=== PATIENT | male | born 1960 | race Caucasian/White ===

== ENCOUNTER → 2024-05-20 | Outpatient (CLI) | payer OTHER, SELFPAY ==
[2024-05-20 10:08] LABS: Absolute Lymphocyte Count 2.46 X10^3/uL (0.83-4.51); Absolute Neutrophil Count 3.4 X10^3/uL (2.0-7.7); Basophil# 0.05 X10^3/uL; Basophil% 0.7 % (0-1); Eosinophil# 0.32 X10^3/uL; Eosinophils% 4.7 % (0-5); Hemoglobin 13.8 g/dL (13.0-16.5); Lymphocyte # 2.46 X10^3/ul (0.83-4.51); Lymphocyte % 36.4 % (19-41); Mean Corp Hgb Conc 33.7 g/dL (32-36); Mean Corpuscular Hgb 29.7 pg (27.0-32.0); Mean Corpuscular Volume 88.2 fL (80-94); Mean Platelet Vol. 10.1 fl (6.2-12.0); Monocyte# 0.48 X10^3/uL; Monocyte% 7.1 % (0-10); NRBC Flagged by Analyzer 0 % (0-5); Neutrophil # 3.42 X10^3/uL (2.7-7.7); Neutrophil % 50.7 % (47-70); Platelet Count 266 K/mm3 (150-450); RBC Distribution Width CV 13.1 % (11.6-14.6); RBC Distribution Width SD 42.2 fl (35.1-43.9); Red Blood Count 4.65 M/mm3 (4.6-6.2); White Blood Count 6.8 K/mm3 (4.4-11.0)
[2024-05-20 10:42] LABS: ALB/GLOB Ratio 1.2 RATIO (0.9-2.4); AST(SGOT) 18 U/L (15-37); Alanine Aminotransfer ALT/SGPT 30 U/L (16-61); Albumin, Serum 3.8 g/dL (3.2-5.0); Alkaline Phosphatase 89 U/L (45-117); Anion Gap 5 (5-15); BUN 10 mg/dL (7-18); BUN/Creat Ratio 8.2 RATIO (10-20); Chloride 110 mmol/L (98-107); Cholesterol 187 mg/dL (200); Creatinine, Serum 1.22 mg/dL (0.70-1.30); EST Glomerular Filtration Rate 64 mL/min (>60); Est Glom Filt Rate - Afr Amer 77 mL/min (>60); Globulin 3.3 g/dL (2.2-4.2); Glucose 105 mg/dL (74-106); High Density Lipoprotein 44 mg/dL; Potassium 4.1 mmol/L (3.5-5.1); Protein, Total 7.1 g/dL (6.4-8.2); Sodium Level 141 mmol/L (136-145); Triglycerides 175 mg/dL; Very Low Density Lipoprotein 35 mg/dL (5-40)
[2024-05-20 13:12] LABS: HIV - WCH Non-Reactive (Nonreactive); Hepatitis C Antibody Non-Reactive (Nonreactive)
== END | disposition home or self-care (01) ==
PROVIDERS: PCP Family Medicine; Visit Provider Family Medicine
DX: Z00.00 Encounter for general adult medical examination without abnormal findings (principal); Z12.5 Encounter for screening for malignant neoplasm of prostate; Z13.1 Encounter for screening for diabetes mellitus; Z11.4 Encounter for screening for human immunodeficiency virus [HIV]; Z13.220 Encounter for screening for lipoid disorders; Z53.20 Procedure and treatment not carried out because of patient's decision for unspecified reasons
CPT/HCPCS: 36415; 80053; 80061; 84153; 85025; 86703; 86803; G0103

== ENCOUNTER → 2024-07-05 | Outpatient (CLI) | payer OTHER, SELFPAY ==
--- NOTE | 2024-07-05 | IMM_PTH ---
PATIENT: CELESTE PIKE LOC: [facility] U#:[id number] AGE/SX: 63/M ROOM: RE07/05/[address]: Dr. Eduardo Lynne MD : 1960 BED: DIS: 07/05/2024 SPEC #: [id number] RECD: 07/07/24 11:34 STATUS: STEPHANI REQ #: [id number] BESSY: 07/05/24 00:[address]: Eduardo Lynne DEPT: IMMUNOHISTOCHEMISTRY RECD BY: Bryan Claros ENTERED: 07/07/24 11:35 SP TYPE: IMMUNO OTHR DR: Beata Wing MD Tissues: A - PROSTATE RIGHT B - PROSTATE RIGHT C - PROSTATE RIGHT E - PROSTATE LEFT F - PROSTATE LEFT Procedures: 34BE12 (add) P40 (add) P40 (initial) PHYSICIAN & INSTITUTION [place] [id number] SPECIMEN INFORMATION: Tissue Source: A- Right apex, B- Right mid, C- Right base, E- Left mid, F- Left base Clinical Info: Elevated PSA Specimen Number: [id number] A, B, C, E ,F CPT code: 79800,99527e6 METHODOLOGY: Deparaffinized sections of prefer/formalin-fixed tissue or PAP/DQ stained slides are incubated with monoclonal/polyclonal antibodies/oligonucleotide probes. Localization is made via biotin free immunoperoxidase method. Appropriate controls are performed and reacted as expected. Results on target cell population are indicated in the following table: RESULTS: ANTIBODY / CLONE RESULT Block A P40 (BC28) negative 34BE12 (34BE12) negative Block B P40 (BC28) positive 34BE12 (34BE12) positive Block C P40 (BC28) positive 34BE12 (34BE12) positive Block E P40 (BC28) negative 34BE12 (34BE12) negative Block F P40 (BC28) negative 34BE12 (34BE12) negative These tests were developed and their performance characteristics determined by [facility]. They may not have been cleared or approved by the U.S. Food and Drug Administration. The FDA has determined that such clearance or approval is not necessary. The above immunohistochemical/dualISH markers are ordered and reviewed by the Pathologist. INTERPRETATION: A. Prostate, right apex, core biopsy: Adenocarcinoma. B. Prostate, right mid, core biopsy: Focal high-grade prostatic intraepithelial neoplasia (HGPIN). C. Prostate, right base, core biopsy: Focal high-grade prostatic intraepithelial neoplasia (HGPIN). E. Prostate, left mid, core biopsy: Adenocarcinoma. F. Prostate, left base, core biopsy: Adenocarcinoma. RADHA/mr 07/08/2024
--- NOTE | 2024-07-05 | PROSBIL_PTH ---
PATIENT: CELESTE PIKE LOC: [facility] U#:[id number] AGE/SX: 63/M ROOM: RE07/05/[address]: Dr. Eduardo Lynne MD : 1960 BED: DIS: 07/05/2024 SPEC #: [id number] RECD: 07/05/24 15:00 STATUS: STEPHANI EUSEBIO #: [id number] BESSY: 07/05/24 00:[address]: Eduardo Lynne DEPT: SURGICAL PATHOLOGY RECD BY: Alejandro Gibson ENTERED: 07/06/24 08:03 SP TYPE: PROST BX OT DR: Beata Wing MD Tissues: A - PROSTATE RIGHT B - PROSTATE RIGHT C - PROSTATE RIGHT D - PROSTATE LEFT E - PROSTATE LEFT F - PROSTATE LEFT Procedures: PROSTATE BX HEADER OPERATION: Prostate biopsy PRE-OP DIAGNOSIS: Elevated PSA TISSUE SUBMITTED: A - Right apex, B - Right mid, C - Right base, D - Left apex, E - Left mid, F - Left base MICROSCOPIC DIAGNOSIS A. Right prostate, apex, core biopsy: Prostatic adenocarcinoma. Lalo grade: 3+3=6 Number of cores involved: 1/2 Proportion of tissue involved: <5% Perineural invasion: Not identified. Greatest tumor length: <0.1cm See comment. B. Right prostate, mid, core biopsy: Focal high-grade prostatic intraepithelial neoplasia (HGPIN). See comment. C. Right prostate, base, core biopsy: Focal high-grade prostatic intraepithelial neoplasia (HGPIN). See comment. D. Left prostate, apex, core biopsy: Prostatic adenocarcinoma. Lalo grade: 3+3=6 Number of cores involved: 1/2 Proportion of tissue involved: ~15-20% Perineural invasion: Not identified. Greatest tumor length: 0.7cm E. Left prostate, mid, core biopsy: Prostatic adenocarcinoma. Lalo grade: 3+4=7 Number of cores involved: 2/2 Proportion of tissue involved: ~15% Perineural invasion: Not identified. Greatest tumor length: 0.4 cm See comment. F. Left prostate, base, core biopsy: Prostatic adenocarcinoma. Lalo grade: 3+4=7 Number of cores involved: 2/2 Proportion of tissue involved: ~30% Perineural invasion: Present, focal Greatest tumor length: 1.2cm, discontinuous. SJ 07/07/2024 COMMENT A, B, C, E & F. Immunohistochemistry ([id number]) supports the above diagnosis. Case has been reviewed in consultation with Dr. Terrazas who concurs with the above diagnosis. IDC:AM MICROSCOPIC DESCRIPTION Slides are reviewed. GROSS DESCRIPTION A - Received is one container designated prostate, right apex. The specimen consists of two elongated fragments of light lynch-white soft tissue each measuring 2.0 cm in length and 0.1 cm in diameter. The specimen is totally submitted in one cassette. B - Received is one container designated prostate, right mid. The specimen consists of two elongated fragments of light lynch-white soft tissue each measuring 1.8 cm in length and 0.1 cm in diameter. The specimen is totally submitted in one cassette. C - Received is one container designated prostate, right base. The specimen consists of two elongated fragments of light lynch-white soft tissue each measuring 1.9 cm in length and 0.1 cm in diameter. The specimen is totally submitted in one cassette. D - Received is one container designated prostate, left apex. The specimen consists of two elongated fragments of light lynch-white soft tissue measuring 1.2 and 2.4 cm in length and 0.1 cm in diameter. The specimen is totally submitted in one cassette. E - Received is one container designated prostate, left mid. The specimen consists of two elongated fragments of light lynch-white soft tissue measuring 1.2 and 1.5 cm in length and 0.1 cm in diameter. The specimen is totally submitted in one cassette. F - Received is one container designated prostate, left base. The specimen consists of two elongated fragments of light lynch-white soft tissue measuring 1.5 and 1.7 cm in length and 0.1 cm in diameter. The specimen is totally submitted in one cassette. / RADHA/ 07/06/2024 TC:0 CPT: 84174 x6
== END | disposition home or self-care (01) ==
LOC: LABSPEC 15:35
PROVIDERS: PCP Family Medicine; Referring Provider Urology; Visit Provider Urology
DX: R97.20 Elevated prostate specific antigen [PSA] (principal)
CPT/HCPCS: 88305; 88341; 88342; G0416

== ENCOUNTER → 2024-07-22 | Outpatient (CLI) | payer OTHER, SELFPAY ==
--- NOTE | 2024-07-22 07:56 | CT_ITS ---
STUDY: CT ABDOMEN AND PELVIS WITH CONTRAST REASON FOR EXAM: Male, 63 years old. PROSTATE CA RADIATION DOSAGE (If Supplied By Facility): CTDIvol = ( 14.70 ) mGy, DLP = ( 914.98 ) mGycm TECHNIQUE: Transaxial images were obtained from the dome of the diaphragm to the symphysis pubis with oral contrast. Oral and amp; IV Readi-CAT and amp; 100mL Isovue-300 was administered. Sagittal and coronal images were reconstructed. Individualized dose optimization techniques were used for this CT. COMPARISON: None. FINDINGS: The visualized lung bases are unremarkable. Coronary artery calcification. There is decreased attenuation of the liver consistent with steatosis. Normal gallbladder and extrahepatic biliary system. Normal spleen. Normal pancreas. Normal bilateral adrenal glands. Normal right kidney. Normal left kidney. There is a small hiatal hernia. Normal small intestine. Normal colon. The appendix is visualized and appears normal. There is scattered atherosclerotic calcification of the abdominal aorta, without a demonstrated aneurysm. Normal inferior vena cava. There is a small retroperitoneal lymphadenopathy with enlarged nodes no greater than 10mm in the short axis diameter. Normal urinary bladder. There is enlargement of the prostate gland. Prostate measures 4.2 cm x 4.2 cm. Calcifications are seen within it. There is indentation of the bladder base. Normal abdominal wall. There are mild degenerative changes of the visualized lumbar spine. CT/Abdomen/Pelvis WITH Contrast IMPRESSION: Mild enlargement of the prostate gland. Fatty infiltration of the liver. Electronically Signed: Melvin Upton MD at 12:27 EDT ,
[2024-07-22 08:25] LABS: CREATININE FINGERSTICK < 1.0 mg/dL (0.70-1.30); EGFR FINGERSTICK > 60.0000 mL/min (>60)
== END | disposition home or self-care (01) ==
LOC: CT 07:54
PROVIDERS: PCP Family Medicine; Referring Provider Urology; Visit Provider Urology
DX: Z01.812 Encounter for preprocedural laboratory examination (principal); C61 Malignant neoplasm of prostate
CPT/HCPCS: 74177; Q9967

== ENCOUNTER → 2024-07-28 | Outpatient (CLI) | payer OTHER, SELFPAY ==
--- NOTE | 2024-07-28 08:00 | NM_ITS ---
CLINICAL: 63-year-old male with history of prostate carcinoma. WHOLE BODY 99m Tc MDP RADIONUCLIDE BONE SCINTIGRAPHY COMPARISON: CT of the abdomen-pelvis report 07/22/2024 FINDINGS: Following the intravenous administration of 24.3 mCi of 99m Tc MDP, whole body bone images reveal: 1. Increased tracer uptake is identified in the knee articulations bilaterally, left hip, the mid cervical spine posteriorly on the left, fifth lumbar vertebra posteriorly on the right, the sternoclavicular compartment of the right shoulder, the acromioclavicular compartment of the left shoulder, the right wrist, the bilateral ankles (L > R). 2. The remaining skeletal structures are scintigraphically unremarkable with normal-appearing renal images and urinary bladder activity identified. Enhanced uptake is visualized in the bilateral proximal-distal tibial diaphyses most consistent with periostitis. NM/Bone Scan Whole Body IMPRESSION: 1. The increase in tracer defined in the knees bilaterally, the cervical and lumbar spine, left hip, the bilateral shoulders, right wrist and ankle articulations is most consistent with degenerative arthritis. 2. There is no definitive typical scintigraphic evidence of diffuse axial skeletal metastatic disease on the current examination. Electronically Signed: Kris Alexandre DO at 10:39 EDT ,
== END | disposition home or self-care (01) ==
LOC: NM 07:49
PROVIDERS: PCP Family Medicine; Referring Provider Urology; Visit Provider Urology
DX: C61 Malignant neoplasm of prostate (principal)
CPT/HCPCS: 78306; A9503

== ENCOUNTER → 2024-08-08 | Outpatient (CLI) | payer OTHER, SELFPAY | END | disposition home or self-care (01) | LOC: LAB 10:27 | PROVIDERS: PCP Family Medicine; Referring Provider Nurse Practitioner; Visit Provider Nurse Practitioner | DX: C61 Malignant neoplasm of prostate (principal) | CPT/HCPCS: 36415; 84153 ==

== ENCOUNTER 2024-09-07 07:56 | Observation (INO) | payer OTHER, SELFPAY ==
[2024-09-01 07:28] LABS: Hematocrit 42.4 % (40-54); Hemoglobin 14.3 g/dL (13.0-16.5); Mean Corp Hgb Conc 33.7 g/dL (32-36); Mean Corpuscular Hgb 29.7 pg (27.0-32.0); Mean Platelet Vol. 9.4 fl (6.2-12.0); Platelet Count 293 K/mm3 (150-450); RBC Distribution Width CV 12.7 % (11.6-14.6); RBC Distribution Width SD 41.1 fl (35.1-43.9); Red Blood Count 4.82 M/mm3 (4.6-6.2); White Blood Count 8.6 K/mm3 (4.4-11.0)
[2024-09-07] VITALS (18 sets, daily range): BP systolic 95–145; BP diastolic 66–91; PULSE 80–100; RESP 16–20; TEMP 36.2–37.8; O2SAT 93–100; BMI 26.6
[2024-09-07] MEDS: Lactated Ringers 1,000 ML 15 ML IV (06:39)
[2024-09-07] MEDS: Cefazolin 2 GM in Syringe IV (07:55)
[2024-09-07] MEDS: Bupivacaine Mpf 0.5% 30 ML VIAL (08:19)
[2024-09-07] MEDS: Ketorolac 15 MG/ML Vial IV ×2 (12:13→17:41)
[2024-09-07] MEDS: Ciprofloxacin 500 MG Tablet PO ×2 (14:04→22:26)
[2024-09-07] MEDS: 0.9% Saline Lock 10 ML Syringe IV (17:41)
[2024-09-07] MEDS: Docusate Sodium 100 MG Capsule 200 MG PO (22:26)
[2024-09-07] MEDS: DiphenhydrAMINE 25 MG Capsule PO (22:26)
[2024-09-08] MEDS: Ketorolac 15 MG/ML Vial IV ×2 (00:24→05:58)
[2024-09-08 02:30] VITALS: BP 117/66; PULSE 68; RESP 16; TEMP 36.6; O2SAT 98
[2024-09-08] MEDS: Mag Hydrox/Al Hydrox/Simeth 30 ML UDC PO (03:53)
[2024-09-08] MEDS: hydrOXYzine PAM 25 MG Capsule PO (03:55)
[2024-09-08] MEDS: 0.9% Saline Lock 10 ML Syringe IV (05:58)
[2024-09-08 06:11] VITALS: BP 131/67; PULSE 82; RESP 18; TEMP 36.6; O2SAT 92
[2024-09-08 07:57] VITALS: BP 117/70; PULSE 77; RESP 18; TEMP 36.8; O2SAT 97
[2024-09-08] MEDS: Docusate Sodium 100 MG Capsule 200 MG PO (09:15)
[2024-09-08] MEDS: Ciprofloxacin 500 MG Tablet PO (09:15)
[2024-09-08] MEDS: Acetaminophen 325 MG Tablet 650 MG PO (09:17)
== END 2024-09-08 11:21 | disposition home or self-care (01) ==
LOC: SDC 13:02 → MS3 13:02
PROVIDERS: Anesthesiology; Admitting Provider Urology; PCP Family Medicine; Referring Provider Urology; Visit Provider Urology
PROC: 0VT04ZZ Resection of Prostate, Percutaneous Endoscopic Approach (ICD-10-PCS; CPT 55866; principal; 2024-09-07 07:40)
DX: C61 Malignant neoplasm of prostate (principal); E78.00 Pure hypercholesterolemia, unspecified; Z79.899 Other long term (current) drug therapy
CPT/HCPCS: 55866; 00865; 36415; 85027; 86850; 86900; 86901; 88309; 93005; 94668; 96374; 96376; 99221; J7120; A4216; C1769; G0378; J2405

== ENCOUNTER → 2024-10-31 | Outpatient (CLI) | payer OTHER, SELFPAY ==
[2024-10-31 11:44] LABS: PSA,Total- Diagnostic 5.12 ng/mL (0.0-4.0)
== END | disposition home or self-care (01) ==
LOC: LAB 08:56
PROVIDERS: PCP Family Medicine; Referring Provider Urology; Visit Provider Urology
DX: C61 Malignant neoplasm of prostate (principal)
CPT/HCPCS: 36415; 84153

== ENCOUNTER → 2024-11-07 | Outpatient (CLI) | payer OTHER, SELFPAY ==
[2024-11-07 10:26] LABS: Hematocrit 41.4 % (40-54); Mean Corp Hgb Conc 33.8 g/dL (32-36); Mean Corpuscular Hgb 29.7 pg (27.0-32.0); Mean Corpuscular Volume 87.7 fL (80-94); Mean Platelet Vol. 9.6 fl (6.2-12.0); Platelet Count 256 K/mm3 (150-450); RBC Distribution Width SD 42.2 fl (35.1-43.9); Red Blood Count 4.72 M/mm3 (4.6-6.2); White Blood Count 7.8 K/mm3 (4.4-11.0)
[2024-11-07 11:01] LABS: ALB/GLOB Ratio 1.3 RATIO (0.9-2.4); AST(SGOT) 15 U/L (15-37); Alanine Aminotransfer ALT/SGPT 28 U/L (16-61); Albumin, Serum 3.9 g/dL (3.2-5.0); Alkaline Phosphatase 98 U/L (45-117); Anion Gap 4 (5-15); BUN 10 mg/dL (7-18); BUN/Creat Ratio 9.3 RATIO (10-20); Calcium,Total 9.1 mg/dL (8.5-10.1); Chloride 108 mmol/L (98-107); Creatinine, Serum 1.07 mg/dL (0.70-1.30); EST Glomerular Filtration Rate 74 mL/min (>60); Est Glom Filt Rate - Afr Amer 90 mL/min (>60); Globulin 3.1 g/dL (2.2-4.2); Glucose 127 mg/dL (74-106); Potassium 4.2 mmol/L (3.5-5.1); Sodium Level 139 mmol/L (136-145)
[2024-11-08 13:33] LABS: Hemoglobin A1c 5.9 % (3.8-5.6)
[2024-11-09 14:02] LABS: PSA,Total- Diagnostic 5.17 ng/mL (0.0-4.0)
== END | disposition home or self-care (01) ==
LOC: LAB 09:48
PROVIDERS: PCP Family Medicine; Referring Provider Urology; Visit Provider Urology
DX: C61 Malignant neoplasm of prostate (principal); R73.09 Other abnormal glucose; R97.20 Elevated prostate specific antigen [PSA]; R53.83 Other fatigue
CPT/HCPCS: 36415; 80053; 83036; 84153; 84443; 85027

== ENCOUNTER → 2024-11-15 | Outpatient (CLI) | payer OTHER, SELFPAY ==
--- NOTE | 2024-11-15 10:30 | PET_ITS ---
EXAMINATION: 18 F Pylarify PET-CT HISTORY: A 63-year-old male with history of primary prostate carcinoma presenting for restaging examination. COMPARISON EXAMINATION: None available INDEX LESION SIZE PROMISE SCORE SUV INTERPRETATION Lower pelvis, prostate gland 21.4-mm 2 17.36 Fulfills quantitative criteria for viable neoplasm TECHNIQUE: Following the intravenous administration of 9.0 mCi of 18 F Pylarify via the left antecubital fossa, image acquisitions of the head, neck, chest, abdomen and pelvis to the level of the mid thigh at 73 minutes post-tracer distribution reveal: The examination was interpreted using the EANM (Melody et al., Journal of Nuclear Medicine Molecular Imaging 44:1622, 2017) and PROMISE (Braulio et al., Journal of Nuclear Medicine 59:469, 2018) interpretive criteria. HEIGHT: 68 inches. WEIGHT: 175 lbs. PSMA expression score PROMISE criteria: High (3): SUV ? parotid-salivary gland, intermediate (2): SUV ? liver, low (1): > blood pool, < liver, (0): < blood pool. SUV reference values: Parotid glands 49.67. Normal liver parenchyma 9.2. Blood pool 2.8. FINDINGS: Head/Neck: There is normal physiologic distribution of the radiopharmaceutical identified in the bilateral parotid and submandibular glands. Normal uptake is identified in the nasal cavity. There is no evidence of abnormal increased radiopharmaceutical concentration on meticulous inspection of the cranial vault. CHEST: There is no evidence of abnormal increased radiotracer within the context of the bilateral hemithorax pulmonary parenchyma, mediastinal structures and right-left thoracic perihilum. Pertinent chest CT findings are as follows. Coronary arterial calcification is observed. Subcentimeter axillary soft tissue densities are ametabolic. There are no parenchymal densities-nodules defined in the right and left hemithorax with quantitatively significant increased F-18 Pylarify uptake. Abdomen/Pelvis: Facilitated uptake is noted in the lower pelvis associated with the prostate gland extending from the midline apex to the left base. The calculated maximal standard uptake value is 17.36. The PROMISE score is 2. The maximal axial diameter of the metabolic abnormality is 21.4-mm. Physiologic radiopharmaceutical concentration is otherwise noted in the hepatic and splenic parenchyma, visualized intestinal tract, right and left kidneys, urinary bladder. Review of CT of the abdomen and pelvis reveals the following. Calcified phlebolith formation is noted in the bilateral lower hemipelvis. Right and left inguinal soft tissue densities are ametabolic. There is atherosclerotic calcification defined in the abdominal aorta without evidence of dilatation-aneurysm formation. Pelvic arterial calcification is observed. SKELETAL: Degenerative changes are noted in the cervical, thoracic and lumbar spine without evidence of increased radiopharmaceutical concentration. PET/PET/CT Tumor Base -Thigh Subs IMPRESSION: 1. ABNORMAL EXAMINATION INDICATIVE OF MALIGNANT VIABLE NEOPLASM. 2. Increased tracer uptake noted in the lower pelvis associated with the prostate gland fulfills quantitative criteria for viable neoplasm. (Eiber et al., Journal of Nuclear Medicine 59:469, 2018). Electronic Signature Kris Alexandre DO Accurate Quantification of SUVs and standardized PROMISE scores for this report are calculated using the exclusive [employer], ([place].S. Patent No. [phone] [id number] [phone] [phone] [place] patent [id number] [phone] [id number] ). Standardization and correction of the FDG SUV metric exclusively available with [employer] intellectual property, allow for vendor non-specific objective quantitative sequential FDG PET-CT comparison and otherwise unobtainable optimization of the sensitivity and specificity of the examination. [email or web address] Electronically Signed: Kris Alexandre DO at 23:29 EST ,
== END | disposition home or self-care (01) ==
LOC: ONC 10:17
PROVIDERS: PCP Family Medicine; Referring Provider Urology; Visit Provider Urology
DX: C61 Malignant neoplasm of prostate (principal)
CPT/HCPCS: 78815; A9595

== ENCOUNTER 2024-12-07 06:11 | Day surgery (SDC) | payer OTHER, SELFPAY ==
[2024-12-07] VITALS (8 sets, daily range): BP systolic 86–138; BP diastolic 61–77; PULSE 60–78; RESP 12–18; TEMP 35.9–36.6; O2SAT 96–100; BMI 26.4
--- NOTE | 2024-12-07 06:48 | PRE.ANES_ITS ---
ASA Classification* ASA Classification ASA Classification: 2 Assessment & Plan Anesthesia* Anesthesia Assessment Anesthesia Assessment: Discussed sedation and/or anesthesia options, risks, benefits, and alternatives with patient/parents/legal guardian/POA. Questions invited. The patient/parents/legal guardian/POA seems to understand and agrees to proceed with anesthesia plan. Reviewed the physical assessment, medical history, allergy history and patient home medications list prior to surgery/procedure/anesthetic and documented any changes. Performed airway and anesthesia risk assessments. Anesthesia Type Anesthesia Type: MAC Anesthesia Focused Assessment* Temperature: 97.8 F Pulse Rate: 78 Blood Pressure: 138/77 Respiratory Rate: 16 Pulse Ox: 100 Airway Assessment Mouth opens: >3 cm Mallampati Score: II Focused Labs Anesthesia Preop lab: CBC WBC 7.8 K/mm3 (4.4-11.0) 11/07/24 09:55 11/07/24 RBC 4.72 M/mm3 (4.6-6.2) 11/07/24 09:55 11/07/24 Hgb 14.0 g/dL (13.0-16.5) 11/07/24 09:55 11/07/24 Hct 41.4 % (40-54) 11/07/24 09:55 11/07/24 Plt Count 256 K/mm3 (150-450) 11/07/24 09:55 11/07/24 CHEMISTRY Potassium 4.2 mmol/L (3.5-5.1) 11/07/24 09:55 11/07/24 Sodium 139 mmol/L (136-145) 11/07/24 09:55 11/07/24 BUN 10 mg/dL (7-18) 11/07/24 09:55 11/07/24 Creatinine 1.07 mg/dL (0.70-1.30) 11/07/24 09:55 11/07/24 Glucose 127 mg/dL (74-106) H 11/07/24 09:55 11/07/24 TSH 2.210 uIU/mL (0.358-3.740) 11/07/24 09:55 10/26 01/17 COAG Pre-Assessment Diagnosis/Proposed Procedure Planned Operative Procedure(s): COLONOSCOPY OA Anesthesia History Anesthesia History - electronic assembler group leader: Anesthesia History - electronic assembler group leader Hx Hospitalization No 12/05/24 14:35 Any Problems With Anesthesia No 12/05/24 14:35 Cholinesterase deficiency No 12/05/24 14:35 You/Your Family Experience No 12/05/24 14:35 fever (hyperthermia) with Relationship Recent Exposure to Contagious No 12/07/24 06:39 Disease Does patient have nerve No 12/05/24 14:35 stimulator Patient instructed to have device shut off --Does patient have Pacemaker No 12/07/24 06:39 or ICD? When Was Last Pacemaker Check QUESTION #4 FULL TEXT: You/Your Family Experience fever (hyperthermia) with Anesthesia Last Oral Intake Last Oral intake: Last Oral Intake NPO since 05:30 12/07/24 06:39 Meds taken in AM with sips of No 12/07/24 06:39 water? Meds patient instructed to take am of surgery PONV PONV - electronic assembler group leader: PONV - electronic assembler group leader Female No 12/05/24 14:35 HX of Motion Sickness Yes 12/05/24 14:35 HX of N/V After Surgery No 12/05/24 14:35 Non-Smoker Yes 12/05/24 14:35 Duration of Surgery greater No 12/05/24 14:35 than 60 minutes Number of Risk Factors 2 12/05/24 14:35 PONV Score Moderate Risk 12/05/24 14:35 Height & Weight Height & Weight: Anesthesia: Height & Weight Height 5 ft 9 in 12/07/24 06:39 Weight: 81 kg 12/07/24 06:39 Body Mass Index (BMI) 26.4 12/07/24 06:39 Respiratory Assessment Respiratory Assessment - electronic assembler group leader: Respiratory Tract Infection Hx - electronic assembler group leader Hx Respiratory Tract Infection No 12/05/24 14:35 STOP Sleep Apnea STOP Sleep Apnea - electronic assembler group leader: STOP Sleep Apnea - electronic assembler group leader Hx Hypertension No 12/05/24 14:35 Hx Sleep Apnea No 12/05/24 14:35 CPAP BIPAP Do you snore loudly (louder No 12/05/24 14:35 than talking or can be heard Do you often feel tired/ No 12/05/24 14:35 fatigued/ sleepy during daytime? Has anyone observed you stop No 12/05/24 14:35 breathing during sleep? STOP Results Negative 12/05/24 14:35 QUESTION #5 FULL TEXT : Do you snore loudly (louder than talking or can be heard through closed doors)? Tobacco Use History Tobacco Use History - electronic assembler group leader: Tobacco Use History - electronic assembler group leader Tobacco Use Smoking Status Never smoker 12/05/24 14:35 Hx Tobacco Use No 12/05/24 14:35 Years Smoking Packs Smoked per Day Smoking Cessation Date was within the last 15 years Hx Smoking Cessation Date Hx Smoking Cessation Counseling Hematologic Medial History Hematologic Hx - electronic assembler group leader: Hematologic Medical Hx - job interviewer Hx of Blood Transfusion No 12/05/24 14:35 Hx of Transfusion in last 3 No 12/05/24 14:35 Months Date of Last Transfusion (if within last 3 months) Ever experience any problems No 12/05/24 14:35 with transfusion(s)? Specify any problems Hx of Preganancy in last 3 N/A 12/05/24 14:35 Months Nurse Filling Out Transfusion DSCHRIBER 12/05/24 14:35 & Questions: Date: 12/05/24 12/05/24 14:35 Time: 14:35 12/05/24 14:35 Patient unable to answer at this time (ie. confused, unrespo /Reproduction History /Reproductive History - electronic assembler group leader: /Reproductive Hx- electronic assembler group leader Hx Now Gestational Age (in weeks): EDC: Hx Hx Para Hx Section SAB No 12/05/24 14:35 PFSH Medical History Hesitancy of micturition Elevated PSA Incontinence Family history of colon cancer in father Wears glasses Anxiety Prostate disease High cholesterol Difficulty swallowing Heartburn Non-smoker Home Medications ?Medication ?Instructions ?Recorded ?Last Taken ?Type diphenhydramine HCl 25 mg capsule 25 mg PO QHS 2 4 09/06/24 History (Benadryl) hydroxyzine HCl 25 mg tablet 25 mg PO BID PRN PRN anxi ety 08/24/24 Unknown History oxybutynin chloride 5 mg tablet 5 mg PO BID PRN bladde r spasms 10/05/24 Unknown History Allergy/AdvReac Type Severity Reaction Status Date / Time No Known Allergies Allergy Verified 12/07/24 06:38 Family History Father Colon cancer After lung cancer dx Surgical History History of prostatectomy History of prostate biopsy History of tonsillectomy Social History household members: none current occupational status: employed current occupation: [employer] Smoking Status: Never smoker alcohol intake: never substance use type: does not use Review of Systems (Anesthesia) ROS Narrative System reviewed and no additional complaints, except as documented.
--- NOTE | 2024-12-07 07:13 | H&P.OPEN ---
[facility] - General General Date of Service: 12/07/24 HPI Narrative CELESTE PIKE, is a 63 M who presents for screening colonoscopy. Patient's dad had metastatic colon cancer. Patient has never had a colonoscopy. Patient has bowel movements daily denies any blood. Patient denies any chronic abdominal pain/nausea/vomiting/reflux. Patient does have a past medical history significant for prostate cancer with a rising PSA. PFSH Medical History Hesitancy of micturition Elevated PSA Incontinence Family history of colon cancer in father Wears glasses Anxiety Prostate disease High cholesterol Difficulty swallowing Heartburn Non-smoker Home Medications ?Medication ?Instructions ?Recorded ?Last Taken ?Type diphenhydramine HCl 25 mg capsule 25 mg PO QHS 08/24/24 09/06/24 History (Benadryl) hydroxyzine HCl 25 mg tablet 25 mg PO BID PRN PRN anxiety 08/24/24 Unknown History oxybutynin chloride 5 mg tablet 5 mg PO BID PRN bladder spasms 10/05/24 Unknown History Allergy/AdvReac Type Severity Reaction Status Date / Time No Known Allergies Allergy Verified 12/07/24 06:38 Family History Father Colon cancer After lung cancer dx Surgical History History of prostatectomy History of prostate biopsy History of tonsillectomy Social History household members: none current occupational status: employed current occupation: [employer] Smoking Status: Never smoker alcohol intake: never substance use type: does not use Past Medical/Surgical History Planned Operation Planned Operative Procedure(s): COLONOSCOPY OA Previous Hospitalizations/Surgeries HX Hospitalizations: No Any Problems With Anesthesia: No You/Your Family Experience Fever (Hyperthermia) With Anes: No Cholinesterase deficiency: No Cardiovascular Hx Hypertension: No Respiratory Hx Sleep Apnea: No Hx Respiratory Tract Infection/Cold (presently): No Do You Snore Loudly (louder than talking or can be heard): No Do You Often Feel Tired/ Fatigued/ Sleepy Dring Daytime?: No Has Anyone Observed You Stop Breathing During Sleep?: No Result (for STOP score): Negative Smoking Status: Never smoker Neurological Does patient have nerve stimulator: No Miscellaneous Recent Exposure to Contagious Disease: No Allergies No Known Allergies Allergy (Verified 12/07/24 06:38) Discharge Is Pt Admitted From a Penitentiary, or a Care Home: No Who Could Help: FRIEND OR FAMILY After D/C, Where Do you Plan to Go: Return Home Vital Signs Vital Signs Vital Signs: 12/07/24 06:39 12/07/24 06:39 12/07/24 06:48 Temperature 97.8 F 97.8 F Temperature Source Temporal Pulse Rate 78 78 Respiratory Rate 16 16 Respiratory Pattern Normal Blood Pressure 138/77 H 138/77 H Blood Pressure Mean 97 Blood Pressure Source Monitor Blood Pressure Position Sitting Blood Pressure Location Right Arm Pulse Ox 100 100 Oxygen Delivery Method Room Air Weight Weight: 178 lb 9.191 oz Body Mass Index (BMI) 26.4 Physical Exam Const alert, oriented x3 and no apparent distress HEENT normocephalic and head/scalp atraumatic Resp normal respiratory effort Cardio regular rate GI soft to palpation and non-tender; Negative for non-distended Palpation: Negative for guarding Extremity no clubbing, cyanosis or edema Skin no rashes or lesions noted Neuro CN's II-XII intact bilaterally Psych mental status grossly normal Assessment & Plan Assessment/Plan (1) Encounter for screening for malignant neoplasm of colon: Surgery Risks - Colonoscopy I discussed with the patient the risks of the procedure: Yes Risks Include but are not Limited To: Risks include but are not limited to: Bleeding, perforation requiring further surgery, inability to complete colonoscopy requiring barium enema.
--- NOTE | 2024-12-07 08:22 | OP.COLON_ITS ---
Patient Name: Kris Ibrahim Procedure Date: 12/07/2024 7:52 AM Date of : 1960 Age: 63 Procedure: Colonoscopy Indications: Screening for colorectal malignant neoplasm Providers: Tracey Babin MD Referring MD: Beata Wing Md Medicines: Monitored Anesthesia Care Patient Profile: This is a 63 year old male. Last Colonoscopy: none. The patient's first colonoscopy is today. Complications: No immediate complications. Procedure: Pre-Anesthesia Assessment: - Prior to the procedure, a History and Physical was performed, and patient medications and allergies were reviewed. The patient's tolerance of previous anesthesia was also reviewed. The risks and benefits of the procedure and the sedation options and risks were discussed with the patient. All questions were answered, and informed consent was obtained. Prior Anticoagulants: The patient has taken no anticoagulant or antiplatelet agents. ASA Grade Assessment: Per anesthesia. After reviewing the risks and benefits, the patient was deemed in satisfactory condition to undergo the procedure. After I obtained informed consent, the scope was passed under direct vision. Throughout the procedure, the patient's blood pressure, pulse, and oxygen saturations were monitored continuously. The Colonoscope was introduced through the anus and advanced to the cecum, identified by the appendiceal orifice, ileocecal valve and palpation. The colonoscopy was performed without difficulty. The patient tolerated the procedure well. The quality of the bowel preparation was good. Scope In: 8:00:16 AM Scope Withdrawal Time 0 hours 11 minutes 18 seconds Scope Out: 8:17:33 AM Total Procedure Duration Time 0 hours 17 minutes 17 seconds Findings: Hemorrhoids were found on perianal exam. Non-bleeding internal hemorrhoids were found. The hemorrhoids were Grade I (internal hemorrhoids that do not prolapse). The entire examined colon appeared normal. Impression: - Hemorrhoids found on perianal exam. - Non-bleeding internal hemorrhoids. - The entire examined colon is normal. - No specimens collected. Recommendation: - Discharge patient to home. - Resume previous diet. - Continue present medications. - Repeat colonoscopy in 10 years for screening purposes. Procedure Code(s): --- Professional --- G0121, PT, Colorectal cancer screening; colonoscopy on individual not meeting criteria for high risk Diagnosis Code(s): --- Professional --- Z12.11, Encounter for screening for malignant neoplasm of colon K64.0, First degree hemorrhoids CPT copyright 2021 [employer]. All rights reserved. The codes documented in this report are preliminary and upon medical record coder review may be revised to meet current compliance requirements. MD Tracey Chavira MD 12/07/2024 8:21:39 AM This report has been signed electronically. Number of Addenda: 0 Note Initiated On: 12/07/2024 7:52 AM
--- NOTE | 2024-12-07 08:22 | OP.CCLET_ITS ---
12/07/2024 Beata Wing Md Re : Colonoscopy procedure for Kris Ibrahim [place] This procedure was performed on Saturday, December 07, 2024. My impressions and recommendations are as follows: Impressions : - Hemorrhoids found on perianal exam. - Non-bleeding internal hemorrhoids. - The entire examined colon is normal. - No specimens collected. Recommendations : - Discharge patient to home. - Resume previous diet. - Continue present medications. - Repeat colonoscopy in 10 years for screening purposes. My findings are described in the full procedure note, which is enclosed. If I can be of further assistance, please feel free to contact me at Doctor phone number(s): , Work: . Sincerely, MD Tracey Chavira MD 12/07/2024 8:21:39 AM This report has been signed electronically.
--- NOTE | 2024-12-07 08:26 | PCM.POST.ANE ---
Anesthesia: Postop Eval I Current Vital Signs Temperature: 97 F Pulse Rate: 67 Blood Pressure: 91/61 Respiratory Rate: 16 Pulse Ox: 96 Oxygen Delivery Method: Room Air Assessment Airway patent: Yes Spontaneous unlabored respirations: Yes Mental status: Asleep nausea: No Vomiting: No Anesthesia Complication: No Fluid Hydration Crystalloid volume administer (ml): 40 Total IV fluid infused: 40 Progress Note Anesthesia document: Postop Eval 1 completed: Yes
--- NOTE | 2024-12-07 09:57 | PCM.POSTANE2 ---
Anesthesia Postop Eval I Sum Postop Eval Completion status Anesthesia document: Postop Eval 1 completed: Yes Anesthesia Postop Eval I Summary Anesthesia Postop Eval I Summary: Anesthesia Postop Eval I: Assessment Summary Airway patent Yes 12/07/24 08:27 [email or web address] Spontaneous unlabored Yes 12/07/24 08:27 [email or web address] respirations Mental status Asleep 12/07/24 08:27 [email or web address] nausea No 12/07/24 08:27 [email or web address] Vomiting No 12/07/24 08:27 [email or web address] Anesthesia Postop Eval I: Fluid Summary Crystalloid volume administer 40 12/07/24 08:27 [email or web address] (ml) Colloids volume administered ( ml) Blood Product volume administered (ml) Total IV fluid infused 40 12/07/24 08:27 [email or web address] Anesthesia Postop Eval I: Summary Notes Anesthesia Complication No 12/07/24 08:27 [email or web address] Anesthesia Complication Comment: Post-operative progress note Anesthesia: Postop Eval II Evaluation Mental status: Awake Pain Level: 0 nausea: No Vomiting: No
== END 2024-12-07 09:03 | disposition home or self-care (01) ==
LOC: EN 06:12 → AC 06:14
PROVIDERS: PCP Family Medicine; Referring Provider Family Medicine; Visit Provider Surgery
PROC: 0DJD8ZZ Inspection of Lower Intestinal Tract, Via Natural or Artificial Opening Endoscopic (ICD-10-PCS; CPT 45378; principal; 2024-12-07 07:25)
DX: Z12.11 Encounter for screening for malignant neoplasm of colon (principal); K64.0 First degree hemorrhoids; E78.00 Pure hypercholesterolemia, unspecified; Z79.899 Other long term (current) drug therapy; Z80.0 Family history of malignant neoplasm of digestive organs
CPT/HCPCS: 45378; A4216; J2405

== ENCOUNTER → 2025-01-03 | Outpatient (CLI) | payer OTHER, SELFPAY ==
--- NOTE | 2025-01-03 17:02 | MRI_ITS ---
PROCEDURE: PELVIS W/WO CONTRAST (MRIPELWW), 01/03/2025 REASON FOR EXAM: EVAL FOR PELVIC RECURRENCE OF PROSTATE CANCER TECHNIQUE: Multisequence multiplanar MRI pelvis was performed with and without IV contrast. CONTRAST: 15 mL Clariscan COMPARISON: None FINDINGS: Variable overall mild motion limitation with some sequences being mild/moderately motion degraded.. Note dynamic postcontrast imaging was not performed. Radical prostatectomy with T2 dark likely scarring in the prostatectomy bed, evaluation of which is somewhat limited in the absence of dynamic postcontrast imaging. In this region closely associated with the bladder neck, there is T2 intermediate nodular soft tissue thickening measuring roughly 1.4 cm demonstrating restricted diffusion and enhancement on static postcontrast imaging (series 8 image 15). A few punctate foci of restricted diffusion along the seminal vesicle resection bed and neurovascular bundle are indeterminate but may reflect tiny nonenlarged lymph nodes, up to 4 mm (for example, series 8, image 10 and 12). Bladder: As above. Otherwise, underdistended and suboptimally evaluated. Bladder wall thickening versus underdistention as well as trabeculation, suggesting possible chronic bladder outlet obstruction. Lymph nodes: Prominent but nonenlarged right external iliac node by PI-RADS criteria, 7 mm short axis. Bones: No destructive or frankly suspicious bony lesions identified. Other: Lumbar facet arthropathy.. MRI/Pelvis W/WO Contrast IMPRESSION: 1. Prostatectomy with likely scarring in the operative bed. A 1.4 cm nodular s ignal abnormality within the resection bed along the left anterolateral bladder neck is suspicious for a possible site of local recurrence. Clinical follow-up recommended. 2. Additional punctate nodular foci along the seminal vesicle resection beds/ne urovascular bundles are indeterminate and may reflect tiny nonenlarged lymph nodes. Comparison with preoperative imaging may be helpful., otherwise recommend attention on follow-up. PSMA PET/CT could also be considered, as indicated. 3. No overt pelvic lymphadenopathy. Prominent but nonenlarged right external i liac node by PI-RADS criteria may be reactive. 4. Additional description as above. Reading Location: [id number]
== END | disposition home or self-care (01) ==
PROVIDERS: PCP Family Medicine; Referring Provider Student in an Organized Health Care Education/Training Program; Visit Provider Student in an Organized Health Care Education/Training Program
DX: R97.21 Rising PSA following treatment for malignant neoplasm of prostate (principal)
CPT/HCPCS: 72197; A9575

== ENCOUNTER 2025-02-28 03:49 | Inpatient (IN) | payer OTHER, SELFPAY ==
[2025-02-28] VITALS (34 sets, daily range): BP systolic 98–179; BP diastolic 58–110; PULSE 64–91; RESP 12–20; TEMP 36.1–36.9; O2SAT 95–100; BMI 27.1
--- NOTE | 2025-02-28 03:55 | EKG12_ITS ---
Test Reason : CP Blood Pressure : */* mmHG Vent. Rate : 82 BPM Atrial Rate : 82 BPM P-R Int : 156 ms QRS Dur : 68 ms QT Int : 374 ms P-R-T Axes : 49 39 -19 degrees QTcB Int : 436 ms Normal sinus rhythm Low voltage QRS nssttw-? inferior ischemia Confirmed by Jim Mcdonnell ([id number]), book or script editor CHITO KLEIN ([id number]) on 03/03/2025 12:00:35 PM Referred By: LIS Confirmed By: Jim Mcdonnell
--- NOTE | 2025-02-28 03:56 | ED.VIS.CHEST ---
HPI History of Present Illness Chief Complaint: Chest Pain Informant: patient Narrative Narrative: Chest pain midsternal waking him from sleep 25 minutes prior to arrival. Combination tightness and sharp pain. Feels some pain down his left arm. Nausea feel he can throw up. No cardiac history. History of hyperlipidemia. Denies tobacco no family history of MIs young age. Denies hypertension or diabetes. Diagnosed with recent prostate cancer had prostatectomy this past August finished radiation therapy this past . No history of PE or DVT. No recent cough. States he feels like I am going to pass out. He drove himself here. Reports symptoms 9 out of 10. Stress test years ago. No history of heart caths. Prior Similar Symptoms: No CVD Risk Factors: Positive for Hypercholesterolemia; Negative for Hypertension, Diabetes, Family History 1' </=55 or Smoking PE Risk Factors: Positive for Cancer; Negative for Recent Travel/Surgery, Recent Immobilization, Prior DVT or PE or OCP + Smoking + >/=35 PFSH PFSH Medical History Prostate cancer Hesitancy of micturition Elevated PSA Incontinence Family history of colon cancer in father Wears glasses Anxiety Prostate disease High cholesterol Difficulty swallowing Heartburn Non-smoker Home Medications ?Medication ?Instructions ?Recorded ?Last Taken ?Type diphenhydramine HCl 25 mg capsule 25 mg PO QHS 08/24/24 09/06/24 History (Benadryl) hydroxyzine HCl 25 mg tablet 25 mg PO BID PRN PRN anxiety 08/24/24 Unknown History oxybutynin chloride 5 mg tablet 5 mg PO BID PRN bladder spasms 10/05/24 Unknown History lorazepam 1 mg tablet 1 mg PO ONCE PRN anxiety #1 TAB 12/28/24 Unknown Rx Allergy/AdvReac Type Severity Reaction Status Date / Time No Known Allergies Allergy Verified 02/28/25 03:50 Family History Father Colon cancer After lung cancer dx Surgical History History of prostatectomy History of prostate biopsy History of tonsillectomy Social History household members: none current occupational status: employed current occupation: [employer] Smoking Status: Never smoker alcohol intake: never substance use type: does not use ROS ROS ED Constitutional Constitutional ED: Denies chills, fever(s) or sweats ENT ENT ED: Denies sore throat Cardiovascular Cardiovascular: Reports chest pain; Denies leg edema, palpitations or racing heartbeat Respiratory/Chest Respiratory/Chest: Denies cough, dyspnea or dyspnea on exertion Gastrointestinal Gastrointestinal: Reports nausea; Denies abdominal pain, diarrhea or vomiting Genitourinary Genitourinary ED: Denies dysuria, hematuria or urinary frequency Musculoskeletal Musculoskeletal: Denies back pain, extremity pain or neck pain Integumentary Denies rash or wounds Neurologic Neurologic: Denies headache(s), paresthesias or weakness EXAM Physical Exam Const Vital Signs: 02/28/25 03:50 02/28/25 03:57 02/28/25 04:17 Temperature 97 F L Temperature Source Axillary Pulse Rate 91 75 Respiratory Rate 20 H Blood Pressure 168/110 H 179/95 H Blood Pressure Mean 129 Blood Pressure Source Blood Pressure Position Blood Pressure Location Pulse Ox 100 100 Oxygen Delivery Method Room Air Room Air 02/28/25 04:22 02/28/25 04:28 02/28/25 04:46 Temperature Temperature Source Pulse Rate 70 68 65 Respiratory Rate Blood Pressure 145/93 H 130/81 H 120/76 Blood Pressure Mean 90 Blood Pressure Source Monitor Blood Pressure Position Semi-Fowlers Blood Pressure Location Right Arm Pulse Ox Oxygen Delivery Method 02/28/25 04:50 02/28/25 05:04 02/28/25 05:27 Temperature Temperature Source Pulse Rate 64 Respiratory Rate 16 Blood Pressure 120/76 135/77 H 131/85 H Blood Pressure Mean 90 96 100 Blood Pressure Source Monitor Monitor Blood Pressure Position Semi-Fowlers Semi-Fowlers Blood Pressure Location Right Arm Right Arm Pulse Ox 98 Oxygen Delivery Method Room Air 02/28/25 05:37 02/28/25 05:59 02/28/25 06:00 Temperature Temperature Source Pulse Rate 67 Respiratory Rate 18 Blood Pressure 122/80 H 128/74 H 128/74 H Blood Pressure Mean 94 92 92 Blood Pressure Source Monitor Monitor Blood Pressure Position Semi-Fowlers Semi-Fowlers Blood Pressure Location Right Arm Right Arm Pulse Ox 97 Oxygen Delivery Method Room Air 02/28/25 06:29 Temperature Temperature Source Pulse Rate Respiratory Rate Blood Pressure 122/75 H Blood Pressure Mean 90 Blood Pressure Source Monitor Blood Pressure Position Semi-Fowlers Blood Pressure Location Right Arm Pulse Ox Oxygen Delivery Method Positive well nourished and well developed Constitutional Narrative: Nontoxic, slightly anxious. General Appearance ED: well developed and NAD HEENT Reports moist mucous membranes normocephalic and atraumatic Eyes General Eye ED: Yes normal appearance of both eyes Neck full ROM Chest Wall Chest: Negative for tenderness Resp normal respiratory effort and normal air movement Resp Narrative: Symmetric breath sounds. Effort and Inspection: symmetric chest movement; Negative for respiratory distress Cardio regular rate, regular rhythm and no murmurs Peripheral Pulses: pulses 2+ throughout GI normal to inspection, nondistended, normoactive bowel sounds and non-tender Palpation: Negative for guarding or rebound tenderness present Extremity normal to inspection General Extremety ED: Negative for edema or tenderness General Extremity: Negative for edema Neuro oriented x3 and no sensory deficits noted Sensorium / Orientation: awake and alert Skin no rashes or lesions noted and no wounds Heart Score History: Moderately Suspicious ECG: Nonspecific Repolarization Age: >45 - <65 years Risk Factors: 1 or 2 Risk Factors Score: 4 MDM MDM MDM Narrative Medical decision making narrative: Interventions / MDM: Differential diagnosis: Chest pain, abnormal EKG, angina Diagnosis considered but do not suspect: Pulmonary embolism however D-dimer negative, pneumothorax however x-ray negative My EKG interpretation: Sinus rhythm 82, no ST changes. There is T wave version inferior leads 3 and aVF. This is new compared to August 2024. Repeat EKG at 0 558: Unchanged. With sinus with T wave inversions in lead III and aVF. No ST elevations. Imaging independently reviewed and interpreted by myself: 1 view chest x-ray: No acute process External documents reviewed: N/A Test considered but not ordered:N/A ED course: Patient chest pain, dean tightness with sharp pain numbness down his left arm. Cardiac workup initiated. Aspirin ordered. Zofran and morphine. D-dimer with his cancer history. EKG notes new T wave versions in inferior leads. 0435: Reported after 3 doses of nitro symptoms of feeling more improved. Patient reports 5 out of 10. Troponin results not returned her symptoms started 25 minutes prior to arrival do not suspect initial troponin to be elevated. As he still symptomatic I will start nitro drip to try to alleviate his symptoms. 0445: D-dimer negative. Initial troponin is 12. Creatinine 0.99. Hemoglobin 12.9. White count 5.7. 0535: Nitro drip at 15. Patient reports symptoms feel for pressure sensation. Nursing will increase titration. Blood pressure stable. 0600: Nitro drip just turned up to 30 mics per minute. He reports pain is a 3. EKG unchanged. Delta troponin being sent to the lab at this time. 0630: Repeat troponin positive at 43 from 12. Pain down to a 2. I spoke with data recovery planner Dr. Mcdonnell, discussed patient's history findings and workup. He would like heparin drip started. Keep him n.p.o. Will admit him to medicine he will plan a heart catheterization later today. Patient updated. Will continue to titrate his nitroglycerin. 0640: Spoke with hospitalist Dr. Alarcon for admission to ICU. 0650: I was called to the room patient became hypotensive however he was status post additional IV stick by nursing. He was sweaty. They stopped the nitro drip, fluids were given. Likely a vasovagal episode from the IV stick. Will recheck blood pressure and likely restart nitroglycerin drip. 0710: Blood pressure did improve he was started back on the nitro drip. Dr. Mcdonnell cardiology was in the department to evaluate the patient we will plan on taking patient to the [employer] from the ED. Re-evaluation: stable Disposition discussed with patient/family/significant other: Patient Case discussed with consulting clinician: N/A This note was generated with [employer] dictation software. It may contain incorrect words, spelling, and punctuation that were not noted in checking the note before signing. Lab Data Attestation: I reviewed the patient's lab results. Labs: Laboratory Results - last 24 hr 02/28/25 02/28/25 02/28/25 03:56 03:56 04:05 WBC Cancelled 5.7 Corrected WBC Cancelled RBC Cancelled 4.15 L Hgb Cancelled 12.9 L Hct Cancelled 35.8 L MCV Cancelled 86.3 MCH Cancelled 31.1 MCHC Cancelled 36.0 RDW Std Deviation Cancelled 44.4 H RDW Coeff of Nazanin Cancelled 14.1 Plt Count Cancelled 287 MPV Cancelled 9.2 Immature Gran % (Auto) Cancelled 1.000 H Neut % (Auto) Cancelled 60.4 Lymph % (Auto) Cancelled 15.9 L Nance % (Auto) Cancelled 13.6 H Eos % (Auto) Cancelled 8.6 H Baso % (Auto) Cancelled 0.5 Absolute Neuts (auto) Cancelled 3.5 Absolute Lymphs (auto) Cancelled 0.91 Total Counted Cancelled Neutrophils % (Manual) Cancelled Band Neutrophils % Cancelled Lymphocytes % (Manual) Cancelled Monocytes % (Manual) Cancelled Eosinophils % (Manual) Cancelled Basophils % (Manual) Cancelled Metamyelocytes % Cancelled Myelocytes % Cancelled Promyelocytes % Cancelled Blast Cells % Cancelled Plasma Cell % (Manual) Cancelled Other Cells % Cancelled Nucleated RBC % Cancelled 0 Nucleated RBCs/100 WBC Cancelled Differential Comment Cancelled Diff Path Review Cancelled Hypersegmented Neuts Cancelled Atypical Lymphocytes Cancelled Reactive Lymphocytes Cancelled Smudge Cells Cancelled Toxic Granulation Cancelled Toxic Vacuolation Cancelled Dohle Bodies Cancelled Efraín Rods Cancelled Platelet Estimate Cancelled Plt Morphology Comment Cancelled RBC Morphology Cancelled Cancelled Polychromasia Cancelled Hypochromasia Cancelled Basophilic Stippling Cancelled Anisocytosis Cancelled Microcytosis Cancelled Macrocytosis Cancelled Spherocytes Cancelled Sickle Cells Cancelled Target Cells Cancelled Tear Drop Cells Cancelled Ovalocytes Cancelled Stomatocytes Cancelled No-Aniwa Bodies Cancelled [place] Cells Cancelled Bite Cells Cancelled Crenated Cell Cancelled Acanthocytes (Spur) Cancelled Rouleaux Cancelled Schistocytes Cancelled PT 12.3 INR 0.9 APTT 23.7 L D-Dimer Quant (PE/DVT) 0.39 Sodium 139 Potassium 4.3 Chloride 105 Carbon Dioxide 19.6 L Anion Gap 15 BUN 13 Creatinine 0.99 Estim Creat Clear Calc 76.37 Est GFR (MDRD) Non-Af 85 BUN/Creatinine Ratio 12.8 Glucose 120 H Calcium 9.7 Troponin T High Sens 12 Troponin T Hi Sens 2 Hr 02/28/25 06:00 WBC Corrected WBC RBC Hgb Hct MCV MCH MCHC RDW Std Deviation RDW Coeff of Nazanin Plt Count MPV Immature Gran % (Auto) Neut % (Auto) Lymph % (Auto) Nance % (Auto) Eos % (Auto) Baso % (Auto) Absolute Neuts (auto) Absolute Lymphs (auto) Total Counted Neutrophils % (Manual) Band Neutrophils % Lymphocytes % (Manual) Monocytes % (Manual) Eosinophils % (Manual) Basophils % (Manual) Metamyelocytes % Myelocytes % Promyelocytes % Blast Cells % Plasma Cell % (Manual) Other Cells % Nucleated RBC % Nucleated RBCs/100 WBC Differential Comment Diff Path Review Hypersegmented Neuts Atypical Lymphocytes Reactive Lymphocytes Smudge Cells Toxic Granulation Toxic Vacuolation Dohle Bodies Efraín Rods Platelet Estimate Plt Morphology Comment RBC Morphology Polychromasia Hypochromasia Basophilic Stippling Anisocytosis Microcytosis Macrocytosis Spherocytes Sickle Cells Target Cells Tear Drop Cells Ovalocytes Stomatocytes No-Aniwa Bodies [place] Cells Bite Cells Crenated Cell Acanthocytes (Spur) Rouleaux Schistocytes PT INR APTT D-Dimer Quant (PE/DVT) Sodium Potassium Chloride Carbon Dioxide Anion Gap BUN Creatinine Estim Creat Clear Calc Est GFR (MDRD) Non-Af BUN/Creatinine Ratio Glucose Calcium Troponin T High Sens Troponin T Hi Sens 2 Hr 43 H Radiography Diagnostic Testing: Clinical Impression(s) from Imaging Studies Chest X-Ray 02/28/25 04:18 IMPRESSION: No evidence of acute disease. Reading Location: [facility] Critical Care Time Critical Care Time: Yes Critical care time (excluding procedures): 30-74 minutes, Discussing w/Patient &/or Family/Mixing Tumbler Operator, Discussing w/Consultants, Arranging Admission or Transfer, Performing Direct Patient Care at Bedside and - (40 minutes) Discharge Plan Dx/Rx/DC Orders Clinical Impression: Angina at rest, Chest pain, Elevated troponin Disposition Disposition: Acute Care [facility]
[2025-02-28] MEDS: Aspirin 81 MG TAB.CHEW 324 MG PO (04:00)
[2025-02-28] MEDS: Morphine 4 MG/ML Syringe IV (04:08)
[2025-02-28] MEDS: Ondansetron 4 MG/2 ML Vial IV (04:08)
[2025-02-28] MEDS: Nitroglycerin SL (ED/IMG/CATH) 0.4 MG TABLET SL ×3 (04:17→04:28)
--- NOTE | 2025-02-28 04:18 | RAD_ITS ---
PROCEDURE: CHEST 1 VIEW (PORTABLE) 02/28/2025 REASON FOR EXAM: CHEST PAIN TECHNIQUE: Frontal view of the chest. FINDINGS: The lungs appear clear. The cardiac and mediastinal contours appear within limits. The visualized osseous structures appear within limits. RAD/Chest 1 View (Portable) IMPRESSION: No evidence of acute disease. Reading Location: [id number]
[2025-02-28 04:26] LABS: International Normalized Ratio 0.9; Prothrombin Time (Protime)PT. 12.3 SECONDS (11.7-14.9)
[2025-02-28 04:27] LABS: Partial Thromboplast Time 23.7 Seconds (24.1-36.2)
[2025-02-28 04:32] LABS: Absolute Lymphocyte Count 0.91 X10^3/uL (0.83-4.51); Absolute Neutrophil Count 3.5 X10^3/uL (2.0-7.7); Basophil# 0.03 X10^3/uL; Basophil% 0.5 % (0-1); Eosinophil# 0.49 X10^3/uL; Eosinophils% 8.6 % (0-5); Hematocrit 35.8 % (40-54); Hemoglobin 12.9 g/dL (13.0-16.5); Lymphocyte # 0.91 X10^3/ul (0.83-4.51); Lymphocyte % 15.9 % (19-41); Mean Corpuscular Hgb 31.1 pg (27.0-32.0); Mean Corpuscular Volume 86.3 fL (80-94); Mean Platelet Vol. 9.2 fl (6.2-12.0); Monocyte# 0.78 X10^3/uL; Monocyte% 13.6 % (0-10); NRBC Flagged by Analyzer 0 % (0-5); Neutrophil # 3.46 X10^3/uL (2.7-7.7); Neutrophil % 60.4 % (47-70); Platelet Count 287 K/mm3 (150-450); RBC Distribution Width CV 14.1 % (11.6-14.6); RBC Distribution Width SD 44.4 fl (35.1-43.9); Red Blood Count 4.15 M/mm3 (4.6-6.2); White Blood Count 5.7 K/mm3 (4.4-11.0)
[2025-02-28 04:38] LABS: D-Dimer Quantitative (DVT/PE) 0.39 FEU/ug/m (0.27-0.49)
[2025-02-28 04:45] LABS: Anion Gap 15 (5-15); BUN 13 mg/dL (4-19); BUN/Creat Ratio 12.8 RATIO (10-20); Calcium,Total 9.7 mg/dL (7.6-11.0); Carbon Dioxide 19.6 mmol/L (21.0-32.0); Chloride 105 mmol/L (98-108); Creatinine, Serum 0.99 mg/dL (0.70-1.20); EST Glomerular Filtration Rate 85 (>60); Estimated Creatinine Clearance 76.37 ml/min (50-250); Glucose 120 mg/dL (70-99); Potassium 4.3 mmol/L (3.3-5.1); Sodium Level 139 mmol/L (133-145); Troponin T High Sensitivity 12 ng/L (<=22)
[2025-02-28] MEDS: Nitroglycerin Infusion 250 ML 3 MG CONT INF (04:46)
--- NOTE | 2025-02-28 05:41 | EKG12_ITS ---
Test Reason : REPEAT CP Blood Pressure : */* mmHG Vent. Rate : 69 BPM Atrial Rate : 69 BPM P-R Int : 168 ms QRS Dur : 66 ms QT Int : 400 ms P-R-T Axes : 35 20 0 degrees QTcB Int : 428 ms Normal sinus rhythm nssttw inferior abnormal Confirmed by Jim Mcdonnell ([id number]), index editor CHITO KLEIN ([id number]) on 03/03/2025 11:59:57 AM Referred By: LIS Confirmed By: Jim Mcdonnell
[2025-02-28 06:23] LABS: Troponin T High Sens 2 HR 43 ng/L (<=22)
[2025-02-28] MEDS: Heparin Injection (Vial) 5,000 UNIT/ML VIAL 4000 UNIT IV (06:47)
[2025-02-28] MEDS: HEPARIN/D5w 25,000 UNITS 25,000 UNITS/250 ML IV.SOLN. 10 UNITS CONT INF (06:49)
--- NOTE | 2025-02-28 07:17 | PCM.HP.STD ---
HPI - General General Date of Admission: 02/28/25 Date of Service: 02/28/25 Chief Complaint: Chest pain HPI Narrative CELESTE PIKE, is a 64 M with a history of recent prostate cancer status post prostatectomy and multiple rounds of radiation now finished 1 week ago who presented to [facility] ED 02/28/2025 due to chest pain that woke him up at 3:00 in the morning. On arrival temperature 97 with a pulse rate of 91, blood pressure 168/110, respiratory rate 20 with a pulse ox 100% patient was found to have new T wave inversions on EKG and a troponin that went from 12-43, nitroglycerin did decrease his pain from a 9 to a 5 so he was placed on a nitro drip, heparin drip and cardiology contacted who evaluated and plan for heart catheterization. Hospitalist contacted for admission. Patient evaluated at bedside, he does report that substernal chest pain woke him up at 3 AM and was combination of tight and sharp and radiated to the left arm and also had nausea and lightheadedness. At this time chest pain improved to around a 2 still on a nitro drip but is still present. Reports he has some diarrhea from his radiation but has no other new or acute complaints. Of note in the ED when a second IV was placed he did become sweaty and diaphoretic with transient hypotension that was thought to be vasovagal as this all improved and all seem to be independent with nitro drip. When patient was evaluated blood pressure had stabilized. [facility] Medical History (Updated 02/28/25 @ 07:[address] Jim Mcdonnell MD) Anxiety Difficulty swallowing Elevated PSA Family history of colon cancer in father Heartburn Hesitancy of micturition High cholesterol Incontinence Non-smoker Prostate cancer Prostate disease Wears glasses Home Medications ?Medication ?Instructions ?Recorded ?Last Taken ?Type diphenhydramine HCl 25 mg capsule 25 mg PO QHS 08/24/24 09/06/24 History (Benadryl) hydroxyzine HCl 25 mg tablet 25 mg PO BID PRN PRN anxiety 08/24/24 Unknown History oxybutynin chloride 5 mg tablet 5 mg PO BID PRN bladder spasms 10/05/24 Unknown History lorazepam 1 mg tablet 1 mg PO ONCE PRN anxiety #1 TAB 12/28/24 Unknown Rx Allergy/AdvReac Type Severity Reaction Status Date / Time No Known Allergies Allergy Verified 02/28/25 03:50 Family History Father Colon cancer After lung cancer dx Surgical History History of prostate biopsy History of prostatectomy History of tonsillectomy Social History household members: none current occupational status: employed current occupation: [employer] Smoking Status: Never smoker alcohol intake: never substance use type: does not use ROS ROS Narrative General: Denies fever/chills HENT: Denies headache, denies stuffy nose, denies sore throat EYES: Denies changes in vision Resp: Denies cough, denies shortness of breath Cardiac: Combination of tight/pressure/sharp chest pain radiating to left arm GI: Denies abdominal pain, has some diarrhea associated with his prostatic radiation, denies nausea/vomiting : Denies changes in urination Extremity: Denies swelling MSK: Denies weakness Neuro: Reports over the past couple of years he has had some tingling in his toes and hands Heme: Denies any bleeding or bruising Skin: Denies rashes Psychiatric: No complaints voiced Vital Signs Vital Signs Vital Signs: 02/28/25 03:50 02/28/25 03:57 02/28/25 04:17 Temperature 97 F L Temperature Source Axillary Pulse Rate 91 75 Respiratory Rate 20 H Blood Pressure 168/110 H 179/95 H Blood Pressure Mean 129 Blood Pressure Source Blood Pressure Position Blood Pressure Location Pulse Ox 100 100 Oxygen Delivery Method Room Air Room Air 02/28/25 04:22 02/28/25 04:28 02/28/25 04:46 Temperature Temperature Source Pulse Rate 70 68 65 Respiratory Rate Blood Pressure 145/93 H 130/81 H 120/76 Blood Pressure Mean 90 Blood Pressure Source Monitor Blood Pressure Position Semi-Fowlers Blood Pressure Location Right Arm Pulse Ox Oxygen Delivery Method 02/28/25 04:50 02/28/25 05:04 02/28/25 05:27 Temperature Temperature Source Pulse Rate 64 Respiratory Rate 16 Blood Pressure 120/76 135/77 H 131/85 H Blood Pressure Mean 90 96 100 Blood Pressure Source Monitor Monitor Blood Pressure Position Semi-Fowlers Semi-Fowlers Blood Pressure Location Right Arm Right Arm Pulse Ox 98 Oxygen Delivery Method Room Air 02/28/25 05:37 02/28/25 05:59 02/28/25 06:00 Temperature Temperature Source Pulse Rate 67 Respiratory Rate 18 Blood Pressure 122/80 H 128/74 H 128/74 H Blood Pressure Mean 94 92 92 Blood Pressure Source Monitor Monitor Blood Pressure Position Semi-Fowlers Semi-Fowlers Blood Pressure Location Right Arm Right Arm Pulse Ox 97 Oxygen Delivery Method Room Air 02/28/25 06:29 02/28/25 06:51 02/28/25 07:00 Temperature 98.4 F Temperature Source Pulse Rate 65 Respiratory Rate 18 18 Blood Pressure 122/75 H 98/58 L 108/73 Blood Pressure Mean 90 71 84 Blood Pressure Source Monitor Blood Pressure Position Semi-Fowlers Blood Pressure Location Right Arm Pulse Ox 99 98 Oxygen Delivery Method Room Air Weight Weight: 83.4 kg Body Mass Index (BMI) 27.1 Physical Exam Narrative General: Alert, oriented, no apparent distress HEENT: Atraumatic, normocephalic Eyes: Anicteric, normal conjunctiva, extraocular movements grossly intact Neck: Supple Respiratory: Clear to auscultation bilaterally, normal respiratory effort Cardiovascular: Regular rate and rhythm GI: Soft, nontender, nondistended Extremities: No edema Musculoskeletal: Moving all extremities Neuro: No overt focal neurological deficits Skin: No rashes appreciated Psych: Cooperative Results Lab / Micro Data 02/28/25 04:05 02/28/25 03:56 Labs: Laboratory Results - last 24 hr 02/28/25 03:56: WBC Cancelled, Corrected WBC Cancelled, RBC Cancelled, Hgb Cancelled, Hct Cancelled, MCV Cancelled, MCH Cancelled, MCHC Cancelled, RDW Std Deviation Cancelled, RDW Coeff of Nazanin Cancelled, Plt Count Cancelled, MPV Cancelled, Immature Gran % (Auto) Cancelled, Neut % (Auto) Cancelled, Lymph % (Auto) Cancelled, [place] % (Auto) Cancelled, Eos % (Auto) Cancelled, Baso % (Auto) Cancelled, Absolute Neuts (auto) Cancelled, Absolute Lymphs (auto) Cancelled, Total Counted Cancelled, Neutrophils % (Manual) Cancelled, Band Neutrophils % Cancelled, Lymphocytes % (Manual) Cancelled, Monocytes % (Manual) Cancelled, Eosinophils % (Manual) Cancelled, Basophils % (Manual) Cancelled, Metamyelocytes % Cancelled, Myelocytes % Cancelled, Promyelocytes % Cancelled, Blast Cells % Cancelled, Plasma Cell % (Manual) Cancelled, Other Cells % Cancelled, Nucleated RBC % Cancelled, Nucleated RBCs/100 WBC Cancelled, Differential Comment Cancelled, Diff Path Review Cancelled, Hypersegmented Neuts Cancelled, Atypical Lymphocytes Cancelled, Reactive Lymphocytes Cancelled, Smudge Cells Cancelled, Toxic Granulation Cancelled, Toxic Vacuolation Cancelled, Dohle Bodies Cancelled, Efraín Rods Cancelled, Platelet Estimate Cancelled, Plt Morphology Comment Cancelled, RBC Morphology Cancelled 02/28/25 03:56: RBC Morphology Cancelled, Polychromasia Cancelled, Hypochromasia Cancelled, Basophilic Stippling Cancelled, Anisocytosis Cancelled, Microcytosis Cancelled, Macrocytosis Cancelled, Spherocytes Cancelled, Sickle Cells Cancelled, Target Cells Cancelled, Tear Drop Cells Cancelled, Ovalocytes Cancelled, Stomatocytes Cancelled, No-[place] Bodies Cancelled, [place] Cells Cancelled, Bite Cells Cancelled, Crenated Cell Cancelled, Acanthocytes (Spur) Cancelled, Rouleaux Cancelled, Schistocytes Cancelled, Sodium 139, Potassium 4.3, Chloride 105, Carbon Dioxide 19.6 L, Anion Gap 15, BUN 13, Creatinine 0.99, Estim Creat Clear Calc 76.37, Est GFR (MDRD) Non-Af 85, BUN/Creatinine Ratio 12.8, Glucose 120 H, Calcium 9.7, Troponin T High Sens 12 02/28/25 04:05: WBC 5.7, RBC 4.15 L, Hgb 12.9 L, Hct 35.8 L, MCV 86.3, MCH 31.1, MCHC 36.0, RDW Std Deviation 44.4 H, RDW Coeff of Nazanin 14.1, Plt Count 287, MPV 9.2, Immature Gran % (Auto) 1.000 H, Neut % (Auto) 60.4, Lymph % (Auto) 15.9 L, Ellis % (Auto) 13.6 H, Eos % (Auto) 8.6 H, Baso % (Auto) 0.5, Absolute Neuts (auto) 3.5, Absolute Lymphs (auto) 0.91, Nucleated RBC % 0, PT 12.3, INR 0.9, APTT 23.7 L, D-Dimer Quant (PE/DVT) 0.39 02/28/25 06:00: Troponin T Hi Sens 2 Hr 43 H Imaging Radiology Impression Chest X-Ray 02/28/25 04:18 IMPRESSION: No evidence of acute disease. Reading Location: [facility] Assessment & Plan Assessment/Plan (1) Chest pain: QUALIFIERS: Chest pain type: chest pain due to myocardial ischemia Ischemic chest pain type: unstable angina pectoris Qualified Code(s): I20.0 - Unstable angina PLAN: Plan # NSTEMI, suspect type I - Patient with new T wave changes compared to a August 2024 EKG -Troponin increased from 12-43 - Patient on nitro and heparin drips -Patient loaded with aspirin - Cardiology evaluated, patient for Art Psychotherapist this a.m. - Further management pending results - Will check lipid panel and A1c # Recent prostate cancer - With prostatectomy and patient just finished radiation 1 week ago - Continue outpatient follow-up # Anxiety - Continue hydroxyzine as needed #DVT ppx: Present on heparin drip, SCDs ordered Brandi Resendiz MD Time spent in the patient's overall evaluation, decision-making process, review of diagnostic data, adjustment of management, discussion with other providers, nursing and ancillary staff involved in patient's care documentation, 57 Minutes Charges/Coding Visit Charges Inpatient E&M: 10942 Init Hosp L2
--- NOTE | 2025-02-28 07:23 | PCM.CONS.C ---
Assessment & Plan Assessment/Plan (1) Chest pain: QUALIFIERS: Chest pain type: chest pain due to myocardial ischemia Ischemic chest pain type: unstable angina pectoris Qualified Code(s): I20.0 - Unstable angina PLAN: Patient's symptoms started approximately 0300 hrs. This is new onset occurred at rest awoke him from sleep. He has new ECG changes with inferior significant ST and T wave inversions. The patient's risk factor profile includes a history of hyperlipidemia which has been controlled with diet. He does not smoke, there is no family history of first-degree relatives with coronary disease, the patient is not hypertensive. His fasting blood sugar was 200 on today's lab work. The patient's symptoms markedly improved with nitroglycerin. He has been heparinized and on IV nitroglycerin with persistent 2 out of 10 chest discomfort. Given the patient's enzymes going from 12 up to 43 and the ECG changes would recommend urgent left heart catheterization for this unstable angina. The patient has no history of iodine allergy. His renal function is normal. He has good 2+ or better pulses throughout with no femoral bruits. The catheterization procedure risk/benefit and alternatives were explained to the patient in detail and he voiced understanding and agrees to proceed. There is no family available at the bedside and his son is a student at [employer] here in [place] [facility]. The patient works at the [employer]. His home is in [place] where his is currently residing. (2) High cholesterol: PLAN: Patient carries a history of hyperlipidemia in the past. He had been transiently on statins now reports that his lipids have been controlled with diet and exercise. Repeat lipids will be evaluated along with a hemoglobin A1c and appropriate therapeutic intervention started as indicated. PLAN: Plan 1. Urgent left heart catheterization Dr. Steinberg to perform. 2. Further recommendations and long-term medical therapy will be determined once the results of the catheterization are available. HPI Consult Data Date of Consult: 02/28/25 HPI Narrative Reason for Consultation: Chest pain with ECG changes. HPI Narrative: CELESTE PIKE, is a 64 M who presents after being awoke approximately 0300 hrs. this morning with chest discomfort. He rated this 9 out of 10. He also noted some nausea and felt like he was going to vomit but did not. He came to the emergency department approximately 0330 hrs. The patient is actually traveling here from [place] for work. He does have a son who is the [employer] student. The patient was evaluated in the emergency department where an ECG showed new T wave inversions in the inferior leads and subtle less than [address] elevations in 1 and aVL. The patient received IV nitroglycerin and sublingual nitroglycerin with marked improvement in his chest symptoms down to a 2 out of 10. At this time he has persistent chest discomfort and repeat ECG shows continued T wave inversions with ST segment depressions in the inferior leads. His initial troponin was 12 subsequent 2-hour troponin was 46. The patient does not have a prior history of cardiac issues. There is no family history of coronary disease he does have a history of hyperlipidemia which was transiently treated in the past with statins but he has been off of them for several years. He denies any history of hypertension he has never smoked. The patient is not diabetic however his fasting glucose was 120 on today's exam. The patient does have a history of prostate cancer has been historically treated with radical prostatectomy and radiation therapy. He denies any history of allergies to iodine and has had several CT scans. He has no known drug allergies. Renal function is normal on today's labs. PFSH Medical History Prostate cancer Hesitancy of micturition Elevated PSA Incontinence Family history of colon cancer in father Wears glasses Anxiety Prostate disease High cholesterol Difficulty swallowing Heartburn Non-smoker Home Medications ?Medication ?Instructions ?Recorded ?Last Taken ?Type diphenhydramine HCl 25 mg capsule 25 mg PO QHS 08/24/24 09/06/24 History (Benadryl) hydroxyzine HCl 25 mg tablet 25 mg PO BID PRN PRN anxiety 08/24/24 Unknown History oxybutynin chloride 5 mg tablet 5 mg PO BID PRN bladder spasms 10/05/24 Unknown History lorazepam 1 mg tablet 1 mg PO ONCE PRN anxiety #1 TAB 12/28/24 Unknown Rx Allergy/AdvReac Type Severity Reaction Status Date / Time No Known Allergies Allergy Verified 02/28/25 03:50 Family History Father Colon cancer After lung cancer dx Surgical History History of prostatectomy History of prostate biopsy History of tonsillectomy Social History household members: none current occupational status: employed current occupation: [employer] Smoking Status: Never smoker alcohol intake: never substance use type: does not use ROS Constitutional Constitutional: Reports as per HPI Eyes Eyes: Reports systems reviewed and no addt'l complaints, except as documented ENT HEENT: Reports systems reviewed and no addt'l complaints, except as documented Cardiovascular Cardiovascular: Reports as per HPI Respiratory/Chest Respiratory/Chest: Reports as per HPI Gastrointestinal Gastrointestinal: Reports as per HPI Genitourinary Genitourinary: Reports as per HPI Musculoskeletal Musculoskeletal: Reports systems reviewed and no addt'l complaints, except as documented Integumentary Integumentary: Reports systems reviewed and no addt'l complaints, except as documented Neurologic Neurologic: Reports systems reviewed and no addt'l complaints, except as documented Psychiatric Psychiatric: Reports systems reviewed and no addt'l complaints, except as documented Endocrine Endocrinology: Reports as per HPI Hematologic/Lymphatic Hematologic/Lymphatic: Reports systems reviewed and no addt'l complaints, except as documented Allergic/Immunologic Allergic/Immunologic: Reports as per HPI Physical Exam Narrative Patient resting comfortably in recumbent position on the gurney in the emergency department. Continues to complain of 2 out of 10 left upper sternal discomfort. Const alert and oriented x3 HEENT normocephalic Eyes EOMs intact bilaterally Neck no JVD and no carotid bruits Chest inspection of chest normal Resp normal respiratory effort and clear to auscultation bilaterally Cardio Rate: regular rate Rhythm: regular rhythm Heart Sounds: S1 normal and S2 normal; Negative for click, gallop or murmur Peripheral Pulses: pulses 2+ throughout GI soft to palpation Extremity no pedal edema Neuro Neuro Narrative: Alert and oriented x 3 Psych mental status grossly normal Risk Stratification Risk Stratification Applicable: Yes Age >/= 65: No >/= 3 CAD Risk Factors (HTN, HLD, DM, family hx of CAD, or current smoker): No Aspirin Use in the Past 7 Days: No Severe Angina (>/= episodes in 24 hours): Yes EKG ST Changes >/= 0.5mm: Yes Positive Cardiac Marker: Yes BRIAN Risk Stratification Score: 3 BRIAN % Risk: 13% Risk Charges/Coding Visit Charges Inpatient E&M: 02422 Init Hosp L3 Objective Data Vital Signs: Vital Signs Temp Pulse Resp BP Pulse Ox O2 Del Method 98.4 F 65 18 108/73 98 Room Air 02/28/25 06:51 02/28/25 06:51 02/28/25 07:00 02/28/25 07:00 02/28/25 07:00 02/28/25 07:00 Oxygen Delivery Method Room Air Weight: 183 lb 13.848 oz Body Mass Index (BMI) 27.1 Intake & Output: Intake and Output for Last 24 Hours 02/26/25 02/27/25 02/28/25 23:59 23:59 23:59 Intake Total 18.1 / 18.1 Balance 18.1 / 18.1 Lab / Micro Data Attestation: I reviewed the patient's lab results. 02/28/25 04:05 02/28/25 03:56 Labs: Laboratory Results - last 24 hr 02/28/25 03:56: WBC Cancelled, Corrected WBC Cancelled, RBC Cancelled, Hgb Cancelled, Hct Cancelled, MCV Cancelled, MCH Cancelled, MCHC Cancelled, RDW Std Deviation Cancelled, RDW Coeff of Nazanin Cancelled, Plt Count Cancelled, MPV Cancelled, Immature Gran % (Auto) Cancelled, Neut % (Auto) Cancelled, Lymph % (Auto) Cancelled, [place] % (Auto) Cancelled, Eos % (Auto) Cancelled, Baso % (Auto) Cancelled, Absolute Neuts (auto) Cancelled, Absolute Lymphs (auto) Cancelled, Total Counted Cancelled, Neutrophils % (Manual) Cancelled, Band Neutrophils % Cancelled, Lymphocytes % (Manual) Cancelled, Monocytes % (Manual) Cancelled, Eosinophils % (Manual) Cancelled, Basophils % (Manual) Cancelled, Metamyelocytes % Cancelled, Myelocytes % Cancelled, Promyelocytes % Cancelled, Blast Cells % Cancelled, Plasma Cell % (Manual) Cancelled, Other Cells % Cancelled, Nucleated RBC % Cancelled, Nucleated RBCs/100 WBC Cancelled, Differential Comment Cancelled, Diff Path Review Cancelled, Hypersegmented Neuts Cancelled, Atypical Lymphocytes Cancelled, Reactive Lymphocytes Cancelled, Smudge Cells Cancelled, Toxic Granulation Cancelled, Toxic Vacuolation Cancelled, Dohle Bodies Cancelled, Efraín Rods Cancelled, Platelet Estimate Cancelled, Plt Morphology Comment Cancelled, RBC Morphology Cancelled 02/28/25 03:56: RBC Morphology Cancelled, Polychromasia Cancelled, Hypochromasia Cancelled, Basophilic Stippling Cancelled, Anisocytosis Cancelled, Microcytosis Cancelled, Macrocytosis Cancelled, Spherocytes Cancelled, Sickle Cells Cancelled, Target Cells Cancelled, Tear Drop Cells Cancelled, Ovalocytes Cancelled, Stomatocytes Cancelled, No-[place] Bodies Cancelled, [place] Cells Cancelled, Bite Cells Cancelled, Crenated Cell Cancelled, Acanthocytes (Spur) Cancelled, Rouleaux Cancelled, Schistocytes Cancelled, Sodium 139, Potassium 4.3, Chloride 105, Carbon Dioxide 19.6 L, Anion Gap 15, BUN 13, Creatinine 0.99, Estim Creat Clear Calc 76.37, Est GFR (MDRD) Non-Af 85, BUN/Creatinine Ratio 12.8, Glucose 120 H, Calcium 9.7, Troponin T High Sens 12 02/28/25 04:05: WBC 5.7, RBC 4.15 L, Hgb 12.9 L, Hct 35.8 L, MCV 86.3, MCH 31.1, MCHC 36.0, RDW Std Deviation 44.4 H, RDW Coeff of Nazanin 14.1, Plt Count 287, MPV 9.2, Immature Gran % (Auto) 1.000 H, Neut % (Auto) 60.4, Lymph % (Auto) 15.9 L, [place] % (Auto) 13.6 H, Eos % (Auto) 8.6 H, Baso % (Auto) 0.5, Absolute Neuts (auto) 3.5, Absolute Lymphs (auto) 0.91, Nucleated RBC % 0, PT 12.3, INR 0.9, APTT 23.7 L, D-Dimer Quant (PE/DVT) 0.39 02/28/25 06:00: Troponin T Hi Sens 2 Hr 43 H Cardiology Labs/Tests 02/28/25 03:56: WBC Cancelled, Corrected WBC Cancelled, RBC Cancelled, Hgb Cancelled, Hct Cancelled, MCV Cancelled, MCH Cancelled, MCHC Cancelled, Plt Count Cancelled, MPV Cancelled, Immature Gran % (Auto) Cancelled, Neut % (Auto) Cancelled, Lymph % (Auto) Cancelled, [place] % (Auto) Cancelled, Eos % (Auto) Cancelled, Baso % (Auto) Cancelled, Absolute Neuts (auto) Cancelled, Total Counted Cancelled, Neutrophils % (Manual) Cancelled, Band Neutrophils % Cancelled, Lymphocytes % (Manual) Cancelled, Monocytes % (Manual) Cancelled, Eosinophils % (Manual) Cancelled, Basophils % (Manual) Cancelled, Metamyelocytes % Cancelled, Myelocytes % Cancelled, Promyelocytes % Cancelled, Blast Cells % Cancelled, Plasma Cell % (Manual) Cancelled, Other Cells % Cancelled, Nucleated RBC % Cancelled, Sodium 139, Potassium 4.3, Chloride 105, Carbon Dioxide 19.6 L, Anion Gap 15, BUN 13, Creatinine 0.99, Est GFR (MDRD) Non-Af 85, BUN/Creatinine Ratio 12.8, Glucose 120 H, Calcium 9.7 02/28/25 04:05: WBC 5.7, RBC 4.15 L, Hgb 12.9 L, Hct 35.8 L, MCV 86.3, MCH 31.1, MCHC 36.0, Plt Count 287, MPV 9.2, Immature Gran % (Auto) 1.000 H, Neut % (Auto) 60.4, Lymph % (Auto) 15.9 L, [place] % (Auto) 13.6 H, Eos % (Auto) 8.6 H, Baso % (Auto) 0.5, Absolute Neuts (auto) 3.5, Nucleated RBC % 0, PT 12.3, INR 0.9, APTT 23.7 L, D-Dimer Quant (PE/DVT) 0.39 Rhythm: EKG: ECHO: Stress Test: Cardiac Cath: PCI: CT Surgery: Holter monitor: EPS: PPM: CXR: Chest CT Scan: Radiography Diagnostic Testing: Radiology Impression Chest X-Ray 02/28/25 04:18 IMPRESSION: No evidence of acute disease. Reading Location: [facility] EKG Initial EKG: Attestation: I personally reviewed and interpreted this EKG as follows: (Normal sinus rhythm. New ST segment depressions and T wave inversions in the inferior leads. Subtle less than [address] elevation in 1 and aVL. This is new from a previous ECG 2020.)
[2025-02-28 08:20] LABS: International Normalized Ratio 1.1; Prothrombin Time (Protime)PT. 13.9 SECONDS (11.7-14.9)
[2025-02-28 09:09] LABS: Troponin T High Sens 4 HR 96 ng/L (<=22)
[2025-02-28 09:30] LABS: Partial Thromboplast Time 102.5 Seconds (24.1-36.2)
[2025-02-28] MEDS: 0.9% Normal Saline (1000mL) 1,000 ML 100 ML IV (11:45)
--- NOTE | 2025-02-28 12:17 | CASEMGMT ---
RN MIKE Assessment Face to Face with patient for initial transition planning/care coordination assessment. RN MIKE introduced self and role at [facility], pt voices understanding. Pt is A&Ox4 and is resting comfortably in bed and is calm. Care providers, pharmacy, and demographics verified. Admitting dx: VERITO FULTON Strata: 1 PCP: Beata Wing Specialists: Jayson (Oncology), Guera (Urology). Cardiology is currently consulted Preferred Pharmacy: [facility] Insurance: [employer] Prescription Benefit: Yes LNOK: Suzy ( - Living separately in [place] at this time), Frank (Son - Also lives in [place] but attends the [employer] currently) Living Arrangements: Pt is currently living alone in a ground level apartment with a flat entrance ADLs/IADLs: Pt states that he is entirely independent Transportation: Self, Son @ the time of DC. Denies concerns DME: Denies all DME uses or needs at this time HHC/SNF: denies hx or needs Pt?s goal: Home Plan: Home, anticipate no additional needs. Follow for anticoag Rx. Pt states that he and his are figuring it out. Pt feels safe @ home alone. Pt states that he has plenty of support through his friends and son and denies any further DC needs at this time. CM to follow. Sima Torre RN, CM
[2025-02-28 13:20] LABS: ACT Activated Clotting Time 273 sec (74-137)
[2025-02-28 13:20] LABS: ACT Activated Clotting Time 233 sec (74-137)
[2025-02-28 13:20] LABS: ACT Activated Clotting Time 176 sec (74-137)
--- NOTE | 2025-02-28 14:10 | CRPHASE1_ITS ---
Patient Communication Patient Information Former Patient:: Phase I PHII Cardiac Rehab Discussed with Patient:: Yes Guide to Cardiac Rehab Given to Patient:: Yes Cardiac Rehab Facility Choice List Given to Patient:: Yes Communication to Cardiac Rehab Prepress Manager:: Marge Steinberg Sessions:: 36 sessions - 3 days/wk, 12 weeks Cardiac Rehabilitation Info Program Information Cardiac Rehabilitation Program Information: Cardiac Rehab The cardiac rehab team at [facility] consists of highly skilled exercise physiologists, nurses, respiratory therapists and physicians working together with you. Our purpose is to help you have a full recovery and achieve the goals you set for yourself. Over the years many of our patients have returned to activities they assumed they would never do again! We can help restore your confidence and motivation to make lifestyle changes that can have a significant impact on your health and quality of life! We can help answer questions and concerns you may have about exercise, lifestyle, medications, diet, stress and anxiety which are common following a hospitalization. WE monitor ECG and vital signs during exercise and discuss your progress with you and report to your physician(s). Cardiac Rehab is proven to help reduce readmissions, improve functional capacity and lower recurrence of problems with your heart. Our Cardiac Rehab program is Certified by the [place] [employer] (AACVPR) and Accredited by the [place] [employer] through our [facility]. You can contact us at . We invite you to call us with your questions or to get started in our program. If you have other questions or concerns be sure to ask your physician/provider during your follow-up visit. WE look forward to seeing you!
--- NOTE | 2025-02-28 14:11 | CRPH1.INSTRU ---
General Education Discussed with Patient CAD and cardiac anatomy and function:: Patient communicates acknowledgment Explanation of diagnoses and procedures:: Patient communicates acknowledgment Sign/Symptoms of NC:: Patient communicates acknowledgment Antiplatelet therapy: Patient communicates acknowledgment Proper use of NTG-SL: Patient communicates acknowledgment Emergency procedures and activation of EMS: Patient communicates acknowledgment Compliance of all prescribed medications: Patient communicates acknowledgment Smoking Recommendations Recommendations Include:: Previous smoker; encourage continued cessation Response Code Nicotine/Smoking Response Code:: Patient communicates acknowledgment Dyslipidemia Risk Factors Patient Dyslipidemia Risk Factors Are:: Total Cholesterol, Triglycerides, HDL and LDL Recommendations Recommendations Include:: Lipid profile not available, Reviewed NCEP/ATP guidelines and Therapeutic Lifestyle Change dietary guidelines Response Code Dyslipidemia Response Code:: Patient communicates acknowledgment Overweight/Obesity Risk Factors Patient Overweight/Obesity Risk Factors Are:: BMI Normal [18-25 & < 65 years old] and Overweight = 26-29 Recommendations Recommendations Include:: Weight loss of 5-10%, Reduced calorie diet and Exercise 5-7 times/week Response Code Overweight/Obesity:: Patient communicates acknowledgment Hypertension Recommendations Recommendations Include:: Maintain BP <130/85, DASH dietary guidelines, Decrease/maintain normal body weight and Moderation of ETOH Response Code Hypertension:: Patient communicates acknowledgment Heart Disease Risk Factors Patient Heart Disease Risk Factors Are:: Family history of heart disease < 65 years old Recommendations Recommendations Include:: Educated family members of their risk and Educated family members of importance of prevention of heart disease Response Code Heart Disease Response Code:: Patient communicates acknowledgment Diabetes Recommendations Recommendations Include:: Maintain fasting blood sugars 70-110 md/dL, Maintain HgbA1c of 6% or less, Monitor blood sugar as prescribed, Diabetic dietary guidelines and Decrease/maintain body weight Response Code Diabetes:: Patient communicates acknowledgment Metabolic Syndrome Risk Factors Patient Metabolic Syndrome Risk Factors Are [3 of 5]:: Fasting blood sugar > 100 mg/dL, High triglyceride >150, Hypertension and Low HDL <40 [male] or < 50 [female] Recommendations Recommendations Include:: Does not meet criteria Response Code Metabolic Syndrome Response Code:: Patient communicates acknowledgment, Family communicates acknowledgment, Patient returns demonstration, Family returns demonstration and Needs reinforcement Sedentary Risk Factors Patient Sedentary Risk Factors Are:: Lack of regular exercise Response Code Sedentary Response Code:: Patient communicates acknowledgment and Needs reinforcement Stress Risk Factors Patient Stress Risk Factors Are:: Patient denies stress as a risk factor Recommendations Recommendations Include:: Identification of stressors, and assessment of coping skills and Stress management techniques Response Code Stress Response Code:: Patient communicates acknowledgment and Patient returns demonstration
[2025-02-28] MEDS: Clopidogrel Bisulfate 300 MG Tablet PO (16:09)
[2025-02-28] MEDS: Acetaminophen 325 MG Tablet 650 MG PO (16:30)
--- NOTE | 2025-02-28 18:06 | CL.I_ITS ---
Patient Name: CELESTE PIKE Study Date: 02/28/2025 Performing: Marge Steinberg MD Ht: 69 inches 175.26 cm : 1960 Wt: 184.1 lbs 83.4 kg Age: 64 Gender: male BSA: 1.99 PROCEDURE(S) PERFORMED IC12-(25143/C9600)EDA W/WO PTCA, SINGLE CORONARY ARTERY DC01-([id number])LHC/COR/LV CLINICAL PROFILE AND CO-MORBIDITIES Indications: ACS <= 24 hrs Heart Failure: None Stress/Imaging Stress/Image Study Performed: No Angina Classification Anginal Classification w/in 2 Weeks: CCS IV CAD Presentations: Non-STEMI. Symptom onset Date/Time: Time Not Available CONCLUSIONS 100% Prox Lat D1, 95% Prox D1 80% Mid, 90% apical LAD 90% ostial OM1 (small 1.5 mm vessel); 80% ostial Lat OM2 50% Prox RCA; 60% Prox RPLV LVEF 55%, severe lateral hypokinesis Successful PTCA/EDA Lat D1 using [place] 2.0x18 mm; PTCA/EDA Prox D1 using [place] 2.0x8 mm RECOMMENDATIONS ASA Indefinitley P2Y12 inhibitors for atleast 6 months Staged PCI to LAD DESCRIPTION OF PROCEDURE The patient arrived to the procedure lab. The risks and benefits of the procedure as well as a full description of our services here and lack of surgical backup were fully explained to the patient and/or their significant other prior to the catheterization. The Timeout was completed, verifying the correct patient and procedure. The patient's procedural site was prepped and draped in the usual fashion. Local anesthetic was given subcutaneously to right radial region with Lidocaine 2%. Using a modified Seldinger technique, arterial access was obtained via the right radial artery, a 6Fr sheath was inserted.. Right Coronary Artery selective angiography was then performed in multiple views using a 5 Fr. 4.0 [place] catheter. Left Coronary Artery selective angiography was performed in multiple views using a 5 Fr. 4.0 [place] catheter. Left Ventriculography was performed in TEMPLETON projection using a 5 Fr. Pig[place] catheter. LV to AO pullback pressures were then recordedThe images were reviewed and options discussed. A decision was then made to proceed with an Intervention, IVUS or other adjunct procedure. XB3 Guide catheter was inserted and engaged into the LCA. Run through Guide wire was advanced to the 1st Diagonal. 2x15 [place] Balloon catheter was inserted. Balloon catheter was advanced across lesion in the first diagonal, mid. PTCA balloon inflated at 6 atms for 15 secs. Angiogram performed post balloon dilatation. 2x22 [place] Drug Eluting stent was inserted. Drug Eluting stent was advanced across the lesion in the first diagonal, mid. Angiogram performed post stent deployment. runthrough Guide wire was inserted as a [place] wire 2x12 [place] Balloon catheter was inserted. Balloon catheter was inserted post stent. PTCA balloon inflated at 8 atms for 11 secs. Angiogram performed post balloon dilatation. 2x12 [place] Drug Eluting stent was inserted. Drug Eluting stent was advanced across the lesion in the first diagonal, proximal. Angiogram performed post stent deployment. 2x12 [place] Emer[place] Balloon catheter was inserted. Balloon catheter was inserted post stent. Angiogram performed post balloon dilatation. 2x12 [place] Emerge Balloon catheter was reinserted Angiogram performed post balloon dilatation. The arterial sheath was pulled and a TR Band was applied for hemostasis. 12cc of air CORONARY ANGIOGRAPHY DOMINANCE: Right Dominant LEFT HEART ASSESSMENT Left Ventricular Ejection Fraction: by LV Gram 55 % LVEDP: 33 mmHg Lateral Hypokinesis - Severe LEFT MAIN: Angiographically normal LEFT ANTERIOR DESCENDING ARTERY: LAD: Tubular 70% Proximal lesion in LAD Tubular 80% Mid lesion in LAD Tubular 95% Distal lesion in LAD DIAGONAL 1: Tubular 95% Proximal lesion in DIAG1 OM 1: Tubular 90% Proximal lesion in MARG1 OM 2: Tubular 90% Proximal lesion in MARG1 RIGHT CORONARY ARTERY: RCA: Tubular 40% Proximal lesion in RCA RT PDA: Tubular 50% Proximal lesion in RT PDA INTERVENTION INFORMATION LESION SITE: 1st Diagonal (Mid) Lesion Complexity: High/C, chronic total occlusion: No, thrombus present: Yes, lesion length: 16 mm, culprit lesion: Yes Pre Stenosis: 100 % Pre intervention BRIAN flow: 0 PROCEDURE: Drug Eluting Stent with pre and post dilatation Post Stenosis: 0 % Post intervention BRIAN flow: 3 Lesion Devices: Terumo .014 180cm Runthrough Extra Floppy straight Cordis 6 Fr XB3.0 100cm Guide Catheter Gary Sci EMERGE MR 2.00x15 BALLOON Medtronic 2.00 x 22 CHEVY FRONTIER EDA Terumo .014 180cm Runthrough Extra Floppy straight Gary Sci EMERGE MR 2.00x12 BALLOON Medtronic 2.00 x 12 CHEVY FRONTIER EDA Gary Sci NC EMERGE MR 2.00x12 BALLOON COMPLICATIONS No Complications PROCEDURE MEDICATIONS Fentanyl 50 mcg IV Versed 1 mg IV Versed 1 mg IV Fentanyl 50 mcg IV Versed 1 mg IV Fentanyl 50 mcg IV Versed 1 mg IV Fentanyl 50 mcg IV Oxygen: 4 L/min via nasal cannula Oxygen: 2 L/min via nasal cannula Brilinta 180 mg PO @ 02/28/2025 09:30:47 Heparin given IA 02/28/2025 09:11:16 Heparin 6000 unit(s) IV 02/28/2025 09:26:23 Heparin 3000 unit(s) IV 02/28/2025 09:41:15 Heparin 2000 unit(s) IV 02/28/2025 10:09:21 Nitro glycerin 25mg / 250ml D5W @ 40 mcg/min IV started from ER 02/28/2025 08:40:15 Nitro glycerin 25mg / 250ml D5W @ 0 mcg/min discontinued 02/28/2025 09:18:08 Nitro 200 mcg IC 02/28/2025 09:48:13 Nitro 200 mcg IC 02/28/2025 10:11:07 Verapamil 2.5mg, 2000 units of Heparin given IA 02/28/2025 09:11:16 SUMMARY OF HEMODYNAMIC DATA Time AIR REST ECG 08:54:32 AO 125/66 (89) SA 09:19:35 AO 149/72 (105) 10:09:37 LV 150/16, 29 10:26:56 LV 146/22, 33 10:27:35 LVp 153/29, 39 10:28:46 AOp 153/-222 (100) 10:28:53 Signed By Marge Steinberg MD On 02/28/2025 18:05:27 Marge Steinberg MD
--- NOTE | 2025-02-28 18:06 | ECHOCS_ITS ---
Reason For Study Reason For Study: CHEST PAIN Procedure This was a 2D Doppler, Color Flow transthoracic echocardiogram. Contrast injection was performed. Exam performed portable in ICU/CCU. Left Ventricle Normal LV size. Mild concentric left ventricular hypertrophy. Mild mid to distal anterior hypokinesis. Basal lateral hypokinesis. Overall estimated LVEF 50-55%. Stage I diastolic dysfunction. Right Ventricle Normal right ventricle. Atria The left and right atria are normal. Mitral Valve Trivial mitral valve insufficiency. Tricuspid Valve Normal tricuspid valve. Aortic Valve Trisinus/trileaflet aortic valve. Mild diffuse aortic valve thickening. Pulmonic Valve The pulmonic valve is not well visualized. Great Vessels Normal sized aortic root. Pericardium/Pleural No pericardial effusion. Medication Diluted definity 2.0ml given slow IV push to enhance endocardial definition. MMode/2D Measurements & Calculations LVIDd: 3.9 cm IVSd: 1.2 cm Ao root diam: 3.1 cm LVIDs: 2.4 cm LVPWd: 1.2 cm RVDd: 2.9 cm FS: 38.3 % LAV(MOD-bp): 41.6 ml LVAd ap4: 29.2 cm2 LVAd ap2: 29.3 cm2 LAV(MOD-bp) Indexed: 20.9 ml/m2 LVLd ap4: 8.1 cm LVLd ap2: 7.9 cm LAV(MOD-sp2): 40.1 ml EDV(MOD-sp4): 87.8 ml EDV(MOD-sp2): 90.0 ml LAV(MOD-sp4): 34.7 ml EDV(sp4-el): 89.8 ml EDV(sp2-el): 92.9 ml LVAs ap4: 19.8 cm2 LVAs ap2: 18.3 cm2 LVLs ap4: 7.6 cm LVLs ap2: 6.9 cm ESV(MOD-sp4): 42.9 ml ESV(MOD-sp2): 40.6 ml ESV(sp4-el): 44.0 ml ESV(sp2-el): 41.6 ml EF(MOD-sp4): 51.2 % EF(MOD-sp2): 54.9 % EF(sp4-el): 51.0 % SV(MOD-sp4): 45.0 ml SV(MOD-sp2): 49.4 ml SV(sp4-el): 45.8 ml SI(MOD-sp4): 22.6 ml/m2 SI(MOD-sp2): 24.8 ml/m2 LA A4 area: 13.4 cm2 LA dimension(2D): 3.8 cm TAPSE: 2.2 cm Time Measurements MV dec time: 0.24 sec Doppler Measurements & Calculations MV E max javed: 59.1 cm/sec Lat Peak E' Javed: 9.6 cm/sec Med Peak E' Javed: 7.5 cm/sec MV A max javed: 65.3 cm/sec E/E' lat: 6.2 E/E' med: 7.8 MV E/A: 0.91 MV V2 max: 84.6 cm/sec MV P1/2t max javed: 69.5 cm/sec Ao V2 max: 98.0 cm/sec MV max P.9 mmHg MV P1/2t: 73.4 msec Ao max P.8 mmHg MV V2 mean: 48.0 cm/sec MV dec slope: 277.1 cm/sec2 Ao V2 mean: 72.4 cm/sec MV mean P.1 mmHg MVA(P1/2t): 3.0 cm2 Ao mean P.2 mmHg MV V2 VTI: 18.5 cm Ao V2 VTI: 21.5 cm PA V2 max: 98.8 cm/sec PA V2 mean: 72.8 cm/sec ECHO/Echo Complete W/ Contrast Interpretation Summary Mild concentric left ventricular hypertrophy. Mild mid to distal anterior hypokinesis. Basal lateral hypokinesis. Overall est imated LVEF 50-55%. Stage I diastolic dysfunction. Mild diffuse aortic valve thickening. Ordering Physician: Marge Steinberg Referring Physician: Beata Wing Performed By: Cassandra Rojas, RDCS, RVT
[2025-02-28] MEDS: hydrOXYzine PAM 25 MG Capsule PO (21:33)
[2025-02-28] MEDS: MELATONIN 3 MG TABLET PO (21:33)
[2025-02-28] MEDS: Atorvastatin Calcium 40 MG Tablet PO (21:33)
[2025-02-28] MEDS: Carvedilol 3.125 MG TABLET PO (21:33)
[2025-03-01] VITALS (12 sets, daily range): BP systolic 112–159; BP diastolic 63–89; PULSE 66–84; RESP 12–17; TEMP 36.2–36.8; O2SAT 97–100; BMI 27.2
[2025-03-01] MEDS: Acetaminophen 325 MG Tablet 650 MG PO ×2 (05:29→14:44)
[2025-03-01 05:32] LABS: Absolute Lymphocyte Count 0.57 X10^3/uL (0.83-4.51); Absolute Neutrophil Count 4.8 X10^3/uL (2.0-7.7); Basophil# 0.05 X10^3/uL; Basophil% 0.8 % (0-1); Eosinophil# 0.47 X10^3/uL; Eosinophils% 7.1 % (0-5); Hematocrit 33.2 % (40-54); Hemoglobin 11.8 g/dL (13.0-16.5); Lymphocyte # 0.57 X10^3/ul (0.83-4.51); Lymphocyte % 8.6 % (19-41); Mean Corp Hgb Conc 35.5 g/dL (32-36); Mean Corpuscular Volume 87.1 fL (80-94); Monocyte# 0.72 X10^3/uL; Monocyte% 10.8 % (0-10); NRBC Flagged by Analyzer 0 % (0-5); Neutrophil % 72.2 % (47-70); POSITIVE DIFFERENTIAL YES; Platelet Count 233 K/mm3 (150-450); RBC Distribution Width CV 14.4 % (11.6-14.6); RBC Distribution Width SD 45.5 fl (35.1-43.9); Red Blood Count 3.81 M/mm3 (4.6-6.2); White Blood Count 6.6 K/mm3 (4.4-11.0)
[2025-03-01 05:52] LABS: Hemoglobin A1c 6.2 % (<=5.6)
[2025-03-01 06:00] LABS: Cholesterol 173 mg/dL (<=200); High Density Lipoprotein 43 mg/dL; Low Density Lipoprotein Calc. 83 mg/dL; Triglycerides 240 mg/dL; Very Low Density Lipoprotein 48 mg/dL (5-40); cholesterol:hdl ratio screen 4.07
[2025-03-01 06:10] LABS: ALB/GLOB Ratio 1.6 RATIO (0.9-2.4); AST(SGOT) 90 U/L (<=37); Alanine Aminotransfer ALT/SGPT 35 U/L (<=46); Alkaline Phosphatase 93 U/L (40-129); Anion Gap 12 (5-15); BUN 8 mg/dL (4-19); BUN/Creat Ratio 9.5 RATIO (10-20); Calcium,Total 9.2 mg/dL (7.6-11.0); Carbon Dioxide 20.1 mmol/L (21.0-32.0); Chloride 107 mmol/L (98-108); Creatinine, Serum 0.88 mg/dL (0.70-1.20); EST Glomerular Filtration Rate 97 (>60); Estimated Creatinine Clearance 85.92 ml/min (50-250); Globulin 2.5 g/dL (2.2-4.2); Glucose 127 mg/dL (70-99); Potassium 4.2 mmol/L (3.3-5.1); Protein, Total 6.5 g/dL (5.9-8.4); Sodium Level 139 mmol/L (133-145); Total Bilirubin 0.65 mg/dL (0.00-1.30)
--- NOTE | 2025-03-01 07:12 | PCM.PN.HOSP ---
Reason for Visit Reason for Visit: Diagnoses Pure hypercholesterolemia, unspecified (02/28/25) Unstable angina (02/28/25) Atherosclerotic heart disease of [place] coronary artery without angina pectoris (02/28/25) Subjective Subjective Feeling well. No new events. Objective Data Objective Data Vital Signs: Vital Signs Temp Pulse Resp BP Pulse Ox O2 Del Method 36.4 C L 75 14 112/75 100 Room Air 03/01/25 04:00 03/01/25 07:00 03/01/25 07:00 03/01/25 07:00 03/01/25 07:00 03/01/25 07:00 Oxygen Delivery Method Room Air Weight: 83.4 kg Body Mass Index (BMI) 27.2 Intake & Output: Intake and Output for Last 24 Hours 02/27/25 02/28/25 03/01/25 23:59 23:59 23:59 Intake Total 1958.8 / 2078.8 120 / 120 Output Total 800 / 800 800 / 800 Balance 1158.8 / 1278.8 -680 / -680 Lab / Micro Data 03/01/25 05:25 03/01/25 05:25 Labs: Laboratory Results - last 24 hr 02/28/25 07:56: PT 13.9, INR 1.1, APTT 102.5 H*, Troponin T Hi Sens 4Hr 96 H* 02/28/25 08:22: Activated Clotting Time 176 H 02/28/25 08:38: Activated Clotting Time 233 H 02/28/25 09:33: Activated Clotting Time 273 H 03/01/25 05:25: WBC 6.6, RBC 3.81 L, Hgb 11.8 L, Hct 33.2 L, MCV 87.1, MCH 31.0, MCHC 35.5, RDW Std Deviation 45.5 H, RDW Coeff of [place] 14.4, Plt Count 233, MPV 9.0, Immature Gran % (Auto) 0.500, Neut % (Auto) 72.2 H, Lymph % (Auto) 8.6 L, [place] % (Auto) 10.8 H, Eos % (Auto) 7.1 H, Baso % (Auto) 0.8, Absolute Neuts (auto) 4.8, Absolute Lymphs (auto) 0.57 L, Nucleated RBC % 0, Sodium 139, Potassium 4.2, Chloride 107, Carbon Dioxide 20.1 L, Anion Gap 12, BUN 8, Creatinine 0.88, Estim Creat Clear Calc 85.92, Est GFR (MDRD) Non-Af 97, BUN/Creatinine Ratio 9.5 L, Glucose 127 H, Hemoglobin A1c 6.2 H, Calcium 9.2, Total Bilirubin 0.65, AST 90 H, ALT 35, Alkaline Phosphatase 93, Total Protein 6.5, Albumin 4.0, Globulin 2.5, Albumin/Globulin Ratio 1.6, Triglycerides 240 H, Cholesterol 173, LDL Cholesterol, Calc 83, VLDL Cholesterol 48 H, HDL Cholesterol 43, Cholesterol/HDL Ratio 4.07, TSH 4.610 H Physical Exam Const alert and no apparent distress HEENT head/scalp atraumatic and moist oral mucous membranes Resp normal respiratory effort, no retractions, no use of accessory muscles and clear to auscultation bilaterally Cardio regular rate, regular rhythm, S1 normal heart sound and S2 normal heart sound GI normal to inspection, nondistended, normoactive bowel sounds, soft to palpation, non-tender and non-distended Neuro Sensorium / Orientation: awake, alert, oriented to person and oriented to place Assessment & Plan Assessment/Plan (1) NSTEMI, initial episode of care: PLAN: s/p EDA to lateral D1 and Proximal D1 on 5/6 on ASA, clopidogrel, atorvastatin echo shows mild concentric LVH. Mild mid to distal anterior hypokinesis. Basal lateral hypokinesis. EF 50-55%. PLAN: Plan Chronic conditions: HTN: stable. continue amlodipine, lisinopril prostate CA: s/p prostatectomy. outpt follow up . VTE prophylaxis: SCDs Charges/Coding Visit Charges Inpatient E&M: 29795 Subs Hosp L2
--- NOTE | 2025-03-01 08:36 | PCM.PN.CARD ---
Subjective Subjective Patient reports he is doing very well he is sitting up in the chair eating breakfast. Denies any chest symptoms. Laboratory evaluations come back and his hemoglobin A1c was elevated at 6.2 troponins peaked at 96 on the 4-hour sample. Total cholesterol was 173 LDL 83 HDL 43 and triglycerides 240. TSH was also elevated at 4.61. Patient denies any lightheaded or dizziness spells. Objective Data Vital Signs: Vital Signs Temp Pulse Resp BP Pulse Ox O2 Del Method 97.6 F L 75 14 112/75 100 Room Air 03/01/25 04:00 03/01/25 07:00 03/01/25 07:00 03/01/25 07:00 03/01/25 07:00 03/01/25 07:00 Oxygen Delivery Method Room Air Weight: 183 lb 13.848 oz Body Mass Index (BMI) 27.2 Intake & Output: Intake and Output for Last 24 Hours 02/27/25 02/28/25 03/01/25 23:59 23:59 23:59 Intake Total 1958.8 / 2078.8 120 / 120 Output Total 800 / 800 800 / 800 Balance 1158.8 / 1278.8 -680 / -680 Lab / Micro Data Attestation: I reviewed the patient's lab results. 03/01/25 05:25 03/01/25 05:25 Labs: Laboratory Results - last 24 hr 02/28/25 07:56: PT 13.9, INR 1.1, APTT 102.5 H*, Troponin T Hi Sens 4Hr 96 H* 02/28/25 08:22: Activated Clotting Time 176 H 02/28/25 08:38: Activated Clotting Time 233 H 02/28/25 09:33: Activated Clotting Time 273 H 03/01/25 05:25: WBC 6.6, RBC 3.81 L, Hgb 11.8 L, Hct 33.2 L, MCV 87.1, MCH 31.0, MCHC 35.5, RDW Std Deviation 45.5 H, RDW Coeff of Nazanin 14.4, Plt Count 233, MPV 9.0, Immature Gran % (Auto) 0.500, Neut % (Auto) 72.2 H, Lymph % (Auto) 8.6 L, [place] % (Auto) 10.8 H, Eos % (Auto) 7.1 H, Baso % (Auto) 0.8, Absolute Neuts (auto) 4.8, Absolute Lymphs (auto) 0.57 L, Nucleated RBC % 0, Sodium 139, Potassium 4.2, Chloride 107, Carbon Dioxide 20.1 L, Anion Gap 12, BUN 8, Creatinine 0.88, Estim Creat Clear Calc 85.92, Est GFR (MDRD) Non-Af 97, BUN/Creatinine Ratio 9.5 L, Glucose 127 H, Hemoglobin A1c 6.2 H, Calcium 9.2, Total Bilirubin 0.65, AST 90 H, ALT 35, Alkaline Phosphatase 93, Total Protein 6.5, Albumin 4.0, Globulin 2.5, Albumin/Globulin Ratio 1.6, Triglycerides 240 H, Cholesterol 173, LDL Cholesterol, Calc 83, VLDL Cholesterol 48 H, HDL Cholesterol 43, Cholesterol/HDL Ratio 4.07, TSH 4.610 H Rhythm Strip Rhythm Strip: Sinus Rhythm Rate: 72 Cardiology Labs/Tests 02/28/25 07:56: PT 13.9, INR 1.1, APTT 102.5 H* 03/01/25 05:25: WBC 6.6, RBC 3.81 L, Hgb 11.8 L, Hct 33.2 L, MCV 87.1, MCH 31.0, MCHC 35.5, Plt Count 233, MPV 9.0, Immature Gran % (Auto) 0.500, Neut % (Auto) 72.2 H, Lymph % (Auto) 8.6 L, [place] % (Auto) 10.8 H, Eos % (Auto) 7.1 H, Baso % (Auto) 0.8, Absolute Neuts (auto) 4.8, Nucleated RBC % 0, Sodium 139, Potassium 4.2, Chloride 107, Carbon Dioxide 20.1 L, Anion Gap 12, BUN 8, Creatinine 0.88, Est GFR (MDRD) Non-Af 97, BUN/Creatinine Ratio 9.5 L, Glucose 127 H, Hemoglobin A1c 6.2 H, Calcium 9.2, Total Bilirubin 0.65, Triglycerides 240 H, Cholesterol 173, VLDL Cholesterol 48 H, HDL Cholesterol 43, Cholesterol/HDL Ratio 4.07 Rhythm: EKG: ECHO: Stress Test: Cardiac Cath: PCI: CT Surgery: Holter monitor: EPS: PPM: CXR: Chest CT Scan: Physical Exam Const alert and oriented x3 HEENT normocephalic Eyes EOMs intact bilaterally Neck no JVD Chest inspection of chest normal Resp normal respiratory effort Cardio regular rate, regular rhythm, S1 normal heart sound, S2 normal heart sound, no murmurs, no rub and no gallops Extremity no pedal edema Extremity Narrative: Right wrist intact. Neuro Neuro Narrative: Alert and oriented x 3 Psych mental status grossly normal Assessment & Plan Assessment/Plan (1) NSTEMI, initial episode of care: PLAN: Patient had the EKG changes consistent with ST segment depression and T wave inversion in the inferior leads and very subtle ST elevation in aVL. Cardiac catheterization revealed an occluded secondary branch of the first diagonal branch. There is also critical disease in the proximal first diagonal branch. The patient underwent stenting of the diagonal 1 and secondary branch of the diagonal 1. Patient's LV function was slightly impaired with a high lateral wall defect. This was on LV gram. Echocardiogram is pending at this time. 4-hour troponin was 96. The patient tolerating the Plavix and aspirin without incident. His blood pressure is adequate controlled he is started on low-dose Coreg and PAT inhibitor therapy which will be titrated to blood pressure and heart rate response. The patient does have a hemoglobin A1c that is elevated at 6.2 with a TSH of 4.61 which will be addressed prior to discharge. Given the patient's diabetes I would recommend we try to get him on an SGLT2 inhibitor. Will discontinue the amlodipine so that we can increase his PAT inhibitor therapy as this will be more renal protective in the face of his diabetes. Will make these medication changes obtain dietary consultation for his diabetes and I have encouraged him to pursue cardiac rehab for education as well. The patient does live here in the [facility] most of the time and has a primary care physician Dr. Wing. Once discharged the patient will follow-up in the [facility] office in 1 week and then at 6 weeks with me. At that point in time we will make a decision about timing of repeat catheterization and reevaluation of stenting of his LAD and diagonal. Should the patient develop recurrent chest symptoms he will be brought back to the [employer] earlier. The plan to titrate medications and discharged to home in the next 24 hours. (2) CAD (coronary artery disease): QUALIFIERS: Coronary Disease-Associated Artery/Lesion type: [place] artery [place] vs. transplanted heart: [place] heart Associated angina: without angina Qualified Code(s): I25.10 - Atherosclerotic heart disease of [place] coronary artery without angina pectoris PLAN: Patient's coronary disease appears to be stabilized after his intervention yesterday. Will continue with Plavix and aspirin uninterrupted for a year. He does have a bifurcating stenting procedure. Patient will be reevaluated in 1 week in the office and return to gainful employment after that timeframe. He will be reevaluated at 6 weeks in the office and set up for repeat catheterization and planned staged intervention of his LAD the mid and distal segments. (3) High cholesterol: PLAN: Patient's LDL is 83 he has already been started on atorvastatin 40 mg daily. Will reevaluate his fasting lipids and liver functions in 6 weeks. (4) Diabetes: QUALIFIERS: Diabetes mellitus type: type 2 Diabetes mellitus chcf insulin use: without intermodal customer service use Diabetes mellitus complication status: with circulatory complication Diabetes mellitus complication detail: with other circulatory complications Qualified Code(s): E11.59 - Type 2 diabetes mellitus with other circulatory complications PLAN: Patient is newly diagnosed fasting blood sugar yesterday was 200. Hemoglobin A1c is 6.2. Would recommend initiation of Jardiance 10 mg daily if possible. I have ordered diabetic dietary consultation and the patient will participate in cardiac rehab for further education as well. (5) Elevated TSH: PLAN: Patient's TSH is elevated at 4.61. Will defer to primary service but probably would recommend given his recent infarct that we would treat his diabetes and titrate his other secondary risk factor therapies then recheck a TSH in the ambulatory setting. I will defer this treatment option though to the primary service and the patient should follow-up with Dr. Wing his primary care physician. PLAN: Plan 1. DC amlodipine. 2. Increase lisinopril to 10 mg every morning. 3. Continue aspirin and clopidogrel uninterrupted for 1 year. 4. Continue atorvastatin 40 mg daily and reevaluate fasting lipids and liver functions in 6 weeks. 5. Continue with cardiac rehab and diabetic dietary teaching. 6. Tentatively scheduled for discharge tomorrow morning. With follow-up in the [facility] office in 1 week. Charges/Coding Visit Charges Inpatient E&M: 49474 Subs Hosp L3
[2025-03-01] MEDS: Aspirin E.C. 81 MG Tablet PO (09:35)
[2025-03-01] MEDS: Clopidogrel Bisulfate 75 MG Tablet PO (09:35)
[2025-03-01] MEDS: Carvedilol 3.125 MG TABLET PO (09:35)
[2025-03-01] MEDS: Lisinopril 10 MG Tablet PO (09:36)
--- NOTE | 2025-03-01 14:51 | DS.PCM_ITS ---
Providers Date of Admission: 02/28/25 Primary Care Physician: Beata Wing MD Consultations 02/28/25 10:44 Consult: Cardiology Routine Consulting Provider: Jim Mcdonnell Reason for Consult: Chest Pain EMERGENT Consult: No MD Notified: Yes Date Notified: 02/28/25 Time Notified: 07:27 Method of Notification: ED Physician Initiated Reason For Visit: CHEST PAIN, EKG CHANGES, HIGH NITRO GTT Diagnosis Discharge Diagnosis (1) NSTEMI, initial episode of care: Status: Acute Code(s): I21.4 - Non-ST elevation (NSTEMI) myocardial infarction Plan: s/p EDA to lateral D1 and Proximal D1 on 02/28 on ASA, clopidogrel, atorvastatin echo shows mild concentric LVH. Mild mid to distal anterior hypokinesis. Basal lateral hypokinesis. EF 50-55%. Plan Chronic conditions: * HTN: stable. continue amlodipine, lisinopril * prostate CA: s/p prostatectomy. outpt follow up . VTE prophylaxis: SCDs Medications at Discharge Home Medications diphenhydramine HCl 25 mg capsule (Benadryl) 25 mg PO QHS 08/24/24 hydroxyzine HCl 25 mg tablet 25 mg PO BID PRN PRN anxiety 08/24/24 oxybutynin chloride 5 mg tablet 5 mg PO BID PRN bladder spasms 10/05/24 lorazepam 1 mg tablet 1 mg PO ONCE PRN anxiety #1 TAB 12/28/24 aspirin 81 mg tablet,delayed release 81 mg PO DAILY@0800 #0 tabs 03/01/25 atorvastatin 40 mg tablet 40 mg PO QHS #30 tabs 03/01/25 carvedilol 3.125 mg tablet 3.125 mg PO BID #60 tabs 03/01/25 clopidogrel 75 mg tablet 75 mg PO DAILY #30 tabs 03/01/25 empagliflozin 10 mg tablet (Jardiance) 10 mg PO DAILY #30 tabs 03/01/25 lisinopril 10 mg tablet 10 mg PO DAILY #30 tabs 03/01/25 Hospital Course Operations None Procedures 2-D Echocardiogram and Cardiac catheterization Summary of Care Provided Minutes Spent on Discharge: 35 Hospital Course: Patient presents with chest pain and non-STEMI. 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 Patient felt better afterwards. Patient be on dual antiplatelet therapy as well as atorvastatin, lisinopril and carvedilol. Patient did have TSH that was elevated but his free T4 was normal. Patient did have some high blood sugars around 200 but since of us since stabilized. His A1c is 6.2. Patient will follow-up with cardiology in a week's time. Weight / BMI Weight Weight: 83.4 kg Body Mass Index (BMI) 27.2 ABG / Lab / Microbiology Data 03/01/25 05:25 03/01/25 05:25 Laboratory: Laboratory Results - last 24 hr 03/01/25 05:25: WBC 6.6, RBC 3.81 L, Hgb 11.8 L, Hct 33.2 L, MCV 87.1, MCH 31.0, MCHC 35.5, RDW Std Deviation 45.5 H, RDW Coeff of Nazanin 14.4, Plt Count 233, MPV 9.0, Immature Gran % (Auto) 0.500, Neut % (Auto) 72.2 H, Lymph % (Auto) 8.6 L, M [place] % (Auto) 10.8 H, Eos % (Auto) 7.1 H, Baso % (Auto) 0.8, Absolute Neuts (auto) 4.8, Absolute Lymphs (auto) 0.57 L, Nucleated RBC % 0, Sodium 139, Potassium 4.2, Chloride 107, Carbon Dioxide 20.1 L, Anion Gap 12, BUN 8, Creatinine 0.88, Estim Creat Clear Calc 85.92, Est GFR (MDRD) Non-Af 97, B UN/Creatinine Ratio 9.5 L, Glucose 127 H, Hemoglobin A1c 6.2 H, Calcium 9.2, Total Bilirubin 0.65, AST 90 H, ALT 35, Alkaline Phosphatase 93, Total Protein 6.5, Albumin 4.0, Globulin 2.5, Albumin/Globulin Ratio 1.6, Triglycerides 240 H, Cholesterol 173, LDL Cholesterol, Calc 83, VLDL Cholesterol 48 H, HDL Cholesterol 43, Cholesterol/HDL Ratio 4.07, TSH 4.610 H, Free T4 1.00 Radiography Diagnostic Testing: Radiology Impression Echocardiogram 02/28/25 18:06 Interpretation Summary Mild concentric left ventricular hypertrophy. Mild mid to distal anterior hypokinesis. Basal lateral hypokinesis. Overall estimated LVEF 50-55%. Stage I diastolic dysfunction. Mild diffuse aortic valve thickening. Ordering Physician: Marge Steinberg Referring Physician: Beata Wing Performed By: Cassandra Rojas, ASAD, RVT D/C Instructions Discharge Diet: Low fat / Low cholesterol DC O2, CPAP, BIPAP Needs Home O2 Discharge instructions: No Meaningful Use Info Meaningful Use Meaningful Use Diagnoses (Choose all that apply): AMI AMI/Post PCI/Angioplasty Aspirin given w/in 24hrs of arrival?: Yes ASA at discharge?: Yes Antiplatelet Therapy at Discharge:: Yes Statins at discharge?: Yes Taj/ARB at discharge?: Yes Beta [place] at discharge?: Yes Done w/ Acute OK measure.: Yes Documented LVEF (%): 50 Ischemic Stroke Statin Dosing Therapy Reference: STATIN DOSE THERAPY REFERENCE: * Patients > 75 years receive moderate or high dose statin therapy. * Patients 75 years or YOUNGER should receive HIGH intensity statin dose unless contraindicated. You will be required to document reason for non-treatment if statin daily dose does not meet guidelines. HIGH DOSE STATIN THERAPY DAILY Atorvastatin > than or = to 40 mg Rosuvastatin > than or = to 20 mg Amlodipine + Atorvastatin > than or = to 2.5/40 mg Ezetimibe + Simvastatin 10/80 mg Simvastatin 80mg Discharge Plan Admission Admit Date/Time: 02/28/25 07:17 Primary Reason for Your Visit: NSTEMI Attending Provider: Alvaro Sunshine Primary Care Provider: Beata Wing Consulting Providers: Roman Calzada; Jim Mcdonnell; Brandi Resendiz Instructions Additional Instructions / Restrictions: Follow up with cardiology in 1 week. Call for appointment. Discharge Orders/Prescriptions Prescriptions: New atorvastatin 40 mg Tablet 40 mg PO QHS Qty: 30 0RF clopidogrel 75 mg Tablet 75 mg PO DAILY Qty: 30 0RF aspirin 81 mg Tablet,Delayed Release (Dr/Ec) 81 mg PO DAILY@0800 Qty: 0 0RF carvedilol 3.125 mg Tablet 3.125 mg PO BID Qty: 60 0RF lisinopril 10 mg Tablet 10 mg PO DAILY Qty: 30 0RF Jardiance 10 mg tablet 10 mg PO DAILY Qty: 30 0RF Continued oxybutynin chloride 5 mg tablet 5 mg PO BID PRN (Reason: bladder spasms) hydroxyzine HCl 25 mg tablet 25 mg PO BID PRN PRN (Reason: anxiety) diphenhydramine HCl [Benadryl] 25 mg capsule 25 mg PO QHS lorazepam 1 mg tablet 1 mg PO ONCE PRN (Reason: anxiety) Qty: 1 0RF Rx Instructions: take 1 tab PO 30 min prior to MRI Referrals / Follow Up: [facility] [Provider Group] - Within 1 Week Beata Wing MD [Primary Care Provider] - Within 2 Weeks Disposition Disposition (needs filled in before D/C Order can be placed): Home, Self Care Charges/Coding Visit Charges Inpatient E&M: 99285 Disch Hosp >30min
--- NOTE | 2025-03-01 16:00 | CASEMGMT ---
Pt has an order for DC placed. Rx for BGM with testing supplies signed by Dr. Sunshine with instructions to check BS levels once per day. RN CM to pt room at this time and given the physical Rx. Pt was encouraged to get established with an cut off operator scorer to help manage his new Dx for DM. Pt was given resources including Dr. Christian's information. Pt also has a new Rx for Jardiance. TC to [facility] who states that the pt's new prescriptions are inexpensive e/f the Jardiance which comes to 150$ after insurance. Pt states that he cannot afford this and is requesting a new medication. This RN CM notified Dr Sunshine who states that he will not prescribe a different medication. This RN CM educated the pt that there are online savings cards that can be applied for. Pt states that he is willing to try this out. This RN CM was able to successfully apply the pt for a 10$ copay card through [employer] (with the pt's approval). TC to [facility] and given the RxBIN,GRP #, etc. [facility] states that this was successful and that the pt only owes 10$ for the Jardiance now. [facility] also states that they will be able to provide the pt with education on how to use the BGM once he picks it up. Pt updated and aware. Pt was also encouraged to f/u with his PCP after DC for f/u care and DM education and assistance. Pt states understanding, thanks this RN CM, and denies further needs. Pt states that his son will pick him up soon. Pt RN updated.
== END 2025-03-01 17:41 | disposition home or self-care (01) | DRG 322 ==
LOC: ED 06:31 → ICU 07:22
PROVIDERS: Internal Medicine; Admitting Provider Internal Medicine; Emergency Provider Emergency Medicine; PCP Family Medicine
DX: I21.4 Non-ST elevation (NSTEMI) myocardial infarction (principal); C61 Malignant neoplasm of prostate; I20.0 Unstable angina; E78.00 Pure hypercholesterolemia, unspecified; F41.9 Anxiety disorder, unspecified; I25.84 Coronary atherosclerosis due to calcified coronary lesion; R79.89 Other specified abnormal findings of blood chemistry; Z92.3 Personal history of irradiation; Z90.79 Acquired absence of other genital organ(s); Z79.899 Other long term (current) drug therapy
CPT/HCPCS: 36415; 71045; 80048; 80053; 80061; 83036; 84439; 84443; 84484; 85025; 85347; 85379; 85610; 85730; 92928; 93005; 93306; 93458; 94762; 97803; 99152; 99153; 99285; C1874; Q9957; Q9967; A4216; C1725; C1769; C1887; C1894; C8929; C9600; J1327; J2405

== ENCOUNTER 2025-04-05 09:32 | Observation (INO) | payer OTHER, SELFPAY ==
[2025-04-04 10:19] VITALS: BMI 25.7
--- OUTSIDE RECORDS SUMMARY | 2025-04-05 07:23 | XMS RPT_ITS | CCD ---
Author Organization [facility] Care Team Providers Care Horse Rider Name Role Phone Mecca ANDRADE, Beata Primary Care Provider [phone] Cat Christian Attending Provider Unavailable Guera ANDRADE, Dr. Eduardo Gutierrez Attending Provider Guera ANDRADE, Dr. Eduardo Gutierrez Referring Provider [phone] Lea Sharma LPN Attending Provider Unavailab edwardo Tyler DO, Dr. Jo Attending Provider Beata Wing MD Referring Provider [phone] Talya ANDRADE, Dr. Webb Attending Provider Dr. Tracey Babin MD Other Provider Dr. Sandro Tyler DO Referring Provider Mecca ANDRADE, Beata Primary Care Provider Guera ANDRADE, Dr. Eduardo Gutierrez Attending Provider Dr. Eduardo Lynne MD Referring Provider [phone] Dr. Sandro Tyler DO Referring Provider Dr. Peña Rivera DO Emergency Provider Calzada DO, Dr. Owens Admit Provider Unavail able Dr. Roman Calzada DO Other Provider Unavail able Dr. Jim Mcdonnell MD Other Provider [phone] Alvaro Sunshine DO Attending Provider Dr. Brandi Resendiz MD Other Provider Dr. Jim Mcdonnell MD Attending Provider Dr. Alvaro Sunshine DO Other Provider Idris ANDRADE, Dr. Bird Attending Provider Mecca ANDRADE, Chalon Primary Care Provider [phone] Guera ANDRADE, Dr. Eduardo Gutierrez Attending Provider Guera ANDRADE, Dr. Eduardo Gutierrez Referring Provider [phone] Kellie Peck Attending Provider Mecca ANDRADE, Chalon Primary Care Provider Dr. Sandro Tyler DO Attending Provider Mecca, Chalon Primary Care Unavailable Guera, Eduardo Gutierrez Attending Unavailable Guera, Eduardo Guteirrez Referring Unavailable Mecca, Chalon Primary Care Unavailable Guera, Eduardo Gutierrez Attending Unavailable Guera, Eduardo Gutierrez Referring Unavailable Mecca, Chalon Primary Care Unavailable Guera, Eduardo Gutierrez Attending Unavailable Guera, Eduardo Gutierrez Referring Unavailable Mecca, Chalon Primary Care Unavailable Cat Christian Attending Unavailable Mecca, Chalon Primary Care Unavailable Mecca, Chalon Referring Unavailable Tracey Babin Attending Unavailable Mecca, Chalon Attending Unavailable Mecca, Chalon Primary Care Unavailable Mecca, Chalon Primary Care Unavailable Jayson, Sandro Attending Unavailable Jayson, Sandro Referring Unavailable Mecca, Chalon Primary Care Unavailable Guera, Eduardo Gutierrez Attending Unavailable Guera, Eduardo Gutierrez Admitting Unavailable Guera, Eduardo Gutierrez Referring Unavailable Mecca, Chalon Primary Care Unavailable JaysonSandro isaacs Attending Unavailable Jayson, Sandro Referring Unavailable Mecca, Chalon Primary Care Unavailable Jayson, Sandro Attending Unavailable Jayson, Sandro Referring Unavailable Mecca, Chalon Primary Care Unavailable Brandi Resendiz Attending Unavailable Roman Calzada Consulting Unavailable Roman Calzada Admitting Unavailable Brandi Resendiz Consulting Unavailable Mecca, Chalon Primary Care Unavailable JaysonSandro isaacs Attending Unavailable Jayson, Sandro Referring Unavailable Mecca, Chalon Primary Care Unavailable Jayson, Sandro Attending Unavailable Jayson, Sandro Referring Unavailable Mecca, Chalon Primary Care Unavailable Jayson, Sandro Attending Unavailable Jayson, Sandro Referring Unavailable Guera, Eduardo Gutierrez Attending Unavailable Guera, Eduardo Gutierrez Referring Unavailable Mecca, Chalon Primary Care Unavailable Guera, Eduardo Gutierrez Attending Unavailable Guera, Eduardo Gutierrez Referring Unavailable Mecca, Chalon Primary Care Unavailable Guear, Oliver Attending Unavailable Guera, Oliver Referring Unavailable Mecca, Chalon Primary Care Unavailable Mecca, Chalon Primary Care Unavailable Sandro Tyler Attending Unavailable Mecca, Chalon Primary Care Unavailable Marge Steinberg Attending Unavailable Mecca, Chalon Primary Care Unavailable Jayson, Sandro Referring Unavailable JaysonSandro isaacs Attending Unavailable Mecca, Chalon Primary Care Unavailable Lea Sharma Attending Unavailable Mecca, Chalon Primary Care Unavailable Roman Calzada Admitting Unavailable Roman Calzada Consulting Unavailable Alvaro Sunshine Attending Unavailable Jim Mcdonnell Consulting Unavailable Brandi Resendiz Consulting Unavailable Mecca, Chalon Primary Care Unavailable Jayson, Sandro Attending Unavailable Jayson, Sandro Referring Unavailable Mecca, Chalon Primary Care Unavailable [place], Belem Attending Unavailable Brink[place], Belem Referring Unavailable Mecca, Chalon Primary Care Unavailable Sandro Tyler Attending Unavailable Jayson, Sandro Referring Unavailable Mecca, Chalon Primary Care Unavailable Jayson, Sandro Attending Unavailable Jayson, Sandro Referring Unavailable Mecca, Chalon Primary Care Unavailable Guera, Oliver Referring Unavailable Jayson, Sandro Attending Unavailable Mecca, Chalon Referring Unavailable Mecca, Chalon Primary Care Unavailable Jayson, Sandro Attending Unavailable Mecca, Chalon Referring Unavailable Mecca, Chalon Primary Care Unavailable Kellie Rodríguez NP Attending Unavailable Mecca, Chalon Primary Care Unavailable Jim Mcdonnell Attending Unavailable Fran Foster Referring Unavailable Mecca, Chalon Primary Care Unavailable Jayson, Sandro Referring Unavailable Sandro Tyler Attending Unavailable Mecca, Chalon Primary Care Unavailable Jayson, Sandro Attending Unavailable Jayson, Sandro Referring Unavailable Mecca, Chalon Referring Unavailable Mecca, Chalon Primary Care Unavailable Talya, Tracey Consulting Unavailable Tracey Babin Attending Unavailable Jim Mcdonnell Attending Unavailable Mecca, Chalon Primary Care Unavailable Roman Calzada Consulting Unavailable Alvaro Sunshine Attending Unavailable Roman Calzada Admitting Unavailable Jim Mcdonnell Unavailable Brandi Resendiz Consulting Unavailable Alvaro Sunshine Consulting Unavailable Jim Mcdonnell Attending Unavailable Mecca, Chalon Primary Care Unavailable Idris, Marge Attending Unavailable Medications Current Medications Medication Drug Class(es) Dates Sig (Normalized) Sig (Original) aspirin 81 mg delayed release oral tablet (3 sources) Platelet Aggregation Inhibitor, Nonsteroidal Anti-inflammatory Drug Start: 03-01-2025 take 1 tablet by mouth once daily Aspirin 81 mg Tablet,Delayed Release (Dr/Ec) Active 81 mg PO DAILY@0800 0 March 01, 2025 12:00am atorvastatin 40 mg oral tablet (5 sources) HMG-CoA Reductase Inhibitor Start: 03-01-2025 End: 03-09-2025 take 1 tablet by mouth at bedtime Atorvastatin 40 mg tablet Active 40 mg PO AT BEDTIME March 09, 2025 9:13am carvedilol 3.125 mg oral tablet (5 sources) alpha-Adrenergic Ladonna, beta-Adrenergic Ladonna Start: 03-01-2025 End: 03-09-2025 take 1 tablet by mouth twice daily Carvedilol 3.125 mg tablet Active 3.125 mg PO TWICE A DAY March 09, 2025 9:14am clopidogrel 75 mg oral tablet (5 sources) P2Y12 Platelet Inhibitor Start: 03-01-2025 End: 03-09-2025 take 1 tablet by mouth once daily Clopidogrel 75 mg tablet Active 75 mg PO DAILY March 09, 2025 9:14am diphenhydrAMINE hydrochloride 25 mg oral capsule (4 sources) Histamine-1 Receptor Antagonist Start: 08-24-2024 take 1 capsule by mouth at bedtime Diphenhydramine Hcl (Benadryl) 25 mg capsule Active 25 mg PO AT BEDTIME August 24, 2024 12:00am empagliflozin 10 mg oral tablet (5 sources) Sodium-Glucose Cotransporter 2 Inhibitor Start: 03-01-2025 End: 03-09-2025 take 1 tablet by mouth once daily Empagliflozin (Jardiance) 10 mg tablet Active 10 mg PO DAILY March 09, 2025 9:15am hydrOXYzine hydrochloride 25 mg oral tablet (4 sources) Antihistamine Start: 08-24-2024 take 1 tablet by mouth twice daily as needed for anxiety Hydroxyzine Hcl 25 mg tablet Active 25 mg PO TWICE DAILY NEEDED as needed for anxiety August 24, 2024 12:00am lisinopril 10 mg oral tablet (5 sources) Angiotensin Converting Enzyme Inhibitor Start: 03-01-2025 End: 03-09-2025 take 1 tablet by mouth once daily Lisinopril 10 mg tablet Active 10 mg PO DAILY March 09, 2025 9:14am oxybutynin chloride 5 mg oral tablet (4 sources) Cholinergic Muscarinic Antagonist Start: 10-05-2024 take 1 tablet by mouth twice daily as needed for muscle spasms Oxybutynin Chloride 5 mg tablet Active 5 mg PO TWICE A DAY as needed for bladder spasms October 05, 2024 1:00am Completed/Discontinued Medications Medication Drug Class(es) Dates Sig (Normalized) Sig (Original) calcium citrate 1500 mg / cholecalciferol 250 unt oral tablet (4 sources) Vitamin D Start: 11-21-2024 End: 12-05-2024 Calcium Citrate-Vitamin D3 (Citracal + D Maximum) 315 mg-6.25 mcg (250 unit) tablet Discontinued 1 {tbl} PO daily November 21, 2024 1:00am December 05, 2024 3:31pm ciprofloxacin 500 mg oral tablet (4 sources) Quinolone Antimicrobial Start: 09-07-2024 End: 10-17-2024 take 1 tablet by mouth twice daily Ciprofloxacin Hcl 500 mg tablet Discontinued 500 mg PO TWICE A DAY September 07, 2024 1:00am October 17, 2024 4:37pm docusate sodium 100 mg oral capsule (4 sources) Start: 09-07-2024 End: 10-17-2024 take 1 capsule by mouth twice daily Docusate Sodium (Colace) 100 mg capsule Discontinued 100 mg PO TWICE A DAY September 07, 2024 1:00am October 17, 2024 4:38pm LORazepam 1 mg oral tablet (4 sources) Benzodiazepine Start: 12-28-2024 End: 03-09-2025 Lorazepam 1 mg tablet Discontinued 1 mg PO ONCE as needed for anxiety December 28, 2024 1:00am March 09, 2025 9:06am take 1 tab PO 30 min prior to MRI oxyCODONE hydrochloride 5 mg oral tablet (4 sources) Opioid Agonist Start: 09-07-2024 End: 10-17-2024 take 1 tablet by mouth every six hours as needed for pain Oxycodone 5 mg tablet Discontinued 5 mg PO EVERY 6 HOURS as needed for pain 14 3 September 07, 2024 October 17, 2024 4:38pm Problems Problem Classification Problem Date Documented Da te Episodic/Chronic Acute myocardial infarction (7 sources) Myocardial infarction; Translations: [Non-ST elevation (NSTEMI) myocardial infarction] Onset: 03-09-2025 03-01-2025 Chronic Anxiety disorders (4 sources) Anticipatory anxiety; Translations: [Anxiety disorder, unspecified] 12-28-2024 Chronic Cancer of prostate (2 sources) Malignant neoplasm of prostate; Translations: [Malignant neoplasm of prostate] Onset: 11-28-2024 Chronic Coronary atherosclerosis and other heart disease (14 sources) Coronary arteriosclerosis; Translations: [Atherosclerotic heart disease of [place] coronary artery without angina pectoris] Onset: 03-09-2025 03-01-2025 Chronic Coronary atherosclerosis and other heart disease (5 sources) Stented coronary artery; Translations: [Presence of coronary angioplasty implant and graft] Onset: 02-28-2025 02-28-2025 Episodic Comment on above: [place] EDA 2. 0 X 22 mm in first diagonal MID and 2.0 X 12 in first diagonal PROXIMAL 02/28/25 Diabetes mellitus with complications (1 source) Type 2 diabetes mellitus with other circulatory complications; Translations: [Type 2 diabetes mellitus with other circulatory complications] Onset: 03-09-2025 Chronic Diabetes mellitus without complication (6 sources) Diabetes mellitus; Translations: [Type 2 diabetes mellitus without complications] 03-01-2025 Chronic Disorders of lipid metabolism (7 sources) Hypercholesterolemi a; Translations: [Pure hypercholesterolemi a, unspecified] Onset: 03-09-2025 02-28-2025 Chronic Comment on above: IN THE PAST, CONTROL LED WITH DIET Nonspecific chest pain (7 sources) Chest pain; Translations: [Chest pain, unspecified] Onset: 03-09-2025 02-28-2025 Episodic Other male genital disorders (4 sources) Disorder of prostate; Translations: [Disorder of prostate, unspecified] 09-07-2024 Episodic Comment on above: PROSTATE CA Other screening for suspected conditions (not mental disorders or infectious disease) (20 sources) Patient encounter status; Translations: [Encounter for screening for malignant neoplasm of colon] Onset: 07-28-2024 10-05-2024 Episodic Residual codes; unclassified (4 sources) Family history of cancer of colon; Translations: [Family history of malignant neoplasm of digestive organs] 10-05-2024 Episodic Unclassified (3 sources) Z95.5 - Presence of coronary angioplasty implant and graft,I25.10 - Atherosclerotic heart disease of [place] coronary artery without angina pectoris,R79.89 - Other specified abnormal findings of blood chemistry Results Test Name Value Interpretation Reference Range Facility Absolute lymphocyte countOrd ered By: Kellie Rodríguez on 03-27-2025 Lymphocytes Auto (Unsp spec) [#/Vol] 0.78 10*3/uL Low 0.83-4.51 [facility] Absolute neutrophil countOrd ered By: Kellie Rodríguez on 03-27-2025 Neutrophils (Bld) [#/Vol] 2.9 10*3/uL 2.0-7.7 [facility] Anion gap in Serum or Plasma Ordered By: Kellie Rodríguez on 03-27-2025 Anion gap [Moles/Vol] 11 mmol/L 5-[address] [facility] Automated lymphocyte count a s percentage of total leukocytesOrdered By: Kellie Rodríguez on 03-27-2025 Lymphocytes/100 WBC Auto (Unsp spec) 16.9 % Low 19-41 [facility] BUN/creatinine ratioOrdered By: Kellie Rodríguez on 03-27-2025 Urea nitrogen/Creatinine [Mass ratio] 10.4 mg/mg 10- [facility] Basic Metabolic Profile (BMP )on 03-27-2025 BUN/CRE 10.4 RATIO Normal - [facility] Comment on above: Performed By: #### L 501.9940 #### [facility] [address] [place], [address] Calcium [Mass/Vol] 9.6 mg/dL Normal 7.6-11.0 [facility] Comment on above: Performed By: #### L 501.9940 #### [facility] [address] [place], [address] Chloride [Moles/Vol] 106 mmol/L Normal 98-108 [facility] Comment on above: Performed By: #### L 501.9940 #### [facility] [address] [place], [address] CO2 [Moles/Vol] 23.9 mmol/L Normal 21.0-32.0 [facility] Comment on above: Performed By: #### L 501.9940 #### [facility] [address] [place], [address] Creatinine [Mass/Vol] 1.14 mg/dL Normal 0.70-1.[address] [facility] Comment on above: Performed By: #### L 501.9940 #### [facility] [address] [place], [address] ECRCL 66.32 ml/min Normal 50-250 [facility] Comment on above: Performed By: #### L 501.9940 #### [facility] [address] [place], [address] GAP 11 Normal 5-15 [facility] Comment on above: Performed By: #### L [id number] #### [facility] [address] [place], [address] GFR/1.73 sq M.predicted among non-blacks MDRD (S/P/Bld) [Vol rate/Area] 72 mL/min/{1.73_m2} Normal >60 [facility] Comment on above: Result Comment: mL/m in/1.73m2 CKD-EPI Creatinine Equation (2020) Performed By: #### L 501.9940 #### [facility] [address] [place], [address] Glucose [Mass/Vol] 93 mg/dL Normal 70-99 [facility] Comment on above: Performed By: #### L 501.9940 #### [facility] [address] [place], [address] Potassium [Moles/Vol] 4.1 mmol/L Normal 3.3-5.[address] [facility] Comment on above: Performed By: #### L 501.9940 #### [facility] [address] [place], [address] Sodium [Moles/Vol] 140 mmol/L Normal 133-145 [facility] Comment on above: Performed By: #### L 501.9940 #### [facility] [address] [place], [address] Urea nitrogen [Mass/Vol] 12 mg/dL Normal 4-19 [facility] Comment on above: Performed By: #### L 501.9940 #### [facility] [address] [place], [address] Basophil percentageOrdered B y: Kellie Rodríguez on 03-27-2025 Basophils/100 WBC (Bld) 1.1 % High 0-1 [facility] CBC W/Diff, Automatedon Absolute Lymph 0.78 X10 3/uL Low 0.83-4.51 [facility] Comment on above: Performed By: #### L 100.0100 ####[facility] [address] [place], [address] Absolute Neut 2.9 X10 3/uL Normal 2.0-7.7 [facility] Comment on above: Performed By: #### L 100.0100 ####[facility] [address] [place], [address] Basophils/100 WBC (Bld) 1.1 % High 0-1 [facility] Comment on above: Performed By: #### L 100.0100 ####[facility] [address] [place], [address] Eosinophils/100 WBC (Bld) 11.5 % High 0-5 [facility] Comment on above: Performed By: #### L 100.0100 ####[facility] [address] [place], [address] Erythrocyte distribution width (RBC) [Ratio] 13.2 % Normal 11.6-14.6 [facility] Comment on above: Performed By: #### L 100.0100 ####[facility] [address] [place], [address] Hematocrit (Bld) [Volume fraction] 35.1 % Low 40-54 [facility] Comment on above: Performed By: #### L 100.0100 ####[facility] [address] [place], [address] Hemoglobin (Bld) [Mass/Vol] 12.1 g/dL Low 13.0-16.5 [facility] Comment on above: Performed By: #### L 100.0100 ####[facility] [address] [place], [address] IG% 0.200 Normal 0.0-0.9 [facility] Comment on above: Result Comment: IG% - Immature Granulocytes (promyelocytes, myelocytes and metamyelocytes) > 1% indicates that a LEFT SHIFT is Present. Performed By: #### L 100.0100 ####[facility] [address] [place], [address] Lymphocytes/100 WBC (Bld) 16.9 % Low 19-41 [facility] Comment on above: Performed By: #### L 100.0100 ####[facility] [address] [place], [address] MCH (RBC) [Entitic mass] 31.3 pg Normal 27.0-32.0 [facility] Comment on above: Performed By: #### L 100.0100 ####[facility] [address] [place], [address] MCHC (RBC) [Mass/Vol] 34.5 g/dL Normal 32-[address] [facility] Comment on above: Performed By: #### L 100.0100 ####[facility] [address] [place], [address] MCV (RBC) [Entitic vol] 90.9 fL Normal 80-94 [facility] Comment on above: Performed By: #### L 100.0100 ####[facility] [address] [place], [address] Monocytes/100 WBC (Bld) 8.5 % Normal 0-10 [facility] Comment on above: Performed By: #### L 100.0100 ####[facility] [address] [place], [address] Neutrophils/100 WBC (Bld) 61.8 % Normal 47-70 [facility] Comment on above: Performed By: #### L 100.0100 ####[facility] [address] [place], [address] Nucleated RBC (Bld) [#/Vol] 0 10*3/uL Normal 0-5 [facility] Comment on above: Performed By: #### L 100.0100 ####[facility] [address] [place], [address] Platelet mean volume (Bld) [Entitic vol] 9.4 fL Normal 6.2-12.0 [facility] Comment on above: Performed By: #### L 100.0100 ####[facility] [address] [place], [address] Platelets (Bld) [#/Vol] 216 10*3/uL Normal 150-450 [facility] Comment on above: Performed By: #### L 100.0100 ####[facility] [address] [place], [address] RBC (Bld) [#/Vol] 3.86 10*6/uL Low 4.6-6.2 [facility] Comment on above: Performed By: #### L 100.0100 ####[facility] [address] [place], [address] RDW SD 43.8 fl Normal 35.1-43.9 [facility] Comment on above: Performed By: #### L 100.0100 ####[facility] [address] [place], [place], [address] WBC (Bld) [#/Vol] 4.6 10*3/uL Normal 4.4-11.0 [facility] Comment on above: Performed By: #### L 100.0100 ####[facility] [address] [place], [place], [address] Carbon dioxide, total [Moles /volume] in Central venous bloodOrdered By: Kellie Rodríguez on 03-27-2025 CO2 [Moles/Vol] 23.9 mmol/L 21.0-32.0 [facility] Chloride assayOrdered By: Delta Rodríguez on 03-27-2025 Chloride [Moles/Vol] 106 mmol/L 98-108 [facility] Eosinophil percentageOrdered By: Kellie Rodríguez on 03-27-2025 Eosinophils/100 WBC (Bld) 11.5 % High 0-5 [facility] Erythrocyte distribution wid th ratioOrdered By: Kellie Rodríguez on 03-27-2025 Erythrocyte distribution width (RBC) [Ratio] 13.2 % 11.6-14.6 [facility] Erythrocyte distribution wid th standard deviationOrdered By: Kellie Rodríguez on 03-27-2025 Erythrocyte distribution width (RBC) [Ratio] 43.8 fl 35.1-43.9 [facility] Glomerular filtration rate ( GFR) estimation/1.73 sq m using serum, plasma, or whole bOrdered By: Kellie Rodríguez on 03-27-2025 GFR/1.73 sq M.predicted among non-blacks MDRD (S/P/Bld) [Vol rate/Area] 72 mL/min/{1.73_m2} >60 [facility] Comment on above: mL/min/1.73m2 CKD-EP I Creatinine Equation (2020) Hematocrit Auto (Bld) [Volum e fraction]Ordered By: Kellie Rodríguez on 03-27-2025 Hematocrit (Bld) [Volume fraction] 35.1 % Low 40-54 [facility] Hemoglobin measurementOrdere d By: Kellie Rodríguez on 03-27-2025 Hemoglobin (Bld) [Mass/Vol] 12.1 g/dL Low 13.0-16.5 [facility] Immature granulocytes/100 WB C Auto (Bld)Ordered By: Kellie Rodríguez on 03-27-2025 Immature granulocytes/100 WBC (Bld) 0.200 % 0.0-0.9 [facility] Comment on above: IG% - Immature Granu locytes (promyelocytes, myelocytes and metamyelocytes) > 1% indicates that a LEFT SHIFT is Present. MCV (mean corpuscular volume ) determinationOrdered By: Kellie Rodríguez on 03-27-2025 MCV (RBC) [Entitic vol] 90.9 fL 80-94 [facility] Mean corpuscular hemoglobin (MCH) determinationOrdered By: Kellie Rodríguez on 03-27-2025 MCH (RBC) [Entitic mass] 31.3 pg 27.0-32.0 [facility] Mean corpuscular hemoglobin concentration (MCHC) determinationOrdered By: Kellie Rodríguez on 03-27-2025 MCHC (RBC) [Mass/Vol] 34.5 g/dL 32-[address] [facility] Mean platelet volume determi nationOrdered By: Kellie Rodríguez on 03-27-2025 Platelet mean volume (Bld) [Entitic vol] 9.4 fL 6.2-12.0 [facility] Monocyte percentageOrdered B y: Kellie Rodríguez on 03-27-2025 Monocytes/100 WBC (Bld) 8.5 % 0-10 [facility] Neutrophil percentageOrdered By: Kellie Rodríguez on 03-27-2025 Neutrophils/100 WBC (Bld) 61.8 % 47-70 [facility] Nucleated red blood cell per centageOrdered By: Kellie Rodríguez on 03-27-2025 Nucleated RBC/100 WBC (Bld) [Ratio] 0 % 0-5 [facility] PSA,Total- [employer] 06-0 PSA, DIAGNOSTIC < 0.02 Normal 0.00-4.00 [facility] Comment on above: Result Comment: This test was performed using the [employer] tPSA method. Measured values of a patient??sample can vary depending on the testing procedure used. PSA values determined on patient samples by different testing procedures cannot be used interchangeably. If there is a change in PSA assays while monitoring therapy, sequential testing should be performed to confirm baseline values. Performed By: #### L 501.9940 #### [facility] [address] [place], [address] Platelet countOrdered By: Delta Rodríguez on 03-27-2025 Platelets (Bld) [#/Vol] 216 10*3/uL 150-450 [facility] Potassium measurement (mass/ volume)Ordered By: Kellie Rodríguez on 03-27-2025 Potassium (Unsp spec) [Mass/Vol] 4.1 mmol/L 3.3-5.1 [facility] RBC Auto (Bld) [#/Vol]Ordere d By: Kellie Rodríguez on 03-27-2025 RBC (Bld) [#/Vol] 3.86 10*6/uL Low 4.6-6.2 [facility] Radiation Oncology Visiton 0 03-27-2025 Radiation Oncology Visit [facility] [address] [place] [address] OFFICE VISIT Date of Service: 03/27/25 0808 MR#: [id number] Acct: [id number] Name: CELESTE IBRAHIM Ines Rep #: [id number] : 1960 From: Sandro [place] DO Age/Sex: 64/M [facility] – [place] Status: Signed Intake Vital Signs 02/22/25 08:42 03/09/25 08:21 03/27/25 08:18 Height 5 ft 9 in 5 ft 9 in 5 ft 9 in Weight: 171 lb 4 oz BMI 25.2 BP 110/72 Blood Pressure Location Lt brachial Position Sitting Respiration 18 Pulse 64 Pulse Source Monitor Temp 97.6 F L Temperature Source Temporal Artery Pulse Oximetry (%) 99 Oxygen Delivery Method room air Intake Visit Reasons: 1 MONTH F/U POST RT Is patient in pain?: Yes (chest pain ) Pain scale (1-10): 1 Allergies No Known Allergies Allergy (Verified 03/27/25 08:14) Medications ???Medication ???Instructions ???Recorded ???Confirmed ???Type diphenhydramine HCl 25 mg capsule 25 mg PO QHS 08/24/24 03/27/25 Hi story (Benadryl) hydroxyzine HCl 25 mg tablet 25 mg PO BID PRN PRN anxiety 08/2403/27/25 History oxybutynin chloride 5 mg tablet 5 mg PO BID PRN bladder spasms 09/1803/27/25 History aspirin 81 mg tablet,delayed 81 mg PO DAILY@0800 #0 tabs 03/27/25 Rx release atorvastatin 40 mg tablet 40 mg PO QHS #90 tabs 03/09/2512/20 Rx carvedilol 3.125 mg tablet 3.125 mg PO BID #180 tabs 03/09/25 03/27/25 Rx clopidogrel 75 mg tablet 75 mg PO DAILY #90 tabs 03/09/25 0 03/27/25 Rx empagliflozin 10 mg tablet 10 mg PO DAILY #90 tabs 03/09/25 0 03/27/25 Rx (Jardiance) lisinopril 10 mg tablet 10 mg PO DAILY #90 tabs 03/09/25 0 03/27/25 Rx Have you fallen in the past year?: No PFSH PFSH Medical History CAD (coronary artery disease) Diabetes Prostate cancer Hesitancy of micturition Elevated PSA Incontinence Family history of colon cancer in father Wears glasses Anxiety Prostate disease High cholesterol Difficulty swallowing Heartburn Non-smoker Home Medications ???Medication ???Instructions ???Recorded ???Last Taken ???Type diphenhydramine HCl 25 mg capsule 25 mg PO QHS 08/24/24 09/06/24 Hi story (Benadryl) hydroxyzine HCl 25 mg tablet 25 mg PO BID PRN PRN anxiety 08/24 Unknown History oxybutynin chloride 5 mg tablet 5 mg PO BID PRN bladder spasms 09/18 Unknown History aspirin 81 mg tablet,delayed 81 mg PO DAILY@0800 #0 tabs Unknown Rx release atorvastatin 40 mg tablet 40 mg PO QHS #90 tabs 03/09/25 Unk nown Rx carvedilol 3.125 mg tablet 3.125 mg PO BID #180 tabs 03/09/25 Unknown Rx clopidogrel 75 mg tablet 75 mg PO DAILY #90 tabs 03/09/25 U nknown Rx empagliflozin 10 mg tablet 10 mg PO DAILY #90 tabs 03/09/25 U nknown Rx (Jardiance) lisinopril 10 mg tablet 10 mg PO DAILY #90 tabs 03/09/25 U nknown Rx Allergy/AdvReac Type Severity Reaction Status Date / Time No Known Allergies Allergy Verified 03/27/25 08:14 Family History Father Colon cancer After lung cancer dx Surgical History Stented coronary artery (02/28/25) History of prostatectomy History of prostate biopsy History of tonsillectomy Social History household members: none current occupational status: employed current occupation: [employer] [place], [employer] [employer] Smoking Status: Never smoker alcohol intake: never substance use type: does not use Diagnosis: Celeste Ibrahim is a 64 year old male diagnosed with 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 He now has evidence for persistent pelvic disease with PSA postoperatively of 5.12 and PSMA PET scan (11/15/2024) and MRI pelvis (01/03/2025). From 01/09/2025 ??? 02/23/2025 he received salvage radiation therapy with ADT. History of Present Illness: 07/05/2024: Patient completed TRUS guided prostate biopsy.??? Pathology demonstrated Howard 3+4 adenocarcinoma involving about 15% of 2/2 cores in the left prostate mid, about 30% of 2/2 cores in the left prostate base, and Howard 3+3 adenocarcinoma involving about 15 to 20% of 1/2 cores in the left prostate apex and less than 5% of 1/2 cores in the right prostate apex.??? Remaining biopsies were negative. 07/22/2024: CT abdomen/pelvis with contrast was performed.??? This demonstrated mild enlargement of the prostate and fatty infiltration of the liver.??? No other abnormalities. 07/28/2024: Bone scan was performed.??? No evidence of metastatic dis (more content not included)... Normal [facility] Serum creatinine measurement (mass/volume)Ordered By: Kellie Rodríguez on 03-27-2025 Creatinine [Mass/Vol] 1.14 mg/dL 0.70-1.[address] [facility] Serum glucose measurement (m ass/volume)Ordered By: Kellie Rodríguez on 03-27-2025 Glucose [Mass/Vol] 93 mg/dL 70-99 [facility] Serum or plasma calcium colton urement (mass/volume)Ordered By: Kellie Rodríguez on 03-27-2025 Calcium [Mass/Vol] 9.6 mg/dL 7.6-11.0 [facility] Serum or plasma urea nitroge n measurement (mass/volume)Ordered By: Kellie Rodríguez on 03-27-2025 Urea nitrogen [Mass/Vol] 12 mg/dL 4-19 [facility] Sodium levelOrdered By: Estrellita Rodríguez on 03-27-2025 Sodium [Moles/Vol] 140 mmol/L 133-145 [facility] White blood cell (WBC) count Ordered By: Kellie Rodríguez on 03-27-2025 WBC (Bld) [#/Vol] 4.6 10*3/uL 4.4-11.0 [facility] Cardiology Visit Reporton Cardiology Visit Report [facility] [address] [place] [address] OFFICE VISIT Date of Service: 03/09/25 MR#: [id number] Acct: [id number] Name: CELESTE IBRAHIM Rep #: [id number] : 1960 Provider: JULIOCESAR Batista rts Age/Sex: 64/M Location: [facility] [place] Status: Signed HPI HPI History of Present Illness Surgical H P: Yes Details: CELESTE IBRAHIM, is a 64 M who presents to the office today for cardiovascular hospital follow- up. He had presented to the emergency room on 02/28/2025 after being awoken with chest pain, and nausea. The patient was evaluated in the emergency department where an ECG showed new T wave inversions in the inferior leads and subtle less than [address] elevations in 1 and aVL. The patient received IV nitroglycerin and sublingual nitroglycerin with marked improvement in his chest symptoms down to a 2 out of 10. At this time he has persistent chest discomfort and repeat ECG shows continued T wave inversions with ST segment depressions in the inferior leads. His initial troponin was 12 subsequent 2-hour troponin was 46. He underwent a cardiac catheterization on 02/28/2025 which demonstrated 100% stenosis in his proximal lateral D1, 95% stenosis in his proximal D1, 80% stenosis in his mid LAD, 90% stenosis in his apical LAD, 90% stenosis in his ostial OM1, 80% stenosis in ostial lateral OM 2, 50% stenosis in his proximal RCA, and 60% stenosis in his proximal RP LV. He underwent successful PTCA/EDA to his lateral D1, and proximal D1. A staged PCI to his LAD was recommended. His echocardiogram at that time demonstrated an ejection fraction of 50 to 55% with mild mid to distal anterior hypokinesis, and basal lateral hypokinesis. There is no family history of coronary disease he does have a history of hyperlipidemia which was transiently treated in the past with statins but he has been off of them for several years. The patient does have a history of prostate cancer has been historically treated with radical prostatectomy and radiation therapy. From a cardiac standpoint, the patient is doing well. He does have an occasional chest tightness. He denies any palpitations, pressure or heaviness. He denies SOB, Orthopnea, and PND. He does not have bleeding issues; no blood in urine, stool, or nosebleeds. He does have a decrease in energy level. He denies myalgias, or claudication. He does not have edema, or sudden weight gain. He does have occasional lightheadedness with quick positional changes. He denies dizziness, syncopal or near syncopal episodes, and headaches. Intake Vital Signs 03/01/25 10:58 03/09/25 08:21 Height 5 ft 9 in 5 ft 9 in Weight: 174 lb BMI 25.7 BP 106/68 Blood Pressure Location Lt brachial Position Sitting Respiration 18 Pulse 67 Pulse Source Monitor Pulse Oximetry (%) 97 Intake Visit Reasons: [facility] 02/28 [place] [employer] Required: No Is patient in pain?: No Allergies No Known Allergies Allergy (Verified 03/09/25 09:06) Medications ???Medication ???Instructions ???Recorded ???Confirmed ???Type diphenhydramine HCl 25 mg capsule 25 mg PO QHS 08/24/24 03/09/25 Hi story (Benadryl) hydroxyzine HCl 25 mg tablet 25 mg PO BID PRN PRN anxiety 08/2403/09/25 History oxybutynin chloride 5 mg tablet 5 mg PO BID PRN bladder spasms 09/1803/09/25 History aspirin 81 mg tablet,delayed 81 mg PO DAILY@0800 #0 tabs 03/09/25 Rx release atorvastatin 40 mg tablet 40 mg PO QHS #90 tabs 03/09/25 Rx carvedilol 3.125 mg tablet 3.125 mg PO BID #180 tabs 03/09/25 03/09/25 Rx clopidogrel 75 mg tablet 75 mg PO DAILY #90 tabs 03/09/25 0 03/09/25 Rx empagliflozin 10 mg tablet 10 mg PO DAILY #90 tabs 03/09/25 0 03/09/25 Rx (Jardiance) lisinopril 10 mg tablet 10 mg PO DAILY #90 tabs 03/09/25 0 03/09/25 Rx Have you fallen in the past year?: No PFSH Medical History CAD (coronary artery disease) Diabetes Prostate cancer Hesitancy of micturition Elevated PSA Incontinence Family history of colon cancer in father Wears glasses Anxiety Prostate disease High cholesterol Difficulty swallowing Heartburn Non-smoker Surgical History Stented coronary artery (02/28/25) History of prostatectomy History of prostate biopsy History of tonsillectomy Family History Father Colon cancer After lung cancer dx Social History household members: none current occupational status: employed current occupation: [employer], [employer] Smoking Status: Never smoker alcohol intake: never substance use type: does not use ROS Const Const: Positive for fatigue (more content not included)... Normal [facility] Absolute lymphocyte countOrd ered By: Brandi Resendiz on 03-01-2025 Lymphocytes Auto (Unsp spec) [#/Vol] 0.57 10*3/uL Low 0.83-4.51 [facility] Absolute neutrophil countOrd ered By: Brandi Resendiz on 03-01-2025 Neutrophils (Bld) [#/Vol] 4.8 10*3/uL 2.0-7.7 [facility] Anion gap in Serum or Plasma Ordered By: Marge Steinberg on 03-01-2025 Anion gap [Moles/Vol] 12 mmol/L 5-[address] [facility] Automated lymphocyte count a s percentage of total leukocytesOrdered By: Brandi Resendiz on 03-01-2025 Lymphocytes/100 WBC Auto (Unsp spec) 8.6 % Low 19-41 [facility] BUN/creatinine ratioOrdered By: Marge Steinberg on 03-01-2025 Urea nitrogen/Creatinine [Mass ratio] 9.5 mg/mg Low 10-20 [facility] Basophil percentageOrdered B y: Brandi Resendiz on 03-01-2025 Basophils/100 WBC (Bld) 0.8 % 0-1 [facility] Bilirubin, totalOrdered By: Marge Steinberg on 03-01-2025 Bilirubin [Mass/Vol] 0.65 mg/dL 0.00-1.30 [facility] CBC W/Diff, Automatedon Absolute Lymph 0.57 X10 3/uL Low 0.83-4.51 [facility] Comment on above: Performed By: #### L 501.9520, L501.9985, L100.0100, L500.4050, L500.4100 ####[facility] [address] [place], [address] Absolute Neut 4.8 X10 3/uL Normal 2.0-7.7 [facility] Comment on above: Performed By: #### L 501.9520, L501.9985, L100.0100, L500.4050, L500.4100 ####[facility] [address] [place], [address] Basophils/100 WBC (Bld) 0.8 % Normal 0-1 [facility] Comment on above: Performed By: #### L 501.9520, L501.9985, L100.0100, L500.4050, L500.4100 ####[facility] [address] [place], [address] Eosinophils/100 WBC (Bld) 7.1 % High 0-5 [facility] Comment on above: Performed By: #### L 501.9520, L501.9985, L100.0100, L500.4050, L500.4100 ####[facility] [address] [place], [address] Erythrocyte distribution width (RBC) [Ratio] 14.4 % Normal 11.6-14.6 [facility] Comment on above: Performed By: #### L 501.9520, L501.9985, L100.0100, L500.4050, L500.4100 ####[facility] [address] [place], [address] Hematocrit (Bld) [Volume fraction] 33.2 % Low 40-54 [facility] Comment on above: Performed By: #### L 501.9520, L501.9985, L100.0100, L500.4050, L500.4100 ####[facility] [address] [place], [address] Hemoglobin (Bld) [Mass/Vol] 11.8 g/dL Low 13.0-16.5 [facility] Comment on above: Performed By: #### L 501.9520, L501.9985, L100.0100, L500.4050, L500.4100 ####[facility] [address] [place], [address] IG% 0.500 Normal 0.0-0.9 [facility] Comment on above: Result Comment: IG% - Immature Granulocytes (promyelocytes, myelocytes and metamyelocytes) > 1% indicates that a LEFT SHIFT is Present. Performed By: #### L 501.9520, L501.9985, L100.0100, L500.4050, L500.4100 ####[facility] [address] [place], [address] Lymphocytes/100 WBC (Bld) 8.6 % Low 19-41 [facility] Comment on above: Performed By: #### L 501.9520, L501.9985, L100.0100, L500.4050, L500.4100 ####[facility] [address] [place], [address] MCH (RBC) [Entitic mass] 31.0 pg Normal 27.0-32.0 [facility] Comment on above: Performed By: #### L 501.9520, L501.9985, L100.0100, L500.4050, L500.4100 ####[facility] [address] [place], [address] MCHC (RBC) [Mass/Vol] 35.5 g/dL Normal 32-[address] [facility] Comment on above: Performed By: #### L 501.9520, L501.9985, L100.0100, L500.4050, L500.4100 ####[facility] [address] [place], [address] MCV (RBC) [Entitic vol] 87.1 fL Normal 80-94 [facility] Comment on above: Performed By: #### L 501.9520, L501.9985, L100.0100, L500.4050, L500.4100 ####[facility] [address] [place], [address] Monocytes/100 WBC (Bld) 10.8 % High 0-10 [facility] Comment on above: Performed By: #### L 501.9520, L501.9985, L100.0100, L500.4050, L500.4100 ####[facility] [address] [place], [address] Neutrophils/100 WBC (Bld) 72.2 % High 47-70 [facility] Comment on above: Performed By: #### L 501.9520, L501.9985, L100.0100, L500.4050, L500.4100 ####[facility] [address] [place], [address] Nucleated RBC (Bld) [#/Vol] 0 10*3/uL Normal 0-5 [facility] Comment on above: Performed By: #### L 501.9520, L501.9985, L100.0100, L500.4050, L500.4100 ####[facility] [address] [place], [address] Platelet mean volume (Bld) [Entitic vol] 9.0 fL Normal 6.2-12.0 [facility] Comment on above: Performed By: #### L 501.9520, L501.9985, L100.0100, L500.4050, L500.4100 ####[facility] [address] [place], [address] Platelets (Bld) [#/Vol] 233 10*3/uL Normal 150-450 [facility] Comment on above: Performed By: #### L 501.9520, L501.9985, L100.0100, L500.4050, L500.4100 ####[facility] [address] [place], [address] RBC (Bld) [#/Vol] 3.81 10*6/uL Low 4.6-6.2 [facility] Comment on above: Performed By: #### L 501.9520, L501.9985, L100.0100, L500.4050, L500.4100 ####[facility] [address] [place], [address] RDW SD 45.5 fl High 35.1-43.9 [facility] Comment on above: Performed By: #### L 501.9520, L501.9985, L100.0100, L500.4050, L500.4100 ####[facility] [address] [place], [address] WBC (Bld) [#/Vol] 6.6 10*3/uL Normal 4.4-11.0 [facility] Comment on above: Performed By: #### L 501.9520, L501.9985, L100.0100, L500.4050, L500.4100 ####[facility] [address] [place], [place], [id number] Calculated very low density lipoprotein (VLDL) cholesterol measurementOrdered By: Brandi Resendiz on 03-01-2025 Calculated very low density lipoprotein (VLDL) cholesterol measurement 48 mg/dL High 5-40 [facility] Carbon dioxide, total [Moles /volume] in Central venous bloodOrdered By: Marge Steinberg on 03-01-2025 CO2 [Moles/Vol] 20.1 mmol/L Low 21.0-32.0 [facility] Chloride assayOrdered By: Phoenix Steinberg on 03-01-2025 Chloride [Moles/Vol] 107 mmol/L 98-108 [facility] Comprehensive Metabolic Prof ilon 03-01-2025 Albumin [Mass/Vol] 4.0 g/dL Normal 3.4-4.8 [facility] Comment on above: Performed By: #### L 501.9520, L501.9985, L100.0100, L500.4050, L500.4100 ####[facility] [address] [place], [address] Albumin/Globulin [Mass ratio] 1.6 {ratio} Normal 0.9-2.4 [facility] Comment on above: Performed By: #### L 501.9520, L501.9985, L100.0100, L500.4050, L500.4100 ####[facility] [address] [place], [address] ALK PHOS 93 U/L Normal 40-129 [facility] Comment on above: Performed By: #### L 501.9520, L501.9985, L100.0100, L500.4050, L500.4100 ####[facility] [address] [place], [address] ALT [Catalytic activity/Vol] 35 U/L Normal <=46 [facility] Comment on above: Performed By: #### L 501.9520, L501.9985, L100.0100, L500.4050, L500.4100 ####[facility] [address] [place], [address] AST [Catalytic activity/Vol] 90 U/L High <=37 [facility] Comment on above: Result Comment: Hemo lysis present, Results??could be affected. ?? Performed By: #### L 501.9520, L501.9985, L100.0100, L500.4050, L500.4100 ####[facility] [address] [place], [address] Bilirubin [Mass/Vol] 0.65 mg/dL Normal 0.00-1.30 [facility] Comment on above: Performed By: #### L 501.9520, L501.9985, L100.0100, L500.4050, L500.4100 ####[facility] [address] [place], [address] BUN/CRE 9.5 RATIO Low 10-20 [facility] Comment on above: Performed By: #### L 501.9520, L501.9985, L100.0100, L500.4050, L500.4100 ####[facility] [address] [place], [address] Calcium [Mass/Vol] 9.2 mg/dL Normal 7.6-11.0 [facility] Comment on above: Performed By: #### L 501.9520, L501.9985, L100.0100, L500.4050, L500.4100 ####[facility] [address] [place], [address] Chloride [Moles/Vol] 107 mmol/L Normal 98-108 [facility] Comment on above: Performed By: #### L 501.9520, L501.9985, L100.0100, L500.4050, L500.4100 ####[facility] [address] [place], [address] CO2 [Moles/Vol] 20.1 mmol/L Low 21.0-32.0 [facility] Comment on above: Performed By: #### L 501.9520, L501.9985, L100.0100, L500.4050, L500.4100 ####[facility] [address] [place], [address] Creatinine [Mass/Vol] 0.88 mg/dL Normal 0.70-1.[address] [facility] Comment on above: Performed By: #### L 501.9520, L501.9985, L100.0100, L500.4050, L500.4100 ####[facility] [address] [place], [address] ECRCL 85.92 ml/min Normal 50-250 [facility] Comment on above: Performed By: #### L 501.9520, L501.9985, L100.0100, L500.4050, L500.4100 ####[facility] [address] [place], [address] GAP 12 Normal 5-15 [facility] Comment on above: Performed By: #### L 501.9520, L501.9985, L100.0100, L500.4050, L500.4100 ####[facility] [address] [place], [address] GFR/1.73 sq M.predicted among non-blacks MDRD (S/P/Bld) [Vol rate/Area] 97 mL/min/{1.73_m2} Normal >60 [facility] Comment on above: Result Comment: mL/m in/1.73m2 CKD-EPI Creatinine Equation (2020) Performed By: #### L 501.9520, L501.9985, L100.0100, L500.4050, L500.4100 ####[facility] [address] [place], [address] Globulin (S) [Mass/Vol] 2.5 g/dL Normal 2.2-4.2 [facility] Comment on above: Performed By: #### L 501.9520, L501.9985, L100.0100, L500.4050, L500.4100 ####[facility] [address] [place], [address] Glucose [Mass/Vol] 127 mg/dL High 70-99 [facility] Comment on above: Performed By: #### L 501.9520, L501.9985, L100.0100, L500.4050, L500.4100 ####[facility] [address] [place], [address] Potassium [Moles/Vol] 4.2 mmol/L Normal 3.3-5.[address] [facility] Comment on above: Result Comment: Hemo lysis present, Results??could be affected. ?? Performed By: #### L 501.9520, L501.9985, L100.0100, L500.4050, L500.4100 ####[facility] [address] [place], [address] Sodium [Moles/Vol] 139 mmol/L Normal 133-145 [facility] Comment on above: Performed By: #### L 501.9520, L501.9985, L100.0100, L500.4050, L500.4100 ####[facility] [address] [place], [address] T PROT 6.5 g/dL Normal 5.9-8.4 [facility] Comment on above: Performed By: #### L 501.9520, L501.9985, L100.0100, L500.4050, L500.4100 ####[facility] [address] [place], [address] Urea nitrogen [Mass/Vol] 8 mg/dL Normal 4-19 [facility] Comment on above: Performed By: #### L 501.9520, L501.9985, L100.0100, L500.4050, L500.4100 ####[facility] [address] [place], [address] Echocardiogram study reportO rdered By: Marge Steinberg on 03-01-2025 Study report [facility] [address] [place] [address] Echo Complete W/ Contrast 03/01/25 0727 MR#: [id number] Acct: [id number] Name: CELESTE IBRAHIM Rep #:[id number] : 1960 64 From: Marge Steinberg MD Attending Dr: Dr. Alvaro Sunshine, DO Status: ADM IN Ordering Dr: Marge Steinberg MD Date: Location: ICU Sex: M C Admitted: 02/28/25 Reason For Study Reason For Study: CHEST PAIN Procedure This was a 2D Doppler, Color Flow transthoracic echocardiogram. Contrast injection was performed. Exam performed portable in ICU/CCU. Left Ventricle Normal LV size. Mild concentric left ventricular hypertrophy. Mild mid to distalanterior hypokinesis. Basal lateral hypokinesis. Overall estimated LVEF 50-55%. Stage I diastolic dysfunction. Right Ventricle Normal right ventricle. Atria The left and right atria are normal. Mitral Valve Trivial mitral valve insufficiency. Tricuspid Valve Normal tricuspid valve. Aortic Valve Trisinus/trileaflet aortic valve. Mild diffuse aortic valve thickening. Pulmonic Valve The pulmonic valve is not well visualized. Great Vessels Normal sized aortic root. Pericardium/Pleural No pericardial effusion. Medication Diluted definity 2.0ml given slow IV push to enhance endocardial definition. MMode/2D Measurements & Calculations LVIDd: 3.9 cm IVSd: 1.2 cm Ao root diam: 3.1 cm LVIDs: 2.4 cm LVPWd: 1.2 cm RVDd: 2.9 cm FS: 38.3 % LAV(MOD-bp): 41.6 ml LVAd ap4: 29.2 cm2 LVAd ap2: 29.3 cm2 LAV(MOD-bp) Indexed: 20.9 ml/m2 LVLd ap4: 8.1 cm LVLd ap2: 7.9 cm LAV(MOD-sp2): 40.1 ml EDV(MOD-sp4): 87.8 ml EDV(MOD-sp2): 90.0 ml LAV(MOD-sp4): 34.7 ml EDV(sp4-el): 89.8 ml EDV(sp2-el): 92.9 ml LVAs ap4: 19.8 cm2 LVAs ap2: 18.3 cm2 LVLs ap4: 7.6 cm LVLs ap2: 6.9 cm ESV(MOD-sp4): 42.9 ml ESV(MOD-sp2): 40.6 ml ESV(sp4-el): 44.0 ml ESV(sp2-el): 41.6 ml EF(MOD-sp4): 51.2 % EF(MOD-sp2): 54.9 % EF(sp4-el): 51.0 % SV(MOD-sp4): 45.0 ml SV(MOD-sp2): 49.4 ml SV(sp4-el): 45.8 ml SI(MOD-sp4): 22.6 ml/m2 SI(MOD-sp2): 24.8 ml/m2 LA A4 area: 13.4 cm2 LA dimension(2D): 3.8 cm TAPSE: 2.2 cm Time Measurements MV dec time: 0.24 sec Doppler Measurements & Calculations MV E max ashely: 59.1 cm/sec Lat Peak E' Ashely: 9.6 cm/sec Med Peak E' Ashely: 7.5 cm/sec MV A max ashely: 65.3 cm/sec E/E' lat: 6.2 E/E' med: 7.8 MV E/A: 0.91 MV V2 max: 84.6 cm/sec MV P1/2t max ashely: 69.5 cm/sec Ao V2 max: 98.0 cm/sec MV max P.9 mmHg MV P1/2t: 73.4 msec Ao max P.8 mmHg MV V2 mean: 48.0 cm/sec MV dec slope: 277.1 cm/sec2 Ao V2 mean: 72.4 cm/sec MV mean P.1 mmHg MVA(P1/2t): 3.0 cm2 Ao mean P.2 mmHg MV V2 VTI: 18.5 cm Ao V2 VTI: 21.5 cm PA V2 max: 98.8 cm/sec PA V2 mean: 72.8 cm/sec ECHO/Echo Complete W/ Contrast Interpretation Summary Mild concentric left ventricular hypertrophy. Mild mid to distal anterior hypokinesis. Basal lateral hypokinesis. Overall estimated LVEF 50-55%. Stage I diastolic dysfunction. Mild diffuse aortic valve thickening. Ordering Physician: Marge Steinberg Referring Physician: Beata Wing Performed By: Cassandra Rojas, ASAD, RVT 03/01/25 105 Date _ Marge Steinberg MD CC: Dr. Marge Steinberg MD; Dr. Beata Wing MD; Dr. Alvaro Sunshine DO ~ Date Dictated: 03/01/25726 Date Transcribed: 03/01/25 105 [employer] Inspector: Signed [facility] Work Phone: Eosinophil percentageOrdered By: Brandi Resendiz on 03-01-2025 Eosinophils/100 WBC (Bld) 7.1 % High 0-5 [facility] Erythrocyte distribution wid th ratioOrdered By: Brandi Resendiz on 03-01-2025 Erythrocyte distribution width (RBC) [Ratio] 14.4 % 11.6-14.6 [facility] Erythrocyte distribution wid th standard deviationOrdered By: Brandi Resendiz on 03-01-2025 Erythrocyte distribution width (RBC) [Ratio] 45.5 fl High 35.1-43.9 [facility] Glomerular filtration rate ( GFR) estimation/1.73 sq m using serum, plasma, or whole bOrdered By: Marge Steinberg on 03-01-2025 GFR/1.73 sq M.predicted among non-blacks MDRD (S/P/Bld) [Vol rate/Area] 97 mL/min/{1.73_m2} >60 [facility] Comment on above: mL/min/1.73m2 CKD-EP I Creatinine Equation (2020) Hematocrit Auto (Bld) [Volum e fraction]Ordered By: Brandi Resendiz on 03-01-2025 Hematocrit (Bld) [Volume fraction] 33.2 % Low 40-54 [facility] Hemoglobin A1con 03-01-2025 HbA1c (Bld) [Mass fraction] 6.2 % High <=5.6 [facility] Comment on above: Result Comment: Norm al < 5.7 % Prediabetic 5.7 - 6.4 % Diabetic >or= 6.5 % Please note range changes. Performed By: #### L 501.0687, L501.2973, L100.0100, L500.4050, L500.4100 ####[facility] [address] [place], [place], [id number] Hemoglobin A1c percentageOrd ered By: Brandi Resendiz on 03-01-2025 HbA1c (Bld) [Mass fraction] 6.2 % High <5.7 [facility] Comment on above: Normal < 5.7 % Predi abetic 5.7 - 6.4 % Diabetic >or= 6.5 % Please note range changes. Hemoglobin measurementOrdere d By: Brandi Resendiz on 03-01-2025 Hemoglobin (Bld) [Mass/Vol] 11.8 g/dL Low 13.0-16.5 [facility] Immature granulocytes/100 WB C Auto (Bld)Ordered By: Brandi Resendiz on 03-01-2025 Immature granulocytes/100 WBC (Bld) 0.500 % 0.0-0.9 [facility] Comment on above: IG% - Immature Granu locytes (promyelocytes, myelocytes and metamyelocytes) > 1% indicates that a LEFT SHIFT is Present. LDL calc ser/plasOrdered By: Brandi Resendiz on 03-01-2025 Cholesterol in LDL [Mass/Vol] 83 mg/dL Normal [facility] Comment on above: Smuvqbxsrp=085-001 m g/dL & Higher Soty=873 mg/dL or greater Result Comment: Bord uxrfgj=763-638 mg/dL Higher Ayyr=262 mg/dL or greater Performed By: #### L 501.9520, L501.9985, L100.0100, L500.4050, L500.4100 ####[facility] [address] [place], [address] Laboratory - Chemistry and C hemistry - challengeOrdered By: Marge Steinberg on 03-01-2025 AST [Catalytic activity/Vol] 90 U/L High <38 [facility] Comment on above: Hemolysis present, R esults could be affected. Lipid Profileon 03-01-2025 CHOL:HDL 4.07 Normal [facility] Comment on above: Performed By: #### L 501.9520, L501.9985, L100.0100, L500.4050, L500.4100 ####[facility] [address] [place], [address] Cholesterol in VLDL [Mass/Vol] 48 mg/dL High 5-40 [facility] Comment on above: Performed By: #### L 501.9520, L501.9985, L100.0100, L500.4050, L500.4100 ####[facility] [address] [place], [address] MCV (mean corpuscular volume ) determinationOrdered By: Brandi Resendiz on 03-01-2025 MCV (RBC) [Entitic vol] 87.1 fL 80-94 [facility] Mean corpuscular hemoglobin (MCH) determinationOrdered By: Brandi Resendiz on 03-01-2025 MCH (RBC) [Entitic mass] 31.0 pg 27.0-32.0 [facility] Mean corpuscular hemoglobin concentration (MCHC) determinationOrdered By: Brandi Resendiz on 03-01-2025 MCHC (RBC) [Mass/Vol] 35.5 g/dL 32-[address] [facility] Mean platelet volume determi nationOrdered By: Brandi Resendiz on 03-01-2025 Platelet mean volume (Bld) [Entitic vol] 9.0 fL 6.2-12.0 [facility] Monocyte percentageOrdered B y: Brandi Resendiz on 03-01-2025 Monocytes/100 WBC (Bld) 10.8 % High 0-10 [facility] Neutrophil percentageOrdered By: Brandi Resendiz on 03-01-2025 Neutrophils/100 WBC (Bld) 72.2 % High 47-70 [facility] Nucleated red blood cell per centageOrdered By: Brandi Resendiz on 03-01-2025 Nucleated RBC/100 WBC (Bld) [Ratio] 0 % 0-5 [facility] Platelet countOrdered By: Geovanni Resendiz on 03-01-2025 Platelets (Bld) [#/Vol] 233 10*3/uL 150-450 [facility] Potassium measurement (mass/ volume)Ordered By: Marge Steinberg on 03-01-2025 Potassium (Unsp spec) [Mass/Vol] 4.2 mmol/L 3.3-5.1 [facility] Comment on above: Hemolysis present, R esults could be affected. RBC Auto (Bld) [#/Vol]Ordere d By: Brandi Resendiz on 03-01-2025 RBC (Bld) [#/Vol] 3.81 10*6/uL Low 4.6-6.2 [facility] Screening total cholesterol/ high density lipoprotein (HDL) cholesterol ratioOrdered By: Brandi Resendiz on 03-01-2025 Cholesterol.total/Mary Lou sterol in HDL [Mass ratio] 4.07 {ratio} [facility] Serum creatinine measurement (mass/volume)Ordered By: Marge Steinberg on 03-01-2025 Creatinine [Mass/Vol] 0.88 mg/dL 0.70-1.[address] [facility] Serum globulin measurementOr dered By: Marge Steinberg on 03-01-2025 Globulin (S) [Mass/Vol] 2.5 g/dL 2.2-4.2 [facility] Serum glucose measurement (m ass/volume)Ordered By: Marge Steinberg on 03-01-2025 Glucose [Mass/Vol] 127 mg/dL High 70-99 [facility] Serum or plasma alanine boggs otransferase (ALT) measurementOrdered By: Marge Steinberg on 03-01-2025 ALT [Catalytic activity/Vol] 35 U/L <47 [facility] Serum or plasma albumin colton urement (mass/volume)Ordered By: Marge Steinberg on 03-01-2025 Albumin [Mass/Vol] 4.0 g/dL 3.4-4.8 [facility] Serum or plasma albumin/glob ulin mass ratioOrdered By: Marge Steinberg on 03-01-2025 Albumin/Globulin [Mass ratio] 1.6 {ratio} 0.9-2.4 [facility] Serum or plasma alkaline sima sphatase measurementOrdered By: Marge Steinberg on 03-01-2025 ALP [Catalytic activity/Vol] 93 U/L 40-129 [facility] Serum or plasma calcium colton urement (mass/volume)Ordered By: Marge Steinberg on 03-01-2025 Calcium [Mass/Vol] 9.2 mg/dL 7.6-11.0 [facility] Serum or plasma cholesterol in HDL measurement (mass/volume)Ordered By: Brandi Resendiz on 03-01-2025 Cholesterol in HDL [Mass/Vol] 43 mg/dL Normal [facility] Comment on above: National Cholesterol Education Program (NCEP) guidelines:<40 mg/dL: Low HDL-cholesterol (major risk factor for CHD)>= 60 mg/dL: High HDL-cholesterol (negative risk factor for CHD)HDL-cholesterol is affected by a number of factors, e.g. smoking, exercise, hormones, sex and age. Result Comment: Bridgett onal Cholesterol Education Program (NCEP) guidelines: <40 mg/dL: Low HDL-cholesterol (major risk factor for CHD) >= 60 mg/dL: High HDL-cholesterol (negative risk factor for CHD) HDL-cholesterol is affected by a number of factors, e.g. smoking, exercise, hormones, sex and age. Performed By: #### L 501.9520, L501.9985, L100.0100, L500.4050, L500.4100 ####[facility] [address] [place], [place], [id number] Serum or plasma cholesterol measurement (mass/volume)Ordered By: Brandi Resendiz on 03-01-2025 Cholesterol [Mass/Vol] 173 mg/dL Normal <=200 [facility] Comment on above: Cholesterol level, D esirable <200 mg/dLBorderline high cholesterol 200-239 mg/dLHigh cholesterol >=240 mg/dLRecommendations of the NCEP Adult Treatment Panel for the following risk-cutoff thresholds for the [place] population. Result Comment: Chol esterol level, Desirable <200 mg/dL Borderline high cholesterol 200-239 mg/dL High cholesterol >=240 mg/dL Recommendations of the NCEP Adult Treatment Panel for the following risk-cutoff thresholds for the [place] population. Performed By: #### L 501.9520, L501.9985, L100.0100, L500.4050, L500.4100 ####[facility] [address] [place], [place], [address] Serum or plasma urea nitroge n measurement (mass/volume)Ordered By: Marge Steinberg on 03-01-2025 Urea nitrogen [Mass/Vol] 8 mg/dL 4-19 [facility] Sodium levelOrdered By: David Steinebrg on 03-01-2025 Sodium [Moles/Vol] 139 mmol/L 133-145 [facility] T4 Free Directon 03-01-2025 T4 FREE DIRECT 1.00 ng/dL Normal 0.76-1.46 [facility] Comment on above: Performed By: #### L 506.0400 ####[facility] [address] [place], [place], [id number] T4 freeOrdered By: Alvaro finn on 03-01-2025 Free T4 [Mass/Vol] 1.00 ng/dL 0.76-1.46 [facility] TSH DL <= 0.005 mIU/L QnOrde red By: Brandi Resendiz on 03-01-2025 TSH Qn 4.610 uIU/mL High 0.300-4.200 [facility] Thyroid Stim Hormone (TSH)on 03-01-2025 TSH 4.610 uIU/mL High 0.300-4.200 [facility] Comment on above: Performed By: #### L 501.9520, L501.9985, L100.0100, L500.4050, L500.4100 ####[facility] [address] [place], [address] Total proteinOrdered By: Jose Guadalupe Steinberg on 03-01-2025 Protein [Mass/Vol] 6.5 g/dL 5.9-8.4 [facility] Triglycerides measurementOrd ered By: Brandi Resendiz on 03-01-2025 Triglyceride [Mass/Vol] 240 mg/dL High [facility] Comment on above: The drugs N-Acetylcy steine and Metamizole may falsely depress this assay. Normal range: <150 mg/dLBorderline High: 150-199 mg/dLHigh: 200-499 mg/dLVery High: >500 mg/dL Result Comment: The drugs N-Acetylcysteine and Metamizole may falsely depress this assay. Normal range: <150 mg/dL Borderline High: 150-199 mg/dL High: 200-499 mg/dL Very High: >500 mg/dL Performed By: #### L 501.9520, L501.9985, L100.0100, L500.4050, L500.4100 ####[facility] [address] [place], [place], [id number] White blood cell (WBC) count Ordered By: Brandi Resendiz on 03-01-2025 WBC (Bld) [#/Vol] 6.6 10*3/uL 4.4-11.0 [facility] 12 Lead EKGon 02-28-2025 12 Lead EKG [facility] [address] [place] [address] 12 Lead EKG 02/28/25 0558 MR#: [id number] Acct: [id number] Name: CELESTE IBRAHIM Rep #: [id number] : 1960 64 From: Jim Mcdonnell MD Attending Dr: Dr. Alvaro Sunshine DO Status: DIS IN Ordering Dr: Peña Rivera DO Date: 02/28/25 Location: ICU Sex: M C Admitted: 02/28/25 Test Reason : REPEAT CP Blood Pressure : */* mmHG Vent. Rate : 69 BPM Atrial Rate : 69 BPM P-R Int : 168 ms QRS Dur : 66 ms QT Int : 400 ms P-R-T Axes : 35 20 0 degrees QTcB Int : 428 ms Normal sinus rhythm nssttw inferior abnormal Confirmed by Jim Mcdonnell ([id number]), editorial director CHITO KLEIN ([id number]) on 03/03/2025 11:59:57 AM Referred By: EDWARDO Confirmed By: Jim Mcdonnell 03/03/25 115 Date Jim Mcdonnell MD CC: Dr. Beata Wing MD; Dr. Alvaro Sunshine DO; Dr. Peña Rivera DO Signed Normal [facility] 12 Lead EKG [facility] [address] [place] [address] 12 Lead EKG 02/28/25 0356 MR#: [id number] Acct: [id number] Name: CELESTE IBRAHIM Rep #: [id number] : 1960 64 From: Jim Mcdonnell MD Attending Dr: Dr. Alvaro Sunshine DO Status: DIS IN Ordering Dr: Peña Rivera DO Date: 02/28/25 Location: ICU Sex: M C Admitted: 02/28/25 Test Reason : CP Blood Pressure : */* mmHG Vent. Rate : 82 BPM Atrial Rate : 82 BPM P-R Int : 156 ms QRS Dur : 68 ms QT Int : 374 ms P-R-T Axes : 49 39 -19 degrees QTcB Int : 436 ms Normal sinus rhythm Low voltage QRS nssttw-? inferior ischemia Confirmed by Jim Mcdonnell ([id number]), editorial director CHITO KLEIN ([id number]) on 03/03/2025 12:00:35 PM Referred By: EDWARDO Confirmed By: Jim Mcdonnell 03/03/25 1200 Date Jim Mcdonnell MD CC: Dr. Beata Wing MD; Dr. Alvaro Sunshine DO; Dr. Peña Rivera DO Signed Normal [facility] ACT Activated Clotting Timeo n 02-28-2025 ACTk CLOT TIME 273 sec High 74-137 [facility] Comment on above: Performed By: #### L 300.4310, L300.3900 #### [facility] [address] [facility]. [place], [place], [id number] ACTk CLOT TIME 233 sec High 74-137 [facility] Comment on above: Performed By: #### L 501.9940 #### [facility] [address] [place], [address] ACTk CLOT TIME 176 sec High 74-137 [facility] Comment on above: Performed By: #### L 501.9940 #### [facility] [address] [facility] [place], [address] Activated partial thrombopla stin time (aPTT) in platelet poor plasma by coagulation aOrdered By: Peña Rivera on 02-28-2025 aPTT Coag (PPP) [Time] 102.5 s High 24.1-36.2 [facility] Comment on above: CRITICAL VALUE ALEJANDRA D TO CARLOS MANUEL JACOBS02/28/25 0929 Jeremie Mcmahon.RESULTS READ BACK BY SAME. Basic Metabolic Profile (BMP )on 02-28-2025 BUN/CRE 12.8 RATIO Normal 10-20 [facility] Comment on above: Performed By: #### L 300.4310, L300.3900 #### [facility] [address] [place], [address] Calcium [Mass/Vol] 9.7 mg/dL Normal 7.6-11.0 [facility] Comment on above: Performed By: #### L 300.4310, L300.3900 #### [facility] [address] [place], [address] Chloride [Moles/Vol] 105 mmol/L Normal 98-108 [facility] Comment on above: Performed By: #### L 300.4310, L300.3900 #### [facility] [address] [place], [address] CO2 [Moles/Vol] 19.6 mmol/L Low 21.0-32.0 [facility] Comment on above: Performed By: #### L 300.4310, L300.3900 #### [facility] [address] [place], [address] Creatinine [Mass/Vol] 0.99 mg/dL Normal 0.70-1.[address] [facility] Comment on above: Performed By: #### L 300.4310, L300.3900 #### [facility] [address] [place], [address] ECRCL 76.37 ml/min Normal 50-250 [facility] Comment on above: Performed By: #### L 300.4310, L300.3900 #### [facility] [address] [place], [address] GAP 15 Normal 5-15 [facility] Comment on above: Performed By: #### L 300.4310, L300.3900 #### [facility] [address] [place], [address] GFR/1.73 sq M.predicted among non-blacks MDRD (S/P/Bld) [Vol rate/Area] 85 mL/min/{1.73_m2} Normal >60 [facility] Comment on above: Result Comment: mL/m in/1.73m2 CKD-EPI Creatinine Equation (2020) Performed By: #### L 300.4310, L300.3900 #### [facility] [address] [place], [address] Glucose [Mass/Vol] 120 mg/dL High 70-99 [facility] Comment on above: Performed By: #### L 300.4310, L300.3900 #### [facility] [address] [place], [address] Potassium [Moles/Vol] 4.3 mmol/L Normal 3.3-5.[address] [facility] Comment on above: Result Comment: Hemo lysis present, Results??could be affected. ?? Performed By: #### L 300.4310, L300.3900 #### [facility] [address] [place], [address] Sodium [Moles/Vol] 139 mmol/L Normal 133-145 [facility] Comment on above: Performed By: #### L 300.4310, L300.3900 #### [facility] [address] [place], [address] Urea nitrogen [Mass/Vol] 13 mg/dL Normal 4-19 [facility] Comment on above: Performed By: #### L 300.4310, L300.3900 #### [facility] [address] [place], [address] CBC W/Diff, Automatedon 05-0 6-2024 Absolute Lymph 0.91 X10 3/uL Normal 0.83-4.51 [facility] Comment on above: Order Comment: REDRA W. PREVIOUS SPECIMEN REJECTED DUE TOCLOTTED. 05/06/25 0427 Anirudh R Perez. Performed By: #### L 501.9940 #### [facility] [address] [place], [address] Absolute Neut 3.5 X10 3/uL Normal 2.0-7.7 [facility] Comment on above: Order Comment: REDRA W. PREVIOUS SPECIMEN REJECTED DUE TOCLOTTED. 02/28/25426 Anirudh R Perez. Performed By: #### L 501.9940 #### [facility] [address] [place], [address] Basophils/100 WBC (Bld) 0.5 % Normal 0-1 [facility] Comment on above: Order Comment: REDRA W. PREVIOUS SPECIMEN REJECTED DUE TOCLOTTED. 02/28/25426 Anirudh R Perez. Performed By: #### L 501.9940 #### [facility] [address] [place], [address] Eosinophils/100 WBC (Bld) 8.6 % High 0-5 [facility] Comment on above: Order Comment: REDRA W. PREVIOUS SPECIMEN REJECTED DUE TOCLOTTED. 02/28/25426 Anirudh R Perez. Performed By: #### L 501.9940 #### [facility] [address] [place], [address] Erythrocyte distribution width (RBC) [Ratio] 14.1 % Normal 11.6-14.6 [facility] Comment on above: Order Comment: REDRA W. PREVIOUS SPECIMEN REJECTED DUE TOCLOTTED. 02/28/25426 Anirudh R Perez. Performed By: #### L 501.9940 #### [facility] [address] [place], [address] Hematocrit (Bld) [Volume fraction] 35.8 % Low 40-54 [facility] Comment on above: Order Comment: REDRA W. PREVIOUS SPECIMEN REJECTED DUE TOCLOTTED. 02/28/25426 Anirudh R Perez. Performed By: #### L 501.9940 #### [facility] [address] [place], [address] Hemoglobin (Bld) [Mass/Vol] 12.9 g/dL Low 13.0-16.5 [facility] Comment on above: Order Comment: REDRA W. PREVIOUS SPECIMEN REJECTED DUE TOCLOTTED. 02/28/25426 Anirudh R Perez. Performed By: #### L 501.9940 #### [facility] [address] [place], [address] IG% 1.000 High 0.0-0.9 [facility] Comment on above: Order Comment: REDRA W. PREVIOUS SPECIMEN REJECTED DUE TOCLOTTED. 02/28/25426 Anirudh R Perez. Result Comment: IG% - Immature Granulocytes (promyelocytes, myelocytes and metamyelocytes) > 1% indicates that a LEFT SHIFT is Present. Performed By: #### L 501.9940 #### [facility] [address] [place], [address] Lymphocytes/100 WBC (Bld) 15.9 % Low 19-41 [facility] Comment on above: Order Comment: REDRA W. PREVIOUS SPECIMEN REJECTED DUE TOCLOTTED. 02/28/25426 Anirudh R Perez. Performed By: #### L 501.9940 #### [facility] [address] [place], [address] MCH (RBC) [Entitic mass] 31.1 pg Normal 27.0-32.0 [facility] Comment on above: Order Comment: REDRA W. PREVIOUS SPECIMEN REJECTED DUE TOCLOTTED. 02/28/25426 Anirudh R Perez. Performed By: #### L 501.9940 #### [facility] [address] [place], [address] MCHC (RBC) [Mass/Vol] 36.0 g/dL Normal 32-[address] [facility] Comment on above: Order Comment: REDRA W. PREVIOUS SPECIMEN REJECTED DUE TOCLOTTED. 02/28/25426 Anirudh R Perez. Performed By: #### L 501.9940 #### [facility] [address] [place], [address] MCV (RBC) [Entitic vol] 86.3 fL Normal 80-94 [facility] Comment on above: Order Comment: REDRA W. PREVIOUS SPECIMEN REJECTED DUE TOCLOTTED. 02/28/25426 Anirudh R Perez. Performed By: #### L 501.9940 #### [facility] [address] [place], [address] Monocytes/100 WBC (Bld) 13.6 % High 0-10 [facility] Comment on above: Order Comment: REDRA W. PREVIOUS SPECIMEN REJECTED DUE TOCLOTTED. 02/28/25426 Anirudh R Perez. Performed By: #### L 501.9940 #### [facility] [address] [place], [address] Neutrophils/100 WBC (Bld) 60.4 % Normal 47-70 [facility] Comment on above: Order Comment: REDRA W. PREVIOUS SPECIMEN REJECTED DUE TOCLOTTED. 02/28/25426 Anirudh R Perez. Performed By: #### L 501.9940 #### [facility] [address] [place], [address] Nucleated RBC (Bld) [#/Vol] 0 10*3/uL Normal 0-5 [facility] Comment on above: Order Comment: REDRA W. PREVIOUS SPECIMEN REJECTED DUE TOCLOTTED. 02/28/25426 Anirudh R Perez. Performed By: #### L 501.9940 #### [facility] [address] [place], [address] Platelet mean volume (Bld) [Entitic vol] 9.2 fL Normal 6.2-12.0 [facility] Comment on above: Order Comment: REDRA W. PREVIOUS SPECIMEN REJECTED DUE TOCLOTTED. 02/28/25426 Anirudh R Perez. Performed By: #### L 501.9940 #### [facility] [address] [place], [address] Platelets (Bld) [#/Vol] 287 10*3/uL Normal 150-450 [facility] Comment on above: Order Comment: REDRA W. PREVIOUS SPECIMEN REJECTED DUE TOCLOTTED. 02/28/25426 Anirudh R Perez. Performed By: #### L 501.9940 #### [facility] [address] [place], [address] RBC (Bld) [#/Vol] 4.15 10*6/uL Low 4.6-6.2 [facility] Comment on above: Order Comment: REDRA W. PREVIOUS SPECIMEN REJECTED DUE TOCLOTTED. 02/28/25426 Anirudh R Perez. Performed By: #### L 501.9940 #### [facility] [address] [place], [address] RDW SD 44.4 fl High 35.1-43.9 [facility] Comment on above: Order Comment: REDRA W. PREVIOUS SPECIMEN REJECTED DUE TOCLOTTED. 02/28/25426 Anirudh R Perez. Performed By: #### L 501.9940 #### [facility] [address] [place], [address] WBC (Bld) [#/Vol] 5.7 10*3/uL Normal 4.4-11.0 [facility] Comment on above: Order Comment: REDRA W. PREVIOUS SPECIMEN REJECTED DUE TOCLOTTED. 02/28/25426 Anirudh R Perez. Performed By: #### L 501.9940 #### [facility] [address] [place], [address] Absolute Neut Normal 2.0-7.7 [facility] Comment on above: Result Comment: This specimen has been REJECTED due to Laboratory criteria: Clotted. PAMELA has been notified of need of recollection. 02/28/25425 Anirudh R Perez Performed By: #### L 300.4310, L300.3900 #### [facility] [address] [place], [address] HCT Normal 40-54 [facility] Comment on above: Result Comment: This specimen has been REJECTED due to Laboratory criteria: Clotted. PAMELA has been notified of need of recollection. 02/28/25425 Anirudh R Perez Performed By: #### L 300.4310, L300.3900 #### [facility] [address] [place], [address] HGB Normal 13.0-16.5 [facility] Comment on above: Result Comment: This specimen has been REJECTED due to Laboratory criteria: Clotted. PAMELA has been notified of need of recollection. 02/28/25425 Anirudh R Perez Performed By: #### L 300.4310, L300.3900 #### [facility] [address] [place], [address] MCH Normal 27.0-32.0 [facility] Comment on above: Result Comment: This specimen has been REJECTED due to Laboratory criteria: Clotted. PAMELA has been notified of need of recollection. 02/28/25425 Anirudh R Perez Performed By: #### L 300.4310, L300.3900 #### [facility] [address] [place], [address] MCHC Normal 32-36 [facility] Comment on above: Result Comment: This specimen has been REJECTED due to Laboratory criteria: Clotted. PAMELA has been notified of need of recollection. 02/28/25425 Anirudh R Perez Performed By: #### L 300.4310, L300.3900 #### [facility] [address] [place], [address] MCV Normal 80-94 [facility] Comment on above: Result Comment: This specimen has been REJECTED due to Laboratory criteria: Clotted. PAMELA has been notified of need of recollection. 02/28/25425 Anirudh R Perez Performed By: #### L 300.4310, L300.3900 #### [facility] [address] [place], [address] NEUT% Normal 47-70 [facility] Comment on above: Result Comment: This specimen has been REJECTED due to Laboratory criteria: Clotted. PAMELA has been notified of need of recollection. 02/28/25425 Anirudh R Perez Performed By: #### L 300.4310, L300.3900 #### [facility] [address] [place], [address] PLT Normal 150-450 [facility] Comment on above: Result Comment: This specimen has been REJECTED due to Laboratory criteria: Clotted. [facility] has been notified of need of recollection. 02/28/25425 Anirudh R Perez Performed By: #### L 300.4310, L300.3900 #### [facility] [address] [place], [address] RBC Normal 4.6-6.2 [facility] Comment on above: Result Comment: This specimen has been REJECTED due to Laboratory criteria: Clotted. [facility] has been notified of need of recollection. 02/28/25425 Anirudh R Perez Performed By: #### L 300.4310, L300.3900 #### [facility] [address] [place], [address] RDW CV Normal 11.6-14.6 [facility] Comment on above: Result Comment: This specimen has been REJECTED due to Laboratory criteria: Clotted. [facility] has been notified of need of recollection. 02/28/25425 Anirudh R Perez Performed By: #### L 300.4310, L300.3900 #### [facility] [address] [place], [address] RDW SD Normal 35.1-43.9 [facility] Comment on above: Result Comment: This specimen has been REJECTED due to Laboratory criteria: Clotted. [facility] has been notified of need of recollection. 02/28/25425 Anirudh R Perez Performed By: #### L 300.4310, L300.3900 #### [facility] [address] [place], [address] WBC Normal 4.4-11.0 [facility] Comment on above: Result Comment: This specimen has been REJECTED due to Laboratory criteria: Clotted. [facility] has been notified of need of recollection. 02/28/25425 Anirudh R Perez Performed By: #### L 300.4310, L300.3900 #### [facility] [address] [place], [address] Cardiac Cath Interventionon 02-28-2025 Cardiac Cath Intervention [facility] Imaging Services [address] [place] [address] Cardiac Cath Intervention MR#: [id number] Acct: [id number] Name: CELESTE IBRAHIM Rep #: [id number] : 1960 64 From: Marge Steinberg MD PCP: Dr. Beata Wing MD Status:ADM IN Patient Name: CELESTE IBRAHIM Study Date: 02/28/2025 Performing: Marge Steinberg MD Ht: 69 inches 175.26 cm : 1960 Wt: 184.1 lbs 83.4 kg Age: 64 Gender: male BSA: 1.99 PROCEDURE(S) PERFORMED IC12-(13987/C9600)EDA W/WO PTCA, SINGLE CORONARY ARTERY DC01-(57868)LHC/COR/LV CLINICAL PROFILE AND CO-MORBIDITIES Indications: ACS <= 24 hrs Heart Failure: None Stress/Imaging Stress/Image Study Performed: No Angina Classification Anginal Classification w/in 2 Weeks: CCS IV CAD Presentations: Non-STEMI. Symptom onset Date/Time: Time Not Available CONCLUSIONS 100% Prox Lat D1, 95% Prox D1 80% Mid, 90% apical LAD 90% ostial OM1 (small 1.5 mm vessel); 80% ostial Lat OM2 50% Prox RCA; 60% Prox RPLV LVEF 55%, severe lateral hypokinesis Successful PTCA/EDA Lat D1 using [place] 2.0x18 mm; PTCA/EDA Prox D1 using [place] 2.0x8 mm RECOMMENDATIONS ASA Indefinitley P2Y12 inhibitors for atleast 6 months Staged PCI to LAD DESCRIPTION OF PROCEDURE The patient arrived to the procedure lab. The risks and benefits of the procedure as well as a full description of our services here and lack of surgical backup were fully explained to the patient and/or their significant other prior to the catheterization. The Timeout was completed, verifying the correct patient and procedure. The patient's procedural site was prepped and draped in the usual fashion. Local anesthetic was given subcutaneously to right radial region with Lidocaine 2%. Using a modified Seldinger technique, arterial access was obtained via the right radial artery, a 6Fr sheath was inserted.. Right Coronary Artery selective angiography was then performed in multiple views using a 5 Fr. 4.0 [place] catheter. Left Coronary Artery selective angiography was performed in multiple views using a 5 Fr. 4.0 [place] catheter. Left Ventriculography was performed in TEMPLETON projection using a 5 Fr. Pigtail catheter. LV to AO pullback pressures were then recordedThe images were reviewed and options discussed. A decision was then made to proceed with an Intervention, IVUS or other adjunct procedure. XB3 Guide catheter was inserted and engaged into the LCA. Run through Guide wire was advanced to the 1st Diagonal. 2x15 Emerge Balloon catheter was inserted. Balloon catheter was advanced across lesion in the first diagonal, mid. PTCA balloon inflated at 6 atms for 15 secs. Angiogram performed post balloon dilatation. 2x22 [place] Drug Eluting stent was inserted. Drug Eluting stent was advanced across the lesion in the first diagonal, mid. Angiogram performed post stent deployment. runthrough Guide wire was inserted as a dahiana wire 2x12 Emerge Balloon catheter was inserted. Balloon catheter was inserted post stent. PTCA balloon inflated at 8 atms for 11 secs. Angiogram performed post balloon dilatation. 2x12 [place] Drug Eluting stent was inserted. Drug Eluting stent was advanced across the lesion in the first diagonal, proximal. Angiogram performed post stent deployment. 2x12 NC Emerge Balloon catheter was inserted. Balloon catheter was inserted post stent. Angiogram performed post balloon dilatation. 2x12 NC Emerge Balloon catheter was reinserted Angiogram performed post balloon dilatation. The arterial sheath was pulled and a TR Band was applied for hemostasis. 12cc of air CORONARY ANGIOGRAPHY DOMINANCE: Right Dominant LEFT HEART ASSESSMENT Left Ventricular Ejection Fraction: by LV Gram 55 % LVEDP: 33 mmHg Lateral Hypokinesis - Severe LEFT MAIN: Angiographically normal LEFT ANTERIOR DESCENDING ARTERY: LAD: Tubular 70% Proximal lesion in LAD Tubular 80% Mid lesion in LAD Tubular 95% Distal lesion in LAD DIAGONAL 1: Tubular 95% Proximal lesion in DIAG1 OM 1: Tubular 90% Proximal lesion in MARG1 OM 2: Tubular 90% Proximal lesion in MARG1 RIGHT CORONARY ARTERY: RCA: Tubular 40% Proximal lesion in RCA RT PDA: Tubular 50% Proximal lesion in RT PDA INTERVENTION INFORMATION LESION SITE: 1st Diagonal (Mid) Lesion Complexity: High/C, chronic total occlusion: No, thrombus present: Yes, lesion length: 16 mm, culprit lesion: Yes Pre Stenosis: 100 % Pre intervention BRIAN flow: 0 PROCEDURE: Drug Eluting Stent with pre and post dilatation Post Stenosis: 0 % Post intervention BRIAN flow: 3 Lesion Devices: Terumo .014 180cm Runthrough Extra Floppy straight Cordis 6 Fr XB3.0 100cm Guide Catheter Gary Sci EMERGE MR 2.00x15 BALLOON Medtronic 2.00 x 22 TWIN FRONTIER EDA Terumo .014 180cm Runthrough Extra Floppy straight Gary Sci (more content not included)... Normal [facility] Cardiac catheterization repo rtOrdered By: Marge Steinberg on 02-28-2025 Cardiac catheterization study [facility] Imaging Services [address] [place] [address] Cardiac Cath Intervention MR#: [id number] Acct: [id number] Name: CELESTE IBRAHIM Rep #:[id number] : 1960 64 From: Marge Steinberg MD PCP: Dr. Beata Wing MD Status:ADM IN Patient Name: CELESTE IBRAHIM Study Date: 02/28/2025 Performing: Marge Steinberg MD Ht: 69 inches 175.26 cm : 1960 Wt: 184.1 lbs 83.4 kg Age: 64 Gender: male BSA: 1.99 PROCEDURE(S) PERFORMED IC12-(16931/C9600)EDA W/WO PTCA, SINGLE CORONARY ARTERY DC01-(45473)LHC/COR/LV CLINICAL PROFILE AND CO-MORBIDITIES Indications: ACS <= 24 hrs Heart Failure: None Stress/Imaging Stress/Image Study Performed: No Angina Classification Anginal Classification w/in 2 Weeks: CCS IV CAD Presentations: Non-STEMI. Symptom onset Date/Time: Time Not Available CONCLUSIONS 100% Prox Lat D1, 95% Prox D1 80% Mid, 90% apical LAD 90% ostial OM1 (small 1.5 mm vessel); 80% ostial Lat OM2 50% Prox RCA; 60% Prox RPLV LVEF 55%, severe lateral hypokinesis Successful PTCA/EDA Lat D1 using [place] 2.0x18 mm; PTCA/EDA Prox D1 using [place] 2.0x8 mm RECOMMENDATIONS ASA Indefinitley P2Y12 inhibitors for atleast 6 months Staged PCI to LAD DESCRIPTION OF PROCEDURE The patient arrived to the procedure lab. The risks and benefits of the procedure as well as a full description of our services here and lack of surgical backup were fully explained to the patient and/or their significant other prior to the catheterization. The Timeout was completed, verifying the correct patient and procedure. The patient's procedural site was prepped and draped in the usual fashion. Local anesthetic was given subcutaneously to right radial region with Lidocaine 2%. Using a modified Seldinger technique, arterial access was obtained via the right radial artery, a 6Fr sheath was inserted.. Right Coronary Artery selective angiography was then performed in multiple views using a 5 Fr. 4.0 [place] catheter. Left Coronary Artery selective angiography was performed in multiple views using a 5 Fr. 4.0 [place] catheter. Left Ventriculography was performed in TEMPLETON projection using a 5 Fr. Pigtail catheter. LV to AO pullback pressures were then recordedThe images were reviewed and options discussed. A decision was then made to proceed with an Intervention, IVUS or other adjunct procedure. XB3 Guide catheter was inserted and engaged into the LCA. Run through Guide wire was advanced to the 1st Diagonal. 2x15 Emerge Balloon catheter was inserted. Balloon catheter was advanced across lesion in the first diagonal, mid. PTCA balloon inflated at 6 atms for 15 secs. Angiogram performed post balloon dilatation. 2x22 [place] Drug Eluting stent was inserted. Drug Eluting stent was advanced across the lesion in the first diagonal, mid. Angiogram performed post stent deployment. runthrough Guide wire was inserted as a dahiana wire 2x12 Emerge Balloon catheter was inserted. Balloon catheter was inserted post stent. PTCA balloon inflated at 8 atms for 11 secs. Angiogram performed post balloon dilatation. 2x12 [place] Drug Eluting stent was inserted. Drug Eluting stent was advanced across the lesion in the first diagonal, proximal. Angiogram performed post stent deployment. 2x12 NC Emerge Balloon catheter was inserted. Balloon catheter was inserted post stent. Angiogram performed post balloon dilatation. 2x12 NC Emerge Balloon catheter was reinserted Angiogram performed post balloon dilatation. The arterial sheath was pulled and a TR Band was applied for hemostasis. 12cc of air CORONARY ANGIOGRAPHY DOMINANCE: Right Dominant LEFT HEART ASSESSMENT Left Ventricular Ejection Fraction: by LV Gram 55 % LVEDP: 33 mmHg Lateral Hypokinesis - Severe LEFT MAIN: Angiographically normal LEFT ANTERIOR DESCENDING ARTERY: LAD: Tubular 70% Proximal lesion in LAD Tubular 80% Mid lesion in LAD Tubular 95% Distal lesion in LAD DIAGONAL 1: Tubular 95% Proximal lesion in DIAG1 OM 1: Tubular 90% Proximal lesion in MARG1 OM 2: Tubular 90% Proximal lesion in MARG1 RIGHT CORONARY ARTERY: RCA: Tubular 40% Proximal lesion in RCA RT PDA: Tubular 50% Proximal lesion in RT PDA INTERVENTION INFORMATION LESION SITE: 1st Diagonal (Mid) Lesion Complexity: High/C, chronic total occlusion: No, thrombus present: Yes, lesion length: 16 mm, culprit lesion: Yes Pre Stenosis: 100 % Pre intervention BRIAN flow: 0 PROCEDURE: Drug Eluting Stent with pre and post dilatation Post Stenosis: 0 % Post intervention BRIAN flow: 3 Lesion Devices: Terumo .014 180cm Runthrough Extra Floppy straight Cordis 6 Fr XB3.0 100cm Guide Catheter Gary Sci EMERGE MR 2.00x15 BALLOON Medtronic 2.00 x 22 TWIN FRONTIER EDA Terumo .014 180cm Runthrough Extra Floppy straight Gary Sci EMERGE MR 2.00x12 BALLOON Medtronic 2.00 x 12 TWIN FRONTIER EDA Gary Sci NC EMERGE MR 2.00x12 BALLOON COMPLICATIONS No Complications PROCEDURE MEDICATIONS Fentanyl 50 mcg IV Versed 1 m (more content not included)... [facility] Work Phone: Chest 1 View (Portable)on Chest 1 View (Portable) [facility] Imaging Services [address] [place] [address] Chest 1 View (Portable) MR#: [id number] Acct: [id number] Name: CELESTE IBRAHIM Rep #: [id number] : 1960 M 64 From: Say Hurst MD PCP: Dr. Beata Wing MD Status: REG ER Study: Chest 1 View (Portable) Date of Exam: 02/28/25 Exam# [id number] Ordering Dr: Peña Rivera DO PROCEDURE: CHEST 1 VIEW (PORTABLE) 02/28/2025 REASON FOR EXAM: CHEST PAIN TECHNIQUE: Frontal view of the chest. FINDINGS: The lungs appear clear. The cardiac and mediastinal contours appear within limits. The visualized osseous structures appear within limits. RAD/Chest 1 View (Portable) IMPRESSION: No evidence of acute disease. Reading Location: [facility] CC: Dr. Beata Wing MD; Dr. Peña Rivera DO Glove Parts Inspector: Signed Normal [facility] Consultation - Cardiologyon 02-28-2025 Consultation - Cardiology [facility] Medical Records Department [address] [place] [address] Consultation - Cardiology 02/28/25 0723 MR#: [id number] Acct: [id number] Name: CELESTE IBRAHIM Rep #: [id number] : 1960 64 From: Jim Mcdonnell MD PCP: Dr. Beata Wing MD Status:ADM IN Location: ICU [id number] Assessment Plan Assessment/Plan (1) Chest pain: QUALIFIERS: Chest pain type: chest pain due to myocardial ischemia Ischemic chest pain type: unstable angina pectoris Qualified Code(s): I20.0 - Unstable angina PLAN: Patient's symptoms started approximately 0300 hrs. This is new onset occurred at rest awoke him from sleep. He has new ECG changes with inferior significant ST and T wave inversions. The patient's risk factor profile includes a history of hyperlipidemia which has been controlled with diet. He does not smoke, there is no family history of first-degree relatives with coronary disease, the patient is not hypertensive. His fasting blood sugar was 200 on today's lab work. The patient's symptoms markedly improved with nitroglycerin. He has been heparinized and on IV nitroglycerin with persistent 2 out of 10 chest discomfort. Given the patient's enzymes going from 12 up to 43 and the ECG changes would recommend urgent left heart catheterization for this unstable angina. The patient has no history of iodine allergy. His renal function is normal. He has good 2+ or better pulses throughout with no femoral bruits. The catheterization procedure risk/benefit and alternatives were explained to the patient in detail and he voiced understanding and agrees to proceed. There is no family available at the bedside and his son is a student at [employer] here in [facility]. The patient works at the [employer]. His home is in [place] where his is currently residing. (2) High cholesterol: PLAN: Patient carries a history of hyperlipidemia in the past. He had been transiently on statins now reports that his lipids have been controlled with diet and exercise. Repeat lipids will be evaluated along with a hemoglobin A1c and appropriate therapeutic intervention started as indicated. PLAN: Plan 1. Urgent left heart catheterization Dr. Steinberg to perform. 2. Further recommendations and long-term medical therapy will be determined once the results of the catheterization are available. HPI Consult Data Date of Consult: 02/28/25 HPI Narrative Reason for Consultation: Chest pain with ECG changes. HPI Narrative: CELESTE IBRAHIM, is a 64 M who presents after being awoke approximately 0300 hrs. this morning with chest discomfort. He rated this 9 out of 10. He also noted some nausea and felt like he was going to vomit but did not. He came to the emergency department approximately 0330 hrs. The patient is actually traveling here from [place] for work. He does have a son who is the [employer] student. The patient was evaluated in the emergency department where an ECG showed new T wave inversions in the inferior leads and subtle less than [address] elevations in 1 and aVL. The patient received IV nitroglycerin and sublingual nitroglycerin with marked improvement in his chest symptoms down to a 2 out of 10. At this time he has persistent chest discomfort and repeat ECG shows continued T wave inversions with ST segment depressions in the inferior leads. His initial troponin was 12 subsequent 2-hour troponin was 46. The patient does not have a prior history of cardiac issues. There is no family history of coronary disease he does have a history of hyperlipidemia which was transiently treated in the past with statins but he has been off of them for several years. He denies any history of hypertension he has never smoked. The patient is not diabetic however his fasting glucose was 120 on today's exam. The patient does have a history of prostate cancer has been historically treated with radical prostatectomy and radiation therapy. He denies any history of allergies to iodine and has had several CT scans. He has no known drug allergies. Renal function is normal on today's labs. PFSH Medical History Prostate cancer Hesitancy of micturition Elevated PSA Incontinence Family history of colon cancer in father Wears glasses Anxiety Prostate disease High cholesterol Difficulty swallowing Heartburn Non-smoker Home Medications ???Medication ???Instructions ???Recorded ???Last Taken ???Type diphenhydramine HCl 25 mg capsule 25 mg PO QHS 08/24/24 09/06/24 Hi story (Benadryl) hydroxyzine HCl 25 mg tablet 25 mg PO BID PRN PRN anxiety 08/24 Unknown History oxybutynin chloride 5 mg tablet 5 mg PO BID PRN bladder spasms 09/18 Unknown History lorazepam 1 mg tablet 1 mg PO ONCE PRN anxiety #1 TAB Unknown Rx Allergy/AdvReac Type Severity Reaction Status (more content not included)... Normal [facility] D-Dimer Quantitative (DVT/PE )on 02-28-2025 D-DIMER QUANT 0.39 FEU/ug/m Normal 0.27-0.49 [facility] Comment on above: Result Comment: NORM AL D-Dimer level (<0.50) indicates no DVT or PE. Performed By: #### L 300.0512, L300.6719 #### [facility] [address] [place], [place], [address] Echo Complete W/ Contraston 02-28-2025 Echo Complete W/ Contrast [facility] Cardiovascular Services [address] [place] [address] Echo Complete W/ Contrast 03/01/25 0727 MR#: [id number] Acct: [id number] Name: CELESTE IBRAHIM Rep #: [id number] : 1960 64 From: Marge Steinberg MD Attending Dr: Dr. Alvaro Sunshine, Status: ADM IN Ordering Dr: Marge Steinberg MD Date: 02/28/25 Location: ICU Sex: M C Admitted: 02/28/25 Reason For Study Reason For Study: CHEST PAIN Procedure This was a 2D Doppler, Color Flow transthoracic echocardiogram. Contrast injection was performed. Exam performed portable in ICU/CCU. Left Ventricle Normal LV size. Mild concentric left ventricular hypertrophy. Mild mid to distal anterior hypokinesis. Basal lateral hypokinesis. Overall estimated LVEF 50-55%. Stage I diastolic dysfunction. Right Ventricle Normal right ventricle. Atria The left and right atria are normal. Mitral Valve Trivial mitral valve insufficiency. Tricuspid Valve Normal tricuspid valve. Aortic Valve Trisinus/trileaflet aortic valve. Mild diffuse aortic valve thickening. Pulmonic Valve The pulmonic valve is not well visualized. Great Vessels Normal sized aortic root. Pericardium/Pleural No pericardial effusion. Medication Diluted definity 2.0ml given slow IV push to enhance endocardial definition. MMode/2D Measurements Calculations LVIDd: 3.9 cm IVSd: 1.2 cm Ao root diam: 3.1 cm LVIDs: 2.4 cm LVPWd: 1.2 cm RVDd: 2.9 cm FS: 38.3 % LAV(MOD-bp): 41.6 ml LVAd ap4: 29.2 cm2 LVAd ap2: 29.3 cm2 LAV(MOD-bp) Indexed: 20.9 ml/m2 LVLd ap4: 8.1 cm LVLd ap2: 7.9 cm LAV(MOD-sp2): 40.1 ml EDV(MOD-sp4): 87.8 ml EDV(MOD-sp2): 90.0 ml LAV(MOD-sp4): 34.7 ml EDV(sp4-el): 89.8 ml EDV(sp2-el): 92.9 ml LVAs ap4: 19.8 cm2 LVAs ap2: 18.3 cm2 LVLs ap4: 7.6 cm LVLs ap2: 6.9 cm ESV(MOD-sp4): 42.9 ml ESV(MOD-sp2): 40.6 ml ESV(sp4-el): 44.0 ml ESV(sp2-el): 41.6 ml EF(MOD-sp4): 51.2 % EF(MOD-sp2): 54.9 % EF(sp4-el): 51.0 % SV(MOD-sp4): 45.0 ml SV(MOD-sp2): 49.4 ml SV(sp4-el): 45.8 ml SI(MOD-sp4): 22.6 ml/m2 SI(MOD-sp2): 24.8 ml/m2 LA A4 area: 13.4 cm2 LA dimension(2D): 3.8 cm TAPSE: 2.2 cm Time Measurements MV dec time: 0.24 sec Doppler Measurements Calculations MV E max ashely: 59.1 cm/sec Lat Peak E' Ashely: 9.6 cm/sec Med Peak E' Ashely: 7.5 cm/sec MV A max ashely: 65.3 cm/sec E/E' lat: 6.2 E/E' med: 7.8 MV E/A: 0.91 MV V2 max: 84.6 cm/sec MV P1/2t max ashely: 69.5 cm/sec Ao V2 max: 98.0 cm/sec MV max P.9 mmHg MV P1/2t: 73.4 msec Ao max P.8 mmHg MV V2 mean: 48.0 cm/sec MV dec slope: 277.1 cm/sec2 Ao V2 mean: 72.4 cm/sec MV mean P.1 mmHg MVA(P1/2t): 3.0 cm2 Ao mean P.2 mmHg MV V2 VTI: 18.5 cm Ao V2 VTI: 21.5 cm PA V2 max: 98.8 cm/sec PA V2 mean: 72.8 cm/sec ECHO/Echo Complete W/ Contrast Interpretation Summary Mild concentric left ventricular hypertrophy. Mild mid to distal anterior hypokinesis. Basal lateral hypokinesis. Overall estimated LVEF 50-55%. Stage I diastolic dysfunction. Mild diffuse aortic valve thickening. Ordering Physician: Marge Steinberg Referring Physician: Beata Wing Performed By: Cassandra Rojas, ASAD, RVT 03/01/25 1053 Date Marge Steinberg MD CC: Dr. Marge Steinberg MD; Dr. Beata Wing MD; Dr. Alvaro Sunshine DO Date Dictated: 03/01/25726 Date Transcribed: 03/01/251052 Glove Parts Inspector: Signed Normal [facility] Emergency Department Summary on 02-28-2025 Emergency Department Summary [facility] Medical Records Department [address] [place] [address] Emergency Department Summary 02/28/25 MR#: [id number] Acct: [id number] Name: CELESTE IBRAHIM Rep #: [id number] : 1960 64 From: Peña Soria PCP: Dr. Beata Wing MD Status:ADM IN Location: ICU [id number] HPI History of Present Illness Chief Complaint: Chest Pain Informant: patient Narrative Narrative: Chest pain midsternal waking him from sleep 25 minutes prior to arrival. Combination tightness and sharp pain. Feels some pain down his left arm. Nausea feel he can throw up. No cardiac history. History of hyperlipidemia. Denies tobacco no family history of MIs young age. Denies hypertension or diabetes. Diagnosed with recent prostate cancer had prostatectomy this past August finished radiation therapy this past . No history of PE or DVT. No recent cough. States he feels like I am going to pass out. He drove himself here. Reports symptoms 9 out of 10. Stress test years ago. No history of heart caths. Prior Similar Symptoms: No CVD Risk Factors: Positive for Hypercholesterolemia; Negative for Hypertension, Diabetes, Family History 1' PE Risk Factors: Positive for Cancer; Negative for Recent Travel/Surgery, Recent Immobilization, Prior DVT or PE or OCP + Smoking + >/=35 PFSH PFSH Medical History Prostate cancer Hesitancy of micturition Elevated PSA Incontinence Family history of colon cancer in father Wears glasses Anxiety Prostate disease High cholesterol Difficulty swallowing Heartburn Non-smoker Home Medications ???Medication ???Instructions ???Recorded ???Last Taken ???Type diphenhydramine HCl 25 mg capsule 25 mg PO QHS 08/24/24 09/06/24 Hi story (Benadryl) hydroxyzine HCl 25 mg tablet 25 mg PO BID PRN PRN anxiety 08/24 Unknown History oxybutynin chloride 5 mg tablet 5 mg PO BID PRN bladder spasms 09/18 Unknown History lorazepam 1 mg tablet 1 mg PO ONCE PRN anxiety #1 TAB Unknown Rx Allergy/AdvReac Type Severity Reaction Status Date / Time No Known Allergies Allergy Verified 02/28/25 03:50 Family History Father Colon cancer After lung cancer dx Surgical History History of prostatectomy History of prostate biopsy History of tonsillectomy Social History household members: none current occupational status: employed current occupation: [employer] Smoking Status: Never smoker alcohol intake: never substance use type: does not use ROS ROS ED Constitutional Constitutional ED: Denies chills, fever(s) or sweats ENT ENT ED: Denies sore throat Cardiovascular Cardiovascular: Reports chest pain; Denies leg edema, palpitations or racing heartbeat Respiratory/Chest Respiratory/Chest: Denies cough, dyspnea or dyspnea on exertion Gastrointestinal Gastrointestinal: Reports nausea; Denies abdominal pain, diarrhea or vomiting Genitourinary Genitourinary ED: Denies dysuria, hematuria or urinary frequency Musculoskeletal Musculoskeletal: Denies back pain, extremity pain or neck pain Integumentary Denies rash or wounds Neurologic Neurologic: Denies headache(s), paresthesias or weakness EXAM Physical Exam Const Vital Signs: 02/28/25 03:50 02/28/25 03:57 02/28/25 04:17 Temperature 97 F L Temperature Source Axillary Pulse Rate 91 75 Respiratory Rate 20 H Blood Pressure 168/110 H 179/95 H Blood Pressure Mean 129 Blood Pressure Source Blood Pressure Position Blood Pressure Location Pulse Ox 100 100 Oxygen Delivery Method Room Air Room Air 02/28/25 04:22 02/28/25 04:28 02/28/25 04:46 Temperature Temperature Source Pulse Rate 70 68 65 Respiratory Rate Blood Pressure 145/93 H 130/81 H 120/76 Blood Pressure Mean 90 Blood Pressure Source Monitor Blood Pressure Position Semi-Fowlers Blood Pressure Location Right Arm Pulse Ox Oxygen Delivery Method 02/28/25 04:50 02/28/25 05:04 02/28/25 05:27 Temperature Temperature Source Pulse Rate 64 Respiratory Rate 16 Blood Pressure 120/76 135/77 H 131/85 H Blood Pressure Mean 90 96 100 Blood Pressure Source Monitor Monitor Blood Pressure Position Semi-Fowlers Semi-Fowlers Blood Pressure Location Right Arm Right Arm Pulse Ox 98 Oxygen Delivery Method Room Air 02/28/25 05:37 02/28/25 05:59 02/28/25 06:00 Temperature Temperature Source Pulse Rate 67 Respiratory Rate 18 Blood Pressure 122/80 H 128/74 H 128/74 H Blood Pressure Mean 94 92 92 Blood Pressure Source Monitor Monitor Blood Pressure Position Semi-Fowle (more content not included)... Normal [facility] H AND P Exam - Hospitaliston 02-28-2025 H&P Exam - Hospitalist [facility] Medical Records Department [address] [place] [address] H P Exam - Hospitalist 02/28/25 0717 MR#: [id number] Acct: [id number] Name: CELESTE IBRAHIM Rep #: [id number] : 1960 64 From: Brandi Resendiz MD PCP: Dr. Beata Wing MD Status:ADM IN Location: ICU [id number] HPI - General General Date of Admission: 02/28/25 Date of Service: 02/28/25 Chief Complaint: Chest pain HPI Narrative CELESTE IBRAHIM, is a 64 M with a history of recent prostate cancer status post prostatectomy and multiple rounds of radiation now finished 1 week ago who presented to [facility] ED 02/28/2025 due to chest pain that woke him up at 3:00 in the morning. On arrival temperature 97 with a pulse rate of 91, blood pressure 168/110, respiratory rate 20 with a pulse ox 100% patient was found to have new T wave inversions on EKG and a troponin that went from 12-43, nitroglycerin did decrease his pain from a 9 to a 5 so he was placed on a nitro drip, heparin drip and cardiology contacted who evaluated and plan for heart catheterization. Hospitalist contacted for admission. Patient evaluated at bedside, he does report that substernal chest pain woke him up at 3 AM and was combination of tight and sharp and radiated to the left arm and also had nausea and lightheadedness. At this time chest pain improved to around a 2 still on a nitro drip but is still present. Reports he has some diarrhea from his radiation but has no other new or acute complaints. Of note in the ED when a second IV was placed he did become sweaty and diaphoretic with transient hypotension that was thought to be vasovagal as this all improved and all seem to be independent with nitro drip. When patient was evaluated blood pressure had stabilized. [facility] Medical History (Updated 02/28/25 @ 07:[address] Jim Mcdonnell MD) Anxiety Difficulty swallowing Elevated PSA Family history of colon cancer in father Heartburn Hesitancy of micturition High cholesterol Incontinence Non-smoker Prostate cancer Prostate disease Wears glasses Home Medications ???Medication ???Instructions ???Recorded ???Last Taken ???Type diphenhydramine HCl 25 mg capsule 25 mg PO QHS 08/24/24 09/06/24 Hi story (Benadryl) hydroxyzine HCl 25 mg tablet 25 mg PO BID PRN PRN anxiety 08/24 Unknown History oxybutynin chloride 5 mg tablet 5 mg PO BID PRN bladder spasms 09/18 Unknown History lorazepam 1 mg tablet 1 mg PO ONCE PRN anxiety #1 TAB Unknown Rx Allergy/AdvReac Type Severity Reaction Status Date / Time No Known Allergies Allergy Verified 02/28/25 03:50 Family History Father Colon cancer After lung cancer dx Surgical History History of prostate biopsy History of prostatectomy History of tonsillectomy Social History household members: none current occupational status: employed current occupation: [employer] Smoking Status: Never smoker alcohol intake: never substance use type: does not use ROS ROS Narrative General: Denies fever/chills HENT: Denies headache, denies stuffy nose, denies sore throat EYES: Denies changes in vision Resp: Denies cough, denies shortness of breath Cardiac: Combination of tight/pressure/sharp chest pain radiating to left arm GI: Denies abdominal pain, has some diarrhea associated with his prostatic radiation, denies nausea/vomiting : Denies changes in urination Extremity: Denies swelling MSK: Denies weakness Neuro: Reports over the past couple of years he has had some tingling in his toes and hands Heme: Denies any bleeding or bruising Skin: Denies rashes Psychiatric: No complaints voiced Vital Signs Vital Signs Vital Signs: 02/28/25 03:50 02/28/25 03:57 02/28/25 04:17 Temperature 97 F L Temperature Source Axillary Pulse Rate 91 75 Respiratory Rate 20 H Blood Pressure 168/110 H 179/95 H Blood Pressure Mean 129 Blood Pressure Source Blood Pressure Position Blood Pressure Location Pulse Ox 100 100 Oxygen Delivery Method Room Air Room Air 02/28/25 04:22 02/28/25 04:28 02/28/25 04:46 Temperature Temperature Source Pulse Rate 70 68 65 Respiratory Rate Blood Pressure 145/93 H 130/81 H 120/76 Blood Pressure Mean 90 Blood Pressure Source Monitor Blood Pressure Position Semi-Fowlers Blood Pressure Location Right Arm Pulse Ox Oxygen Delivery Method 02/28/25 04:50 02/28/25 05:04 02/28/25 05:27 Temperature Temperature Source Pulse Rate 64 Respiratory Rate 16 Blood Pressure 120/76 135/77 H 131/85 H Blood Pressure Mean 90 96 100 (more content not included)... Normal [facility] normalized rat io (INR) calculationOrdered By: Peña Rivera on 02-28-2025 INR Coag (Bld) [Relative time] 1.1 {INR} [facility] L499.0042on 02-28-2025 Trop T High Sen 43 ng/L High <=22 [facility] Comment on above: Performed By: #### L 300.2657, L300.7970 #### [facility] [address] [place], [address] L499.0043on 02-28-2025 Trop T High Sen 96 ng/L Invalid Interpretation Code <=22 [facility] Comment on above: Result Comment: Crit ical Result(s) Called to Shae DAWN (ICU): by Bora:??Results read back by same. Performed By: #### L 300.4310, L300.3900 #### [facility] [address] [place], [address] L501.4021on 02-28-2025 Trop T High Sen 12 ng/L Normal <=22 [facility] Comment on above: Result Comment: Hemo lysis present, Results??could be affected. ?? Performed By: #### L 300.4310, L300.3900 #### [facility] [address] [place], [address] Partial Thromboplast Timeon 02-28-2025 aPTT Coag (Bld) [Time] 102.5 s Invalid Interpretation Code 24.1-36.2 [facility] Comment on above: Result Comment: CRIT ICAL VALUE CALLED TO CARLOS MANUEL JACOBS 02/28/25 0929 Jeremie Mcmahon. RESULTS READ BACK BY SAME. Performed By: #### L 300.4310, L300.3900 #### [facility] [address] [place], [address] aPTT Coag (Bld) [Time] 23.7 s Low 24.1-36.2 [facility] Comment on above: Performed By: #### L 300.4310, L300.3900 #### [facility] [address] [place], [address] Prothrombin Time w/INRon INR Coag (PPP) [Relative time] 1.1 {INR} Normal [facility] Comment on above: Performed By: #### L 300.4310, L300.3900 #### [facility] [address] [place], [address] PT Coag (PPP) [Time] 13.9 s Normal 11.7-14.9 [facility] Comment on above: Performed By: #### L 300.4310, L300.3900 #### [facility] [address] [place], [address] INR Coag (PPP) [Relative time] 0.9 {INR} Normal [facility] Comment on above: Performed By: #### L 300.4310, L300.3900 #### [facility] [address] [place], [address] PT Coag (PPP) [Time] 12.3 s Normal 11.7-14.9 [facility] Comment on above: Performed By: #### L 300.4310, L300.3900 #### [facility] [address] [place], [address] Prothrombin timeOrdered By: Peña Rivera on 02-28-2025 PT Coag (PPP) [Time] 13.9 s 11.7-14.9 [facility] Troponin T.cardiac [Mass/vol ume] in Serum or Plasma by High sensitivity methodOrdered By: Peña Rivera on 02-28-2025 Troponin T.cardiac High sensitivity method [Mass/Vol] 96 ng/L High <22 [facility] Comment on above: Critical Result(s) C tessd to Shae DAWN (ICU): by Bora: Results read back by same. Troponin T.cardiac High sensitivity method [Mass/Vol] 43 ng/L High <22 [facility] Troponin T.cardiac High sensitivity method [Mass/Vol] 12 ng/L <22 [facility] Comment on above: Hemolysis present, R esults could be affected. Radiation Oncology Visiton 0 02-22-2025 Radiation Oncology Visit [facility] [address] 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 He now has evidence for persistent pelvic disease with PSA postoperatively of 5.12 and PSMA PET scan (11/15/2024) and MRI pelvis (01/03/2025). Oncologic History: 07/05/2024: Patient completed TRUS guided prostate biopsy.??? Pathology demonstrated Lalo 3+4 adenocarcinoma involving about 15% of 2/2 cores in the left prostate mid, about 30% of 2/2 cores in the left prostate base, and Lalo 3+3 adenocarcinoma involving about 15 to 20% of 1/2 cores in the left prostate apex and less than 5% of 1/2 cores in the right prostate apex.??? Remaining biopsies were negative. 07/22/2024: CT abdomen/pelvis with contrast was performed.??? This demonstrated mild enlargement of the prostate and fatty infiltration of the liver.??? No other abnormalities. 07/28/2024: Bone scan was performed.??? No evidence of metastatic disease. 09/07/2024: Patient completed laparoscopic robotic radical prostatectomy.??? Pathology demonstrated Lalo 3+4 adenocarcinoma involving both lobes.??? Tumor is present extensively in the basal margin but no obvious bladder neck invasion is noted (positive margin measures 2.5 cm).??? There is no seminal vesicle invasion, lymph-vascular invasion, perineural invasion, or extracapsular extension.??? No lymph nodes were in the specimen 11/15/2024: PSMA PET was performed.??? This demonstrated increased tracer uptake noted in the lower pelvis associate with the prostate fossa fulfilling quantitative criteria for viable neoplasm. Radiation Treatment History: The patient completed a course of external beam radiotherapy in our department. This treatment was delivered for curative intent. Treatment was given according to the following parameters: CELESTE IBRAHIM received salvage radiation therapy consisting of 7480 cGy delivered to the area of gross disease, 6800 cGy delivered to the prostate fossa and 4600 cGy delivered to the at risk pelvic lymph nodes and a total of 34 fractions. He was treated with a VMAT plan using 10 MV photons. The patient did receive concurrent ADT. Date of First Treatment: 01/09/2025 Date of Last Treatment: 02/23/2025 Total Elapsed Days (including weekend and holidays): 34 Missed Treatments: None Response and Tolerance: The patient tolerated this course of radiotherapy well overall. The following radiation related toxicities developed during the course of radiation therapy: * Grade 1 increase in LUTS * Grade 1 diarrhea * Grade 1 fatigue Total weight change during therapy: N/A Disposition: The patient tolerated the planned course of radiation therapy well without unexpected toxicity in an appropriate time course. I reviewed management of potential toxicities and discussed expected timing for toxicity resolution. I will have CELESTE follow-up in one month for a routine visit. CELESTE will maintain follow up with all other providers. CELESTE was instructed to call with any further questions or concerns in the interim. If we can provide any further information on this patient's course of care, please do not hesitate to ask. We would like to thank you very much for allowing us to participate in the care of this patient. Sincerely, Sandro Tyler DO, MS Data Librarian, Department of Radiation Oncology [facility] 02/23/25822 Date Sandro Tyler DO Cosign Signature: Date (if applicable) CC: Dr. Beata Wing MD; Dr. Eduardo Lynne MD Normal [facility] Radiation Oncology Visit [facility] [address] [place] [address] OFFICE VISIT Date of Service: 02/22/25833 MR#: [id number] Acct: [id number] Name: CELESTE IBRAHIM Rep #: [id number] : 1960 From: Sandro Tyler DO Age/Sex: 64/M Location: [facility] Status: Signed Intake Vital Signs 01/11/25 09:03 02/22/25 08:42 Height 5 ft 9 in 5 ft 9 in Weight: 184 lb 5 oz BMI 27.2 BP 145/88 H Blood Pressure Location Rt brachial Position Sitting Respiration 16 Pulse 76 Pulse Source Monitor Temp 96.9 F L Temperature Source Temporal Artery Pulse Oximetry (%) 99 Oxygen Delivery Method room air Intake Visit Reasons: OTV Is patient in pain?: No Allergies No Known Allergies Allergy (Verified 02/22/25 08:42) Medications ???Medication ???Instructions ???Recorded ???Confirmed ???Type diphenhydramine HCl 25 mg capsule 25 mg PO QHS 08/24/24 02/22/25 Hi story (Benadryl) hydroxyzine HCl 25 mg tablet 25 mg PO BID PRN PRN anxiety 08/2402/22/25 History oxybutynin chloride 5 mg tablet 5 mg PO BID PRN bladder spasms 09/1802/22/25 History lorazepam 1 mg tablet 1 mg PO ONCE PRN anxiety #1 TAB 02/22/25 Rx PFSH PFSH Medical History Hesitancy of micturition Elevated PSA Incontinence Family history of colon cancer in father Wears glasses Anxiety Prostate disease High cholesterol Difficulty swallowing Heartburn Non-smoker Home Medications ???Medication ???Instructions ???Recorded ???Last Taken ???Type diphenhydramine HCl 25 mg capsule 25 mg PO QHS 08/24/24 09/06/24 Hi story (Benadryl) hydroxyzine HCl 25 mg tablet 25 mg PO BID PRN PRN anxiety 08/24 Unknown History oxybutynin chloride 5 mg tablet 5 mg PO BID PRN bladder spasms 09/18 Unknown History lorazepam 1 mg tablet 1 mg PO ONCE PRN anxiety #1 TAB Unknown Rx Allergy/AdvReac Type Severity Reaction Status Date / Time No Known Allergies Allergy Verified 02/22/25 08:42 Family History Father Colon cancer After lung cancer dx Surgical History History of prostatectomy History of prostate biopsy History of tonsillectomy Social History household members: none current occupational status: employed current occupation: [employer] Smoking Status: Never smoker alcohol intake: never substance use type: does not use Diagnosis: Celeste Ibrahim is a 64 year old male diagnosed with 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 He now has evidence for persistent pelvic disease with PSA postoperatively of 5.12 and PSMA PET scan (11/15/2024). Plan: Plan was made to complete salvage radiation therapy consisting of 7480 cGy delivered to the area of gross disease, 6800 cGy delivered to the prostate fossa and 4600 cGy delivered to the at risk pelvic lymph nodes and a total of 34 fractions. Treatment Data: Treatment Site: Prostate Fossa and Nodes Current total dose/Total dose planned: 5060 cGy / 5060 cGy; 2200 cGy / 2420 cGy Fraction number: ; Chemotherapy: ADT Subjective: Pain: 0 / 10 Fatigue: mild Skin: no erythema, rash, desquamation GI: reports daily diarrhea, stable with imodium. no problems with constipation : no increase urinary symptoms. No dysuria or hematuria Objective: Weight: 184 lbs 5 oz Physical Exam: Gen: NAD Skin: no erythema, rash, desquamation. Labs: None Assessment Plan Assessment/Plan (1) Rising PSA following treatment for malignant neoplasm of prostate: PLAN: Plan Assessment: Tolerating treatment well overall.??? I reviewed and approved all treatment associated imaging. fatigue: grade 1 moderate loose stool, imodium prn Plan: Continue treatment as planned.??? will finish tomorrow I have reviewed potential treatment associated toxicities as well as timing for resolution and management. Follow up in one month or sooner if needed. Thank you for allowing me to participate in the management and care of your patient. If I may answer any questions in the interim, please do not hesitate to contact me at any time. Sandro Tyler DO, MS Data Librarian, Department of Radiation Oncology [facility] Coding Level of Care Code Radiation Tx Management x5 Diagnoses Rising PSA following treatment for malignant neoplasm of prostate R97.21 02/22/25 0901 Joaquin (more content not included)... Normal [facility] Radiation Oncology Visiton 0 02-15-2025 Radiation Oncology Visit [facility] [place] [address] OFFICE VISIT Date of Service: 02/15/2555 MR#: [id number] Acct: [id number] Name: CELESTE IBRAHIM Rep #: [id number] : 1960 From: Sandro Tyler DO Age/Sex: 64/M Location: [facility] Status: Signed Intake Vital Signs 01/11/25 09:03 02/15/25 08:59 Height 5 ft 9 in 5 ft 9 in Weight: 183 lb 4 oz BMI 27.0 BP 147/84 H Blood Pressure Location Rt brachial Position Sitting Respiration 16 Pulse 76 Pulse Source Monitor Temp 96.5 F L Temperature Source Temporal Artery Pulse Oximetry (%) 98 Oxygen Delivery Method room air Intake Visit Reasons: OTV Is patient in pain?: No Allergies No Known Allergies Allergy (Verified 02/15/25 08:59) Medications ???Medication ???Instructions ???Recorded ???Confirmed ???Type diphenhydramine HCl 25 mg capsule 25 mg PO QHS 08/24/24 02/15/25 Hi story (Benadryl) hydroxyzine HCl 25 mg tablet 25 mg PO BID PRN PRN anxiety 08/2402/15/25 History oxybutynin chloride 5 mg tablet 5 mg PO BID PRN bladder spasms 09/1802/15/25 History lorazepam 1 mg tablet 1 mg PO ONCE PRN anxiety #1 TAB 02/15/25 Rx PFSH PFSH Medical History Hesitancy of micturition Elevated PSA Incontinence Family history of colon cancer in father Wears glasses Anxiety Prostate disease High cholesterol Difficulty swallowing Heartburn Non-smoker Home Medications ???Medication ???Instructions ???Recorded ???Last Taken ???Type diphenhydramine HCl 25 mg capsule 25 mg PO QHS 08/24/24 09/06/24 Hi story (Benadryl) hydroxyzine HCl 25 mg tablet 25 mg PO BID PRN PRN anxiety 08/24 Unknown History oxybutynin chloride 5 mg tablet 5 mg PO BID PRN bladder spasms 09/18 Unknown History lorazepam 1 mg tablet 1 mg PO ONCE PRN anxiety #1 TAB Unknown Rx Allergy/AdvReac Type Severity Reaction Status Date / Time No Known Allergies Allergy Verified 02/15/25 08:59 Family History Father Colon cancer After lung cancer dx Surgical History History of prostatectomy History of prostate biopsy History of tonsillectomy Social History household members: none current occupational status: employed current occupation: [employer] Smoking Status: Never smoker alcohol intake: never substance use type: does not use Diagnosis: Celeste Ibrahim is a 64 year old male diagnosed with 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 He now has evidence for persistent pelvic disease with PSA postoperatively of 5.12 and PSMA PET scan (11/15/2024). Plan: Plan was made to complete salvage radiation therapy consisting of 7480 cGy delivered to the area of gross disease, 6800 cGy delivered to the prostate fossa and 4600 cGy delivered to the at risk pelvic lymph nodes and a total of 34 fractions. Treatment Data: Treatment Site: Prostate Fossa and Nodes Current total dose/Total dose planned: 5060 cGy / 5060 cGy; 1100 cGy / 2420 cGy Fraction number: ; Chemotherapy: ADT Subjective: Pain: 0 / 10 Fatigue: mild Skin: no erythema, rash, desquamation GI: reports daily diarrhea, stable with imodium. no problems with constipation : no increase urinary symptoms. No dysuria or hematuria Objective: Weight: 183 lbs 4 oz Physical Exam: Gen: NAD Skin: no erythema, rash, desquamation. Labs: None Assessment Plan Assessment/Plan (1) Rising PSA following treatment for malignant neoplasm of prostate: PLAN: Plan Assessment: Tolerating treatment well overall.??? I reviewed and approved all treatment associated imaging. fatigue: grade 1 moderate loose stool, imodium prn Plan: Continue treatment as planned.??? I have reviewed potential treatment associated toxicities as well as timing for resolution and management. Follow up next week or sooner if needed. Thank you for allowing me to participate in the management and care of your patient. If I may answer any questions in the interim, please do not hesitate to contact me at any time. Sandro Tyler DO, MS Data Librarian, Department of Radiation Oncology [facility] Coding Level of Care Code Radiation Tx Management x5 Diagnoses Rising PSA following treatment for malignant neoplasm of prostate R97.21 02/15/25914 Date (more content not included)... Normal [facility] Radiation Oncology Visiton 0 02-08-2025 Radiation Oncology Visit [facility] [address] [place] [address] OFFICE VISIT Date of Service: 02/08/25 0854 MR#: [id number] Acct: [id number] Name: SHAHZADCELESTE Rep #: [id number] : 1960 From: Sandro Tyler DO Age/Sex: 64/M Location: [facility] Status: Signed Intake Vital Signs 01/11/25 09:03 02/08/25 09:00 Height 5 ft 9 in 5 ft 9 in Weight: 182 lb 4 oz BMI 26.9 BP 144/84 H Blood Pressure Location Rt brachial Position Sitting Respiration 16 Pulse 71 Pulse Source Monitor Temp 97.1 F L Temperature Source Temporal Artery Pulse Oximetry (%) 96 Oxygen Delivery Method room air Intake Visit Reasons: OTV Is patient in pain?: Yes (abdominal ) Pain scale (1-10): 3 Allergies No Known Allergies Allergy (Verified 02/08/25 08:59) Medications ???Medication ???Instructions ???Recorded ???Confirmed ???Type diphenhydramine HCl 25 mg capsule 25 mg PO QHS 08/24/24 02/08/25 Hi story (Benadryl) hydroxyzine HCl 25 mg tablet 25 mg PO BID PRN PRN anxiety 08/2402/08/25 History oxybutynin chloride 5 mg tablet 5 mg PO BID PRN bladder spasms 09/1802/08/25 History lorazepam 1 mg tablet 1 mg PO ONCE PRN anxiety #1 TAB 02/08/25 Rx PFSH PFSH Medical History Hesitancy of micturition Elevated PSA Incontinence Family history of colon cancer in father Wears glasses Anxiety Prostate disease High cholesterol Difficulty swallowing Heartburn Non-smoker Home Medications ???Medication ???Instructions ???Recorded ???Last Taken ???Type diphenhydramine HCl 25 mg capsule 25 mg PO QHS 08/24/24 09/06/24 Hi story (Benadryl) hydroxyzine HCl 25 mg tablet 25 mg PO BID PRN PRN anxiety 08/24 Unknown History oxybutynin chloride 5 mg tablet 5 mg PO BID PRN bladder spasms 09/18 Unknown History lorazepam 1 mg tablet 1 mg PO ONCE PRN anxiety #1 TAB Unknown Rx Allergy/AdvReac Type Severity Reaction Status Date / Time No Known Allergies Allergy Verified 02/08/25 08:59 Family History Father Colon cancer After lung cancer dx Surgical History History of prostatectomy History of prostate biopsy History of tonsillectomy Social History household members: none current occupational status: employed current occupation: [employer] [place] Smoking Status: Never smoker alcohol intake: never substance use type: does not use Diagnosis: Celeste Ibrahim is a 64 year old male diagnosed with 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 He now has evidence for persistent pelvic disease with PSA postoperatively of 5.12 and PSMA PET scan (11/15/2024). Plan: Plan was made to complete salvage radiation therapy consisting of 7480 cGy delivered to the area of gross disease, 6800 cGy delivered to the prostate fossa and 4600 cGy delivered to the at risk pelvic lymph nodes and a total of 34 fractions. Treatment Data: Treatment Site: Prostate Fossa and Nodes Current total dose/Total dose planned: 5060 cGy / 5060 cGy; 0 cGy / 2420 cGy Fraction number: ; Chemotherapy: ADT Subjective: Pain: 0 / 10 Fatigue: mild Skin: no erythema, rash, desquamation GI: reports daily diarrhea, stable with imodium. no problems with constipation : no increase urinary symptoms. No dysuria or hematuria Objective: Weight: 182 lbs 4 oz Physical Exam: Gen: NAD Skin: no erythema, rash, desquamation. Labs: None Assessment Plan Assessment/Plan (1) Rising PSA following treatment for malignant neoplasm of prostate: PLAN: Plan Assessment: Tolerating treatment well overall.??? I reviewed and approved all treatment associated imaging. fatigue: grade 1 mild loose stool, imodium prn Plan: Continue treatment as planned.??? I have reviewed potential treatment associated toxicities as well as timing for resolution and management. Follow up next week or sooner if needed. Thank you for allowing me to participate in the management and care of your patient. If I may answer any questions in the interim, please do not hesitate to contact me at any time. Sandro Tyler DO, MS Data Librarian, Department of Radiation Oncology [facility] Coding Level of Care Code Radiation Tx Management x5 Diagnoses Rising PSA following treatment for malignant neoplasm of prostate R97.21 02/08/25 0922 (more content not included)... Normal [facility] Radiation Oncology Visiton 0 02-01-2025 Radiation Oncology Visit [facility] [place] [address] OFFICE VISIT Date of Service: 02/01/25899 MR#: [id number] Acct: [id number] Name: CELESTE IBRAHIM Rep #: [id number] : 1960 From: Roamn Persaud MD Age/Sex: 64/M Location: [facility] Status: Signed Intake Vital Signs 01/11/25 09:03 02/01/25 09:07 Height 5 ft 9 in 5 ft 9 in Weight: 181 lb 4 oz BMI 26.7 BP 132/84 H Blood Pressure Location Rt brachial Position Sitting Respiration 16 Pulse 72 Pulse Source Monitor Temp 96.9 F L Temperature Source Temporal Artery Pulse Oximetry (%) 98 Oxygen Delivery Method room air Intake Visit Reasons: OTV Is patient in pain?: No Allergies No Known Allergies Allergy (Verified 02/01/25 09:07) Medications ???Medication ???Instructions ???Recorded ???Confirmed ???Type diphenhydramine HCl 25 mg capsule 25 mg PO QHS 08/24/24 02/01/25 Hi story (Benadryl) hydroxyzine HCl 25 mg tablet 25 mg PO BID PRN PRN anxiety 08/2402/01/25 History oxybutynin chloride 5 mg tablet 5 mg PO BID PRN bladder spasms 09/1802/01/25 History lorazepam 1 mg tablet 1 mg PO ONCE PRN anxiety #1 TAB 02/01/25 Rx PFSH PFSH Medical History Hesitancy of micturition Elevated PSA Incontinence Family history of colon cancer in father Wears glasses Anxiety Prostate disease High cholesterol Difficulty swallowing Heartburn Non-smoker Home Medications ???Medication ???Instructions ???Recorded ???Last Taken ???Type diphenhydramine HCl 25 mg capsule 25 mg PO QHS 08/24/24 09/06/24 Hi story (Benadryl) hydroxyzine HCl 25 mg tablet 25 mg PO BID PRN PRN anxiety 08/24 Unknown History oxybutynin chloride 5 mg tablet 5 mg PO BID PRN bladder spasms 09/18 Unknown History lorazepam 1 mg tablet 1 mg PO ONCE PRN anxiety #1 TAB Unknown Rx Allergy/AdvReac Type Severity Reaction Status Date / Time No Known Allergies Allergy Verified 02/01/25 09:07 Family History Father Colon cancer After lung cancer dx Surgical History History of prostatectomy History of prostate biopsy History of tonsillectomy Social History household members: none current occupational status: employed current occupation: [employer] [place], [employer] Smoking Status: Never smoker alcohol intake: never substance use type: does not use Diagnosis: Celeste Ibrahim is a 64 year old male diagnosed with 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 He now has evidence for persistent pelvic disease with PSA postoperatively of 5.12 and PSMA PET scan (11/15/2024). Plan: Plan was made to complete salvage radiation therapy consisting of 7480 cGy delivered to the area of gross disease, 6800 cGy delivered to the prostate fossa and 4600 cGy delivered to the at risk pelvic lymph nodes and a total of 34 fractions. Treatment Data: Treatment Site: Prostate Fossa and Nodes Current total dose/Total dose planned: 3960 cGy / 5060 cGy; 0 cGy / 2420 cGy Fraction number: ; Chemotherapy: ADT Subjective: Pain: 0 / 10 Fatigue: mild Skin: no erythema, rash, desquamation GI: reports daily diarrhea, stable with immodium. no problems with constipation : no increase urinary symptoms. No dysuria or hematuria Objective: Weight: 181 lbs 4 oz Physical Exam: Gen: NAD Skin: no erythema, rash, desquamation. Labs: None Assessment Plan Assessment/Plan (1) Rising PSA following treatment for malignant neoplasm of prostate: PLAN: Plan Assessment: Tolerating treatment well overall.??? I reviewed and approved all treatment associated imaging. fatigue: grade 1 mild loose stool, imodium prn Plan: Continue treatment as planned.??? Went over usage of Immdium and diet changes to try to minimize diarrhea I have reviewed potential treatment associated toxicities as well as timing for resolution and management. Follow up next week or sooner if needed. Thank you for allowing me to participate in the management and care of your patient. If I may answer any questions in the interim, please do not hesitate to contact me at any time. Assessment Plan Assessment/Plan (1) Rising PSA following treatment for malignant neoplasm of prostate: Coding Level of Care Code Radiation Tx Management x5 Diagnoses Rising PSA following treatment for malignant neoplasm of prostate R97.21 02/01/25 0935 Date ____ (more content not included)... Normal [facility] Radiation Oncology Visiton 0 01-24-2025 Radiation Oncology Visit [facility] [address] [place] [address]. [place] [address] OFFICE VISIT Date of Service: 01/24/25829 MR#: [id number] Acct: [id number] Name: CELESTE IBRAHIM Rep #: [id number] : 1960 From: Sandro Tyler DO Age/Sex: 64/M Location: [facility] Status: Signed Intake Vital Signs 01/11/25 09:03 01/18/25 08:40 01/24/25 08:33 Height 5 ft 9 in 5 ft 9 in 5 ft 9 in Weight: 181 lb 9 oz 183 lb 6 oz 181 lb 2 oz BMI 26.8 27.1 26.7 BP 136/86 H 144/81 H 135/85 H Blood Pressure Location Lt brachial Lt brachial Rt brachial Position Sitting Sitting Sitting Respiration 16 18 16 Pulse 73 78 72 Pulse Source Monitor Monitor Monitor Temp 98.0 F 96.8 F L 97.2 F L Temperature Source Temporal Artery Temporal Artery Temporal Artery Pulse Oximetry (%) 98 98 99 Oxygen Delivery Method room air room air room air Intake Visit Reasons: OTV Is patient in pain?: No Allergies No Known Allergies Allergy (Verified 01/24/25 08:33) Medications ???Medication ???Instructions ???Recorded ???Confirmed ???Type diphenhydramine HCl 25 mg capsule 25 mg PO QHS 08/24/24 01/24/25 Hi story (Benadryl) hydroxyzine HCl 25 mg tablet 25 mg PO BID PRN PRN anxiety 08/2401/24/25 History oxybutynin chloride 5 mg tablet 5 mg PO BID PRN bladder spasms 09/1801/24/25 History lorazepam 1 mg tablet 1 mg PO ONCE PRN anxiety #1 TAB 01/24/25 Rx PFSH PFSH Medical History Hesitancy of micturition Elevated PSA Incontinence Family history of colon cancer in father Wears glasses Anxiety Prostate disease High cholesterol Difficulty swallowing Heartburn Non-smoker Home Medications ???Medication ???Instructions ???Recorded ???Last Taken ???Type diphenhydramine HCl 25 mg capsule 25 mg PO QHS 08/24/24 09/06/24 Hi story (Benadryl) hydroxyzine HCl 25 mg tablet 25 mg PO BID PRN PRN anxiety 08/24 Unknown History oxybutynin chloride 5 mg tablet 5 mg PO BID PRN bladder spasms 09/18 Unknown History lorazepam 1 mg tablet 1 mg PO ONCE PRN anxiety #1 TAB Unknown Rx Allergy/AdvReac Type Severity Reaction Status Date / Time No Known Allergies Allergy Verified 01/24/25 08:33 Family History Father Colon cancer After lung cancer dx Surgical History History of prostatectomy History of prostate biopsy History of tonsillectomy Social History household members: none current occupational status: employed current occupation: [employer] Smoking Status: Never smoker alcohol intake: never substance use type: does not use Diagnosis: Celeste Ibrahim is a 64 year old male diagnosed with 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 He now has evidence for persistent pelvic disease with PSA postoperatively of 5.12 and PSMA PET scan (11/15/2024). Plan: Plan was made to complete salvage radiation therapy consisting of 7480 cGy delivered to the area of gross disease, 6800 cGy delivered to the prostate fossa and 4600 cGy delivered to the at risk pelvic lymph nodes and a total of 34 fractions. Treatment Data: Treatment Site: Prostate Fossa and Nodes Current total dose/Total dose planned: 2640 cGy / 5060 cGy; 0 cGy / 2420 cGy Fraction number: ; Chemotherapy: ADT Subjective: Pain: 0 / 10 Fatigue: mild Skin: no erythema, rash, desquamation GI: mild diarrhea, imodium improving, no constipation, about two somewhat loose stools per day. No rectal pain or bleeding. No bloating or increased gas : no increase urinary symptoms. No dysuria or hematuria Objective: Weight: 181 lbs 2 oz Physical Exam: Gen: NAD Skin: no erythema, rash, desquamation. Labs: None Assessment Plan Assessment/Plan (1) Rising PSA following treatment for malignant neoplasm of prostate: PLAN: Plan Assessment: Tolerating treatment well overall.??? I reviewed and approved all treatment associated imaging. fatigue: grade 1 mild loose stool, imodium prn Plan: Continue treatment as planned.??? I have reviewed potential treatment associated toxicities as well as timing for resolution and management. Follow up next week or sooner if needed. Thank you for allowing me to participate in the management and care of your patient. If I may answer any questions in the interim, please do not hesitate to contact me at any time. Sandro Tyler DO, MS Data Librarian, Department of Radiation Oncolog (more content not included)... Normal [facility] Radiation Oncology Visiton 0 01-18-2025 Radiation Oncology Visit [facility] [address] [place] [address] OFFICE VISIT Date of Service: 01/18/25 0838 MR#: [id number] Acct: [id number] Name: CELESTE IBRAHIM Rep #: [id number] : 1960 From: Sandro Tyler DO Age/Sex: 64/M Location: [facility] Status: Signed Intake Vital Signs 01/11/25 09:03 01/18/25 08:40 Height 5 ft 9 in 5 ft 9 in Weight: 181 lb 9 oz 183 lb 6 oz BMI 26.8 27.1 BP 136/86 H 144/81 H Blood Pressure Location Lt brachial Lt brachial Position Sitting Sitting Respiration 16 18 Pulse 73 78 Pulse Source Monitor Monitor Temp 98.0 F 96.8 F L Temperature Source Temporal Artery Temporal Artery Pulse Oximetry (%) 98 98 Oxygen Delivery Method room air room air Intake Visit Reasons: OTV Is patient in pain?: No Allergies No Known Allergies Allergy (Verified 01/18/25 08:40) Medications ???Medication ???Instructions ???Recorded ???Confirmed ???Type diphenhydramine HCl 25 mg capsule 25 mg PO QHS 08/24/24 01/18/25 Hi story (Benadryl) hydroxyzine HCl 25 mg tablet 25 mg PO BID PRN PRN anxiety 08/2401/18/25 History oxybutynin chloride 5 mg tablet 5 mg PO BID PRN bladder spasms 09/1801/18/25 History lorazepam 1 mg tablet 1 mg PO ONCE PRN anxiety #1 TAB 01/18/25 Rx PFSH PFSH Medical History Hesitancy of micturition Elevated PSA Incontinence Family history of colon cancer in father Wears glasses Anxiety Prostate disease High cholesterol Difficulty swallowing Heartburn Non-smoker Home Medications ???Medication ???Instructions ???Recorded ???Last Taken ???Type diphenhydramine HCl 25 mg capsule 25 mg PO QHS 08/24/24 09/06/24 Hi story (Benadryl) hydroxyzine HCl 25 mg tablet 25 mg PO BID PRN PRN anxiety 08/24 Unknown History oxybutynin chloride 5 mg tablet 5 mg PO BID PRN bladder spasms 09/18 Unknown History lorazepam 1 mg tablet 1 mg PO ONCE PRN anxiety #1 TAB Unknown Rx Allergy/AdvReac Type Severity Reaction Status Date / Time No Known Allergies Allergy Verified 01/18/25 08:40 Family History Father Colon cancer After lung cancer dx Surgical History History of prostatectomy History of prostate biopsy History of tonsillectomy Social History household members: none current occupational status: employed current occupation: [employer] [place] Smoking Status: Never smoker alcohol intake: never substance use type: does not use Diagnosis: Celeste Ibrahim is a 64 year old male diagnosed with 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 He now has evidence for persistent pelvic disease with PSA postoperatively of 5.12 and PSMA PET scan (11/15/2024). Plan: Plan was made to complete salvage radiation therapy consisting of 7480 cGy delivered to the area of gross disease, 6800 cGy delivered to the prostate fossa and 4600 cGy delivered to the at risk pelvic lymph nodes and a total of 34 fractions. Treatment Data: Treatment Site: Prostate Fossa and Nodes Current total dose/Total dose planned: 1760 cGy / 5060 cGy; 0 cGy / 2420 cGy Fraction number: ; Chemotherapy: ADT Subjective: Pain: 0 / 10 Fatigue: mild Skin: no erythema, rash, desquamation GI: no diarrhea/constipation, about two somewhat loose stools per day. No rectal pain or bleeding. No bloating or increased gas : no increase urinary symptoms. No dysuria or hematuria Objective: Weight: 183 lbs 6 oz Physical Exam: Gen: NAD Skin: no erythema, rash, desquamation. Labs: None Assessment Plan Assessment/Plan (1) Rising PSA following treatment for malignant neoplasm of prostate: PLAN: Plan Assessment: Tolerating treatment well overall.??? I reviewed and approved all treatment associated imaging. fatigue: grade 1 mild loose stool Plan: Continue treatment as planned.??? I have reviewed potential treatment associated toxicities as well as timing for resolution and management. Follow up next week or sooner if needed. Thank you for allowing me to participate in the management and care of your patient. If I may answer any questions in the interim, please do not hesitate to contact me at any time. Sandro Tyler DO, MS Data Librarian, Department of Radiation Oncology [facility] Coding Level of Care Code Radiation Tx Management x5 Diag (more content not included)... Normal [facility] Radiation Oncology Visiton 0 01-11-2025 Radiation Oncology Visit [facility] [place] [address] OFFICE VISIT Date of Service: 01/11/25 0855 MR#: [id number] Acct: [id number] Name: CELESTE IBRAHIM Rep #: [id number] : 1960 From: Sandro Tyler DO Age/Sex: 64/M Location: [facility] Status: Signed Intake Vital Signs 12/07/24 06:39 01/11/25 09:03 Height 5 ft 9 in 5 ft 9 in Weight: 181 lb 9 oz BMI 26.8 BP 136/86 H Blood Pressure Location Lt brachial Position Sitting Respiration 16 Pulse 73 Pulse Source Monitor Temp 98.0 F Temperature Source Temporal Artery Pulse Oximetry (%) 98 Oxygen Delivery Method room air Intake Visit Reasons: OTV Is patient in pain?: No Allergies No Known Allergies Allergy (Verified 12/07/24 06:38) Medications ???Medication ???Instructions ???Recorded ???Confirmed ???Type diphenhydramine HCl 25 mg capsule 25 mg PO QHS 08/24/24 01/11/25 Hi story (Benadryl) hydroxyzine HCl 25 mg tablet 25 mg PO BID PRN PRN anxiety 08/2401/11/25 History oxybutynin chloride 5 mg tablet 5 mg PO BID PRN bladder spasms 09/1801/11/25 History lorazepam 1 mg tablet 1 mg PO ONCE PRN anxiety #1 TAB 01/11/25 Rx PFSH PFSH Medical History Hesitancy of micturition Elevated PSA Incontinence Family history of colon cancer in father Wears glasses Anxiety Prostate disease High cholesterol Difficulty swallowing Heartburn Non-smoker Home Medications ???Medication ???Instructions ???Recorded ???Last Taken ???Type diphenhydramine HCl 25 mg capsule 25 mg PO QHS 08/24/24 09/06/24 Hi story (Benadryl) hydroxyzine HCl 25 mg tablet 25 mg PO BID PRN PRN anxiety 08/24 Unknown History oxybutynin chloride 5 mg tablet 5 mg PO BID PRN bladder spasms 09/18 Unknown History lorazepam 1 mg tablet 1 mg PO ONCE PRN anxiety #1 TAB Unknown Rx Allergy/AdvReac Type Severity Reaction Status Date / Time No Known Allergies Allergy Verified 12/07/24 06:38 Family History Father Colon cancer After lung cancer dx Surgical History History of prostatectomy History of prostate biopsy History of tonsillectomy Social History household members: none current occupational status: employed current occupation: [employer] Smoking Status: Never smoker alcohol intake: never substance use type: does not use Diagnosis: Celeste Ibrahim is a 63 year old male diagnosed with 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 He now has evidence for persistent pelvic disease with PSA postoperatively of 5.12 and PSMA PET scan (11/15/2024). Plan: Plan was made to complete salvage radiation therapy consisting of 7480 cGy delivered to the area of gross disease, 6800 cGy delivered to the prostate fossa and 4600 cGy delivered to the at risk pelvic lymph nodes and a total of 34 fractions. Treatment Data: Treatment Site: Prostate Fossa and Nodes Current total dose/Total dose planned: 660 cGy / 5060 cGy; 0 cGy / 2420 cGy Fraction number: ; Chemotherapy: ADT Subjective: Pain: 0 / 10 Fatigue: none Skin: no erythema, rash, desquamation GI: no diarrhea/constipation. No rectal pain or bleeding. No bloating or increased gas : no increase urinary symptoms. No dysuria or hematuria Objective: Weight: 181 lbs 9 oz Physical Exam: Gen: NAD Skin: no erythema, rash, desquamation. Labs: None Assessment Plan Assessment/Plan (1) Rising PSA following treatment for malignant neoplasm of prostate: PLAN: Plan Assessment: Tolerating treatment well overall.??? I reviewed and approved all treatment associated imaging. No treatment associated toxicities are noted at this time Plan: Continue treatment as planned.??? I have reviewed potential treatment associated toxicities as well as timing for resolution and management. Follow up next week or sooner if needed. Thank you for allowing me to participate in the management and care of your patient. If I may answer any questions in the interim, please do not hesitate to contact me at any time. Sandro Tyler DO, MS Data Librarian, Department of Radiation Oncology [facility] Coding Level of Care Code Radiation Tx Management x5 Diagnoses Rising PSA following treatment for malignant neoplasm of prostate R97.21 01/11/25 0931 Date (more content not included)... Normal [facility] Magnetic resonance imaging r eportOrdered By: Andre Bowen on 01-04-2025 Study report [facility] Imaging Services [address] [place] [address] Pelvis W/WO Contrast MR#: [id number] Acct: [id number] Name: CELESTE IBRAHIM Rep #: [id number] : 1960 M 64 From: Angie Bowen MD PCP: Dr. Beata Wing MD Status: REG CL I Study:Pelvis W/WO Contrast Date of Exam: 01/03/25 Exam# [id number] Ordering Dr: Sandro Tyler DO PROCEDURE: PELVIS W/WO CONTRAST ([id number]), 01/03/2025 REASON FOR EXAM: EVAL FOR PELVIC RECURRENCE OF PROSTATE CANCER TECHNIQUE: Multisequence multiplanar MRI pelvis was performed with and without IV contrast. CONTRAST: 15 mL Clariscan COMPARISON: None FINDINGS: Variable overall mild motion limitation with some sequences being mild/moderately motion degraded.. Note dynamic postcontrast imaging was not performed. Radical prostatectomy with T2 dark likely scarring in the prostatectomy bed, evaluation of which is somewhat limited in the absence of dynamic postcontrast imaging. In this region closely associated withthe bladder neck, there is T2 intermediate nodular soft tissue thickening measuring roughly 1.4 cm demonstrating restricteddiffusion and enhancement on static postcontrast imaging (series 8 image 15). A few punctate foci of restricted diffusion along the seminal vesicle resection bed and neurovascular bundle are indeterminate but may reflect tiny nonenlarged lymph nodes, up to 4 mm (for example, series 8, image 10 and 12). Bladder: As above. Otherwise, underdistended and suboptimally evaluated. Bladder wall thickening versus underdistention as well as trabeculation, suggesting possible chronic bladder outlet obstruction. Lymph nodes: Prominent but nonenlarged right external iliac node by PI-RADS criteria, 7 mm short axis. Bones: No destructive or frankly suspicious bony lesions identified. Other: Lumbar facet arthropathy.. MRI/Pelvis W/WO Contrast IMPRESSION: 1. Prostatectomy with likely scarring in the operative bed. A 1.4 cm nodular signal abnormality within the resection bed along the left anterolateral bladder neck is suspicious for a possible site of local recurrence. Clinical follow-up recommended. 2. Additional punctate nodular foci along the seminal vesicle resection beds/neurovascular bundles are indeterminate and may reflect tiny nonenlarged lymph nodes. Comparison with preoperative imaging may be helpful., otherwise recommend attention on follow-up. PSMA PET/CT could also be considered, as indicated. 3. No overt pelvic lymphadenopathy. Prominent but nonenlarged right external iliac node by PI-RADS criteria may be reactive. 4. Additional description as above. Reading Location: [facility] CC: Dr. Beata Wing MD; Dr. Sandro Tyler DO ~ Glove Parts Inspector: Signed [facility] Pelvis W/WO Contraston 01-03 Pelvis W/WO Contrast [facility] Imaging Services [address] [place] [address] Pelvis W/WO Contrast MR#: [id number] Acct: [id number] Name: CELESTE IBRAHIM Rep #: [id number] : 1960 M 64 From: Andre Bowen MD PCP: Dr. eBata Wing MD Status: REG CLI Study: Pelvis W/WO Contrast Date of Exam: 01/03/25 Exam# [id number] Ordering Dr: Sandro Tyler DO PROCEDURE: PELVIS W/WO CONTRAST (MRIPELWW), 01/03/2025 REASON FOR EXAM: EVAL FOR PELVIC RECURRENCE OF PROSTATE CANCER TECHNIQUE: Multisequence multiplanar MRI pelvis was performed with and without IV contrast. CONTRAST: 15 mL Clariscan COMPARISON: None FINDINGS: Variable overall mild motion limitation with some sequences being mild/moderately motion degraded.. Note dynamic postcontrast imaging was not performed. Radical prostatectomy with T2 dark likely scarring in the prostatectomy bed, evaluation of which is somewhat limited in the absence of dynamic postcontrast imaging. In this region closely associated with the bladder neck, there is T2 intermediate nodular soft tissue thickening measuring roughly 1.4 cm demonstrating restricted diffusion and enhancement on static postcontrast imaging (series 8 image 15). A few punctate foci of restricted diffusion along the seminal vesicle resection bed and neurovascular bundle are indeterminate but may reflect tiny nonenlarged lymph nodes, up to 4 mm (for example, series 8, image 10 and 12). Bladder: As above. Otherwise, underdistended and suboptimally evaluated. Bladder wall thickening versus underdistention as well as trabeculation, suggesting possible chronic bladder outlet obstruction. Lymph nodes: Prominent but nonenlarged right external iliac node by PI-RADS criteria, 7 mm short axis. Bones: No destructive or frankly suspicious bony lesions identified. Other: Lumbar facet arthropathy.. MRI/Pelvis W/WO Contrast IMPRESSION: 1. Prostatectomy with likely scarring in the operative bed. A 1.4 cm nodular signal abnormality within the resection bed along the left anterolateral bladder neck is suspicious for a possible site of local recurrence. Clinical follow-up recommended. 2. Additional punctate nodular foci along the seminal vesicle resection beds/neurovascular bundles are indeterminate and may reflect tiny nonenlarged lymph nodes. Comparison with preoperative imaging may be helpful., otherwise recommend attention on follow-up. PSMA PET/CT could also be considered, as indicated. 3. No overt pelvic lymphadenopathy. Prominent but nonenlarged right external iliac node by PI-RADS criteria may be reactive. 4. Additional description as above. Reading Location: [facility] CC: Dr. Beata Wing MD; Dr. Sandro Tyler DO Glove Parts Inspector: Signed Normal [facility] CREATININE FINGERSTICKon CREATININE WB < 1.0 Normal 0.70-1.30 [facility] Comment on above: Performed By: #### L 300.4310, L300.3900 #### [facility] [address] [place], [address] EGFR WB > 60.0000 Normal >60 [facility] Comment on above: Performed By: #### L 300.4310, L300.3900 #### [facility] [address] [place], [address] Creatinine measurement at be dsideOrdered By: Sandro Tyler on 12-19-2024 Bedside Creatinine < 1.0 mg/dL 0.70-1.30 [facility] EGFROrdered By: Sandro mendoza on 12-19-2024 Bedside Estimated GFR (eGFR) > 60.0000 mL/min >60 [facility] GFR/1.73 sq M.predicted among non-blacks MDRD (S/P/Bld) [Vol rate/Area] mL/min/{1.73_m2} >60 [facility] Colonoscopy Reporton 025 Colonoscopy Report [facility] Medical Records Department [address] [facility] [address] Colonoscopy Report MR#: [id number] Acct: [id number] Name: CELESTE IBRAHIM Rep #: [id number] : 1960 63 From: Tracey Babin MD PCP: Dr. Beata Wing MD Status:[facility] Patient Name: Celeste Ibrahim Procedure Date: 12/07/2024 7:52 AM Date of : 1960 Age: 63 Procedure: Colonoscopy Indications: Screening for colorectal malignant neoplasm Providers: Tracey Babin MD Referring MD: Beata Wing Md Medicines: Monitored Anesthesia Care Patient Profile: This is a 63 year old male. Last Colonoscopy: none. The patient's first colonoscopy is today. Complications: No immediate complications. Procedure: Pre-Anesthesia Assessment: - Prior to the procedure, a History and Physical was performed, and patient medications and allergies were reviewed. The patient's tolerance of previous anesthesia was also reviewed. The risks and benefits of the procedure and the sedation options and risks were discussed with the patient. All questions were answered, and informed consent was obtained. Prior Anticoagulants: The patient has taken no anticoagulant or antiplatelet agents. ASA Grade Assessment: Per anesthesia. After reviewing the risks and benefits, the patient was deemed in satisfactory condition to undergo the procedure. After I obtained informed consent, the scope was passed under direct vision. Throughout the procedure, the patient's blood pressure, pulse, and oxygen saturations were monitored continuously. The Colonoscope was introduced through the anus and advanced to the cecum, identified by the appendiceal orifice, ileocecal valve and palpation. The colonoscopy was performed without difficulty. The patient tolerated the procedure well. The quality of the bowel preparation was good. Scope In: 8:00:16 AM Scope Withdrawal Time 0 hours 11 minutes 18 seconds Scope Out: 8:17:33 AM Total Procedure Duration Time 0 hours 17 minutes 17 seconds Findings: Hemorrhoids were found on perianal exam. Non-bleeding internal hemorrhoids were found. The hemorrhoids were Grade I (internal hemorrhoids that do not prolapse). The entire examined colon appeared normal. Impression: - Hemorrhoids found on perianal exam. - Non-bleeding internal hemorrhoids. - The entire examined colon is normal. - No specimens collected. Recommendation: - Discharge patient to home. - Resume previous diet. - Continue present medications. - Repeat colonoscopy in 10 years for screening purposes. Procedure Code(s): --- Professional --- G0121, PT, Colorectal cancer screening; colonoscopy on individual not meeting criteria for high risk Diagnosis Code(s): --- Professional --- Z12.11, Encounter for screening for malignant neoplasm of colon K64.0, First degree hemorrhoids CPT copyright 2021 [employer]. All rights reserved. The codes documented in this report are preliminary and upon softlines supervisor review may be revised to meet current compliance requirements. MD Tracey Chavira MD 12/07/2024 8:21:39 AM This report has been signed electronically. Number of Addenda: 0 Note Initiated On: 12/07/2024 7:52 AM 12/07/24820 Date Tracey Saldivar Signature: Date (if indicated) CC: Dr. Beata Wing MD; Dr. Tracey Babin MD Date Dictated: 12/07/24751 Date Transcribed: Glove Parts Inspector: TR Signed [facility] MR/POSTOP.[facility] 12-07-2024 MR/POSTOP.[facility] Medical Records Department [address] [place] [address] Anesthesia Postop Eval I 12/07/24825 MR#: [id number] Acct: [id number] Name: CELESTE IBRAHIM Rep #: [id number] : 1960 63 From: Demetris Farmer PCP: Dr. Beata Wing MD Status:[place] [facility] [place]: C Location: [place] [address] Anesthesia: Postop Eval I Current Vital Signs Temperature: 97 F Pulse Rate: 67 Blood Pressure: 91/61 Respiratory Rate: 16 Pulse Ox: 96 Oxygen Delivery Method: Room Air Assessment Airway patent: Yes Spontaneous unlabored respirations: Yes Mental status: Asleep nausea: No Vomiting: No Anesthesia Complication: No Fluid Hydration Crystalloid volume administer (ml): 40 Total IV fluid infused: 40 Progress Note Anesthesia document: Postop Eval 1 completed: Yes 12/07/24826 Date Demetris Saldivar Signature: CC: Signed [facility] MR/[id number] 12-07-2024 MR/POSTOPAN2 [facility] Medical Records Department [address] [place] [address] Anesthesia Postop Eval II 12/07/2457 MR#: [id number] Acct: [id number] Name: CELESTE IBRAHIM Rep #: [id number] : 1960 63 From: Daniel Sheth MD PCP: Dr. Beata Wing MD Status:DEP [facility] [place] Race: C Location: EN Anesthesia Postop Eval I Sum Postop Eval Completion status Anesthesia document: Postop Eval 1 completed: Yes Anesthesia Postop Eval I Summary Anesthesia Postop Eval I Summary: Anesthesia Postop Eval I: Assessment Summary Airway patent Yes 12/07/24 08:27 [email or web address] Spontaneous unlabored Yes 12/07/24 08:27 [email or web address] respirations Mental status Asleep 12/07/24 08:27 [email or web address] nausea No 12/07/24 08:27 [email or web address] Vomiting No 12/07/24 08:27 [email or web address] Anesthesia Postop Eval I: Fluid Summary Crystalloid volume administer 40 12/07/24 08:27 [email or web address] (ml) Colloids volume administered ( ml) Blood Product volume administered (ml) Total IV fluid infused 40 12/07/24 08:27 [email or web address] Anesthesia Postop Eval I: Summary Notes Anesthesia Complication No 12/07/24 08:27 [email or web address] Anesthesia Complication Comment: Post-operative progress note Anesthesia: Postop Eval II Evaluation Mental status: Awake Pain Level: 0 nausea: No Vomiting: No 12/07/24956 Date Daniel Sheth MD Cosigner Signature: Date CC: Signed Normal [facility] Radiation Oncology Visiton 0 11-24-2024 Radiation Oncology Visit [facility] [address] [place] [address] OFFICE VISIT Date of Service: 11/24/24 1059 MR#: [id number] Acct: [id number] Name: CELESTE IBRAHIM Rep #: [id number] : 1960 From: Sandro Tyler DO Age/Sex: 63/M Location: [facility] Status: Signed Intake Vital Signs 10/05/24 09:08 11/24/24 11:05 Height 5 ft 9 in 5 ft 9 in Weight: 182 lb 4 oz BMI 26.9 BP 160/89 H Blood Pressure Location Lt brachial Position Sitting Respiration 16 Pulse 66 Pulse Source Monitor Temp 97.6 F L Temperature Source Temporal Artery Pulse Oximetry (%) 99 Oxygen Delivery Method room air Intake Visit Reasons: SALVAGE RADIATION PROSTATE CA Is patient in pain?: No Allergies No Known Allergies Allergy (Unverified 11/24/24 11:03) Medications ???Medication ???Instructions ???Recorded ???Confirmed ???Type diphenhydramine HCl 25 mg capsule 25 mg PO QHS 08/24/24 11/24/24 Hi story (Benadryl) hydroxyzine HCl 25 mg tablet 25 mg PO BID PRN PRN anxiety 08/2411/24/24 History oxybutynin chloride 5 mg tablet 5 mg PO BID PRN bladder spasms 09/1811/24/24 History calcium 315 mg (as 1 tab PO QDAY 11/21/24 11/24/24 Hi story citrate)-vitamin D3 6.25 mcg (250 unit) tablet (Citracal + Vitamin D Maximum) PFSH PFSH Medical History Hesitancy of micturition Elevated PSA Incontinence Family history of colon cancer in father Wears glasses Anxiety Prostate disease High cholesterol Difficulty swallowing Heartburn Non-smoker Home Medications ???Medication ???Instructions ???Recorded ???Last Taken ???Type diphenhydramine HCl 25 mg capsule 25 mg PO QHS 08/24/24 09/06/24 Hi story (Benadryl) hydroxyzine HCl 25 mg tablet 25 mg PO BID PRN PRN anxiety 08/24 Unknown History oxybutynin chloride 5 mg tablet 5 mg PO BID PRN bladder spasms 09/18 Unknown History calcium 315 mg (as 1 tab PO QDAY 11/21/24 Unknown His tory citrate)-vitamin D3 6.25 mcg (250 unit) tablet (Citracal + Vitamin D Maximum) Allergy/AdvReac Type Severity Reaction Status Date / Time No Known Allergies Allergy Unverified 11/24/24 11:03 Family History Father Colon cancer After lung cancer dx Surgical History (Updated 11/21/24 @ 15:20 by Lea Sharma LPN) History of prostatectomy History of prostate biopsy History of tonsillectomy Social History (Updated 11/21/24 @ 15:22 by Lea Sharma LPN) household members: none current occupational status: employed current occupation: [employer] Smoking Status: Never smoker alcohol intake: never substance use type: does not use Referring Provider: Matt Lynne MD Diagnosis: Celeste Ibrahim is a 63 year old male diagnosed with 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 He now has evidence for persistent pelvic disease with PSA postoperatively of 5.12 and PSMA PET scan (11/15/2024). History of Present Illness: 07/05/2024: Patient completed TRUS guided prostate biopsy.??? Pathology demonstrated Lalo 3+4 adenocarcinoma involving about 15% of 2/2 cores in the left prostate mid, about 30% of 2/2 cores in the left prostate base, and Howard 3+3 adenocarcinoma involving about 15 to 20% of 1/2 cores in the left prostate apex and less than 5% of 1/2 cores in the right prostate apex.??? Remaining biopsies were negative. 07/22/2024: CT abdomen/pelvis with contrast was performed.??? This demonstrated mild enlargement of the prostate and fatty infiltration of the liver.??? No other abnormalities. 07/28/2024: Bone scan was performed.??? No evidence of metastatic disease. 09/07/2024: Patient completed laparoscopic robotic radical prostatectomy.??? Pathology demonstrated Howard 3+4 adenocarcinoma involving both lobes.??? Tumor is present extensively in the basal margin but no obvious bladder neck invasion is noted (positive margin measures 2.5 cm).??? There is no seminal vesicle invasion, lymph-vascular invasion, perineural invasion, or extracapsular extension.??? No lymph nodes were in the specimen 11/15/2024: PSMA PET was performed.??? This demonstrated increased tracer uptake noted in the lower pelvis associate with the prostate fossa fulfilling quantitative criteria for viable neoplasm. Radiation Treatment History: No prior history of ration therapy. No pacemaker. No diagnosis of radiosensitizing comorbidity. Interval History: Patient presents for initial consultation. He reports having some obstructive urinary symptoms prior to his ini (more content not included)... Normal [facility] PET/CT Tumor Base -Thigh Sub son 11-15-2024 PET/CT Tumor Base -Thigh Subs [facility] Imaging Services [address] [place] [address] PET/CT Tumor Base -Thigh Subs MR#: [id number] Acct: [id number] Name: CELESTE IBRAHIM Rep #: [id number] : 1960 [place] From: Celeste Sharpe PCP: Dr. Beata Wing MD Status: [facility] Study: PET/CT Tumor Base -Thigh Subs Date of Exam: Exam# [id number] Ordering Dr: Eduardo Lynne MD ADDENDUM by Dr. Celeste Alexandre, DO on 11/24/24 at 0848 ====== ADDENDUM ====== [id number] EXAMINATION: 18 F Pylarify PET-CT HISTORY: A 63-year-old male with history of primary prostate carcinoma presenting for restaging examination. COMPARISON EXAMINATION: None available INDEX LESION SIZE PROMISE SCORE SUV INTERPRETATION Lower pelvis, prostate bed 21.4-mm 2 17.36 Fulfills quantitative criteria for viable neoplasm TECHNIQUE: Following the intravenous administration of 9.0 mCi of 18 F Pylarify via the left antecubital fossa, image acquisitions of the head, neck, chest, abdomen and pelvis to the level of the mid thigh at 73 minutes post-tracer distribution reveal: The examination was interpreted using the EANM (Melody et al., Journal of Nuclear Medicine Molecular Imaging 44:1622, 2017) and PROMISE (Braulio et al., Journal of Nuclear Medicine 59:469, 2018) interpretive criteria. HEIGHT: 68 inches. WEIGHT: 175 lbs. PSMA expression score PROMISE criteria: High (3): SUV ? parotid-salivary gland, intermediate (2): SUV ? liver, low (1): > blood pool, < liver, (0): < blood pool. SUV reference values: Parotid glands 49.67. Normal liver parenchyma 9.2. Blood pool 2.8. FINDINGS: Head/Neck: There is normal physiologic distribution of the radiopharmaceutical identified in the bilateral parotid and submandibular glands. Normal uptake is identified in the nasal cavity. There is no evidence of abnormal increased radiopharmaceutical concentration on meticulous inspection of the cranial vault. CHEST: There is no evidence of abnormal increased radiotracer within the context of the bilateral hemithorax pulmonary parenchyma, mediastinal structures and right-left thoracic perihilum. Pertinent chest CT findings are as follows. Coronary arterial calcification is observed. Subcentimeter axillary soft tissue densities are ametabolic. There are no parenchymal densities-nodules defined in the right and left hemithorax with quantitatively significant increased F-18 Pylarify uptake. Abdomen/Pelvis: Facilitated uptake is noted in the lower pelvis associated with the prostate bed. The calculated maximal standard uptake value is 17.36. The PROMISE score is 2. The maximal axial diameter of the metabolic abnormality is 21.4-mm. Physiologic radiopharmaceutical concentration is otherwise noted in the hepatic and splenic parenchyma, visualized intestinal tract, right and left kidneys, urinary bladder. Review of CT of the abdomen and pelvis reveals the following. Calcified phlebolith formation is noted in the bilateral lower hemipelvis. Right and left inguinal soft tissue densities are ametabolic. There is atherosclerotic calcification defined in the abdominal aorta without evidence of dilatation-aneurysm formation. Pelvic arterial calcification is observed. SKELETAL: Degenerative changes are noted in the cervical, thoracic and lumbar spine without evidence of increased radiopharmaceutical concentration. 11/24/24 0848 Date cc: Dr. Beata Wing MD; Dr. Eduardo Lynne MD * Signed ADDENDUM by Dr. Celeste Alexandre DO on 11/24/24 at 0848 PET/PET/CT Tumor Base -Thigh Subs IMPRESSION: 1. ABNORMAL EXAMINATION INDICATIVE OF MALIGNANT VIABLE NEOPLASM. 2. Increased tracer uptake noted in the lower pelvis associated with the prostate bed fulfills quantitative criteria for viable neoplasm. (Eiber et al., Journal of Nuclear Medicine 59:469, 2018). Electronic Signature Celeste Alexandre DO Accurate Quantification of SUVs and standardized PROMISE scores for this report are calculated using the exclusive [employer], ([place].S. Patent No. [phone] B2 US [phone] [place] patent [id number] [phone] ). Standardization and correction of the FDG SUV metric exclusively available with [employer] intellectual property, allow for vendor non-specific objective quantitative sequential FDG PET-CT comparison and otherwise unobtainable optimization of the sensitivity and specificity of the examination. https://[employer] Electronically Signed: Celeste Alexandre DO at 8:48 EST , 11/24/24 [address] Date cc: Dr. Beata Wing MD; Dr. Eduardo Lynne, (more content not included)... Normal [facility] PSA,Total- Diagnosticon 10-26 PSA, DIAGNOSTIC 5.17 ng/mL High 0.0-4.0 [facility] Comment on above: Order Comment: ADD O N PSADOrder Date: 09/30/24Order Info: [id number] - CMPOrder Info: [id number] - TSH Result Comment: This test was performed using the TPSA assay method for the [employer] system. Values obtained with different assay methods cannot be used interchangably. When changing PSA assays in the course of monitoring a patient, additional sequential testing should be carried out to confirm baseline values. Performed By: #### L 300.4310, L300.3900 #### [facility] [address] [place], [address] Hemoglobin A1con 11-08-2024 HbA1c (Bld) [Mass fraction] 5.9 % High 3.8-5.6 [facility] Comment on above: Order Comment: SUSHMA Arias ADD A1C TO BLOOD DRAWN 11/07/24 PER Result Comment: Norm al < 5.7 % Prediabetic 5.7 - 6.4 % Diabetic >or= 6.5 % Please note range changes. Performed By: #### L 300.4310, L300.3900 #### [facility] [address] [place], [place], [address] Albumin to globulin ratioOrd ered By: Beata Wing on 11-07-2024 Albumin/Globulin [Mass ratio] 1.3 {ratio} 0.9-2.4 [facility] Bilirubin, totalOrdered By: Beata Wing on 11-07-2024 Bilirubin [Mass/Vol] 0.50 mg/dL 0.20-1.00 [facility] Comment on above: For patients on eltr ombopag therapy, use of Dimension [place] TBIL is not recommended. Blood urea nitrogen (BUN)/cr eatinine ratioOrdered By: Beata Wing on 11-07-2024 Urea nitrogen/Creatinine [Mass ratio] 9.3 mg/mg Low 10-20 [facility] CBC-Complete Blood Cnt No Di ffon 11-07-2024 Erythrocyte distribution width (RBC) [Ratio] 13.0 % Normal 11.6-14.6 [facility] Comment on above: Order Comment: Order Date: 09/30/24Order Info: [id number] - CBC Performed By: #### L 300.4310, L300.3900 #### [facility] [address] [place], [place], [address] Hematocrit (Bld) [Volume fraction] 41.4 % Normal 40-54 [facility] Comment on above: Order Comment: Order Date: 09/30/24Order Info: [id number] - CBC Performed By: #### L 300.4310, L300.3900 #### [facility] [address] [place], [address] Hemoglobin (Bld) [Mass/Vol] 14.0 g/dL Normal 13.0-16.5 [facility] Comment on above: Order Comment: Order Date: 09/30/24Order Info: [id number] - CBC Performed By: #### L 300.4310, L300.3900 #### [facility] [address] [place], [address] MCH (RBC) [Entitic mass] 29.7 pg Normal 27.0-32.0 [facility] Comment on above: Order Comment: Order Date: 09/30/24Order Info: [id number] - CBC Performed By: #### L 300.4310, L300.3900 #### [facility] [address] [place], [address] MCHC (RBC) [Mass/Vol] 33.8 g/dL Normal 32-[address] [facility] Comment on above: Order Comment: Order Date: 09/30/24Order Info: [id number] - CBC Performed By: #### L 300.4310, L300.3900 #### [facility] [address] [place], [address] MCV (RBC) [Entitic vol] 87.7 fL Normal 80-94 [facility] Comment on above: Order Comment: Order Date: 09/30/24Order Info: [id number] - CBC Performed By: #### L 300.4310, L300.3900 #### [facility] [address] [place], [address] Platelet mean volume (Bld) [Entitic vol] 9.6 fL Normal 6.2-12.0 [facility] Comment on above: Order Comment: Order Date: 09/30/24Order Info: [id number] - CBC Performed By: #### L 300.4310, L300.3900 #### [facility] [address] [place], [address] Platelets (Bld) [#/Vol] 256 10*3/uL Normal 150-450 [facility] Comment on above: Order Comment: Order Date: 09/30/24Order Info: [id number] - CBC Performed By: #### L 300.4310, L300.3900 #### [facility] [address] [place], [address] RBC (Bld) [#/Vol] 4.72 10*6/uL Normal 4.6-6.2 [facility] Comment on above: Order Comment: Order Date: 09/30/24Order Info: [id number] - CBC Performed By: #### L 300.4310, L300.3900 #### [facility] [address] [place], [address] RDW SD 42.2 fl Normal 35.1-43.9 [facility] Comment on above: Order Comment: Order Date: 09/30/24Order Info: [id number] - CBC Performed By: #### L 300.4310, L300.3900 #### [facility] [address] [place], [address] WBC (Bld) [#/Vol] 7.8 10*3/uL Normal 4.4-11.0 [facility] Comment on above: Order Comment: Order Date: 09/30/24Order Info: [id number] - CBC Performed By: #### L 300.4310, L300.3900 #### [facility] [address] [place], [address] Carbon dioxide measurementOr dered By: Beata Wing on 11-07-2024 CO2 [Moles/Vol] 27.0 mmol/L 21.0-32.0 [facility] Chloride measurementOrdered By: Beata Wing on 11-07-2024 Chloride [Moles/Vol] 108 mmol/L High 98-107 [facility] Comprehensive Metabolic Prof ilon 11-07-2024 Albumin [Mass/Vol] 3.9 g/dL Normal 3.2-5.0 [facility] Comment on above: Order Comment: Order Date: 09/30/24Order Info: 0786-1 - CMPOrder Info: 3016-3 - TSH Performed By: #### L 300.4310, L300.3900 #### [facility] [address] [place], [address] Albumin/Globulin [Mass ratio] 1.3 {ratio} Normal 0.9-2.4 [facility] Comment on above: Order Comment: Order Date: 09/30/24Order Info: 0786-1 - CMPOrder Info: 3016-3 - TSH Performed By: #### L 300.4310, L300.3900 #### [facility] [address] [place], [address] ALK P 98 U/L Normal 45-117 [facility] Comment on above: Order Comment: Order Date: 09/30/24Order Info: 0786-1 - CMPOrder Info: 3016-3 - TSH Performed By: #### L 300.4310, L300.3900 #### [facility] [address] [place], [address] ALT [Catalytic activity/Vol] 28 U/L Normal 16-61 [facility] Comment on above: Order Comment: Order Date: 09/30/24Order Info: 0786-1 - CMPOrder Info: 3016-3 - TSH Performed By: #### L 300.4310, L300.3900 #### [facility] [address] [place], [address] AST [Catalytic activity/Vol] 15 U/L Normal 15-37 [facility] Comment on above: Order Comment: Order Date: 09/30/24Order Info: 785- - CMPOrder Info: 3016-3 - TSH Performed By: #### L 300.4310, L300.3900 #### [facility] [address] [place], [address] Bilirubin [Mass/Vol] 0.50 mg/dL Normal 0.20-1.00 [facility] Comment on above: Order Comment: Order Date: 09/30/24Order Info: 785-1 - CMPOrder Info: 3016-3 - TSH Result Comment: For patients on eltrombopag therapy, use of Dimension [place] TBIL is not recommended. Performed By: #### L 300.4310, L300.3900 #### [facility] [address] [place], [address] BUN/CRE 9.3 RATIO Low 10-20 [facility] Comment on above: Order Comment: Order Date: 09/30/24Order Info: 785-10 - CMPOrder Info: 3015-3 - TSH Performed By: #### L 300.4310, L300.3900 #### [facility] [address] [place], [address] CA,Total 9.1 mg/dL Normal 8.5-10.1 [facility] Comment on above: Order Comment: Order Date: 09/30/24Order Info: 785- - CMPOrder Info: 3015-3 - TSH Performed By: #### L 300.4310, L300.3900 #### [facility] [address] [place], [address] Chloride [Moles/Vol] 108 mmol/L High 98-107 [facility] Comment on above: Order Comment: Order Date: 09/30/24Order Info: 785- - CMPOrder Info: 6-3 - TSH Performed By: #### L 300.4310, L300.3900 #### [facility] [address] [place], [address] CO2 [Moles/Vol] 27.0 mmol/L Normal 21.0-32.0 [facility] Comment on above: Order Comment: Order Date: 09/30/24Order Info: 0786-1 - CMPOrder Info: 3016-3 - TSH Performed By: #### L 300.4310, L300.3900 #### [facility] [address] [place], [address] Creatinine [Mass/Vol] 1.07 mg/dL Normal 0.70-1.[address] [facility] Comment on above: Order Comment: Order Date: 09/30/24Order Info: 07-1 - CMPOrder Info: 3015-3 - TSH Result Comment: The validity of the calculated GFR GFRAA in patients over 70 years has not been determined. Clinical correlation is essential. Performed By: #### L 300.4310, L300.3900 #### [facility] [address] [place], [address] EST GFR - AA 90 mL/min Normal >60 [facility] Comment on above: Order Comment: Order Date: 09/30/24Order Info: 0786-1 - CMPOrder Info: 3015-3 - TSH Result Comment: Afri can Gambian GFR Calc Performed By: #### L 300.4310, L300.3900 #### [facility] [address] [place], [address] GAP 4 Low 5-15 [facility] Comment on above: Order Comment: Order Date: 09/30/24Order Info: 0786-1 - CMPOrder Info: 3016-3 - TSH Performed By: #### L 300.4310, L300.3900 #### [facility] [address] [place], [address] GFR/1.73 sq M.predicted among non-blacks MDRD (S/P/Bld) [Vol rate/Area] 74 mL/min/{1.73_m2} Normal >60 [facility] Comment on above: Order Comment: Order Date: 09/30/24Order Info: 785- - CMPOrder Info: 3015-3 - TSH Result Comment: Non- GFR Calc Performed By: #### L 300.4310, L300.3900 #### [facility] [address] [place], [address] Globulin (S) [Mass/Vol] 3.1 g/dL Normal 2.2-4.2 [facility] Comment on above: Order Comment: Order Date: 09/30/24Order Info: 785-10 - CMPOrder Info: 3 - TSH Performed By: #### L 300.4310, L300.3900 #### [facility] [address] [place], [address] Glucose [Mass/Vol] 127 mg/dL High 74-106 [facility] Comment on above: Order Comment: Order Date: 09/30/24Order Info: 785- - CMPOrder Info: 3015-3 - TSH Result Comment: Fast ing Glucose result greater than or equal to 126 mg/dL suggests DIABETES MELLITUS per A.D.A. criteria. Performed By: #### L 300.4310, L300.3900 #### [facility] [address] [place], [address] Potassium [Moles/Vol] 4.2 mmol/L Normal 3.5-5.[address] [facility] Comment on above: Order Comment: Order Date: 09/30/24Order Info: 785- - CMPOrder Info: 3015-12 - TSH Performed By: #### L 300.4310, L300.3900 #### [facility] [address] [place], [address] Sodium [Moles/Vol] 139 mmol/L Normal 136-145 [facility] Comment on above: Order Comment: Order Date: 09/30/24Order Info: 785-10 - CMPOrder Info: 3 - TSH Performed By: #### L 300.4310, L300.3900 #### [facility] [address] [place], [place], [address] T PROT 7.0 g/dL Normal 6.4-8.2 [facility] Comment on above: Order Comment: Order Date: 09/30/24Order Info: 0786-1 - CMPOrder Info: 3016-3 - TSH Performed By: #### L 300.4310, L300.3900 #### [facility] [address] [place], [address] Urea nitrogen [Mass/Vol] 10 mg/dL Normal 7-18 [facility] Comment on above: Order Comment: Order Date: 09/30/24Order Info: 0786-1 - CMPOrder Info: 3016-3 - TSH Performed By: #### L 300.4310, L300.3900 #### [facility] [address] [place], [place], [address] Diagnostic total prostate sp ecific antigen (PSA) measurementOrdered By: Beata Wing on 11-07-2024 Prostate Specific Antigen Total 5.17 ng/mL High 0.0-4.0 [facility] Comment on above: This test was perfor med using the TPSA assay method for the[facility] chemistry system. Values obtained with differentassay methods cannot be used interchangably.When changing PSA assays in the course of monitoring apatient, additional sequential testing should be carriedout to confirm baseline values. Erythrocyte distribution wid th ratioOrdered By: Beata Wing on 11-07-2024 Erythrocyte distribution width (RBC) [Ratio] 13.0 % 11.6-14.6 [facility] Erythrocyte distribution wid th standard deviationOrdered By: Beata Wing on 11-07-2024 Erythrocyte distribution width (RBC) [Entitic vol] 42.2 fL 35.1-43.9 [facility] Erythrocyte distribution width (RBC) [Ratio] 42.2 fl 35.1-43.9 [facility] Estimated glomerular filtrat ion rate (GFR) AmericanOrdered By: Beata Wing on 11-07-2024 Estimated GFR (MDRD) Amer 90 mL/min >60 [facility] Comment on above: GFR Calc Glomerular filtration rate ( GFR) estimationOrdered By: Beata Wing on 11-07-2024 Estimated GFR (MDRD) Non-Af Amer 74 mL/min >60 [facility] Comment on above: Non- GFR Calc GFR/1.73 sq M.predicted among non-blacks MDRD (S/P/Bld) [Vol rate/Area] 74 mL/min/{1.73_m2} >60 [facility] Comment on above: Non- GFR Calc Glucose measurementOrdered B y: Beata Wing on 11-07-2024 Glucose [Mass/Vol] 127 mg/dL High 74-106 [facility] Comment on above: Fasting Glucose resu lt greater than or equal to 126 mg/dL suggests DIABETES MELLITUS per A.D.A. criteria. Hematocrit Auto (Bld) [Volum e fraction]Ordered By: Beata Wing on 11-07-2024 Hematocrit (Bld) [Volume fraction] 41.4 % 40-54 [facility] Hemoglobin A1c percentageOrd ered By: Beata Wing on 11-07-2024 HbA1c (Bld) [Mass fraction] 5.9 % High 3.8-5.6 [facility] Comment on above: Normal < 5.7 % Predi abetic 5.7 - 6.4 % Diabetic >or= 6.5 % Please note range changes. Hemoglobin measurementOrdere d By: Beata Wing on 11-07-2024 Hemoglobin (Bld) [Mass/Vol] 14.0 g/dL 13.0-16.5 [facility] - Chemistry and C hemistry - challengeOrdered By: Beata Wing on 11-07-2024 AST [Catalytic activity/Vol] 15 U/L 15-37 [facility] MCV (mean corpuscular volume ) determinationOrdered By: Beata Wing on 11-07-2024 MCV (RBC) [Entitic vol] 87.7 fL 80-94 [facility] Mean corpuscular hemoglobin (MCH) determinationOrdered By: Beata Wing on 11-07-2024 MCH (RBC) [Entitic mass] 29.7 pg 27.0-32.0 [facility] Mean corpuscular hemoglobin concentration (MCHC) determinationOrdered By: Beata Wing on 11-07-2024 MCHC (RBC) [Mass/Vol] 33.8 g/dL 32-[address] [facility] Mean platelet volume determi nationOrdered By: Beata Wing on 11-07-2024 Platelet mean volume (Bld) [Entitic vol] 9.6 fL 6.2-12.0 [facility] Platelet countOrdered By: Dyllan Wing on 11-07-2024 Platelets (Bld) [#/Vol] 256 10*3/uL 150-450 [facility] Potassium measurementOrdered By: Beata Wing on 11-07-2024 Potassium [Moles/Vol] 4.2 mmol/L 3.5-5.[address] [facility] RBC Auto (Bld) [#/Vol]Ordere d By: Beata Wing on 11-07-2024 RBC (Bld) [#/Vol] 4.72 10*6/uL 4.6-6.2 [facility] Serum anion gap measurementO rdered By: Beata Wing on 11-07-2024 Anion gap [Moles/Vol] 4 mmol/L Low 5-[address] [facility] Serum globulin measurementOr dered By: Beata Wing on 11-07-2024 Globulin (S) [Mass/Vol] 3.1 g/dL 2.2-4.2 [facility] Serum or plasma alanine boggs otransferase (ALT) measurementOrdered By: Beata Wing on 11-07-2024 ALT [Catalytic activity/Vol] 28 U/L 16-61 [facility] Serum or plasma albumin colton urement (mass/volume)Ordered By: Beata Wing on 11-07-2024 Albumin [Mass/Vol] 3.9 g/dL 3.2-5.0 [facility] Serum or plasma alkaline sima sphatase measurementOrdered By: Beata Wing on 11-07-2024 ALP [Catalytic activity/Vol] 98 U/L 45-117 [facility] Serum or plasma calcium colton urement (mass/volume)Ordered By: Beata Wing on 11-07-2024 Calcium [Mass/Vol] 9.1 mg/dL 8.5-10.1 [facility] Serum or plasma creatinine m easurement (mass/volume)Ordered By: Beata Wing on 11-07-2024 Creatinine [Mass/Vol] 1.07 mg/dL 0.70-1.[address] [facility] Comment on above: The validity of the calculated GFR & GFRAA in patients over 70 years has not been determined. Clinical correlation is essential. Serum or plasma thyroid stim ulating hormone (TSH) measurement (units/volume)Ordered By: Beata Wing on 11-07-2024 TSH Qn 2.210 uIU/mL 0.358-3.740 [facility] Serum or plasma urea nitroge n measurement (mass/volume)Ordered By: Beata Wing on 11-07-2024 Urea nitrogen [Mass/Vol] 10 mg/dL 7-18 [facility] Sodium levelOrdered By: Bert Wing on 11-07-2024 Sodium [Moles/Vol] 139 mmol/L 136-145 [facility] TSH QnOrdered By: Beata arias on 11-07-2024 Thyroid Stimulating Hormone (TSH) 2.210 uIU/mL 0.358-3.740 [facility] Thyroid Stim Hormone (TSH)on 11-07-2024 TSH 2.210 uIU/mL Normal 0.358-3.740 [facility] Comment on above: Order Comment: Order Date: 09/30/24Order Info: 0786-1 - CMPOrder Info: 3016-3 - TSH Performed By: #### L 501.9940 #### [facility] [address] [place], [place] [address], [address] Total proteinOrdered By: Ivette Wing on 11-07-2024 Protein [Mass/Vol] 7.0 g/dL 6.4-8.2 [facility] White blood cell (WBC) count Ordered By: Beata Wing on 11-07-2024 WBC (Bld) [#/Vol] 7.8 10*3/uL 4.4-11.0 [facility] Diagnostic total prostate sp ecific antigen (PSA) measurementOrdered By: Eduardo Lynne on 10-31-2024 Prostate Specific Antigen Total 5.12 ng/mL High 0.0-4.0 [facility] Comment on above: This test was perfor med using the TPSA assay method for the[employer] chemistry system. Values obtained with differentassay methods cannot be used interchangably.When changing PSA assays in the course of monitoring apatient, additional sequential testing should be carriedout to confirm baseline values. PSA,Total- Diagn[employer]icon PSA, DIAGNOSTIC 5.12 ng/mL High 0.0-4.0 [facility] Comment on above: Result Comment: This test was performed using the TPSA assay method for the [employer] chemistry system. Values obtained with different assay methods cannot be used interchangably. When changing PSA assays in the course of monitoring a patient, additional sequential testing should be carried out to confirm baseline values. Performed By: #### L 501.9940 #### [facility] [address] [facility] [place], [address] Discharge Instructionon 08-26 Discharge Instruction [facility] Medical Records Department [address] [place] [address] Instructions for Home/Discharge Instructions 09/07/24 0803 MR#: [id number] Acct: [id number] Name: CELESTE IBRAHIM Rep #: [id number] : 1960 63 From: Eduardo Lynne MD PCP: Dr. Beata Wing MD [place] [facility] [place] Instructions Diet Discharge Diet: No restrictions Activity Discharge Activity: Return to Normal Activity and May Not Drive (while taking narcotic pain medications.) Dressing / Incision Call your doctor if you observe: Fever of 101 or Higher Follow Up Care Please Follow Up With: Eduardo Lynne MD When: Call [phone] for an appointment Test Results: Test results from this visit will be discussed in further detail at your follow-up appointment, if applicable. Discharge Plan Admission Primary Reason for Your Visit: radical prostatectomy Attending Provider: Eduardo Lynne Primary Care Provider: Beata Wing Instructions Patient Instructions: Radical Prostatectomy, Radical Prostatectomy Dc Print Language: Malaysian Discharge Orders/Prescriptions Prescriptions: New docusate sodium [Colace] 100 mg capsule 100 mg PO BID Qty: 20 0RF ciprofloxacin HCl 500 mg tablet 500 mg PO BID Qty: 20 0RF oxycodone 5 mg tablet 5 mg PO Q6H PRN (Reason: pain) 3 Days Qty: 14 0RF Continued hydroxyzine HCl 25 mg tablet 25 mg PO BID PRN PRN (Reason: anxiety) diphenhydramine HCl [Benadryl] 25 mg capsule 25 mg PO QHS Other Ambulatory Orders: 12 Lead EKG (Routine) Timeframe: 20240901 Location: None Selected Ordered By: Dr. Fran Foster Referrals / Follow Up: Beata Wing MD [Primary Care Provider] - Eduardo Lynne MD [Med Staff - Active Staff] - Disposition Disposition (needs filled in before D/C Order can be placed): Home, Self Care 09/07/24 08 Eduardo Lynne MD CC: Dr. Beata Wing MD Signed [facility] MR/POSTOP.[facility] Medical Records Department [address] [place] [address] Anesthesia Postop Eval I 09/07/24 1150 MR#: [id number] Acct: [id number] Name: CELESTE IBRAHIM Rep #: [id number] : 1960 63 From: Melony Garcia CRNA PCP: Dr. Beata Wing MD Status:REG SDC Y Race: C Location: [place] [address] Anesthesia: Postop Eval I Current Vital Signs Temperature: 98 F Pulse Rate: 92 Blood Pressure: 145/91 Respiratory Rate: 18 Pulse Ox: 97 Oxygen Delivery Method: Room Air Assessment Airway patent: Yes Spontaneous unlabored respirations: Yes Mental status: Awake and Calm nausea: No Vomiting: No Anesthesia Complication: No Fluid Hydration Crystalloid volume administer (ml): 1,400 Total IV fluid infused: 1,400 Progress Note Anesthesia document: Postop Eval 1 completed: Yes 09/07/24 1151 Date Melony Kobylanski MAJOR GIFTS DIRECTOR Cosigner Signature: Date CC: Signed Normal [facility] MR/JLUAPOHZ2gm 09-07-2024 MR/POSTOPAN2 [facility] Medical Records Department [address] [place] [address] Anesthesia Postop Eval II 09/07/24 1436 MR#: [id number] Acct: [id number] Name: CELESTE IBRAHIM Rep #: [id number] : 1960 63 From: Daniel Sheth MD PCP: Dr. Beata Wing MD Status:ADM JESUS Y Race: C Location: [place] [address] Anesthesia Postop Eval I Sum Postop Eval Completion status Anesthesia document: Postop Eval 1 completed: Yes Anesthesia Postop Eval I Summary Anesthesia Postop Eval I Summary: Anesthesia Postop Eval I: Assessment Summary Airway patent Yes 09/07/24 11:51 MAJOR GIFTS DIRECTOR.[email or web address] Spontaneous unlabored Yes 09/07/24 11:51 MAJOR GIFTS DIRECTOR.ZAINABOBAlma Rosa respirations Mental status Awake,Calm 09/07/24 11:51 MAJOR GIFTS DIRECTOR.SKOBY nausea No 09/07/24 11:51 MAJOR GIFTS DIRECTOR.SKOBY Vomiting No 09/07/24 11:51 MAJOR GIFTS DIRECTOR.SKOBY Anesthesia Postop Eval I: Fluid Summary Crystalloid volume administer 1,400 09/07/24 11:51 MAJOR GIFTS DIRECTOR.SKOBY (ml) Colloids volume administered ( ml) Blood Product volume administered (ml) Total IV fluid infused 1,400 09/07/24 11:51 MAJOR GIFTS DIRECTOR.SKOBY Anesthesia Postop Eval I: Summary Notes Anesthesia Complication No 09/07/24 11:51 MAJOR GIFTS DIRECTOR.SKOBY Anesthesia Complication Comment: Post-operative progress note Anesthesia: Postop Eval II Evaluation Mental status: Awake Pain Level: 0 nausea: No Vomiting: No 09/07/241435 Date Daniel Sheth MD Cosigner Signature: Date CC: Signed Normal [facility] Operative Reporton 4 Operative Report [facility] Medical Records Department [address] [place] [address] Operative Report 09/07/24 1139 MR#: [id number] Acct: [id number] Name: CELESTE IBRAHIM Rep #: [id number] : 1960 63 From: Eduardo Lynne MD PCP: Dr. Beata Wing MD Status:[facility] Location: [place] [address] Operative Report (Standard) Operative Information Surgery/Procedure Performed: Robotic radical prostatectomy with Retzius approach Surgeon: Eduardo Lynne Date of Procedure: 09/07/24 Procedure Start Time: 07:55 Procedure Stop Time: 11:40 Pre-Operative Diagnosis: Prostate cancer Post-Operative Diagnosis: The same Select all DRAINS/GRAFTS/IMPLANTS that apply: Drains Drain details: LINDA drain and Lim catheter Type of Anesthesia: General Estimated Blood Loss: 50 cc Specimen collected: Yes Description of specimen(s) removed: Prostate Description of surgery: Patient was identified in the preoperative area and marked and seen we talked about surgery remove his prostate was involved and potential outcomes. We talked about the potential to lose erections and also have bladder control problems after surgery including stress incontinence. Patient's questions were addressed and he signed consent form and we will plan to proceed today with a robotic radical prostatectomy Retzius. Approach with bilateral lymph node dissection. Patient is taken back to the operating room after smooth induction of anesthesia he was placed upon the table make sure all his pressure points were padded. We used the pink foam and pink foam secure system to secure him on the table he was placed in dorsolithotomy position with the legs in stirrups making sure that all his pressure points were padded we did a tilt test to make sure he did not slide in the bed. And the patient was placed flat in the bed his penis and testicles and pelvic area were prepped and in the abdomen was also prepped with chlorhexidine prep. Patient's abdomen and penis and testicles were then draped in usual sterile fashion. I then identified the umbilicus infiltrated right above the umbilicus and a small incision, probed the wound with a hemostat identified the fascia and then used a Veress needle to advance through the fascia into the peritoneal cavity. We then filled the peritoneal cavity CO2 gas and obtained a pneumoperitoneum. I then placed my first trocar into the abdomen this was to be the camera trocar. After I placed the camera trocar then the other trocars were placed under direct visualization placed a right arm trocar to left arm trocars and air seal port and a suction trocar for my distribution center assistant. We then placed the patient in full Trendelenburg and the robot was then docked. Then using a 30 degree lens we placed the instruments into the abdomen under direct visualization and started by first mobilizing the sigmoid colon. The sigmoid colon and the white line of Toldt was incised and mobilized off the lateral sidewall to allow full retraction of the colon from the pelvis. Once this was fully accomplished then I was able to get into the posterior space behind the bladder we then identified the vas deferens on the right side. I then traced the right vas deferens all the way down to the prostate we incised the peritoneum over the prostate identified the right vas deferens and then the left vas deferens. Identified the several vesicles below this. I then went below this and identified Denonvilliers' fascia and incised the Denonvilliers' fascia in the midline and then created a space between the rectum and the prostate I then dissected all the way to the apex. We then flipped the camera 30 degrees up to get a bit better visualization of the prostate. I then very gently dissected the Denonvilliers' fascia off the posterior aspect of the prostate all the way to the apex of sliding the tissue off the prostate to get to the semipseudocapsule on the prostate with unable to get to the lateral edge of the prostate and then to release neurovascular bundles on both sides I then started between the apex of the prostate to release neurovascular bundle to peel the neurovascular 1 off the prostate making sure I stayed around the apex without violating the prostate capsule I then worked my way back toward the base of the prostate releasing the neurovascular under posteriorly back to the base of the prostate. This was done on the right side we did the same procedure in the left side releasing the neurovascular bundle posteriorly all the way back to the base of the prostate. I then pulled out and look at the vas deferens some vesicles I transected the vas deferens and then dissected the vas deferens and some vesicles en bloc of the lateral sidewall was using minimal electrocautery and sharp dissection to free up the vas deferens and vesicle I then was able to laterally retract the right vas deferens medially and then started working t (more content not included)... Normal [facility] Surgery Specimen Level VIon 09-07-2024 Surgery Specimen Level ---- Patient Age/Sex Location Account Attending Physician ---- CELESTE IBRAHIM 63/M MS3 [id number] Dr. Eduardo Lynne MD ---- Specimen: [id number] Received: 09/07/24 Status: STEPHANI Hernandez Num: [id number] Spec Type: PROSTATE Subm Dr: Dr. Eduardo Lynne MD HEADER OPERATION: Laparoscopic robotic radical prostatectomy PRE-OP DIAGNOSIS: Prostate cancer TISSUE SUBMITTED: Prostate ---- MICROSCOPIC DIAGNOSIS Prostate, radical prostatectomy: Prostatic adenocarcinoma. See cancer summary in the comment section. 09/09/2024 COMMENT PROSTATE CANCER (RADICAL) SUMMARY: Procedure: Radical Prostatectomy Prostate Size: Weight: 37gm Size: 4.0cm transversely, 4.0cm anterior-posteriorly, 3.0cm craniocaudally Histologic Type: Adenocarcinoma Histologic Grade: Lalo grade- Group 2 (3+4=7) Intraductal carcinoma: Not identified Intraductal Carcinoma: Not identified Tumor Quantitation: Estimated percentage of prostate involved by tumor: 60%. Tumor size: Tumor involves both right and left lobes and present in the apical, mid and basal portion of prostate and tumor in the left lobe measures approximately 2.0 x 1.7 x 3.0cm and tumor in the right lobe measures approximately 1.2 x 1.2 x 3.0 (measured microscopically) . Extraprostatic Extension: Not identified Urinary Bladder Neck Invasion: Not identified. Tumor is present extensively in the basal margin, enface margin of specimen, however, on obvious bladder neck invasion is noted. Seminal Vesicle Invasion: Not identified Lymphvascular Invasion: Not identified Perineural Invasion: Not identified Margins: involved by carcinoma Location of positive margin: Basal portion of prostate (Tumor is extensively present at the basal portion of prostate enfaced margin and measures 2.5cm in greatest dimension), Anterior, left lateral, left posterior margin and right lateral margins. Lalo pattern at positive margins - Howard pattern: 3+4. Regional Lymph Nodes: No lymph nodes submitted or found Distal metastasis- Not applicable Treatment Effect: No known presurgical therapy Additional Pathologic Findings: Benign prostatic hyperplasia and chronic inflammation Clinical History: Please make reference to previous specimen [id number] right prostate apex and left prostate apex, mid and base, core biopsy with diagnosis of prostatic adenocarcinoma ---- Patient Age/Sex Location Account Attending Physician ---- CELESTE IBRAHIM 63/M MS3 [id number] Dr. Eduardo Lynne MD ---- PATHOLOGIC STAGE: pT2 Nx Mx The above summary is in compliance with [employer] [employer] (CAP) Cancer Protocols Checklist and [place] Joint Committee on Cancer (AJCC), Staging Manual, 8th Ed. Case has been reviewed in consultation with Dr. Terrazas who concurs with the above diagnosis. IDC:AM MICROSCOPIC DESCRIPTION Slides are reviewed. GROSS DESCRIPTION Received in fixative is one container labeled with the patient's name and designated prostate. The specimen consists of a radical prostatectomy specimen consisting of prostate and bilateral seminal vesicles and vas deferens. The specimen weighs 37.0 gm. The prostate measures 4.0 cm transversely, 4.0 cm anterior-posteriorly and 3.0 cm craniocaudally. The right seminal vesicle measures 3.5 x 1.0 x 0.6 cm and right vas deferens measures 4.0 cm in length and 0.6 cm in diameter. The left seminal vesicle measures 2.5 x 1.2 x 0.6 cm and the left vas deferens measures 4.0 cm in length and 0.7 cm in diameter. The prostate is inked as follows: anterior surface - yellow, posterior surface - black, right lateral surface - blue, left lateral surface - green. The bilateral seminal vesicles and vas deferens are inked as follows: Posterior surface bilateral seminal vesicle and vas deferens - black, anterior surface right seminal vesicle and vas deferens - blue and anterior left seminal vesicle and vas deferens - green. Sections do not reveal any mass lesions. Pig Farm Manager sections are submitted in 20 cassettes as follows: 1 - right seminal vesicle and vas deferens, 2 - left seminal vesicle and vas deferens, 3 - apical (urethral) margin, enface, 4 5- bladder neck and basal portion of prostate margin, enface, 6-11 - apical portion prostate, 12-15- middle portion prostate, 16-20 - (more content not included)... Normal [facility] Comment on above: Performed By: #### L 300.5680, L300.3900 #### [facility] [address] [place], [address] 12 Lead EKGon 09-01-2024 12 Lead EKG [facility] Cardi[facility] Services [address] [place] [address] 12 Lead EKG 09/01/24 0702 MR#: [id number] Acct: [id number] Name: CELESTE IBRAHIM Rep #: [id number] : 1960 63 From: Jim Mcdonnell MD Attending Dr: Dr. Eduardo Lynne MD Status: [place] [facility] [place]: Fran Foster MD Date: 09/01/24 [place] [facility] [place] Sex: M C Admitted: Test Reason : PREOP Blood Pressure : */* mmHG Vent. Rate : 77 BPM Atrial Rate : 77 BPM P-R Int : 152 ms QRS Dur : 76 ms QT Int : 364 ms P-R-T Axes : 53 42 69 degrees QTcB Int : 411 ms Normal sinus rhythm Normal ECG Confirmed by Jim Mcdonnell ([id number]), editorial director CHITO KLEIN ([id number]) on 09/02/2024 8:19:44 AM Referred By: Eduardo Lynne Confirmed By: Jim Mcdonnell 09/02/24 0819 Date Jim Mcdonnell MD CC: Dr. Fran Foster MD; Dr. Beata Wing MD; Dr. Eduardo Lynne MD Signed Normal [facility] CBC-Complete Blood Cnt No Di jaimeon 09-01-2024 Erythrocyte distribution width (RBC) [Ratio] 12.7 % Normal 11.6-14.6 [facility] Comment on above: Performed By: #### L 100.0500, BTSPAT #### [facility] [address] [place], [address] Hematocrit (Bld) [Volume fraction] 42.4 % Normal 40-54 [facility] Comment on above: Performed By: #### L 100.0500, BTSPAT #### [facility] [address] [place], [address] Hemoglobin (Bld) [Mass/Vol] 14.3 g/dL Normal 13.0-16.5 [facility] Comment on above: Performed By: #### L 100.0500, BTSPAT #### [facility] [address] [place], [address] MCH (RBC) [Entitic mass] 29.7 pg Normal 27.0-32.0 [facility] Comment on above: Performed By: #### L 100.0500, BTSPAT #### [facility] [address] [place], [address] MCHC (RBC) [Mass/Vol] 33.7 g/dL Normal 32-[address] [facility] Comment on above: Performed By: #### L 100.0500, BTSPAT #### [facility] [address] [place], [address] MCV (RBC) [Entitic vol] 88.0 fL Normal 80-94 [facility] Comment on above: Performed By: #### L 100.0500, BTSPAT #### [facility] [address] [place], [address] Platelet mean volume (Bld) [Entitic vol] 9.4 fL Normal 6.2-12.0 [facility] Comment on above: Performed By: #### L 100.0500, BTSPAT #### [facility] [address] [place], [address] Platelets (Bld) [#/Vol] 293 10*3/uL Normal 150-450 [facility] Comment on above: Performed By: #### L 100.0500, BTSPAT #### [facility] [address] [place], [address] RBC (Bld) [#/Vol] 4.82 10*6/uL Normal 4.6-6.2 [facility] Comment on above: Performed By: #### L 100.0500, BTSPAT #### [facility] [address] [place], [address] RDW SD 41.1 fl Normal 35.1-43.9 [facility] Comment on above: Performed By: #### L 100.0500, BTSPAT #### [facility] [address] [place], [address] WBC (Bld) [#/Vol] 8.6 10*3/uL Normal 4.4-11.0 [facility] Comment on above: Performed By: #### L 100.0500, BTSPAT #### [facility] [address] [place], [address] Type AND Screen - PAT ONLYon 09-01-2024 ABO and Rh group Nom (Bld) Blood group B Rh(D) positive Normal [facility] Comment on above: Order Comment: Reaso n for Laboratory Test PREOP [id number] N/A N N S RADICAL PROSTATECTOMY Performed By: #### L 100.0500, BTSPAT #### [facility] [address] [place], [address] PSA,Total- Diagnosticon 07-26 PSA, DIAGNOSTIC 27.30 ng/mL High 0.0-4.0 [facility] Comment on above: Result Comment: This test was performed using the TPSA assay method for the CellSpin chemistry system. Values obtained with different assay methods cannot be used interchangably. When changing PSA assays in the course of monitoring a patient, additional sequential testing should be carried out to confirm baseline values. Performed By: #### L 501.9940 #### [facility] [address] [place], [address] Bone Scan Whole Bodyon 07-28 Bone Scan Whole Body [facility] Imaging Services [address] [place], [place] [address] Bone Scan Whole Body MR#: [id number] Acct: [id number] Name: CELESTE IBRAHIM Rep #: [id number] : 1960 M 63 From: Celeste Sharpe PCP: Dr. Beata Wing MD Status: [facility] CLI Study: Bone Scan Whole Body Date of Exam: 07/28/24 Exam# [id number] Ordering Dr: Eduardo Lynne MD [id number] CLINICAL: 63-year-old male with history of prostate carcinoma. WHOLE BODY 99m Tc MDP RADIONUCLIDE BONE SCINTIGRAPHY COMPARISON: CT of the abdomen-pelvis report 07/22/2024 FINDINGS: Following the intravenous administration of 24.3 mCi of 99m Tc MDP, whole body bone images reveal: 1. Increased tracer uptake is identified in the knee articulations bilaterally, left hip, the mid cervical spine posteriorly on the left, fifth lumbar vertebra posteriorly on the right, the sternoclavicular compartment of the right shoulder, the acromioclavicular compartment of the left shoulder, the right wrist, the bilateral ankles (L > R). 2. The remaining skeletal structures are scintigraphically unremarkable with normal-appearing renal images and urinary bladder activity identified. Enhanced uptake is visualized in the bilateral proximal-distal tibial diaphyses most consistent with periostitis. NM/Bone Scan Whole Body IMPRESSION: 1. The increase in tracer defined in the knees bilaterally, the cervical and lumbar spine, left hip, the bilateral shoulders, right wrist and ankle articulations is most consistent with degenerative arthritis. 2. There is no definitive typical scintigraphic evidence of diffuse axial skeletal metastatic disease on the current examination. Electronically Signed: Celeste Alexandre DO at 10:39 EDT , CC: Dr. Beata Wing MD; Dr. Eduardo Lynne MD Glove [employer] Inspector: Signed Normal [facility] Abdomen/Pelvis WITH Contrast on 07-22-2024 Abdomen/Pelvis WITH Contrast [facility] Imaging Services [address] [place], [place] [address] Abdomen/Pelvis WITH Contrast MR#: [id number] Acct: [id number] Name: CELESTE IBRAHIM Rep #: [id number] : 1960 M 63 From: Melvin zheng MD PCP: Dr. Beata Wing MD Status: REG CLI Study: Abdomen/Pelvis WITH Contrast Date of Exam: Exam# [id number] Ordering Dr: Eduardo Lynne MD [id number] STUDY: CT ABDOMEN AND PELVIS WITH CONTRAST REASON FOR EXAM: Male, 63 years old. PROSTATE CA RADIATION DOSAGE (If Supplied By Facility): CTDIvol = ( 14.70 ) mGy, DLP = ( 914.98 ) mGycm TECHNIQUE: Transaxial images were obtained from the dome of the diaphragm to the symphysis pubis with oral contrast. Oral and amp; IV Readi-CAT and amp; 100mL Isovue-300 was administered. Sagittal and coronal images were reconstructed. Individualized dose optimization techniques were used for this CT. COMPARISON: None. FINDINGS: The visualized lung bases are unremarkable. Coronary artery calcification. There is decreased attenuation of the liver consistent with steatosis. Normal gallbladder and extrahepatic biliary system. Normal spleen. Normal pancreas. Normal bilateral adrenal glands. Normal right kidney. Normal left kidney. There is a small hiatal hernia. Normal small intestine. Normal colon. The appendix is visualized and appears normal. There is scattered atherosclerotic calcification of the abdominal aorta, without a demonstrated aneurysm. Normal inferior vena cava. There is a small retroperitoneal lymphadenopathy with enlarged nodes no greater than 10mm in the short axis diameter. Normal urinary bladder. There is enlargement of the prostate gland. Prostate measures 4.2 cm x 4.2 cm. Calcifications are seen within it. There is indentation of the bladder base. Normal abdominal wall. There are mild degenerative changes of the visualized lumbar spine. CT/Abdomen/Pelvis WITH Contrast IMPRESSION: Mild enlargement of the prostate gland. Fatty infiltration of the liver. Electronically Signed: Melvin Upton MD at 12:27 EDT Reading Location ID and State: [address] [place] [address] , Service support , CC: Dr. Beata Wing MD; Dr. Eduardo Lynne MD Glove [employer] Inspector: Signed Normal [facility] CREATININE FINGERSTICKon CREATININE WB < 1.0 Normal 0.70-1.30 [facility] Comment on above: Performed By: #### L 501.9940 #### [facility] [address] [place], [address] EGFR WB > 60.0000 Normal >60 [facility] Comment on above: Performed By: #### L 501.9940 #### [facility] [address] [place], [place], [address] 34BE12 (add)on 07-05-2024 34BE12 (add) -- ---- Patient Age/Sex Location Account Attending Physician ---- [facility]IM 63[id number] Dr. Eduardo Lynne MD ---- Specimen: [id number] Received: 07/07/24 Status: STEPHANI Brownjay Num: [id number] Spec Type: IMMUNO Subm Dr: Dr. Eduardo Lynne MD [facility] [place] [address] SPECIMEN INFORMATION: Tissue Source: A- Right apex, B- Right mid, C- Right base, E- Left mid, F- Left base Clinical Info: Elevated PSA Specimen Number: [id number] A, B, C, E ,F CPT code: 64179,83440r1 METHODOLOGY: Deparaffinized sections of prefer/formalin-fixed tissue or PAP/DQ stained slides are incubated with monoclonal/polyclonal antibodies/oligonucleo tide probes. Localization is made via biotin free immunoperoxidase method. Appropriate controls are performed and reacted as expected. Results on target cell population are indicated in the following table: RESULTS: ANTIBODY / CLONE RESULT Block A P40 (BC28) negative 34BE12 (34BE12) negative Block B P40 (BC28) positive 34BE12 (34BE12) positive Block C P40 (BC28) positive 34BE12 (34BE12) positive Block E P40 (BC28) negative 34BE12 (34BE12) negative Block F P40 (BC28) negative 34BE12 (34BE12) negative These tests were developed and their performance characteristics determined by [facility]. They may not have been cleared or approved by the U.S. Food and Drug Administration. The FDA has determined that such clearance or approval is not necessary. The above immunohistochemical/du alISH markers are ordered and reviewed by the Pathologist. ---- Patient Age/Sex Location Account Attending Physician ---- CELESTE IBRAHIM/M LABSPEC [id number] Dr. Eduardo Lynne MD ---- INTERPRETATION: A. Prostate, right apex, core biopsy: Adenocarcinoma. B. Prostate, right mid, core biopsy: Focal high-grade prostatic intraepithelial neoplasia (HGPIN). C. Prostate, right base, core biopsy: Focal high-grade prostatic intraepithelial neoplasia (HGPIN). E. Prostate, left mid, core biopsy: Adenocarcinoma. F. Prostate, left base, core biopsy: Adenocarcinoma. SJ/mr 07/08/2024 Signed (signature on file) Dr. Fredy Araya MD 07/08/24 1048 ---- Normal [facility] Comment on above: Performed By: #### L 300.4310, L300.3900 #### [facility] [address] [place], [address] PROSTATE BXon 07-05-2024 PROSTATE BX -- ---- Patient Age/Sex Location Account Attending Physician ---- CELESTE IBRAHIM 63/M LABSPEC [id number] Dr. Eduardo Lynne MD ---- Specimen: [id number] Received: 07/05/24 Status: STEPHANI Hernandez Num: [id number] Spec Type: PROST BX Subm Dr: Dr. Eduardo Lynne MD HEADER OPERATION: Prostate biopsy PRE-OP DIAGNOSIS: Elevated PSA TISSUE SUBMITTED: A - Right apex, B - Right mid, C - Right base, D - Left apex, E - Left mid, F - Left base ---- MICROSCOPIC DIAGNOSIS A. Right prostate, apex, core biopsy: Prostatic adenocarcinoma. Lalo grade: 3+3=6 Number of cores involved: 1/2 Proportion of tissue involved: <5% Perineural invasion: Not identified. Greatest tumor length: <0.1cm See comment. B. Right prostate, mid, core biopsy: Focal high-grade prostatic intraepithelial neoplasia (HGPIN). See comment. C. Right prostate, base, core biopsy: Focal high-grade prostatic intraepithelial neoplasia (HGPIN). See comment. D. Left prostate, apex, core biopsy: Prostatic adenocarcinoma. Lalo grade: 3+3=6 Number of cores involved: 1/2 Proportion of tissue involved: 15-20% Perineural invasion: Not identified. Greatest tumor length: 0.7cm E. Left prostate, mid, core biopsy: Prostatic adenocarcinoma. Howard grade: 3+4=7 Number of cores involved: 2/2 Proportion of tissue involved: 15% Perineural invasion: Not identified. Greatest tumor length: 0.4 cm See comment. F. Left prostate, base, core biopsy: Prostatic adenocarcinoma. Howard grade: 3+4=7 Number of cores involved: 2/2 Proportion of tissue involved: 30% Perineural invasion: Present, focal Greatest tumor length: 1.2cm, discontinuous. SJ.mr 07/07/2024 ---- Patient Age/Sex Location Account Attending Physician ---- CELESTE IBRAHIM 63/M LABSPEC [id number] Dr. Eduardo Lynne MD ---- COMMENT A, B, C, E F. Immunohistochemistry ([id number]) supports the above diagnosis. Case has been reviewed in consultation with Dr. Terrazas who concurs with the above diagnosis. IDC:AM MICROSCOPIC DESCRIPTION Slides are reviewed. GROSS DESCRIPTION A - Received is one container designated prostate, right apex. The specimen consists of two elongated fragments of light lynch-white soft tissue each measuring 2.0 cm in length and 0.1 cm in diameter. The specimen is totally submitted in one cassette. B - Received is one container designated prostate, right mid. The specimen consists of two elongated fragments of light lynch-white soft tissue each measuring 1.8 cm in length and 0.1 cm in diameter. The specimen is totally submitted in one cassette. C - Received is one container designated prostate, right base. The specimen consists of two elongated fragments of light lynch-white soft tissue each measuring 1.9 cm in length and 0.1 cm in diameter. The specimen is totally submitted in one cassette. D - Received is one container designated prostate, left apex. The specimen consists of two elongated fragments of light lynch-white soft tissue measuring 1.2 and 2.4 cm in length and 0.1 cm in diameter. The specimen is totally submitted in one cassette. E - Received is one container designated prostate, left mid. The specimen consists of two elongated fragments of light lynch-white soft tissue measuring 1.2 and 1.5 cm in length and 0.1 cm in diameter. The specimen is totally submitted in one cassette. F - Received is one container designated prostate, left base. The specimen consists of two elongated fragments of light lynch-white soft tissue measuring 1.5 and 1.7 cm in length and 0.1 cm in diameter. The specimen is totally submitted in one cassette. / RADHA/ 07/06/2024 TC:0 CPT: 18249 x6 ---- Patient Age/Sex Location Account Attending Physician ---- CELESTE IBRAHIM/Ines LABSPEC [id number] Dr. Eduardo Lynne MD ---- Signed (signature on file) Dr. Fredy Araya MD 07/08/24 0928 ---- Normal [facility] Comment on above: Performed By: #### P PROSB ####[facility] [address] [place], [place], [address] CBC W/Diff, Automatedon -12 01-2023 Absolute Lymph 2.46 X10 3/uL Normal 0.83-4.51 [facility] Comment on above: Order Comment: Order Date: 01/13/24 Order Info: 0184-1 - CBCD Performed By: #### L 501.9910, L3890.6005, L100.0100, L500.4050, L500.4100 #### [facility] [address] [place], [place], [address] Absolute Neut 3.4 X10 3/uL Normal 2.0-7.7 [facility] Comment on above: Order Comment: Order Date: 01/13/24 Order Info: 0184-1 - CBCD Performed By: #### L 501.9910, L3890.6005, L100.0100, L500.4050, L500.4100 #### [facility] [address] [place], [address] Basophils/100 WBC (Bld) 0.7 % Normal 0-1 [facility] Comment on above: Order Comment: Order Date: 01/13/24 Order Info: 0184-1 - CBCD Performed By: #### L 501.9910, L3890.6005, L100.0100, L500.4050, L500.4100 #### [facility] [address] [place], [address] Eosinophils/100 WBC (Bld) 4.7 % Normal 0-5 [facility] Comment on above: Order Comment: Order Date: 01/13/24 Order Info: 0184-1 - CBCD Performed By: #### L 501.9910, L3890.6005, L100.0100, L500.4050, L500.4100 #### [facility] [address] [place], [address] Erythrocyte distribution width (RBC) [Ratio] 13.1 % Normal 11.6-14.6 [facility] Comment on above: Order Comment: Order Date: 01/13/24 Order Info: 0184-1 - CBCD Performed By: #### L 501.9910, L3890.6005, L100.0100, L500.4050, L500.4100 #### [facility] [address] [place], [address] Hematocrit (Bld) [Volume fraction] 41.0 % Normal 40-54 [facility] Comment on above: Order Comment: Order Date: 01/13/24 Order Info: 0184-1 - CBCD Performed By: #### L 501.9910, L3890.6005, L100.0100, L500.4050, L500.4100 #### [facility] [address] [place], [address] Hemoglobin (Bld) [Mass/Vol] 13.8 g/dL Normal 13.0-16.5 [facility] Comment on above: Order Comment: Order Date: 01/13/24 Order Info: 0184-1 - CBCD Performed By: #### L 501.9910, L3890.6005, L100.0100, L500.4050, L500.4100 #### [facility] [address] [place], [address] IG% 0.400 Normal 0.0-0.9 [facility] Comment on above: Order Comment: Order Date: 01/13/24 Order Info: 0184-1 - CBCD Result Comment: IG% - Immature Granulocytes (promyelocytes, myelocytes and metamyelocytes) > 1% indicates that a LEFT SHIFT is Present. Performed By: #### L 501.9910, L3890.6005, L100.0100, L500.4050, L500.4100 #### [facility] [address] [place], [address] Lymphocytes/100 WBC (Bld) 36.4 % Normal 19-41 [facility] Comment on above: Order Comment: Order Date: 01/13/24 Order Info: 0184-1 - CBCD Performed By: #### L 501.9910, L3890.6005, L100.0100, L500.4050, L500.4100 #### [facility] [address] [place], [address] MCH (RBC) [Entitic mass] 29.7 pg Normal 27.0-32.0 [facility] Comment on above: Order Comment: Order Date: 01/13/24 Order Info: 0184-1 - CBCD Performed By: #### L 501.9910, L3890.6005, L100.0100, L500.4050, L500.4100 #### [facility] [address] [place], [address] MCHC (RBC) [Mass/Vol] 33.7 g/dL Normal 32-[address] [facility] Comment on above: Order Comment: Order Date: 01/13/24 Order Info: 0184-1 - CBCD Performed By: #### L 501.9910, L3890.6005, L100.0100, L500.4050, L500.4100 #### [facility] [address] [place], [address] MCV (RBC) [Entitic vol] 88.2 fL Normal 80-94 [facility] Comment on above: Order Comment: Order Date: 01/13/24 Order Info: 0184-1 - CBCD Performed By: #### L 501.9910, L3890.6005, L100.0100, L500.4050, L500.4100 #### [facility] [address] [place], [address] Monocytes/100 WBC (Bld) 7.1 % Normal 0-10 [facility] Comment on above: Order Comment: Order Date: 01/13/24 Order Info: 0184-1 - CBCD Performed By: #### L 501.9910, L3890.6005, L100.0100, L500.4050, L500.4100 #### [facility] [address] [place], [address] Neutrophils/100 WBC (Bld) 50.7 % Normal 47-70 [facility] Comment on above: Order Comment: Order Date: 01/13/24 Order Info: 0184-1 - CBCD Performed By: #### L 501.9910, L3890.6005, L100.0100, L500.4050, L500.4100 #### [facility] [address] [place], [address] Nucleated RBC (Bld) [#/Vol] 0 10*3/uL Normal 0-5 [facility] Comment on above: Order Comment: Order Date: 01/13/24 Order Info: 0184-1 - CBCD Performed By: #### L 501.9910, L3890.6005, L100.0100, L500.4050, L500.4100 #### [facility] [address] [place], [address] Platelet mean volume (Bld) [Entitic vol] 10.1 fL Normal 6.2-12.0 [facility] Comment on above: Order Comment: Order Date: 01/13/24 Order Info: 0184-1 - CBCD Performed By: #### L 501.9910, L3890.6005, L100.0100, L500.4050, L500.4100 #### [facility] [address] [place], [address] Platelets (Bld) [#/Vol] 266 10*3/uL Normal 150-450 [facility] Comment on above: Order Comment: Order Date: 01/13/24 Order Info: 018-1 - CBCD Performed By: #### L 501.9910, L3890.6005, L100.0100, L500.4050, L500.4100 #### [facility] [address] [place], [address] RBC (Bld) [#/Vol] 4.65 10*6/uL Normal 4.6-6.2 [facility] Comment on above: Order Comment: Order Date: 01/13/24 Order Info: 0184- - CBCD Performed By: #### L 501.9910, L3890.6005, L100.0100, L500.4050, L500.4100 #### [facility] [address] [place], [address] RDW SD 42.2 fl Normal 35.1-43.9 [facility] Comment on above: Order Comment: Order Date: 01/13/24 Order Info: [id number] - CBCD Performed By: #### L 501.9910, L3890.6005, L100.0100, L500.4050, L500.4100 #### [facility] [address] [place], [address] WBC (Bld) [#/Vol] 6.8 10*3/uL Normal 4.4-11.0 [facility] Comment on above: Order Comment: Order Date: 01/13/24 Order Info: [id number] - CBCD Performed By: #### L 501.9910, L3890.6005, L100.0100, L500.4050, L500.4100 #### [facility] [address] [place], [address] Comprehensive Metabolic Prof ilon 05-20-2024 Albumin [Mass/Vol] 3.8 g/dL Normal 3.2-5.0 [facility] Comment on above: Order Comment: Order Date: 01/13/24Order Info: [id number] - CMPOrder Info: [id number] - LIPIDOrder Info: [id number] - PSA Performed By: #### L 501.9910, L3890.6005, L100.0100, L500.4050, L500.4100 ####[facility] [address] [place], [address] Albumin/Globulin [Mass ratio] 1.2 {ratio} Normal 0.9-2.4 [facility] Comment on above: Order Comment: Order Date: 01/13/24Order Info: 07-1 - CMPOrder Info: [id number] - LIPIDOrder Info: [id number] - PSA Performed By: #### L 501.9910, L3890.6005, L100.0100, L500.4050, L500.4100 ####[facility] [address] [place], [address] ALK P 89 U/L Normal 45-117 [facility] Comment on above: Order Comment: Order Date: 01/13/24Order Info: [id number] - CMPOrder Info: [id number] - LIPIDOrder Info: [id number] - PSA Performed By: #### L 501.9910, L3890.6005, L100.0100, L500.4050, L500.4100 ####[facility] [address] [place], [address] ALT [Catalytic activity/Vol] 30 U/L Normal 16-61 [facility] Comment on above: Order Comment: Order Date: 01/13/24Order Info: [id number] - CMPOrder Info: [id number] - LIPIDOrder Info: [id number] - PSA Performed By: #### L 501.9910, L3890.6005, L100.0100, L500.4050, L500.4100 ####[facility] [address] [place], [address] AST [Catalytic activity/Vol] 18 U/L Normal 15-37 [facility] Comment on above: Order Comment: Order Date: 01/13/24Order Info: [id number] - CMPOrder Info: - LIPIDOrder Info: [id number] - PSA Performed By: #### L 501.9910, L3890.6005, L100.0100, L500.4050, L500.4100 ####[facility] [address] [place], [address] Bilirubin [Mass/Vol] 0.80 mg/dL Normal 0.20-1.00 [facility] Comment on above: Order Comment: Order Date: 01/13/24Order Info: [id number] - CMPOrder Info: - LIPIDOrder Info: [id number] - PSA Result Comment: For patients on eltrombopag therapy, use of Dimension [place] TBIL is not recommended. Performed By: #### L 501.9910, L3890.6005, L100.0100, L500.4050, L500.4100 ####[facility] [address] [place], [address] BUN/CRE 8.2 RATIO Low 10-20 [facility] Comment on above: Order Comment: Order Date: 01/13/24Order Info: [id number] - CMPOrder Info: - LIPIDOrder Info: [id number] - PSA Performed By: #### L 501.9910, L3890.6005, L100.0100, L500.4050, L500.4100 ####[facility] [address] [place], [address] CA,Total 9.0 mg/dL Normal 8.5-10.1 [facility] Comment on above: Order Comment: Order Date: 01/13/24Order Info: [id number] - CMPOrder Info: [id number] - LIPIDOrder Info: [id number] - PSA Performed By: #### L 501.9910, L3890.6005, L100.0100, L500.4050, L500.4100 ####[facility] [address] [place], [address] Chloride [Moles/Vol] 110 mmol/L High 98-107 [facility] Comment on above: Order Comment: Order Date: 01/13/24Order Info: [id number] - CMPOrder Info: [id number] - LIPIDOrder Info: [id number] - PSA Performed By: #### L 501.9910, L3890.6005, L100.0100, L500.4050, L500.4100 ####[facility] [address] [place], [address] CO2 [Moles/Vol] 26.0 mmol/L Normal 21.0-32.0 [facility] Comment on above: Order Comment: Order Date: 01/13/24Order Info: [id number] - CMPOrder Info: [id number] - LIPIDOrder Info: [id number] - PSA Performed By: #### L 501.9910, L3890.6005, L100.0100, L500.4050, L500.4100 ####[facility] [address] [place], [address] Creatinine [Mass/Vol] 1.22 mg/dL Normal 0.70-1.[address] [facility] Comment on above: Order Comment: Order Date: 01/13/24Order Info: [id number]- - CMPOrder Info: [id number] - LIPIDOrder Info: [id number] - PSA Result Comment: The validity of the calculated GFR GFRAA in patients over 70 years has not been determined. Clinical correlation is essential. Performed By: #### L 501.9910, L3890.6005, L100.0100, L500.4050, L500.4100 ####[facility] [address] [place], [address] EST GFR - AA 77 mL/min Normal >60 [facility] Comment on above: Order Comment: Order Date: 01/13/24Order Info: 07-1 - CMPOrder Info: [id number] - LIPIDOrder Info: [id number] - PSA Result Comment: Afri can Gambian GFR Calc Performed By: #### L 501.9910, L3890.6005, L100.0100, L500.4050, L500.4100 ####[facility] [address] [place], [address] GAP 5 Normal 5-15 [facility] Comment on above: Order Comment: Order Date: 01/13/24Order Info: [id number]- - CMPOrder Info: - LIPIDOrder Info: [id number] - PSA Performed By: #### L 501.9910, L3890.6005, L100.0100, L500.4050, L500.4100 ####[facility] [address] [place], [address] GFR/1.73 sq M.predicted among non-blacks MDRD (S/P/Bld) [Vol rate/Area] 64 mL/min/{1.73_m2} Normal >60 [facility] Comment on above: Order Comment: Order Date: 01/13/24Order Info: 07-1 - CMPOrder Info: [id number] - LIPIDOrder Info: [id number] - PSA Result Comment: Non- GFR Calc Performed By: #### L 501.9910, L3890.6005, L100.0100, L500.4050, L500.4100 ####[facility] [address] [place], [address] Globulin (S) [Mass/Vol] 3.3 g/dL Normal 2.2-4.2 [facility] Comment on above: Order Comment: Order Date: 01/13/24Order Info: 07- - CMPOrder Info: [id number] - LIPIDOrder Info: [id number] - PSA Performed By: #### L 501.9910, L3890.6005, L100.0100, L500.4050, L500.4100 ####[facility] [address] [place], [address] Glucose [Mass/Vol] 105 mg/dL Normal 74-106 [facility] Comment on above: Order Comment: Order Date: 01/13/24Order Info: [id number]- - CMPOrder Info: [id number] - LIPIDOrder Info: [id number] - PSA Result Comment: Fast ing Glucose result from 100 to 125 mg/dL suggests IMPAIRED HOMEOSTASIS per A.D.A. criteria. Performed By: #### L 501.9910, L3890.6005, L100.0100, L500.4050, L500.4100 ####[facility] [address] [place], [address] Potassium [Moles/Vol] 4.1 mmol/L Normal 3.5-5.[address] [facility] Comment on above: Order Comment: Order Date: 01/13/24Order Info: 07 - CMPOrder Info: [id number] - LIPIDOrder Info: [id number] - PSA Performed By: #### L 501.9910, L3890.6005, L100.0100, L500.4050, L500.4100 ####[facility] [address] [place], [address] Sodium [Moles/Vol] 141 mmol/L Normal 136-145 [facility] Comment on above: Order Comment: Order Date: 01/13/24Order Info: 07- - CMPOrder Info: [id number] - LIPIDOrder Info: [id number] - PSA Performed By: #### L 501.9910, L3890.6005, L100.0100, L500.4050, L500.4100 ####[facility] [address] [place], [place], [address] T PROT 7.1 g/dL Normal 6.4-8.2 [facility] Comment on above: Order Comment: Order Date: 01/13/24Order Info: [id number] - CMPOrder Info: [id number] - LIPIDOrder Info: [id number] - PSA Performed By: #### L 501.9910, L3890.6005, L100.0100, L500.4050, L500.4100 ####[facility] [address] [place], [place], [address] Urea nitrogen [Mass/Vol] 10 mg/dL Normal 7-18 [facility] Comment on above: Order Comment: Order Date: 01/13/24Order Info: [id number] - CMPOrder Info: [id number] - LIPIDOrder Info: [id number] - PSA Performed By: #### L 501.9910, L3890.6005, L100.0100, L500.4050, L500.4100 ####[facility] [address] [place], [place], [address] HIV - WCHon 05-20-2024 HIV Non-Reactive Normal Nonreactive [facility] Comment on above: Order Comment: Order Date: 01/13/24Order Info: [id number] - VIAB Performed By: #### L 501.9910, L3890.6005, L100.0100, L500.4050, L500.4100 ####[facility] [address] [place], [place], [address] Hepatitis C Antibodyon 05-20 Hepatitis C AB Non-Reactive Normal Nonreactive [facility] Comment on above: Order Comment: Order Date: 01/13/24Order Info: [id number] - VIAB Result Comment: Non Reactive: < 0.8 Equivocal: >/= 0.8 to < 1.0 Reactive: >/= 1.0 The CDC requires that a reactive/equivocal HCV antibody result be sent out for confirmation. HCV Quant by PCR testing. Performed By: #### L 501.9940 #### [facility] [address] [place], [address] Lipid Profileon 05-20-2024 Cholesterol [Mass/Vol] 187 mg/dL Normal 200 [facility] Comment on above: Order Comment: Order Date: 01/13/24Order Info: [id number]- - CMPOrder Info: [id number] - LIPIDOrder Info: [id number] - PSA Result Comment: <200 mg/dL Desirable 200-240 mg/dL Borderline >240 mg/dL High Risk Performed By: #### L 501.9910, L3890.6005, L100.0100, L500.4050, L500.4100 ####[facility] [address] [place], [address] Cholesterol in HDL [Mass/Vol] 44 mg/dL Normal [facility] Comment on above: Order Comment: Order Date: 01/13/24Order Info: [id number] - CMPOrder Info: - LIPIDOrder Info: [id number] - PSA Result Comment: The drugs N-Acetylcysteine and Metamizole may falsely depress this assay. Reference Range HDL <40 mg/dL Low HDL Cholesterol HDL >or= 60 mg/dL High HDL Cholesterol Performed By: #### L 501.9910, L3890.6005, L100.0100, L500.4050, L500.4100 ####[facility] [address] [place], [address] Cholesterol in LDL [Mass/Vol] 108 mg/dL Normal 0-130 [facility] Comment on above: Order Comment: Order Date: 01/13/24Order Info: [id number] - CMPOrder Info: [id number] - LIPIDOrder Info: [id number] - PSA Performed By: #### L 501.9910, L3890.6005, L100.0100, L500.4050, L500.4100 ####[facility] [address] [place], [place], [address] Cholesterol in VLDL [Mass/Vol] 35 mg/dL Normal 5-40 [facility] Comment on above: Order Comment: Order Date: 01/13/24Order Info: 07 - CMPOrder Info: [id number] - LIPIDOrder Info: [id number] - PSA Performed By: #### L 501.9910, L3890.6005, L100.0100, L500.4050, L500.4100 ####[facility] [address] [place], [place], [address] Triglyceride [Mass/Vol] 175 mg/dL Normal [facility] Comment on above: Order Comment: Order Date: 01/13/24Order Info: [id number] - CMPOrder Info: [id number] - LIPIDOrder Info: [id number] - PSA Result Comment: The drugs N-Acetylcysteine and Metamizole may falsely depress this assay. Serum Triglycerides Reference Interval Normal <150 mg/dL Borderline high 150 - 199 mg/dL High 200 - 499 mg/dL Very High > or = 500 mg/dL Performed By: #### L 501.9910, L3890.6005, L100.0100, L500.4050, L500.4100 ####[facility] [address] [place], [place], [address] PSA,Total - Annual Screenon 05-20-2024 PSA,TOT SCREEN 27.30 ng/mL High 0.00-4.00 [facility] Comment on above: Order Comment: Order Date: 01/13/24Order Info: 07 - CMPOrder Info: [id number] - LIPIDOrder Info: [id number] - PSA Result Comment: This test was performed using the TPSA assay method for the Cell[employer] chemistry system. Values obtained with different assay methods cannot be used interchangably. When changing PSA assays in the course of monitoring a patient, additional sequential testing should be carried out to confirm baseline values. Performed By: #### L 501.9910, L3890.6005, L100.0100, L500.4050, L500.4100 ####[facility] [address] [place], [address] Vital Signs Date Time Vital Sign Value Performing Clinician Elaine richmond 03-27-2025 08:18-0400 Body height 175.26 cm Beata Wing MD Work Phone: [facility] 03-27-2025 08:18-0400 Body mass index (BMI) [Ratio] 25.2 kg/m2 Beata Wing MD Work Phone: [facility] 03-27-2025 08:18-0400 Body temperature 97.6 [degF] Beata Wing MD Work Phone: [facility] 03-27-2025 08:18-0400 Body weight 77.67 kg Beata Wing MD Work Phone: [facility] 03-27-2025 08:18-0400 Diastolic blood pressure 72 mm[Hg] Beata Wing MD Work Phone: [facility] 03-27-2025 08:18-0400 Heart rate 64 /min Beata Wing MD Work Phone: [facility] 03-27-2025 08:18-0400 Respiratory rate 18 /min Beata Wing MD Work Phone: [facility] 03-27-2025 08:18-0400 SaO2% (BldA) [Mass fraction] 99 % Beata Wing MD Work Phone: [facility] 03-27-2025 08:18-0400 Systolic blood pressure 110 mm[Hg] Beata Wing MD Work Phone: [facility] 03-09-2025 08:21-0400 Body height 175.26 cm Beata Wing MD Work Phone: [facility] 03-09-2025 08:21-0400 Body mass index (BMI) [Ratio] 25.7 kg/m2 Beata Wing MD Work Phone: [facility] 03-09-2025 08:21-0400 Body weight 78.92 kg Beata Wing MD Work Phone: [facility] 03-09-2025 08:21-0400 Diastolic blood pressure 68 mm[Hg] Beata Wing MD Work Phone: [facility] 03-09-2025 08:21-0400 Heart rate 67 /min Beata Wing MD Work Phone: [facility] 03-09-2025 08:21-0400 Respiratory rate 18 /min Beata Wing MD Work Phone: [facility] 03-09-2025 08:21-0400 SaO2% (BldA) [Mass fraction] 97 % Beata Wing MD Work Phone: [facility] 03-09-2025 08:21-0400 Systolic blood pressure 106 mm[Hg] Beata Wing MD Work Phone: [facility] 03-01-2025 15:32-0400 Body temperature 97.1 [degF] Beata Wing MD Work Phone: [facility] 03-01-2025 15:32-0400 Diastolic blood pressure 74 mm[Hg] Beata Wing MD Work Phone: [facility] 03-01-2025 15:32-0400 Heart rate 69 /min Beata Wing MD Work Phone: [facility] 03-01-2025 15:32-0400 Respiratory rate 16 /min Beata Wing MD Work Phone: [facility] 03-01-2025 15:32-0400 SaO2% (BldA) [Mass fraction] 100 % Beata Wing MD Work Phone: [facility] 03-01-2025 15:32-0400 Systolic blood pressure 116 mm[Hg] Beata Wing MD Work Phone: [facility] 03-01-2025 10:58-0400 Body height 175.26 cm Beata Wing MD Work Phone: [facility] 03-01-2025 10:58-0400 Body weight 83.4 kg Beata Wing MD Work Phone: [facility] 03-01-2025 06:00-0400 Body mass index (BMI) [Ratio] 27.2 kg/m2 Beata Wing MD Work Phone: [facility] 02-22-2025 08:42-0400 Body mass index (BMI) [Ratio] 27.2 kg/m2 Beata Wing MD Work Phone: [facility] 02-22-2025 08:42-0400 Body temperature 96.9 [degF] Beata Wing MD Work Phone: [facility] 02-22-2025 08:42-0400 Body weight 83.6 kg Beata Wing MD Work Phone: [facility] 02-22-2025 08:42-0400 Diastolic blood pressure 88 mm[Hg] Beata Wing MD Work Phone: [facility] 02-22-2025 08:42-0400 Heart rate 76 /min Beata Wing MD Work Phone: [facility] 02-22-2025 08:42-0400 Respiratory rate 16 /min Beata Wing MD Work Phone: [facility] 02-22-2025 08:42-0400 SaO2% (BldA) [Mass fraction] 99 % Beata Wing MD Work Phone: [facility] 02-22-2025 08:42-0400 Systolic blood pressure 145 mm[Hg] Beata Wing MD Work Phone: [facility] 02-15-2025 08:59-0400 Body mass index (BMI) [Ratio] 27 kg/m2 Beata Wing MD Work Phone: [facility] 02-15-2025 08:59-0400 Body temperature 96.5 [degF] Beata Wing MD Work Phone: [facility] 02-15-2025 08:59-0400 Body weight 83.12 kg Beata Wing MD Work Phone: [facility] 02-15-2025 08:59-0400 Diastolic blood pressure 84 mm[Hg] Beata Wing MD Work Phone: [facility] 02-15-2025 08:59-0400 Heart rate 76 /min Beata Wing MD Work Phone: [facility] 02-15-2025 08:59-0400 Respiratory rate 16 /min Beata Wing MD Work Phone: [facility] 02-15-2025 08:59-0400 SaO2% (BldA) [Mass fraction] 98 % Beata Wing MD Work Phone: [facility] 02-15-2025 08:59-0400 Systolic blood pressure 147 mm[Hg] Beata Wing MD Work Phone: [facility] 02-08-2025 09:00-0400 Body mass index (BMI) [Ratio] 26.9 kg/m2 Beata Wing MD Work Phone: [facility] 02-08-2025 09:00-0400 Body temperature 97.1 [degF] Beata Wing MD Work Phone: [facility] 02-08-2025 09:00-0400 Body weight 82.66 kg Beata Wing MD Work Phone: [facility] 02-08-2025 09:00-0400 Diastolic blood pressure 84 mm[Hg] Beata Wing MD Work Phone: [facility] 02-08-2025 09:00-0400 Heart rate 71 /min Beata Wing MD Work Phone: [facility] 02-08-2025 09:00-0400 Respiratory rate 16 /min Beata Wing MD Work Phone: [facility] 02-08-2025 09:00-0400 SaO2% (BldA) [Mass fraction] 96 % Beata Wing MD Work Phone: [facility] 02-08-2025 09:00-0400 Systolic blood pressure 144 mm[Hg] Beata Wing MD Work Phone: [facility] 02-01-2025 09:07-0400 Body mass index (BMI) [Ratio] 26.7 kg/m2 Beata Wing MD Work Phone: [facility] 02-01-2025 09:07-0400 Body temperature 96.9 [degF] Beata Wing MD Work Phone: [facility] 02-01-2025 09:07-0400 Body weight 82.21 kg Beata Wing MD Work Phone: [facility] 02-01-2025 09:07-0400 Diastolic blood pressure 84 mm[Hg] Beata Wing MD Work Phone: [facility] 02-01-2025 09:07-0400 Heart rate 72 /min Beata Wing MD Work Phone: [facility] 02-01-2025 09:07-0400 Respiratory rate 16 /min Beata Wing MD Work Phone: [facility] 02-01-2025 09:07-0400 SaO2% (BldA) [Mass fraction] 98 % Beata Wing MD Work Phone: [facility] 02-01-2025 09:07-0400 Systolic blood pressure 132 mm[Hg] Beata Wing MD Work Phone: [facility] 01-24-2025 08:33-0400 Body mass index (BMI) [Ratio] 26.7 kg/m2 Beata Wing MD Work Phone: [facility] 01-24-2025 08:33-0400 Body temperature 97.2 [degF] Beata Wing MD Work Phone: [facility] 01-24-2025 08:33-0400 Body weight 82.15 kg Beata Wing MD Work Phone: [facility] 01-24-2025 08:33-0400 Diastolic blood pressure 85 mm[Hg] Beata Wing MD Work Phone: [facility] 01-24-2025 08:33-0400 Heart rate 72 /min Beata Wing MD Work Phone: [facility] 01-24-2025 08:33-0400 Respiratory rate 16 /min Beata Wing MD Work Phone: [facility] 01-24-2025 08:33-0400 SaO2% (BldA) [Mass fraction] 99 % Beata Wing MD Work Phone: [facility] 01-24-2025 08:33-0400 Systolic blood pressure 135 mm[Hg] Beata Wing MD Work Phone: 5(060)124-885750 [address] 01-18-2025 08:40-0400 Body mass index (BMI) [Ratio] 27.1 kg/m2 Beata Wing MD Work Phone: [facility] 01-18-2025 08:40-0400 Body temperature 96.8 [degF] Beata Wing MD Work Phone: 6(264)928-339393 [place] [address] 01-18-2025 08:40-0400 Body weight 83.17 kg Beata Wing MD Work Phone: 6(827)602-143794 [place] [address] 01-18-2025 08:40-0400 Diastolic blood pressure 81 mm[Hg] Beata Wing MD Work Phone: [facility] 01-18-2025 08:40-0400 Heart rate 78 /min Beata Wing MD Work Phone: 0(531)026-843193 [place] [address] 01-18-2025 08:40-0400 Respiratory rate 18 /min Beata Wing MD Work Phone: [facility] 01-18-2025 08:40-0400 SaO2% (BldA) [Mass fraction] 98 % Beata Wing MD Work Phone: [facility] 01-18-2025 08:40-0400 Systolic blood pressure 144 mm[Hg] Beata Wing MD Work Phone: [facility] 01-11-2025 09:03-0400 Body mass index (BMI) [Ratio] 26.8 kg/m2 Beata Wing MD Work Phone: [facility] 01-11-2025 09:03-0400 Body temperature 98 [degF] Beata Wing MD Work Phone: [facility] 01-11-2025 09:03-0400 Body weight 82.35 kg Beata Wing MD Work Phone: [facility] 01-11-2025 09:03-0400 Diastolic blood pressure 86 mm[Hg] Beata Wing MD Work Phone: [facility] 01-11-2025 09:03-0400 Heart rate 73 /min Beata Wing MD Work Phone: [facility] 01-11-2025 09:03-0400 Respiratory rate 16 /min Beata Wing MD Work Phone: [facility] 01-11-2025 09:03-0400 SaO2% (BldA) [Mass fraction] 98 % Beata Wing MD Work Phone: [facility] 01-11-2025 09:03-0400 Systolic blood pressure 136 mm[Hg] Beata Wing MD Work Phone: [facility] 12-07-2024 08:35-0500 Body temperature 96.7 [degF] Beata Wing MD Work Phone: [facility] 12-07-2024 08:35-0500 Diastolic blood pressure 73 mm[Hg] Beata Wing MD Work Phone: [facility] 12-07-2024 08:35-0500 Heart rate 66 /min Beata Wing MD Work Phone: [facility] 12-07-2024 08:35-0500 Respiratory rate 14 /min Beata Wing MD Work Phone: [facility] 12-07-2024 08:35-0500 SaO2% (BldA) [Mass fraction] 99 % Beata Wing MD Work Phone: [facility] 12-07-2024 08:35-0500 Systolic blood pressure 94 mm[Hg] Beata Wing MD Work Phone: 5(980)892-758950 [address] 12-07-2024 06:39-0500 Body height 175.26 cm Beata Wing MD Work Phone: [facility] 12-07-2024 06:39-0500 Body mass index (BMI) [Ratio] 26.4 kg/m2 Beata Wing MD Work Phone: 6(023)864-220993 [place] [address] 12-07-2024 06:39-0500 Body weight 81 kg Beata Wing MD Work Phone: 4(374)624-975394 [place] [address] 11-24-2024 11:05-0500 Body mass index (BMI) [Ratio] 26.9 kg/m2 Beata Wing MD Work Phone: [facility] 11-24-2024 11:05-0500 Body temperature 97.6 [degF] Beata Wing MD Work Phone: 9(929)820-994450 [address] 11-24-2024 11:05-0500 Body weight 82.66 kg Beata Wing MD Work Phone: 1(978)348-178350 [address] 11-24-2024 11:05-0500 Diastolic blood pressure 89 mm[Hg] Beata Wing MD Work Phone: [facility] 11-24-2024 11:05-0500 Heart rate 66 /min Betaa Wing MD Work Phone: [facility] 11-24-2024 11:05-0500 Respiratory rate 16 /min Beata Wing MD Work Phone: [facility] 11-24-2024 11:05-0500 SaO2% (BldA) [Mass fraction] 99 % Beata Wing MD Work Phone: [facility] 11-24-2024 11:05-0500 Systolic blood pressure 160 mm[Hg] Beata Wing MD Work Phone: [facility] 10-05-2024 09:08-0500 Body mass index (BMI) [Ratio] 25.8 kg/m2 Beata Wing MD Work Phone: [facility] 10-05-2024 09:08-0500 Body weight 79.37 kg Beata Wing MD Work Phone: [facility] Encounters Encounter Date Encounter Type Care Provider Facility Start: 03-27-2025 End: 03-27-[address] Sandro [facility] Work Phone: Start: 03-27-2025 End: 03-27-2025 ambulatory Beata Wing MD Work Phone: [facility] Work Phone: Start: 03-27-[address] Sandro Walker on [facility] Start: 03-09-2025 End: 03-09-2025 Patient encounter procedure Kelile Rodríguez - -[facility] Work Phone: Start: 03-09-2025 End: 03-09-2025 ambulatory Beata Wing MD Work Phone: [facility] Work Phone: Start: 03-01-2025 Non-patient / Non-visit Dr. Beverly Mcdonnell MD -[facility] Start: 03-01-2025 ambulatory Beata Wing Facility:[facility] Start: 03-01-2025 Non-patient / Non-visit Dr. Marge elizabeth MD -[facility] Start: 02-28-2025 Non-patient / Non-visit Dr. Beverly Mcdonnell MD -[facility] Start: 02-28-2025 End: 03-01-2025 Evaluation and management of inpatient Dr. Alvaro Sunshine DO -Intensive Care Unit Work Phone: Start: 02-28-2025 ambulatory Beata Wing Facility:[facility] Start: 02-23-[address] Sandro Walker on DO -Radiation Oncology Start: 02-22-2025 Non-patient / Non-visit Dr. Sandro ontiveros DO [facility] Work Phone: Start: 02-22-2025 End: 02-22-[address] Sandro Tyler DO [facility] Work Phone: Start: 02-22-2025 End: 02-22-2025 ambulatory [facility] Start: 02-15-2025 End: 02-15-[address] [facility] Work Phone: Start: 02-15-2025 End: 02-15-2025 ambulatory [facility] Start: 02-08-2025 End: 02-08-[address] [facility] Work Phone: Start: 02-08-2025 End: 02-08-2025 ambulatory [facility] Start: 02-01-2025 End: 02-01-[address] [facility] Work Phone: Start: 02-01-2025 End: 02-01-2025 ambulatory [facility] Start: 01-24-2025 End: 01-24-[address] [facility] Work Phone: Start: 01-24-2025 End: 01-24-2025 ambulatory [facility] Start: 01-18-2025 End: 01-18-[address] [facility] Work Phone: Start: 01-18-2025 End: 01-18-2025 ambulatory [facility] Start: 01-11-2025 End: 01-11-[address] [facility] Work Phone: Start: 01-11-2025 End: 01-11-2025 ambulatory [facility] Start: 01-09-2025 ambulatory [facility] Start: 01-09-2025 Non-patient / Non-visit Dr. Sandro ontiveros [facility] Start: 01-05-2025 ambulatory [facility] Start: 01-05-2025 Non-patient / Non-visit Dr. Sandro ontiveros [facility] Start: 01-03-2025 End: 01-03-2025 ambulatory Beata Wing MD Work Phone: [facility] Work Phone: Start: 01-03-2025 End: 01-03-[address] Sandro Tyler DO [facility] Work Phone: Start: 01-03-2025 End: 01-03-2025 ambulatory [facility] Facility:[facility] Start: 12-19-2024 ambulatory [facility] Start: 12-19-2024 Non-patient / [facility] Start: 12-19-[address] Sandro Walker on -Radiation Oncology Start: 12-07-2024 ambulatory [facility] Start: 12-07-2024 Non-patient / Non-visit Dr. Bello Babin [facility] Start: 12-07-2024 End: 12-07-2024 Admission to same day surgery center Dr. Tracey Babin MD -Endoscopy Work Phone: Start: 12-07-2024 End: 12-07-2024 ambulatory [facility] Facility:[facility] Start: 11-24-2024 End: 11-24-[address] Sandro Tyler [facility] Work Phone: Start: 11-24-2024 End: 11-24-2024 ambulatory [facility] Start: 11-21-2024 Non-patient / Non-visit Lea Avila si, LPN [facility] Work Phone: Start: 11-21-2024 ambulatory [facility] Start: 11-15-2024 End: 11-15-[address] Eduardo Lynne MD -[facility] Start: 11-15-2024 End: 11-15-2024 ambulatory [facility] Facility:[facility] Start: 11-07-2024 End: 11-07-[address] Eduardo Lynne MD -Laboratory Work Phone: Start: 11-07-2024 End: 11-07-2024 ambulatory [facility] Facility:[facility] Start: 10-31-2024 End: 10-31-[address] Eduardo Lynne MD -Laboratory Work Phone: Start: 10-31-2024 End: 10-31-2024 ambulatory [facility] Facility:[facility] Start: 10-05-2024 ambulatory [facility] Start: 10-05-2024 Non-patient / Non-visit Beata Wing MD Work Phone: -[facility] Work Phone: Start: 09-07-2024 End: 09-08-2024 ambulatory [facility]cca Facility:[facility] Start: 09-01-2024 End: 09-01-2024 ambulatory Chalon Mecca Facility:[facility] Start: 08-19-2024 Encounter for preprocedural laboratory examination Eduardo Lynne [facility] Start: 08-08-2024 End: 08-08-2024 ambulatory [facility]on Mecca Facility:[facility] Start: 07-28-2024 End: 07-28-2024 ambulatory Eduardo Lynne Facility:[facility] Start: 07-22-2024 End: 07-22-2024 ambulatory Eduardo Lynne Facility:[facility] Start: 07-05-2024 End: 07-05-2024 ambulatory Eduardo Lynne Facility:[facility] Start: 06-10-2024 Encounter for genera l adult medical examination without abnormal findings [facility] Mecca [facility] Start: 05-20-2024 End: 05-20-2024 ambulatory Beata Phelpske Facility:[facility] Procedures Date Procedure Procedure Detail Performing Clinician Start: 03-27-2025 Assay of prostate sp ecific antigen total Beata Wing MD Work Phone: Comment on above: This test was perfor med using the [employer] tPSA method. Measured values of a patient sample can vary depending on the testing procedure used. PSA values determined on patient samples by different testing procedures cannot be used interchangeably. If there is a change in PSA assays while monitoring therapy, sequential testing should be performed to confirm baseline values. Start: 03-27-2025 Estimated creatinine clearance Beata Wing MD Work Phone: Start: 03-01-2025 Estimated creatinine clearance Beata Wing MD Work Phone: Start: 02-28-2025 Coagulation time, activated Beata Wing MD Work Phone: Start: 02-28-2025 Plain chest X-ray Ethan Wing MD Work Phone: Start: 02-28-2025 D-dimer assay, quantitative Beata Wing MD Work Phone: Comment on above: NORMAL D-Dimer level (<0.50) indicates no DVT or PE. Start: 01-03-2025 MRI of pelvis with contrast Beata Wing MD Work Phone: Start: 12-19-2024 Creatinine blood Beata Wing MD Work Phone: Start: 11-15-2024 PET study for locali zation of tumor Beata Wing MD Work Phone: Start: 11-07-2024 Assay of prostate sp ecific antigen total Beata Wing MD Work Phone: Comment on above: This test was perfor med using the TPSA assay method for the[employer] chemistry system. Values obtained with differentassay methods cannot be used interchangably.When changing PSA assays in the course of monitoring apatient, additional sequential testing should be carriedout to confirm baseline values. Start: 11-07-2024 Measurement of renal function Beata Wing MD Work Phone: Comment on above: GFR Calc Plan of Treatment Date Care Activity Detail Author Start: 04-05-2025 ambulatory Ambulatory Facility:[facility] Start: 03-27-2025 [facility] Start: 03-01-2025 Patient discharge [facility] Start: 03-01-2025 Care planning and problem solving actions [facility] Start: 03-01-2025 Patient referral to dietitian [facility] Start: 02-28-2025 Patient referral [facility] Work Phone: Start: 02-28-2025 [facility] Start: 02-28-2025 Following clinical pathway protocol [facility] Start: 02-28-2025 Ambulation without limitation [facility] Start: 02-28-2025 Pulse taking [facility] Start: 02-28-2025 Cardiac monitoring [facility] Start: 02-28-2025 Cardiac rehabilitation - phase 1 [facility] Start: 02-28-2025 Cardiac rehabilitation - phase 2 [facility] Start: 02-28-2025 End: 02-28-2025 Notification of physician [facility] Start: 02-28-2025 Patient discharge [facility] Start: 02-28-2025 Taking patient vital signs [facility] Start: 02-28-2025 Vascular disease risk assessment [facility] Start: 02-28-2025 End: 02-28-2025 [facility] Start: 02-28-2025 Assessment of risk of venous thromboembolism [facility] Start: 02-28-2025 Continuous pulse oximetry [facility] Start: 02-28-2025 Insertion of catheter into peripheral vein [facility] Start: 02-28-2025 Measuring intake and output [facility] Start: 02-28-2025 Oxygen therapy [facility] Start: 02-28-2025 Providing care according to standard [facility] Start: 02-28-2025 Referral to coremaker floor [facility] Start: 02-28-2025 Vital signs measurements [facility] Start: 02-28-2025 Preoperative care [facility] Start: 02-28-2025 Catheterization of vein [facility] Start: 02-28-2025 Medication not administered [facility] Start: 02-28-2025 [facility] Start: 02-28-2025 Admission procedure [facility] Start: 02-28-2025 [facility] Start: 02-28-2025 Inhalation therapy procedure [facility] Start: 12-07-2024 Colonoscopy flx dx w/collj spec when pfrmd DIAGNOSTIC COLONOSCOPY [facility] Start: 12-07-2024 Patient discharge [facility] Colonoscopy [facility] Patient referral [facility] Work Phone: Prostate specific an tigen measurement [facility] Payers Date Payer Category Payer Unknown [id number] 2024 Self-pay 2024 Unknown [id number] 2e [id number] Unknown [id number] 2.16.8 40.1.600640.3.579.2.462 Unknown [id number] 2.16.8 40.1.590852.3.579.2.462 Unknown [id number] 2.16.8 40.1.892173.3.579.2.462 Unknown [id number] 2.16.8 40.1.451675.3.579.2.462 Unknown [id number] 2.16.8 40.1.430123.3.579.2.462 Unknown [id number] 2.16.8 40.1.808238.3.579.2.462 Unknown [id number] 2.16.8 40.1.020767.3.579.2.462 Unknown [id number] 2.16.8 40.1.184647.3.579.2.462 Unknown [id number] 2.16.8 40.1.738293.3.579.2.462 Unknown [id number] 2.16.8 40.1.111184.3.579.2.462 Unknown [id number] 2.16.8 40.1.431693.3.579.2.462 Unknown [id number] 2.16.8 40.1.953906.3.579.2.462 Unknown [id number] 2.16.8 40.1.220613.3.579.2.462 Unknown [id number] 2.16.8 40.1.423265.3.579.2.462 Unknown [id number] 2.16.8 40.1.274082.3.579.2.462 Unknown [id number] 2.16.8 40.1.029650.3.579.2.462 Unknown [id number] 2.16.8 40.1.354896.3.579.2.462 Unknown [id number] 2.16.8 40.1.072382.3.579.2.462 Unknown [id number] 2.16.8 40.1.769946.3.579.2.462 Unknown [id number] 2.16.8 40.1.629437.3.579.2.462 Unknown [id number] 2.16.8 40.1.822208.3.579.2.462 Unknown [id number] 2.16.8 40.1.626745.3.579.2.462 Unknown [id number] 2.16.8 40.1.681252.3.579.2.462 Unknown [id number] 2.16.8 40.1.488027.3.579.2.462 Unknown [id number] 2.16.8 40.1.916557.3.579.2.462 Unknown [id number] 2.16.8 40.1.138136.3.579.2.462 Unknown [id number] 2.16.8 40.1.261230.3.579.2.462 Unknown [id number] 2.16.8 40.1.059122.3.579.2.462 Unknown [id number] 2.16.8 40.1.720670.3.579.2.462 Unknown [id number] 2.16.8 40.1.718614.3.579.2.462 Unknown [id number] 2.16.8 40.1.002522.3.579.2.462 Unknown [id number] 2.16.8 40.1.516114.3.579.2.462 Unknown [id number] 2.16.8 40.1.032606.3.579.2.462 Unknown [id number] 2.16.8 40.1.501210.3.579.2.462 Unknown [id number] 2.16.8 40.1.680805.3.579.2.462 Unknown [id number] 2.16.8 40.1.538869.3.579.2.462 Unknown [id number] 2.16.8 40.1.480830.3.579.2.462 Social History Date Type Detail Facility Start: 12-07-2024 End: 02-28-2025 Tobacco smoking status [facility] Never smoked tobacco (finding) [facility] Start: 01-07-2025 Sex Male (finding) [facility] Start: 1960 Sex Assigned At Male W [facility] Medical Equipment Procedure Code Equipment Code Equipment Origin al Text Equipment Identifier Dates Robot-assisted laparoscopic radical prostatectomy ISAIAH BE LG FDA Start: 09-07-2024 Robot-assisted laparoscopic radical prostatectomy ISAIAH BE LG FDA Start: 09-07-2024 Robot-assisted laparoscopic radical prostatectomy Gelatin haemostatic agent [id number] FDA Start: 09-07-2024 Robot-assisted laparoscopic radical prostatectomy Ligation clip, synthetic polymer, non-bioabsorbable ()[id number] FDA Start: 09-07-2024 Robot-assisted laparoscopic radical prostatectomy ISAIAH BE LG FDA Start: 09-07-2024 Robot-assisted laparoscopic radical prostatectomy ISAIAH BE LG FDA Start: 09-07-2024 Robot-assisted laparoscopic radical prostatectomy ISAIAH BE LG FDA Start: 09-07-2024 Robot-assisted laparoscopic radical prostatectomy CLIP,ISAIAH WESLEY FDA Start: 09-07-2024 Robot-assisted laparoscopic radical prostatectomy CLIP,ISAIAH WESLEY FDA Start: 09-07-2024 Robot-assisted laparoscopic radical prostatectomy CLIP,ISAIAH WESLEY FDA Start: 09-07-2024 Drug-eluting coronary artery stent, xbe-qptgouzijkiju-j olymer-coated ()[id number] FDA Start: 02-28-2025 Drug-eluting coronary artery stent, nii-rmjzuktinbzri-e olymer-coated ()[id number] FDA Start: 02-28-2025 Goals Date Patient Goal Desired Activity /State Functional Status Date Assessment Result Facility 03-01-2025 Functional status Ambulates;Bathroom Priv ilege [facility] Work Phone: Mental Status Date Assessment Result Facility 03-01-2025 Cognitive function Voice/Name [facility] Work Phone: 12-07-2024 Cognitive function Level Of Consciousness Sedated [facility] Work Phone: 12-07-2024 Cognitive function Voice/Name [facility] Work Phone: Clinical Notes 09-07-2024 to 03-01-2025 Note Date & Type Note Facility 03-01-2025 Discharge summary Note Date/Time March 01, 2025 3:28pm [facility] Medical Records Department [address] [place] [address] Discharge Summary 03/01/25 1451 MR#: [id number] Acct: [id number] Name: CELESTE IBRAHIM Rep #:[id number] : 1960 64 From: Alvaro Sunshine DO PCP: Dr. Beata Wing MD Status:ADM IN Location: ICU CVICU20 3-1 Providers Date of Admission: 02/28/25 Primary Care Physician: Beata Wing MD Consultations 02/28/25 10:44 Consult: Cardiology Routine Consulting Provider: Jim Mcdonnell Reason for Consult: Chest Pain EMERGENT Consult: No MD Notified: Yes Date Notified: 02/28/25 Time Notified: 07:27 Method of Notification: ED Physician Initiated Reason For Visit: CHEST PAIN, EKG CHANGES, HIGH NITRO GTT Diagnosis Discharge Diagnosis (1) NSTEMI, initial episode of care: Status: Acute Code(s): I21.4 - Non-ST elevation (NSTEMI) myocardial infarction Plan: s/p EDA to lateral D1 and Proximal D1 on 02/28 on ASA, clopidogrel, atorvastatin echo shows mild concentric LVH. Mild mid to distal anterior hypokinesis. Basal lateral hypokinesis. EF 50-55%. Plan Chronic conditions: * HTN: stable. continue amlodipine, lisinopril * prostate CA: s/p prostatectomy. outpt follow up . VTE prophylaxis: SCDs Medications at Discharge Home Medications diphenhydramine HCl 25 mg capsule (Benadryl) 25 mg PO QHS 08/24/24 hydroxyzine HCl 25 mg tablet 25 mg PO BID PRN PRN anxiety 08/24/24 oxybutynin chloride 5 mg tablet 5 mg PO BID PRN bladder spasms 10/05/24 lorazepam 1 mg tablet 1 mg PO ONCE PRN anxiety #1 TAB 12/28/24 aspirin 81 mg tablet,delayed release 81 mg PO DAILY@0800 #0 tabs 03/01/25 atorvastatin 40 mg tablet 40 mg PO QHS #30 tabs 03/01/25 carvedilol 3.125 mg tablet 3.125 mg PO BID #60 tabs 03/01/25 clopidogrel 75 mg tablet 75 mg PO DAILY #30 tabs 03/01/25 empagliflozin 10 mg tablet (Jardiance) 10 mg PO DAILY #30 tabs 03/01/25 lisinopril 10 mg tablet 10 mg PO DAILY #30 tabs 03/01/25 Hospital Course Operations None Procedures 2-D Echocardiogram and Cardiac catheterization Summary of Care Provided Minutes Spent on Discharge: 35 Hospital Course: Patient presents with chest pain and non-STEMI. 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 Patient felt better afterwards. Patient be on dual antiplatelet therapy as well as atorvastatin, lisinopril and carvedilol. Patient did have TSH that was elevated but his free T4 was normal. Patient did have some high blood sugars around 200 but since of us since stabilized. His A1c is 6.2. Patient will follow-up with cardiology song week's time. Weight / BMI Weight Weight: 83.4 kg Body Mass Index (BMI) 27.2 ABG / Lab / Microbiology Data 03/01/25 05:25 03/01/25 05:25 Laboratory: Laboratory Results - last 24 hr 03/01/25 05:25: WBC 6.6, RBC 3.81 L, Hgb 11.8 L, Hct 33.2 L, MCV 87.1, MCH 31.0,MCHC 35.5, RDW Std Deviation 45.5 H, RDW Coeff of Nazanin 14.4, Plt Count 233, MPV 9.0, Immature Gran % (Auto) 0.500, Neut % (Auto) 72.2 H, Lymph % (Auto) 8.6 L, Chase % (Auto) 10.8 H, Eos % (Auto) 7.1 H, Baso % (Auto) 0.8, Absolute Neuts (auto) 4.8, Absolute Lymphs (auto) 0.57 L, Nucleated RBC % 0, Sodium 139, Potassium 4.2, Chloride 107, Carbon Dioxide 20.1 L, Anion Gap 12, BUN 8, Creatinine 0.88, Estim Creat Clear Calc 85.92, Est GFR (MDRD) Non-Af 97, BUN/Creatinine Ratio 9.5 L, Glucose 127 H, Hemoglobin A1c 6.2 H, Calcium 9.2, Total Bilirubin 0.65, AST 90 H, ALT 35, Alkaline Phosphatase 93, Total Protein 6.5, Albumin 4.0, Globulin 2.5, Albumin/Globulin Ratio 1.6, Triglycerides 240 H,Cholesterol 173, LDL Cholesterol, Calc 83, VLDL Cholesterol 48 H, HDL Cholesterol 43, Cholesterol/HDL Ratio 4.07, TSH 4.610 H, Free T4 1.00 Radiography Diagnostic Testing: Radiology Impression Echocardiogram 02/28/25 18:06 Interpretation Summary Mild concentric left ventricular hypertrophy. Mild mid to distal anterior hypokinesis. Basal lateral hypokinesis. Overall estimated LVEF 50-55%. Stage I diastolic dysfunction. Mild diffuse aortic valve thickening. Ordering Physician: Marge Steinberg Referring Physician: Beata Wing Performed By: Cassandra Rojas RDCS, RVT D/C Instructions Discharge Diet: Low fat / Low cholesterol DC O2, CPAP, BIPAP Needs Home O2 Discharge instructions: No Meaningful Use Info Meaningful Use Meaningful Use Diagnoses (Choose all that apply): AMI AMI/Post PCI/Angioplasty Aspirin given w/in 24hrs of arrival?: Yes ASA at discharge?: Yes Antiplatelet Therapy at Discharge:: Yes Statins at discharge?: Yes Pat/ARB at discharge?: Yes Beta Ladonna at discharge?: Yes Done w/ Acute TN measure.: Yes Documented LVEF (%): 50 Ischemic Stroke Statin Dosing Therapy Reference: STATIN DOSE THERAPY REFERENCE: * Patients > 75 years receive moderate or high dose statin therapy. * Patients 75 years or YOUNGER should receive HIGH intensity statin dose unless contraindicated. You will be required to document reason for non-treatment if statin daily dose does not meet guidelines. HIGH DOSE STATIN THERAPY DAILY Atorvastatin > than or = to 40 mg Rosuvastatin > than or = to 20 mg Amlodipine + Atorvastatin > than or = to 2.5/40 mg Ezetimibe + Simvastatin 10/80 mg Simvastatin 80mg Discharge Plan Admission Admit Date/Time: 02/28/25 07:17 Primary Reason for Your Visit: NSTEMI Attending Provider: Alvaro Sunshine Primary Care Provider: Beata Wing Consulting Providers: Roman Calzada; Jim Mcdonnell; Branid Resendiz Instructions Additional Instructions / Restrictions: Follow up with cardiology in 1 week. Call for appointment. Discharge Orders/Prescriptions Prescriptions: New atorvastatin 40 mg Tablet 40 mg PO QHS Qty: 30 0RF clopidogrel 75 mg Tablet 75 mg PO DAILY Qty: 30 0RF aspirin 81 mg Tablet,Delayed Release (Dr/Ec) 81 mg PO DAILY@0800 Qty: 0 0RF carvedilol 3.125 mg Tablet 3.125 mg PO BID Qty: 60 0RF lisinopril 10 mg Tablet 10 mg PO DAILY Qty: 30 0RF Jardiance 10 mg tablet 10 mg PO DAILY Qty: 30 0RF Continued oxybutynin chloride 5 mg tablet 5 mg PO BID PRN (Reason: bladder spasms) hydroxyzine HCl 25 mg tablet 25 mg PO BID PRN PRN (Reason: anxiety) diphenhydramine HCl [Benadryl] 25 mg capsule 25 mg PO QHS lorazepam 1 mg tablet 1 mg PO ONCE PRN (Reason: anxiety) Qty: 1 0RF Rx Instructions: take 1 tab PO 30 min prior to MRI Referrals / Follow Up: [facility] [Provider Group] - Within 1 Week Beata Wing MD [Primary Care Provider] - Within 2 Weeks Disposition Disposition (needs filled in before D/C Order can be placed): Home, Self Care Charges/Coding Visit Charges Inpatient E&M: 30299 Disch Hosp >30min 03/01/25 1528 <Electronically signed by Alvaro Sunshine DO> Cosigner Signature (if applicable): CC: Dr. Beata Wing MD; Dr. Alvaro Sunshine DO~ Signed [facility] Work Phone: 1(772) 878-995705-07-2025 Progress note Author Alvarovicki Sunshine [facility] Note Date/Time March 01, 2025 2:06pm [facility] Medical Records Department [address] [place] [address] Progress Note - Hospitalist 03/01/25711 MR#: [id number] Acct: [id number] Name: CELESTE IBRAHIM Rep #:[id number] : 1960 64 From: Alvaro Sunshine DO PCP: Dr. 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 No new events. Objective Data Objective Data Vital Signs: Vital Signs Temp Pulse Resp BP Pulse Ox O2 Del Method 36.4 C L 75 14 112/75 100 Room Air 03/01/25 04:00 03/01/25 07:00 03/01/25 07:00 03/01/25 07:00 03/01/25 07:00 03/01/25 07:00 Oxygen Delivery Method Room Air Weight: 83.4 kg Body Mass Index (BMI) 27.2 Intake & Output: Intake and Output for Last 24 Hours 02/27/25 02/28/25 03/01/25 23:59 23:59 23:59 Intake Total 1958.8 / 2078.8 120 / 120 Output Total 800 / 800 800 / 800 Balance 1158.8 / 1278.8 -680 / -680 Lab / Micro Data 03/01/25 05:25 03/01/25 05:25 Labs: Laboratory Results - last 24 hr 02/28/25 07:56: PT 13.9, INR 1.1, APTT 102.5 H*, Troponin T Hi Sens 4Hr 96 H* 02/28/25 08:22: Activated Clotting Time 176 H 02/28/25 08:38: Activated Clotting Time 233 H 02/28/25 09:33: Activated Clotting Time 273 H 03/01/25 05:25: WBC 6.6, RBC 3.81 L, Hgb 11.8 L, Hct 33.2 L, MCV 87.1, MCH 31.0,MCHC 35.5, RDW Std Deviation 45.5 H, RDW Coeff of Nazanin 14.4, Plt Count 233, MPV 9.0, Immature Gran % (Auto) 0.500, Neut % (Auto) 72.2 H, Lymph % (Auto) 8.6 L, Chase % (Auto) 10.8 H, Eos % (Auto) 7.1 H, Baso % (Auto) 0.8, Absolute Neuts (auto) 4.8, Absolute Lymphs (auto) 0.57 L, Nucleated RBC % 0, Sodium 139, Potassium 4.2, Chloride 107, Carbon Dioxide 20.1 L, Anion Gap 12, BUN 8, Creatinine 0.88, Estim Creat Clear Calc 85.92, Est GFR (MDRD) Non-Af 97, BUN/Creatinine Ratio 9.5 L, Glucose 127 H, Hemoglobin A1c 6.2 H, Calcium 9.2, Total Bilirubin 0.65, AST 90 H, ALT 35, Alkaline Phosphatase 93, Total Protein 6.5, Albumin 4.0, Globulin 2.5, Albumin/Globulin Ratio 1.6, Triglycerides 240 H,Cholesterol 173, LDL Cholesterol, Calc 83, VLDL Cholesterol 48 H, HDL Cholesterol 43, Cholesterol/HDL Ratio 4.07, TSH 4.610 H Physical Exam Const alert and no apparent distress HEENT head/scalp atraumatic and moist oral mucous membranes Resp normal respiratory effort, no retractions, no use of accessory muscles and clearto auscultation bilaterally Cardio regular rate, regular rhythm, S1 normal heart sound and S2 normal heart sound GI normal to inspection, nondistended, normoactive bowel sounds, soft to palpation,non-tender and non-distended Neuro Sensorium / Orientation: awake, alert, oriented to person and oriented to place Assessment & Plan Assessment/Plan (1) NSTEMI, initial episode of care: PLAN: s/p EDA to lateral D1 and Proximal D1 on 5/6 on ASA, clopidogrel, atorvastatin echo shows mild concentric LVH. Mild mid to distal anterior hypokinesis. Basal lateral hypokinesis. EF 50-55%. PLAN: Plan Chronic conditions: * HTN: stable. continue amlodipine, lisinopril * prostate CA: s/p prostatectomy. outpt follow up . VTE prophylaxis: SCDs Charges/Coding Visit Charges Inpatient E&M: 59816 Subs Hosp L2 03/01/25 1406 <Electronically signed by Alvaro Sunshine DO> Cosigner Signature (if applicable): CC: ~ Signed [facility] Work Phone: 1(721) 146-992005-07-2025 Discharge summary [facility] Medical Records Department [address] [place] [id number] Discharge Summary 03/01/25 1451 MR#: [id number] Acct: [id number] Name: CELESTE IBRAHIM Rep #:[id number] : 1960 64 From: Alvaro Sunshine DO PCP: Dr. Beata Wing MD Status:ADM IN Location: ICU CVICU20 3-1 Providers Date of Admission: 02/28/25 Primary Care Physician: Beata Wing MD Consultations 02/28/25 10:44 Consult: Cardiology Routine Consulting Provider: Jim Mcdonnell Reason for Consult: Chest Pain EMERGENT Consult: No MD Notified: Yes Date Notified: 02/28/25 Time Notified: 07:27 Method of Notification: ED Physician Initiated Reason For Visit: CHEST PAIN, EKG CHANGES, HIGH NITRO GTT Diagnosis Discharge Diagnosis (1) NSTEMI, initial episode of care: Status: Acute Code(s): I21.4 - Non-ST elevation (NSTEMI) myocardial infarction Plan: s/p EDA to lateral D1 and Proximal D1 on 02/28 on ASA, clopidogrel, atorvastatin echo shows mild concentric LVH. Mild mid to distal anterior hypokinesis. Basal lateral hypokinesis.EF 50-55%. Plan Chronic conditions: * HTN: stable. continue amlodipine, lisinopril * prostate CA: s/p prostatectomy. outpt follow up . VTE prophylaxis: SCDs Medications at Discharge Home Medications diphenhydramine HCl 25 mg capsule (Benadryl) 25 mg PO QHS 08/24/24 hydroxyzine HCl 25 mg tablet 25 mg PO BID PRN PRN anxiety 08/24/24 oxybutynin chloride 5 mg tablet 5 mg PO BID PRN bladder spasms 10/05/24 lorazepam 1 mg tablet 1 mg PO ONCE PRN anxiety #1 TAB 12/28/24 aspirin 81 mg tablet,delayed release 81 mg PO DAILY@0800 #0 tabs 03/01/25 atorvastatin 40 mg tablet 40 mg PO QHS #30 tabs 03/01/25 carvedilol 3.125 mg tablet 3.125 mg PO BID #60 tabs 03/01/25 clopidogrel 75 mg tablet 75 mg PO DAILY #30 tabs 03/01/25 empagliflozin 10 mg tablet (Jardiance) 10 mg PO DAILY #30 tabs 03/01/25 lisinopril 10 mg tablet 10 mg PO DAILY #30 tabs 03/01/25 Hospital Course Operations None Procedures 2-D Echocardiogram and Cardiac catheterization Summary of Care Provided Minutes Spent on Discharge: 35 Hospital Course: Patient presents with chest pain and non-STEMI. 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 Patient felt better afterwards. Patient be on dual antiplatelet therapy as well as atorvastatin, lisinopril and carvedilol. Patient did have TSH that was elevated but his free T4 was normal. Patient did have some high blood sugars around 200 but since of us since stabilized. His A1c is 6.2. Patient will follow-up with cardiology song week's time. Weight / BMI Weight Weight: 83.4 kg Body Mass Index (BMI) 27.2 ABG / Lab / Microbiology Data 03/01/25 05:25 03/01/25 05:25 Laboratory: Laboratory Results - last 24 hr 03/01/25 05:25: WBC 6.6, RBC 3.81 L, Hgb 11.8 L, Hct 33.2 L, MCV 87.1, MCH 31.0,MCHC 35.5, RDW Std Deviation 45.5 H, RDW Coeff of Nazanin 14.4, Plt Count 233, MPV 9.0, Immature Gran % (Auto) 0.500, Neut % (Auto) 72.2 H, Lymph % (Auto) 8.6 L, Chase % (Auto) 10.8 H, Eos % (Auto) 7.1 H, Baso % (Auto) 0.8, Absolute Neuts (auto) 4.8, Absolute Lymphs (auto) 0.57 L, Nucleated RBC % 0, Sodium 139, Potassium 4.2, Chloride 107, Carbon Dioxide 20.1 L, Anion Gap 12, BUN 8, Creatinine 0.88, Estim Creat Clear Calc 85.92, Est GFR (MDRD) Non-Af 97, BUN/Creatinine Ratio 9.5 L, Glucose 127 H, Hemoglobin A1c 6.2 H, Calcium 9.2, Total Bilirubin 0.65, AST 90 H, ALT 35, Alkaline Phosphatase 93, Total Protein 6.5, Albumin 4.0, Globulin 2.5, Albumin/Globulin Ratio 1.6, Triglycerides 240 H,Cholesterol 173, LDL Cholesterol, Calc 83, VLDL Cholesterol 48 H, HDL Cholesterol 43, Cholesterol/HDL Ratio 4.07, TSH 4.610 H, Free T4 1.00 Radiography Diagnostic Testing: Radiology Impression Echocardiogram 02/28/25 18:06 Interpretation Summary Mild concentric left ventricular hypertrophy. Mild mid to distal anterior hypokinesis. Basal lateral hypokinesis. Overall estimated LVEF 50-55%. Stage I diastolic dysfunction. Mild diffuse aortic valve thickening. Ordering Physician: Marge Steinberg Referring Physician: Beata Wing Performed By: Cassandra Rojas, ASAD, RVT D/C Instructions Discharge Diet: Low fat / Low cholesterol DC O2, CPAP, BIPAP Needs Home O2 Discharge instructions: No Meaningful Use Info Meaningful Use Meaningful Use Diagnoses (Choose all that apply): AMI AMI/Post PCI/Angioplasty Aspirin given w/in 24hrs of arrival?: Yes ASA at discharge?: Yes Antiplatelet Therapy at Discharge:: Yes Statins at discharge?: Yes Pat/ARB at discharge?: Yes Beta Ladonna at discharge?: Yes Done w/ Acute [place] measure.: Yes Documented LVEF (%): 50 Ischemic Stroke Statin Dosing Therapy Reference: STATIN DOSE THERAPY REFERENCE: * Patients > 75 years receive moderate or high dose statin therapy. * Patients 75 years or YOUNGER should receive HIGH intensity statin dose unless contraindicated. You will be required to document reason for non-treatment if statin daily dose does not meet guidelines. HIGH DOSE STATIN THERAPY DAILY Atorvastatin > than or = to 40 mg Rosuvastatin > than or = to 20 mg Amlodipine + Atorvastatin > than or = to 2.5/40 mg Ezetimibe + Simvastatin 10/80 mg Simvastatin 80mg Discharge Plan Admission Admit Date/Time: 02/28/25 07:17 Primary Reason for Your Visit: NSTEMI Attending Provider: Alvaro Sunshine Primary Care Provider: Beata Wing Consulting Providers: Roman Calzada; Jim Mcdonnell; Brandi Resendiz Instructions Additional Instructions / Restrictions: Follow up with cardiology in 1 week. Call for appointment. Discharge Orders/Prescriptions Prescriptions: New atorvastatin 40 mg Tablet 40 mg PO QHS Qty: 30 0RF clopidogrel 75 mg Tablet 75 mg PO DAILY Qty: 30 0RF aspirin 81 mg Tablet,Delayed Release (Dr/Ec) 81 mg PO DAILY@0800 Qty: 0 0RF carvedilol 3.125 mg Tablet 3.125 mg PO BID Qty: 60 0RF lisinopril 10 mg Tablet 10 mg PO DAILY Qty: 30 0RF Jardiance 10 mg tablet 10 mg PO DAILY Qty: 30 0RF Continued oxybutynin chloride 5 mg tablet 5 mg PO BID PRN (Reason: bladder spasms) hydroxyzine HCl 25 mg tablet 25 mg PO BID PRN PRN (Reason: anxiety) diphenhydramine HCl [Benadryl] 25 mg capsule 25 mg PO QHS lorazepam 1 mg tablet 1 mg PO ONCE PRN (Reason: anxiety) Qty: 1 0RF Rx Instructions: take 1 tab PO 30 min prior to MRI Referrals / Follow Up: [facility] [Provider Group] - Within 1 Week Beaat Wing MD [Primary Care Provider] - Within 2 Weeks Disposition Disposition (needs filled in before D/C Order can be placed): Home, Self Care Charges/Coding Visit Charges Inpatient E&M: 39007 Disch Hosp >30min 03/01/25 1528 Cosigner Signature (if applicable): CC: Dr. Beata Wing MD; Dr. Alvaro Sunshine DO~ Signed [facility]05-07-2025 [facility] Medical Records Department [address] [place] [address] Discharge Summary 03/01/25 1451 MR#: [id number] Acct: [id number] Name: CELESTE IBRAHIM Rep #: [id number] : 1960 64 From: Alvaro Sunshine DO PCP: Dr. Beata Wing MD Status:ADM IN Location: ICU [id number] Providers Date of Admission: 02/28/25 Primary Care Physician: Beata Wing MD Consultations 02/28/25 10:44 Consult: Cardiology Routine Consulting Provider: Jim Mcdonnell Reason for Consult: Chest Pain EMERGENT Consult: No MD Notified: Yes Date Notified: 02/28/25 Time Notified: 07:27 Method of Notification: ED Physician Initiated Reason For Visit: CHEST PAIN, EKG CHANGES, HIGH NITRO GTT Diagnosis Discharge Diagnosis (1) NSTEMI, initial episode of care: Status: Acute Code(s): I21.4 - Non-ST elevation (NSTEMI) myocardial infarction Plan: s/p EDA to lateral D1 and Proximal D1 on 02/28 on ASA, clopidogrel, atorvastatin echo shows mild concentric LVH. Mild mid to distal anterior hypokinesis. Basal lateral hypokinesis. EF 50-55%. Plan Chronic conditions: * HTN: stable. continue amlodipine, lisinopril * prostate CA: s/p prostatectomy. outpt follow up . VTE prophylaxis: SCDs Medications at Discharge Home Medications diphenhydramine HCl 25 mg capsule (Benadryl) 25 mg PO QHS 08/24/24 hydroxyzine HCl 25 mg tablet 25 mg PO BID PRN PRN anxiety 08/24/24 oxybutynin chloride 5 mg tablet 5 mg PO BID PRN bladder spasms 10/05/24 lorazepam 1 mg tablet 1 mg PO ONCE PRN anxiety #1 TAB 12/28/24 aspirin 81 mg tablet,delayed release 81 mg PO DAILY@0800 #0 tabs 03/01/25 atorvastatin 40 mg tablet 40 mg PO QHS #30 tabs 03/01/25 carvedilol 3.125 mg tablet 3.125 mg PO BID #60 tabs 03/01/25 clopidogrel 75 mg tablet 75 mg PO DAILY #30 tabs 03/01/25 empagliflozin 10 mg tablet (Jardiance) 10 mg PO DAILY #30 tabs 03/01/25 lisinopril 10 mg tablet 10 mg PO DAILY #30 tabs 03/01/25 Hospital Course Operations None Procedures 2-D Echocardiogram and Cardiac catheterization Summary of Care Provided Minutes Spent on Discharge: 35 Hospital Course: Patient presents with chest pain and non-STEMI. 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 Patient felt better afterwards. Patient be on dual antiplatelet therapy as well as atorvastatin, lisinopril and carvedilol. Patient did have TSH that was elevated but his free T4 was normal. Patient did have some high blood sugars around 200 but since of us since stabilized. His A1c is 6.2. Patient will follow-up with cardiology in a week's time. Weight / BMI Weight Weight: 83.4 kg Body Mass Index (BMI) 27.2 ABG / Lab / Microbiology Data 03/01/25 05:25 03/01/25 05:25 Laboratory: Laboratory Results - last 24 hr 03/01/25 05:25: WBC 6.6, RBC 3.81 L, Hgb 11.8 L, Hct 33.2 L, MCV 87.1, MCH 31.0, MCHC 35.5, RDW Std Deviation 45.5 H, RDW Coeff of Nazanin 14.4, Plt Count 233, MPV 9.0, Immature Gran % (Auto) 0.500, Neut % (Auto) 72.2 H, Lymph % (Auto) 8.6 L, Chase % (Auto) 10.8 H, Eos % (Auto) 7.1 H, Baso % (Auto) 0.8, Absolute Neuts (auto) 4.8, Absolute Lymphs (auto) 0.57 L, Nucleated RBC % 0, Sodium 139, Potassium 4.2, Chloride 107, Carbon Dioxide 20.1 L, Anion Gap 12, BUN 8, Creatinine 0.88, Estim Creat Clear Calc 85.92, Est GFR (MDRD) Non-Af 97, BUN/Creatinine Ratio 9.5 L, Glucose 127 H, Hemoglobin A1c 6.2 H, Calcium 9.2, Total Bilirubin 0.65, AST 90 H, ALT 35, Alkaline Phosphatase 93, Total Protein 6.5, Albumin 4.0, Globulin 2.5, Albumin/Globulin Ratio 1.6, Triglycerides 240 H, Cholesterol 173, LDL Cholesterol, Calc 83, VLDL Cholesterol 48 H, HDL Cholesterol 43, Cholesterol/HDL Ratio 4.07, TSH 4.610 H, Free T4 1.00 Radiography Diagnostic Testing: Radiology Impression Echocardiogram 02/28/25 18:06 Interpretation Summary Mild concentric left ventricular hypertrophy. Mild mid to distal anterior hypokinesis. Basal lateral hypokinesis. Overall estimated LVEF 50-55%. Stage I diastolic dysfunction. Mild diffuse aortic valve thickening. Ordering Physician: Marge Steinberg Referring Physician: Beata Wing Performed By: Cassandra Rojas, ASAD, RVT D/C Instructions Discharge Diet: Low fat / Low cholesterol DC O2, CPAP, BIPAP Needs Home O2 Discharge instructions: No Meaningful Use Info Meaningful Use Meaningful Use Diagnoses (Choose all that apply): AMI AMI/Post PCI/Angioplasty Aspirin given w/in 24hrs of arrival?: Yes ASA at discharge?: Yes Antiplatelet Therapy at Discharge:: Yes Statins at discharge?: Yes Pat/ARB at discharge?: Yes Beta Lad[place] at discharge?: Yes Done w/ Acute [place] measure.: Yes Documented LVEF (%): 5 (more content not included)...[facility] 03-01-2025 Progress note [facility] Medical Records Department [address] [place] [address] Progress Note - Hospitalist 03/01/25 0712 MR#: [id number] Acct: [id number] Name: CELESTE IBRAHIM Rep #:[id number] : 1960 64 From: Alvaro Sunshine DO PCP: Dr. 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 No new events. Objective Data Objective Data Vital Signs: Vital Signs Temp Pulse Resp BP Pulse Ox O2 Del Method 36.4 C L 75 14 112/75 100 Room Air 03/01/25 04:00 03/01/25 07:00 03/01/25 07:00 03/01/25 07:00 03/01/25 07:00 03/01/25 07:00 Oxygen Delivery Method Room Air Weight: 83.4 kg Body Mass Index (BMI) 27.2 Intake & Output: Intake and Output for Last 24 Hours 02/27/25 02/28/25 03/01/25 23:59 23:59 23:59 Intake Total 1958.8 / 2078.8 120 / 120 Output Total 800 / 800 800 / 800 Balance 1158.8 / 1278.8 -680 / -680 Lab / Micro Data 03/01/25 05:25 03/01/25 05:25 Labs: Laboratory Results - last 24 hr 02/28/25 07:56: PT 13.9, INR 1.1, APTT 102.5 H*, Troponin T Hi Sens 4Hr 96 H* 02/28/25 08:22: Activated Clotting Time 176 H 02/28/25 08:38: Activated Clotting Time 233 H 02/28/25 09:33: Activated Clotting Time 273 H 03/01/25 05:25: WBC 6.6, RBC 3.81 L, Hgb 11.8 L, Hct 33.2 L, MCV 87.1, MCH 31.0,MCHC 35.5, RDW Std Deviation 45.5 H, RDW Coeff of Nazanin 14.4, Plt Count 233, MPV 9.0, Immature Gran % (Auto) 0.500, Neut % (Auto) 72.2 H, Lymph % (Auto) 8.6 L, Chase % (Auto) 10.8 H, Eos % (Auto) 7.1 H, Baso % (Auto) 0.8, Absolute Neuts (auto) 4.8, Absolute Lymphs (auto) 0.57 L, Nucleated RBC % 0, Sodium 139, Potassium 4.2, Chloride 107, Carbon Dioxide 20.1 L, Anion Gap 12, BUN 8, Creatinine 0.88, Estim Creat Clear Calc 85.92, Est GFR (MDRD) Non-Af 97, BUN/Creatinine Ratio 9.5 L, Glucose 127 H, Hemoglobin A1c 6.2 H, Calcium 9.2, Total Bilirubin 0.65, AST 90 H, ALT 35, Alkaline Phosphatase 93, Total Protein 6.5, Albumin 4.0, Globulin 2.5, Albumin/Globulin Ratio 1.6, Triglycerides 240 H,Cholesterol 173, LDL Cholesterol, Calc 83, VLDL Cholesterol 48 H, HDL Cholesterol 43, Cholesterol/HDL Ratio 4.07, TSH 4.610 H Physical Exam Const alert and no apparent distress HEENT head/scalp atraumatic and moist oral mucous membranes Resp normal respiratory effort, no retractions, no use of accessory muscles and clearto auscultation bilaterally Cardio regular rate, regular rhythm, S1 normal heart sound and S2 normal heart sound GI normal to inspection, nondistended, normoactive bowel sounds, soft to palpation,non-tender and non-distended Neuro Sensorium / Orientation: awake, alert, oriented to person and oriented to place Assessment & Plan Assessment/Plan (1) NSTEMI, initial episode of care: PLAN: s/p EDA to lateral D1 and Proximal D1 on 5/6 on ASA, clopidogrel, atorvastatin echo shows mild concentric LVH. Mild mid to distal anterior hypokinesis. Basal lateral hypokinesis.EF 50-55%. PLAN: Plan Chronic conditions: * HTN: stable. continue amlodipine, lisinopril * prostate CA: s/p prostatectomy. outpt follow up . VTE prophylaxis: SCDs Charges/Coding Visit Charges Inpatient E&M: 15227 Subs Hosp L2 03/01/25 1406 Cosigner Signature (if applicable): CC: ~ Signed [facility]05-07-2025 Progress note Author Jim Mcdonnell [facility] Note Date/Time March 01, 2025 8:49am [facility] Medical Records Department [address] [place] [address] Progress Note - Cardiology 03/01/25 0836 MR#: [id number] Acct: [id number] Name: CELESTE IBRAHIM Rep #:[id number] : 1960 64 From: Jim Mcdonnell MD PCP: Dr. Beata Wing MD Status:ADM IN Location: ICU CVICU20 3-1 Subjective Subjective Patient reports he is doing very well he is sitting up in the chair eating breakfast. Denies any chest symptoms. Laboratory evaluations come back and his hemoglobin A1c was elevated at 6.2 troponins peaked at 96 on the 4-hour sample. Total cholesterol was 173 LDL 83 HDL 43 and triglycerides 240. TSH was also elevated at 4.61. Patient denies any lightheaded or dizziness spells. Objective Data Vital Signs: Vital Signs Temp Pulse Resp BP Pulse Ox O2 Del Method 97.6 F L 75 14 112/75 100 Room Air 03/01/25 04:00 03/01/25 07:00 03/01/25 07:00 03/01/25 07:00 03/01/25 07:00 03/01/25 07:00 Oxygen Delivery Method Room Air Weight: 183 lb 13.848 oz Body Mass Index (BMI) 27.2 Intake & Output: Intake and Output for Last 24 Hours 02/27/25 02/28/25 03/01/25 23:59 23:59 23:59 Intake Total 1958.8 / 2078.8 120 / 120 Output Total 800 / 800 800 / 800 Balance 1158.8 / 1278.8 -680 / -680 Lab / Micro Data Attestation: I reviewed the patient's lab results. 03/01/25 05:25 03/01/25 05:25 Labs: Laboratory Results - last 24 hr 02/28/25 07:56: PT 13.9, INR 1.1, APTT 102.5 H*, Troponin T Hi Sens 4Hr 96 H* 02/28/25 08:22: Activated Clotting Time 176 H 02/28/25 08:38: Activated Clotting Time 233 H 02/28/25 09:33: Activated Clotting Time 273 H 03/01/25 05:25: WBC 6.6, RBC 3.81 L, Hgb 11.8 L, Hct 33.2 L, MCV 87.1, MCH 31.0,MCHC 35.5, RDW Std Deviation 45.5 H, RDW Coeff of Nazanin 14.4, Plt Count 233, MPV 9.0, Immature Gran % (Auto) 0.500, Neut % (Auto) 72.2 H, Lymph % (Auto) 8.6 L, Chase % (Auto) 10.8 H, Eos % (Auto) 7.1 H, Baso % (Auto) 0.8, Absolute Neuts (auto) 4.8, Absolute Lymphs (auto) 0.57 L, Nucleated RBC % 0, Sodium 139, Potassium 4.2, Chloride 107, Carbon Dioxide 20.1 L, Anion Gap 12, BUN 8, Creatinine 0.88, Estim Creat Clear Calc 85.92, Est GFR (MDRD) Non-Af 97, BUN/Creatinine Ratio 9.5 L, Glucose 127 H, Hemoglobin A1c 6.2 H, Calcium 9.2, Total Bilirubin 0.65, AST 90 H, ALT 35, Alkaline Phosphatase 93, Total Protein 6.5, Albumin 4.0, Globulin 2.5, Albumin/Globulin Ratio 1.6, Triglycerides 240 H,Cholesterol 173, LDL Cholesterol, Calc 83, VLDL Cholesterol 48 H, HDL Cholesterol 43, Cholesterol/HDL Ratio 4.07, TSH 4.610 H Rhythm Strip Rhythm Strip: Sinus Rhythm Rate: 72 Cardiology Labs/Tests 02/28/25 07:56: PT 13.9, INR 1.1, APTT 102.5 H* 03/01/25 05:25: WBC 6.6, RBC 3.81 L, Hgb 11.8 L, Hct 33.2 L, MCV 87.1, MCH 31.0,MCHC 35.5, Plt Count 233, MPV 9.0, Immature Gran % (Auto) 0.500, Neut % (Auto) 72.2 H, Lymph % (Auto) 8.6 L, Chase % (Auto) 10.8 H, Eos % (Auto) 7.1 H, Baso % (Auto) 0.8, Absolute Neuts (auto) 4.8, Nucleated RBC % 0, Sodium 139, Potassium 4.2, Chloride 107, Carbon Dioxide 20.1 L, Anion Gap 12, BUN 8, Creatinine 0.88, Est GFR (MDRD) Non-Af 97, BUN/Creatinine Ratio 9.5 L, Glucose 127 H, Hemoglobin A1c 6.2 H, Calcium 9.2, Total Bilirubin 0.65, Triglycerides 240 H, Cholesterol 173, VLDL Cholesterol 48 H, HDL Cholesterol 43, Cholesterol/HDL Ratio 4.07 Rhythm: EKG: ECHO: Stress Test: Cardiac Cath: PCI: CT Surgery: Holter monitor: EPS: PPM: CXR: Chest CT Scan: Physical Exam Const alert and oriented x3 HEENT normocephalic Eyes EOMs intact bilaterally Neck no JVD Chest inspection of chest normal Resp normal respiratory effort Cardio regular rate, regular rhythm, S1 normal heart sound, S2 normal heart sound, no murmurs, no rub and no gallops Extremity no pedal edema Extremity Narrative: Right wrist intact. Neuro Neuro Narrative: Alert and oriented x 3 Psych mental status grossly normal Assessment & Plan Assessment/Plan (1) NSTEMI, initial episode of care: PLAN: Patient had the EKG changes consistent with ST segment depression and T wave inversion in the inferior leads and very subtle ST elevation in aVL. Cardiac catheterization revealed an occluded secondary branch of the first diagonal branch. There is also critical disease in the proximal first diagonal branch. The patient underwent stenting of the diagonal 1 and secondary branch of the diagonal 1. Patient's LV function was slightly impaired with a high lateral wall defect. This was on LV gram. Echocardiogram is pending at this time. 4-hour troponin was 96. The patient tolerating the Plavix and aspirin without incident. His blood pressure is adequate controlled he is started on low-dose Coreg and PAT inhibitor therapy which will be titrated to blood pressure and heart rate response. The patient does have a hemoglobin A1c that is elevated at 6.2 with aTSH of 4.61 which will be addressed prior to discharge. Given the patient's diabetes I would recommend we try to get him on an SGLT2 inhibitor. Will discontinue the amlodipine so that we can increase his PAT inhibitor therapy as this will be more renal protective in the face of his diabetes. Will make these medication changes obtain dietary consultation for his diabetes and I have encouraged him to pursue cardiac rehab for education as well. The patient does live here in the [facility] most of the time and has a primary care physician Dr. Wing. Once discharged the patient will follow-up in the [facility] office in 1 week and then at 6 weeks with me. At that point in time we will make a decision about timing of repeat catheterization andreevaluation of stenting of his LAD and diagonal. Should the patient develop recurrent chest symptoms he will be brought back to the [facility] earlier. The plan to titrate medications and discharged to home in the next 24 hours. (2) CAD (coronary artery disease): QUALIFIERS: Coronary Disease-Associated Artery/Lesion type: nativeartery [place] vs. transplanted heart: [place] heart Associated angina: without angina Qualified Code(s): I25.10 - Atherosclerotic heart disease of [place] coronary artery without angina pectoris PLAN: Patient's coronary disease appears to be stabilized after his interventionyesterday. Will continue with Plavix and aspirin uninterrupted for a year. He does have a bifurcating stenting procedure. Patient will be reevaluated in 1 week in the office and return to gainful employment after that timeframe. He will be reevaluated at 6 weeks in the office and set up for repeat catheterization and planned staged intervention of his LAD the mid and distal segments. (3) High cholesterol: PLAN: Patient's LDL is 83 he has already been started on atorvastatin 40 mg daily. Will reevaluate his fasting lipids and liver functions in 6 weeks. (4) Diabetes: QUALIFIERS: Diabetes mellitus type: type 2 Diabetes mellitus prison insulin use: without longterm use Diabetes mellitus complication status: with circulatory complication Diabetes mellitus complication detail: with othercirculatory complications Qualified Code(s): E11.59 - Type 2 diabetes mellitus with other circulatory complications PLAN: Patient is newly diagnosed fasting blood sugar yesterday was 200. Hemoglobin A1c is 6.2. Would recommend initiation of Jardiance 10 mg daily if possible. I have ordered diabetic dietary consultation and the patient will participate in cardiac rehab for further education as well. (5) Elevated TSH: PLAN: Patient's TSH is elevated at 4.61. Will defer to primary service but probably would recommend given his recent infarct that we would treat his diabetes and titrate his other secondary risk factor therapies then recheck a TSH in the ambulatory setting. I will defer this treatment option though to theprimary service and the patient should follow-up with Dr. Wing his primary care physician. PLAN: Plan 1. DC amlodipine. 2. Increase lisinopril to 10 mg every morning. 3. Continue aspirin and clopidogrel uninterrupted for 1 year. 4. Continue atorvastatin 40 mg daily and reevaluate fasting lipids and liver functions in 6 weeks. 5. Continue with cardiac rehab and diabetic dietary teaching. 6. Tentatively scheduled for discharge tomorrow morning. [facility] Charges/Coding Visit Charges Inpatient E&M: 97257 Subs Hosp L3 03/01/25 0849 <Electronically signed by Jim Mcdonnell MD> Cosigner Signature (if applicable): CC: ~ Signed [facility] Work Phone: 1(999) 592-600405-07-2025 Progress note [facility] Medical Records Department [address] [place] [address] Progress Note - Cardiology 03/01/25 0836 MR#: [id number] Acct: [id number] Name: CELESTE IBRAHIM Rep #:[id number] : 1960 64 From: Jim Mcdonnell MD PCP: Dr. Beata Wing MD Status:ADM IN Location: ICU CVICU20 3-1 Subjective Subjective Patient reports he is doing very well he is sitting up in the chair eating breakfast. Denies any chest symptoms. Laboratory evaluations come back and his hemoglobin A1c was elevated at 6.2 troponins peaked at 96 on the 4-hour sample. Total cholesterol was 173 LDL 83 HDL 43 and triglycerides 240. TSH was also elevated at 4.61. Patient denies any lightheaded or dizziness spells. Objective Data Vital Signs: Vital Signs Temp Pulse Resp BP Pulse Ox O2 Del Method 97.6 F L 75 14 112/75 100 Room Air 03/01/25 04:00 03/01/25 07:00 03/01/25 07:00 03/01/25 07:00 03/01/25 07:00 03/01/25 07:00 Oxygen Delivery Method Room Air Weight: 183 lb 13.848 oz Body Mass Index (BMI) 27.2 Intake & Output: Intake and Output for Last 24 Hours 02/27/25 02/28/25 03/01/25 23:59 23:59 23:59 Intake Total 1958.8 / 2078.8 120 / 120 Output Total 800 / 800 800 / 800 Balance 1158.8 / 1278.8 -680 / -680 Lab / Micro Data Attestation: I reviewed the patient's lab results. 03/01/25 05:25 03/01/25 05:25 Labs: Laboratory Results - last 24 hr 02/28/25 07:56: PT 13.9, INR 1.1, APTT 102.5 H*, Troponin T Hi Sens 4Hr 96 H* 02/28/25 08:22: Activated Clotting Time 176 H 02/28/25 08:38: Activated Clotting Time 233 H 02/28/25 09:33: Activated Clotting Time 273 H 03/01/25 05:25: WBC 6.6, RBC 3.81 L, Hgb 11.8 L, Hct 33.2 L, MCV 87.1, MCH 31.0,MCHC 35.5, RDW Std Deviation 45.5 H, RDW Coeff of Nazanin 14.4, Plt Count 233, MPV 9.0, Immature Gran % (Auto) 0.500, Neut % (Auto) 72.2 H, Lymph % (Auto) 8.6 L, Chase % (Auto) 10.8 H, Eos % (Auto) 7.1 H, Baso % (Auto) 0.8, Absolute Neuts (auto) 4.8, Absolute Lymphs (auto) 0.57 L, Nucleated RBC % 0, Sodium 139, Potassium 4.2, Chloride 107, Carbon Dioxide 20.1 L, Anion Gap 12, BUN 8, Creatinine 0.88, Estim Creat Clear Calc 85.92, Est GFR (MDRD) Non-Af 97, BUN/Creatinine Ratio 9.5 L, Glucose 127 H, Hemoglobin A1c 6.2 H, Calcium 9.2, Total Bilirubin 0.65, AST 90 H, ALT 35, Alkaline Phosphatase 93, Total Protein 6.5, Albumin 4.0, Globulin 2.5, Albumin/Globulin Ratio 1.6, Triglycerides 240 H,Cholesterol 173, LDL Cholesterol, Calc 83, VLDL Cholesterol 48 H, HDL Cholesterol 43, Cholesterol/HDL Ratio 4.07, TSH 4.610 H Rhythm Strip Rhythm Strip: Sinus Rhythm Rate: 72 Cardiology Labs/Tests 02/28/25 07:56: PT 13.9, INR 1.1, APTT 102.5 H* 03/01/25 05:25: WBC 6.6, RBC 3.81 L, Hgb 11.8 L, Hct 33.2 L, MCV 87.1, MCH 31.0,MCHC 35.5, Plt Count 233, MPV 9.0, Immature Gran % (Auto) 0.500, Neut % (Auto) 72.2 H, Lymph % (Auto) 8.6 L, Chase % (Auto) 10.8 H, Eos % (Auto) 7.1 H, Baso % (Auto) 0.8, Absolute Neuts (auto) 4.8, Nucleated RBC % 0, Sodium 139, Potassium 4.2, Chloride 107, Carbon Dioxide 20.1 L, Anion Gap 12, BUN 8, Creatinine 0.88, Est GFR (MDRD) Non-Af 97, BUN/Creatinine Ratio 9.5 L, Glucose 127 H, Hemoglobin A1c 6.2 H, Calcium 9.2, Total Bilirubin 0.65, Triglycerides 240 H, Cholesterol 173, VLDL Cholesterol 48 H, HDL Cholesterol 43, Cholesterol/HDL Ratio 4.07 Rhythm: EKG: ECHO: Stress Test: Cardiac Cath: PCI: CT Surgery: Holter monitor: EPS: PPM: CXR: Chest CT Scan: Physical Exam Const alert and oriented x3 HEENT normocephalic Eyes EOMs intact bilaterally Neck no JVD Chest inspection of chest normal Resp normal respiratory effort Cardio regular rate, regular rhythm, S1 normal heart sound, S2 normal heart sound, no murmurs, no rub and no gallops Extremity no pedal edema Extremity Narrative: Right wrist intact. Neuro Neuro Narrative: Alert and oriented x 3 Psych mental status grossly normal Assessment & Plan Assessment/Plan (1) NSTEMI, initial episode of care: PLAN: Patient had the EKG changes consistent with ST segment depression and T wave inversion in theinferior leads and very subtle ST elevation in aVL. Cardiac catheterization revealed an occluded secondary branch of the first diagonal branch. There is also critical disease in the proximal first diagonal branch. The patient underwent stenting of the diagonal 1 and secondary branch of the diagonal1. Patient's LV function was slightly impaired with a high lateral wall defect. This was on LV gram. Echocardiogram is pending at this time. 4-hour troponin was 96. The patient tolerating the Plavix and aspirin without incident. His blood pressure is adequate controlled he is started on low-dose Coreg and PAT inhibitor therapy which will be titrated to blood pressure and heart rate response. The patient does have a hemoglobin A1c that is elevated at 6.2 with aT SH of 4.61 which will be addressed prior to discharge. Given the patient's diabetes I would recommend we try to get him on an SGLT2 inhibitor. Will discontinue the amlodipine so that we can increase his PAT inhibitor therapy as this will be more renal protective in the face of his diabetes. Will make these medication changes obtain dietary consultation for his diabetes and I have encouraged him to pursue cardiac rehab for education as well. The patient does live here in the [facility] most of the time and has a primary care physician Dr. Wing. Once discharged the patient will follow-up in the [facility] office in 1 week and then at 6 weeks with me. At that point in time we will make a decision about timing of repeat catheterization andreevaluation of stenting of his LAD and diagonal. Should the patient develop recurrent chest symptoms he will be brought back to the Cardiovascular Specialist earlier. The plan to titrate medications and discharged to home in the next 24 hours. (2) CAD (coronary artery disease): QUALIFIERS: Coronary Disease-Associated Artery/Lesion type: nativeartery [place] vs. transplanted heart: [place] heart Associated angina: without angina Qualified Code(s): I25.10 - Atherosclerotic heart disease of [place] coronary artery without angina pectoris PLAN: Patient's coronary disease appears to be stabilized after his interventionyesterday. Will continue with Plavix and aspirin uninterrupted for a year. He does have a bifurcating stenting procedure. Patient will be reevaluated in 1 week in the office and return to gainful employment after that timeframe. He will be reevaluated at 6 weeks in the office and set up for repeat catheterization and planned staged intervention of his LAD the mid and distal segments. (3) High cholesterol: PLAN: Patient's LDL is 83 he has already been started on atorvastatin 40 mg daily. Will reevaluate his fasting lipids and liver functions in 6 weeks. (4) Diabetes: QUALIFIERS: Diabetes mellitus type: type 2 Diabetes mellitus prison insulin use: without longterm use Diabetes mellitus complication status: with circulatory complication Diabetes mellitus complication detail: with othercirculatory complications Qualified Code(s): E11.59 - Type 2 diabetes mellitus with other circulatory complications PLAN: Patient is newly diagnosed fasting blood sugar yesterday was 200. Hemoglobin A1c is 6.2. Would recommend initiation of Jardiance 10 mg daily if possible. I have ordered diabetic dietary consultation and the patient will participate in cardiac rehab for further education as well. (5) Elevated TSH: PLAN: Patient's TSH is elevated at 4.61. Will defer to primary service but probably would recommendgiven his recent infarct that we would treat his diabetes and titrate his other secondary risk factor therapies then recheck a TSH in the ambulatory setting. I will defer this treatment option thoughto thewvimary service and the patient should follow-up with Dr. Wing his primary care physician. PLAN: Plan 1. DC amlodipine. 2. Increase lisinopril to 10 mg every morning. 3. Continue aspirin and clopidogrel uninterrupted for 1 year. 4. Continue atorvastatin 40 mg daily and reevaluate fasting lipids and liver functions in 6 weeks. 5. Continue with cardiac rehab and diabetic dietary teaching. 6. Tentatively scheduled for discharge tomorrow morning. [facility]. Charges/Coding Visit Charges Inpatient E&M: 99982 [facility] 03/01/25 0849 Cosigner Signature (if applicable): CC: ~ Signed [facility]05-06-2025 Study report [facility] Cardiac Rehab [address] [place] [address] CR: Phase I Education Summary MR#: [id number] Acct: [id number] Name: CELESTE IBRAHIM Rep #:[id number] : 1960 64 From: Shayne Mcbride PCP: Dr. Beata Wing MD DOS: 5 General Education Discussed with Patient CAD and cardiac anatomy and function:: Patient communicates acknowledgment Explanation of diagnoses and procedures:: Patient communicates acknowledgment Sign/Symptoms of TN:: Patient communicates acknowledgment Antiplatelet therapy: Patient communicates acknowledgment Proper use of NTG-SL: Patient communicates acknowledgment Emergency procedures and activation of EMS: Patient communicates acknowledgment Compliance of all prescribed medications: Patient communicates acknowledgment Smoking Recommendations Recommendations Include:: Previous smoker; encourage continued cessation Response Code Nicotine/Smoking Response Code:: Patient communicates acknowledgment Dyslipidemia Risk Factors Patient Dyslipidemia Risk Factors Are:: Total Cholesterol, Triglycerides, HDL and LDL Recommendations Recommendations Include:: Lipid profile not available, Reviewed NCEP/ATP guidelines and TherapeuticLifestyle Change dietary guidelines Response Code Dyslipidemia Response Code:: Patient communicates acknowledgment Overweight/Obesity Risk Factors Patient Overweight/Obesity Risk Factors Are:: BMI Normal [18-25 & < 65 years old] and Overweight = 26-29 Recommendations Recommendations Include:: Weight loss of 5-10%, Reduced calorie diet and Exercise 5-7 times/week Response Code Overweight/Obesity:: Patient communicates acknowledgment Hypertension Recommendations Recommendations Include:: Maintain BP <130/85, DASH dietary guidelines, Decrease/maintain normalbody weight and Moderation of ETOH Response Code Hypertension:: Patient communicates acknowledgment Heart Disease Risk Factors Patient Heart Disease Risk Factors Are:: Family history of heart disease < 65 years old Recommendations Recommendations Include:: Educated family members of their risk and Educated family members of importance of prevention of heart disease Response Code Heart Disease Response Code:: Patient communicates acknowledgment Diabetes Recommendations Recommendations Include:: Maintain fasting blood sugars 70-110 md/dL, Maintain HgbA1c of 6% or less, Monitor blood sugar as prescribed, Diabetic dietary guidelines and Decrease/maintain body weight Response Code Diabetes:: Patient communicates acknowledgment Metabolic Syndrome Risk Factors Patient Metabolic Syndrome Risk Factors Are [3 of 5]:: Fasting blood sugar > 100mg/dL, High triglyceride >150, Hypertension and Low HDL <40 [male] or < 50 [female] Recommendations Recommendations Include:: Does not meet criteria Response Code Metabolic Syndrome Response Code:: Patient communicates acknowledgment, Family communicates acknowledgment, Patient returns demonstration, Family returns demonstration and Needs reinforcement Sedentary Risk Factors Patient Sedentary Risk Factors Are:: Lack of regular exercise Response Code Sedentary Response Code:: Patient communicates acknowledgment and Needs reinforcement Stress Risk Factors Patient Stress Risk Factors Are:: Patient denies stress as a risk factor Recommendations Recommendations Include:: Identification of stressors, and assessment of coping skills and Stress management techniques Response Code Stress Response Code:: Patient communicates acknowledgment and Patient returns demonstration 02/28/25 1421 Date Shayne Mcbride Outcome assessment reviewed. Exercise plan approved as documented. Treatment plan and goals support patient needs/abilities. Continue with current plan. I certify the patient demonstrates improvement and remains willing and capable of participation. the patient continues to benefit from cardiac rehab services/training. The patient may continue at current intensity, endurance and modality and progress per protocol. Cosigner Signature: Date CC: ~ Signed [facility]05-06-2025 History and physical note Author Brandi Resendiz [facility] Note Date/Time February 28, 2025 7:56am [facility] Medical Records Department [address] [place] [address] H&P Exam - Hospitalist 02/28/25 0717 MR#: [id number] Acct: [id number] Name: CELESTE IBRAHIM Rep #:[id number] : 1960 64 From: Brandi Resendiz MD PCP: Dr. Beata Wing MD Status:ADM IN Location: ICU CVICU20 3-1 HPI - General General Date of Admission: 02/28/25 Date of Service: 02/28/25 Chief Complaint: Chest pain HPI Narrative CELESTE IBRAHIM, is a 64 M with a history of recent prostate cancer status post prostatectomy and multiple rounds of radiation now finished 1 week ago who presented to [facility] ED 02/28/2025 due to chest pain that woke him up at 3:00 in the morning. On arrival temperature 97 with a pulse rate of 91, blood pressure 168/110, respiratory rate 20 with a pulse ox 100% patient wasfound to have new T wave inversions on EKG and a troponin that went from 12-43, nitroglycerin did decrease his pain from a 9 to a 5 so he was placed on a nitro drip, heparin drip and cardiology contacted who evaluated and plan for heart catheterization. Hospitalist contacted for admission. Patient evaluated at bedside, he does report that substernal chest pain woke him up at 3 AM and was combination of tight and sharp and radiated to the left arm and also had nausea and lightheadedness. At this time chest pain improved to around a 2 still on a nitro drip but is still present. Reports he has some diarrhea from his radiation but has no other new or acute complaints. Of note in the ED when a second IV was placed he did become sweaty and diaphoretic with transient hypotension that was thought to be vasovagal as this all improved and all seem to be independent with nitro drip. When patient was evaluated blood pressure had stabilized. [facility] Medical History (Updated 02/28/25 @ 07:[address] Jim Mcdonnell MD) Anxiety Difficulty swallowing Elevated PSA Family history of colon cancer in father Heartburn Hesitancy of micturition High cholesterol Incontinence Non-smoker Prostate cancer Prostate disease Wears glasses Home Medications ?Medication ?Instructions ?Recorded ?Last Taken ?Type diphenhydramine HCl 25 mg capsule 25 mg PO QHS 4 09/06/24 History (Benadryl) hydroxyzine HCl 25 mg tablet 25 mg PO BID PRN PRN anxi ety 08/24/24 Unknown History oxybutynin chloride 5 mg tablet 5 mg PO BID PRN bladde r spasms 10/05/24 Unknown History lorazepam 1 mg tablet 1 mg PO ONCE PRN anxiety #1 TAB 12/28/24 Unknown Rx Allergy/AdvReac Type Severity Reaction Status Date / Time No Known Allergies Allergy Verified 02/28/25 03:50 Family History Father Colon cancer After lung cancer dx Surgical History History of prostate biopsy History of prostatectomy History of tonsillectomy Social History household members: none current occupational status: employed current occupation: [employer] Smoking Status: Never smoker alcohol intake: never substance use type: does not use ROS ROS Narrative General: Denies fever/chills HENT: Denies headache, denies stuffy nose, denies sore throat EYES: Denies changes in vision Resp: Denies cough, denies shortness of breath Cardiac: Combination of tight/pressure/sharp chest pain radiating to left arm GI: Denies abdominal pain, has some diarrhea associated with his prostatic radiation, denies nausea/vomiting : Denies changes in urination Extremity: Denies swelling MSK: Denies weakness Neuro: Reports over the past couple of years he has had some tingling in his toes and hands Heme: Denies any bleeding or bruising Skin: Denies rashes Psychiatric: No complaints voiced Vital Signs Vital Signs Vital Signs: 02/28/25 03:50 02/28/25 03:57 02/28/25 04:17 Temperature 97 F L Temperature Source Axillary Pulse Rate 91 75 Respiratory Rate 20 H Blood Pressure 168/110 H 179/95 H Blood Pressure Mean 129 Blood Pressure Source Blood Pressure Position Blood Pressure Location Pulse Ox 100 100 Oxygen Delivery Method Room Air Room Air 02/28/25 04:22 02/28/25 04:28 02/28/25 04:46 Temperature Temperature Source Pulse Rate 70 68 65 Respiratory Rate Blood Pressure 145/93 H 130/81 H 120/76 Blood Pressure Mean 90 Blood Pressure Source Monitor Blood Pressure Position Semi-Fowlers Blood Pressure Location Right Arm Pulse Ox Oxygen Delivery Method 02/28/25 04:50 02/28/25 05:04 02/28/25 05:27 Temperature Temperature Source Pulse Rate 64 Respiratory Rate 16 Blood Pressure 120/76 135/77 H 131/85 H Blood Pressure Mean 90 96 100 Blood Pressure Source Monitor Monitor Blood Pressure Position Semi-Fowlers Semi-Fowlers Blood Pressure Location Right Arm Right Arm Pulse Ox 98 Oxygen Delivery Method Room Air 02/28/25 05:37 02/28/25 05:59 02/28/25 06:00 Temperature Temperature Source Pulse Rate 67 Respiratory Rate 18 Blood Pressure 122/80 H 128/74 H 128/74 H Blood Pressure Mean 94 92 92 Blood Pressure Source Monitor Monitor Blood Pressure Position Semi-Fowlers Semi-Fowlers Blood Pressure Location Right Arm Right Arm Pulse Ox 97 Oxygen Delivery Method Room Air 02/28/25 06:29 02/28/25 06:51 02/28/25 07:00 Temperature 98.4 F Temperature Source Pulse Rate 65 Respiratory Rate 18 18 Blood Pressure 122/75 H 98/58 L 108/73 Blood Pressure Mean 90 71 84 Blood Pressure Source Monitor Blood Pressure Position Semi-Fowlers Blood Pressure Location Right Arm Pulse Ox 99 98 Oxygen Delivery Method Room Air Weight Weight: 83.4 kg Body Mass Index (BMI) 27.1 Physical Exam Narrative General: Alert, oriented, no apparent distress HEENT: Atraumatic, normocephalic Eyes: Anicteric, normal conjunctiva, extraocular movements grossly intact Neck: Supple Respiratory: Clear to auscultation bilaterally, normal respiratory effort Cardiovascular: Regular rate and rhythm GI: Soft, nontender, nondistended Extremities: No edema Musculoskeletal: Moving all extremities Neuro: No overt focal neurological deficits Skin: No rashes appreciated Psych: Cooperative Results Lab / Micro Data 02/28/25 04:05 02/28/25 03:56 Labs: Laboratory Results - last 24 hr 02/28/25 03:56: WBC Cancelled, Corrected WBC Cancelled, RBC Cancelled, Hgb Cancelled, Hct Cancelled, MCV Cancelled, MCH Cancelled, MCHC Cancelled, RDW Std Deviation Cancelled, RDW Coeff of Nazanin Cancelled, Plt Count Cancelled, MPV Cancelled, Immature Gran % (Auto) Cancelled, Neut % (Auto) Cancelled, Lymph % (Auto) Cancelled, Chase % (Auto) Cancelled, Eos % (Auto) Cancelled, Baso % (Auto)Cancelled, Absolute Neuts (auto) Cancelled, Absolute Lymphs (auto) Cancelled, Total Counted Cancelled, Neutrophils % (Manual) Cancelled, Band Neutrophils % Cancelled, Lymphocytes % (Manual) Cancelled, Monocytes % (Manual) Cancelled, Eosinophils % (Manual) Cancelled, Basophils % (Manual) Cancelled, Metamyelocytes% Cancelled, Myelocytes % Cancelled, Promyelocytes % Cancelled, Blast Cells % Cancelled, Plasma Cell % (Manual) Cancelled, Other Cells % Cancelled, Nucleated RBC % Cancelled, Nucleated RBCs/100 WBC Cancelled, Differential Comment Cancelled, Diff Path Review Cancelled, Hypersegmented Neuts Cancelled, Atypical Lymphocytes Cancelled, Reactive Lymphocytes Cancelled, Smudge Cells Cancelled, Toxic Granulation Cancelled, Toxic Vacuolation Cancelled, Dohle Bodies Cancelled, Efraín Rods Cancelled, Platelet Estimate Cancelled, Plt Morphology Comment Cancelled, RBC Morphology Cancelled 02/28/25 03:56: RBC Morphology Cancelled, Polychromasia Cancelled, HypochromasiaCancelled, Basophilic Stippling Cancelled, Anisocytosis Cancelled, Microcytosis Cancelled, Macrocytosis Cancelled, Spherocytes Cancelled, Sickle Cells Cancelled, Target Cells Cancelled, Tear Drop Cells Cancelled, Ovalocytes Cancelled, Stomatocytes Cancelled, No-Glenvar Bodies Cancelled, Yasmany Cells Cancelled, Bite Cells Cancelled, Crenated Cell Cancelled, Acanthocytes (Spur) Cancelled, Rouleaux Cancelled, Schistocytes Cancelled, Sodium 139, Potassium 4.3, Chloride 105, Carbon Dioxide 19.6 L, Anion Gap 15, BUN 13, Creatinine 0.99,Estim Creat Clear Calc 76.37, Est GFR (MDRD) Non-Af 85, BUN/Creatinine Ratio 12.8, Glucose 120 H, Calcium 9.7, Troponin T High Sens 12 02/28/25 04:05: WBC 5.7, RBC 4.15 L, Hgb 12.9 L, Hct 35.8 L, MCV 86.3, MCH 31.1,MCHC 36.0, RDW Std Deviation 44.4 H, RDW Coeff of Naz[place]in 14.1, Plt Count 287, MPV 9.2, Immature Gran % (Auto) 1.000 H, Neut % (Auto) 60.4, Lymph % (Auto) 15.9 L, Chase % (Auto) 13.6 H, Eos % (Auto) 8.6 H, Baso % (Auto) 0.5, Absolute Neuts (auto) 3.5, Absolute Lymphs (auto) 0.91, Nucleated RBC % 0, PT 12.3, INR 0.9, APTT 23.7 L, D-Dimer Quant (PE/DVT) 0.39 02/28/25 06:00: Troponin T Hi Sens 2 Hr 43 H Imaging Radiology Impression Chest X-Ray 02/28/25 04:18 IMPRESSION: No evidence of acute disease. Reading Location: [facility] Assessment & Plan Assessment/Plan (1) Chest pain: QUALIFIERS: Chest pain type: chest pain due to myocardial ischemia Ischemic chest pain type: unstable angina pectoris Qualified Code(s): I20.0 - Unstable angina PLAN: Plan # NSTEMI, suspect type I - Patient with new T wave changes compared to a August 2024 EKG -Troponin increased from 12-43 - Patient on nitro and heparin drips -Patient loaded with aspirin - Cardiology evaluated, patient for Cardiovascular Specialist this a.m. - Further management pending results - Will check lipid panel and A1c # Recent prostate cancer - With prostatectomy and patient just finished radiation 1 week ago - Continue outpatient follow-up # Anxiety - Continue hydroxyzine as needed #DVT ppx: Present on heparin drip, SCDs ordered Brandi Resendiz MD Time spent in the patient's overall evaluation, decision-making process, review of diagnostic data, adjustment of management, discussion with other providers, nursing and ancillary staff involved in patient's care documentation, 57 Minutes Charges/Coding Visit Charges Inpatient E&M: 61207 Init Hosp L2 02/28/25 0756 <Electronically signed by Brandi Resendiz MD> Cosigner Signature (if applicable): CC: Dr. Beata Wing MD; Dr. Brandi Resendiz MD~ Signed [facility] Work Phone: [phone]) 920-614305-06-2025 Consult note Author Jim Mcdonnell [facility] Note Date/Time February 28, 2025 7:36am [facility] Medical Records Department [address] [place] [address] Consultation - Cardiology 02/28/25 0723 MR#: [id number] Acct: [id number] Name: CELESTE IBRAHIM Rep #:[id number] : 1960 64 From: Jim Mcdonnell MD PCP: Dr. Beata Wing MD Status:ADM IN Location: ICU CVICU20 3-1 Assessment & Plan Assessment/Plan (1) Chest pain: QUALIFIERS: Chest pain type: chest pain due to myocardial ischemia Ischemic chest pain type: unstable angina pectoris Qualified Code(s): I20.0 - Unstable angina PLAN: Patient's symptoms started approximately 0300 hrs. This is new onset occurred at rest awoke him from sleep. He has new ECG changes with inferior significant ST and T wave inversions. The patient's risk factor profile includes a history of hyperlipidemia which has been controlled with diet. He does not smoke, there is no family history of first-degree relatives with coronary disease, the patient is not hypertensive. His fasting blood sugar was 200 on today's lab work. The patient's symptoms markedly improved with nitroglycerin. He has been heparinized and on IV nitroglycerin with persistent 2 out of 10 chest discomfort. Given the patient's enzymes going from 12 up to 43 and the ECG changes would recommend urgent left heart catheterization for this unstable angina. The patient has no history of iodine allergy. His renal function is normal. He has good 2+ or better pulses throughout with no femoral bruits. The catheterization procedure risk/benefit and alternatives were explained to the patient in detail and he voiced understanding and agrees to proceed. There is no family available at the bedside and his son is a student at [employer] here in [facility]. The patient works at the [employer]. His home is in [place] where his is currently residing. (2) High cholesterol: PLAN: Patient carries a history of hyperlipidemia in the past. He had been transiently on statins now reports that his lipids have been controlled with diet and exercise. Repeat lipids will be evaluated along with a hemoglobin A1c and appropriate therapeutic intervention started as indicated. PLAN: Plan 1. Urgent left heart catheterization Dr. Steinberg to perform. 2. Further recommendations and long-term medical therapy will be determined once the results of the catheterization are available. HPI Consult Data Date of Consult: 02/28/25 HPI Narrative Reason for Consultation: Chest pain with ECG changes. HPI Narrative: CELESTE IBRAHIM, is a 64 M who presents after being awoke approximately 0300 hrs. this morning with chest discomfort. He rated this 9 out of 10. He also noted some nausea and felt like he was going to vomit but did not. He cameto the emergency department approximately 0330 hrs. The patient is actually traveling here from [place] for work. He does have a son who is the [employer] student. The patient was evaluated in the emergency department where an ECG showed new T wave inversions in the inferior leads and subtle less than [address] elevations in1 and aVL. The patient received IV nitroglycerin and sublingual nitroglycerin with marked improvement in his chest symptoms down to a 2 out of 10. At this time he has persistent chest discomfort and repeat ECG shows continued T wave inversions with ST segment depressions in the inferior leads. His initial troponin was 12 subsequent 2-hour troponin was 46. The patient does not have a prior history of cardiac issues. There is no family history of coronary diseasehe does have a history of hyperlipidemia which was transiently treated in the past with statins but he has been off of them for several years. He denies any history of hypertension he has never smoked. The patient is not diabetic however his fasting glucose was 120 on today's exam. The patient does have a history of prostate cancer has been historically treatedwith radical prostatectomy and radiation therapy. He denies any history of allergies to iodine and has had several CT scans. He has no known drug allergies. Renal function is normal on today's labs. [facility] History Prostate cancer Hesitancy of micturition Elevated PSA Incontinence Family history of colon cancer in father Wears glasses Anxiety Prostate disease High cholesterol Difficulty swallowing Heartburn Non-smoker Home Medications ?Medication ?Instructions ?Recorded ?Last Taken ?Type diphenhydramine HCl 25 mg capsule 25 mg PO QHS 4 09/06/24 History (Benadryl) hydroxyzine HCl 25 mg tablet 25 mg PO BID PRN PRN anxi ety 08/24/24 Unknown History oxybutynin chloride 5 mg tablet 5 mg PO BID PRN bladde r spasms 10/05/24 Unknown History lorazepam 1 mg tablet 1 mg PO ONCE PRN anxiety #1 TAB 12/28/24 Unknown Rx Allergy/AdvReac Type Severity Reaction Status Date / Time No Known Allergies Allergy Verified 02/28/25 03:50 Family History Father Colon cancer After lung cancer dx Surgical History History of prostatectomy History of prostate biopsy History of tonsillectomy Social History household members: none current occupational status: employed current occupation: [employer] Smoking Status: Never smoker alcohol intake: never substance use type: does not use ROS Constitutional Constitutional: Reports as per HPI Eyes Eyes: Reports systems reviewed and no addt'l complaints, except as documented ENT HEENT: Reports systems reviewed and no addt'l complaints, except as documented Cardiovascular Cardiovascular: Reports as per HPI Respiratory/Chest Respiratory/Chest: Reports as per HPI Gastrointestinal Gastrointestinal: Reports as per HPI Genitourinary Genitourinary: Reports as per HPI Musculoskeletal Musculoskeletal: Reports systems reviewed and no addt'l complaints, except as documented Integumentary Integumentary: Reports systems reviewed and no addt'l complaints, except as documented Neurologic Neurologic: Reports systems reviewed and no addt'l complaints, except as documented Psychiatric Psychiatric: Reports systems reviewed and no addt'l complaints, except as documented Endocrine Endocrinology: Reports as per HPI Hematologic/Lymphatic Hematologic/Lymphatic: Reports systems reviewed and no addt'l complaints, exceptas documented Allergic/Immunologic Allergic/Immunologic: Reports as per HPI Physical Exam Narrative Patient resting comfortably in recumbent position on the gurney in the emergencydepartment. Continues to complain of 2 out of 10 left upper sternal discomfort. Const alert and oriented x3 HEENT normocephalic Eyes EOMs intact bilaterally Neck no JVD and no carotid bruits Chest inspection of chest normal Resp normal respiratory effort and clear to auscultation bilaterally Cardio Rate: regular rate Rhythm: regular rhythm Heart Sounds: S1 normal and S2 normal; Negative for click, gallop or murmur Peripheral Pulses: pulses 2+ throughout GI soft to palpation Extremity no pedal edema Neuro Neuro Narrative: Alert and oriented x 3 Psych mental status grossly normal Risk Stratification Risk Stratification Applicable: Yes Age >/= 65: No >/= 3 CAD Risk Factors (HTN, HLD, DM, family hx of CAD, or current smoker): No Aspirin Use in the Past 7 Days: No Severe Angina (>/= episodes in 24 hours): Yes EKG ST Changes >/= 0.5mm: Yes Positive Cardiac Marker: Yes BRIAN Risk Stratification Score: 3 BRIAN % Risk: 13% Risk Charges/Coding Visit Charges Inpatient E&M: 27568 Init Hosp L3 Objective Data Vital Signs: Vital Signs Temp Pulse Resp BP Pulse Ox O2 Del Method 98.4 F 65 18 108/73 98 Room Air 02/28/25 06:51 02/28/25 06:51 02/28/25 07:00 02/28/25 07:00 02/28/25 07:00 02/28/25 07:00 Oxygen Delivery Method Room Air Weight: 183 lb 13.848 oz Body Mass Index (BMI) 27.1 Intake & Output: Intake and Output for Last 24 Hours 02/26/25 02/27/25 02/28/25 23:59 23:59 23:59 Intake Total 18.1 / 18.1 Balance 18.1 / 18.1 Lab / Micro Data Attestation: I reviewed the patient's lab results. 02/28/25 04:05 02/28/25 03:56 Labs: Laboratory Results - last 24 hr 02/28/25 03:56: WBC Cancelled, Corrected WBC Cancelled, RBC Cancelled, Hgb Cancelled, Hct Cancelled, MCV Cancelled, MCH Cancelled, MCHC Cancelled, RDW Std Deviation Cancelled, RDW Coeff of Nazanin Cancelled, Plt Count Cancelled, MPV Cancelled, Immature Gran % (Auto) Cancelled, Neut % (Auto) Cancelled, Lymph % (Auto) Cancelled, Chase % (Auto) Cancelled, Eos % (Auto) Cancelled, Baso % (Auto)Cancelled, Absolute Neuts (auto) Cancelled, Absolute Lymphs (auto) Cancelled, Total Counted Cancelled, Neutrophils % (Manual) Cancelled, Band Neutrophils % Cancelled, Lymphocytes % (Manual) Cancelled, Monocytes % (Manual) Cancelled, Eosinophils % (Manual) Cancelled, Basophils % (Manual) Cancelled, Metamyelocytes% Cancelled, Myelocytes % Cancelled, Promyelocytes % Cancelled, Blast Cells % Cancelled, Plasma Cell % (Manual) Cancelled, Other Cells % Cancelled, Nucleated RBC % Cancelled, Nucleated RBCs/100 WBC Cancelled, Differential Comment Cancelled, Diff Path Review Cancelled, Hypersegmented Neuts Cancelled, Atypical Lymphocytes Cancelled, Reactive Lymphocytes Cancelled, Smudge Cells Cancelled, Toxic Granulation Cancelled, Toxic Vacuolation Cancelled, Dohle Bodies Cancelled, Efraín Rods Cancelled, Platelet Estimate Cancelled, Plt Morphology Comment Cancelled, RBC Morphology Cancelled 02/28/25 03:56: RBC Morphology Cancelled, Polychromasia Cancelled, HypochromasiaCancelled, Basophilic Stippling Cancelled, Anisocytosis Cancelled, Microcytosis Cancelled, Macrocytosis Cancelled, Spherocytes Cancelled, Sickle Cells Cancelled, Target Cells Cancelled, Tear Drop Cells Cancelled, Ovalocytes Cancelled, Stomatocytes Cancelled, No-Glenvar Bodies Cancelled, Yasmany Cells Cancelled, Bite Cells Cancelled, Crenated Cell Cancelled, Acanthocytes (Spur) Cancelled, Rouleaux Cancelled, Schistocytes Cancelled, Sodium 139, Potassium 4.3, Chloride 105, Carbon Dioxide 19.6 L, Anion Gap 15, BUN 13, Creatinine 0.99,Estim Creat Clear Calc 76.37, Est GFR (MDRD) Non-Af 85, BUN/Creatinine Ratio 12.8, Glucose 120 H, Calcium 9.7, Troponin T High Sens 12 02/28/25 04:05: WBC 5.7, RBC 4.15 L, Hgb 12.9 L, Hct 35.8 L, MCV 86.3, MCH 31.1,MCHC 36.0, RDW Std Deviation 44.4 H, RDW Coeff of Nazanin 14.1, Plt Count 287, MPV 9.2, Immature Gran % (Auto) 1.000 H, Neut % (Auto) 60.4, Lymph % (Auto) 15.9 L, Chase % (Auto) 13.6 H, Eos % (Auto) 8.6 H, Baso % (Auto) 0.5, Absolute Neuts (auto) 3.5, Absolute Lymphs (auto) 0.91, Nucleated RBC % 0, PT 12.3, INR 0.9, APTT 23.7 L, D-Dimer Quant (PE/DVT) 0.39 02/28/25 06:00: Troponin T Hi Sens 2 Hr 43 H Cardiology Labs/Tests 02/28/25 03:56: WBC Cancelled, Corrected WBC Cancelled, RBC Cancelled, Hgb Cancelled, Hct Cancelled, MCV Cancelled, MCH Cancelled, MCHC Cancelled, Plt Count Cancelled, MPV Cancelled, Immature Gran % (Auto) Cancelled, Neut % (Auto) Cancelled, Lymph % (Auto) Cancelled, Chase % (Auto) Cancelled, Eos % (Auto) Cancelled, Baso % (Auto) Cancelled, Absolute Neuts (auto) Cancelled, Total Counted Cancelled, Neutrophils % (Manual) Cancelled, Band Neutrophils % Cancelled, Lymphocytes % (Manual) Cancelled, Monocytes % (Manual) Cancelled, Eosinophils % (Manual) Cancelled, Basophils % (Manual) Cancelled, Metamyelocytes% Cancelled, Myelocytes % Cancelled, Promyelocytes % Cancelled, Blast Cells % Cancelled, Plasma Cell % (Manual) Cancelled, Other Cells % Cancelled, Nucleated RBC % Cancelled, Sodium 139, Potassium 4.3, Chloride 105, Carbon Dioxide 19.6 L,Anion Gap 15, BUN 13, Creatinine 0.99, Est GFR (MDRD) Non-Af 85, BUN/Creatinine Ratio 12.8, Glucose 120 H, Calcium 9.7 02/28/25 04:05: WBC 5.7, RBC 4.15 L, Hgb 12.9 L, Hct 35.8 L, MCV 86.3, MCH 31.1,MCHC 36.0, Plt Count 287, MPV 9.2, Immature Gran % (Auto) 1.000 H, Neut % (Auto)60.4, Lymph % (Auto) 15.9 L, Chase % (Auto) 13.6 H, Eos % (Auto) 8.6 H, Baso % (Auto) 0.5, Absolute Neuts (auto) 3.5, Nucleated RBC % 0, PT 12.3, INR 0.9, APTT23.7 L, D- Dimer Quant (PE/DVT) 0.39 Rhythm: EKG: ECHO: Stress Test: Cardiac Cath: PCI: CT Surgery: Holter monitor: EPS: PPM: CXR: Chest CT Scan: Radiography Diagnostic Testing: Radiology Impression Chest X-Ray 02/28/25 04:18 IMPRESSION: No evidence of acute disease. Reading Location: [facility] EKG Initial EKG: Attestation: I personally reviewed and interpreted this EKG as follows: (Normal sinus rhythm. New ST segment depressions and T wave inversions in the inferior leads. Subtle less than [address] elevation in 1 and aVL. This is new from a previous ECG 2020.) 02/28/25 0736 <Electronically signed by Jim Mcdonnell MD> Cosigner Signature (if applicable): CC: Dr. Beata Wing MD~ Signed [facility] Work Phone: [phone] Discharge summary Author Peña Rivera [facility] Note Date/Time February 28, 2025 7:30am [facility] Medical Records Department [address] [place] [address] Emergency Department Summary 02/28/25 MR#: [id number] Acct: [id number] Name: CELESTE IBRAHIM Rep #:[id number] : 1960 64 From: Peña Soria PCP: Dr. Beata Wing MD Status:ADM IN Location: ICU CVICU20 3-1 HPI History of Present Illness Chief Complaint: Chest Pain Informant: patient Narrative Narrative: Chest pain midsternal waking him from sleep 25 minutes prior to arrival. Combination tightness and sharp pain. Feels some pain down his left arm. Nausea feel he can throw up. No cardiac history. History of hyperlipidemia. Denies tobacco no family history of MIs young age. Denies hypertension or diabetes. Diagnosed with recent prostate cancer had prostatectomy this past August finished radiation therapy this past . No history of PE or DVT. No recent cough. States he feels like I am going to pass out. He drovehimself here. Reports symptoms 9 out of 10. Stress test years ago. No historyof heart caths. Prior Similar Symptoms: No CVD Risk Factors: Positive for Hypercholesterolemia; Negative for Hypertension, Diabetes, Family History 1' </=55 or Smoking PE Risk Factors: Positive for Cancer; Negative for Recent Travel/Surgery, RecentImmobilization, Prior DVT or PE or OCP + Smoking + >/=35 PFSH PFSH Medical History Prostate cancer Hesitancy of micturition Elevated PSA Incontinence Family history of colon cancer in father Wears glasses Anxiety Prostate disease High cholesterol Difficulty swallowing Heartburn Non-smoker Home Medications ?Medication ?Instructions ?Recorded ?Last Taken ?Type diphenhydramine HCl 25 mg capsule 25 mg PO QHS 4 09/06/24 History (Benadryl) hydroxyzine HCl 25 mg tablet 25 mg PO BID PRN PRN anxi ety 08/24/24 Unknown History oxybutynin chloride 5 mg tablet 5 mg PO BID PRN bladde r spasms 10/05/24 Unknown History lorazepam 1 mg tablet 1 mg PO ONCE PRN anxiety #1 TAB 12/28/24 Unknown Rx Allergy/AdvReac Type Severity Reaction Status Date / Time No Known Allergies Allergy Verified 02/28/25 03:50 Family History Father Colon cancer After lung cancer dx Surgical History History of prostatectomy History of prostate biopsy History of tonsillectomy Social History household members: none current occupational status: employed current occupation: [employer] [place] Smoking Status: Never smoker alcohol intake: never substance use type: does not use ROS ROS ED Constitutional Constitutional ED: Denies chills, fever(s) or sweats ENT ENT ED: Denies sore throat Cardiovascular Cardiovascular: Reports chest pain; Denies leg edema, palpitations or racing heartbeat Respiratory/Chest Respiratory/Chest: Denies cough, dyspnea or dyspnea on exertion Gastrointestinal Gastrointestinal: Reports nausea; Denies abdominal pain, diarrhea or vomiting Genitourinary Genitourinary ED: Denies dysuria, hematuria or urinary frequency Musculoskeletal Musculoskeletal: Denies back pain, extremity pain or neck pain Integumentary Denies rash or wounds Neurologic Neurologic: Denies headache(s), paresthesias or weakness EXAM Physical Exam Const Vital Signs: 02/28/25 03:50 02/28/25 03:57 02/28/25 04:17 Temperature 97 F L Temperature Source Axillary Pulse Rate 91 75 Respiratory Rate 20 H Blood Pressure 168/110 H 179/95 H Blood Pressure Mean 129 Blood Pressure Source Blood Pressure Position Blood Pressure Location Pulse Ox 100 100 Oxygen Delivery Method Room Air Room Air 02/28/25 04:22 02/28/25 04:28 02/28/25 04:46 Temperature Temperature Source Pulse Rate 70 68 65 Respiratory Rate Blood Pressure 145/93 H 130/81 H 120/76 Blood Pressure Mean 90 Blood Pressure Source Monitor Blood Pressure Position Semi-Fowlers Blood Pressure Location Right Arm Pulse Ox Oxygen Delivery Method 02/28/25 04:50 02/28/25 05:04 02/28/25 05:27 Temperature Temperature Source Pulse Rate 64 Respiratory Rate 16 Blood Pressure 120/76 135/77 H 131/85 H Blood Pressure Mean 90 96 100 Blood Pressure Source Monitor Monitor Blood Pressure Position Semi-Fowlers Semi-Fowlers Blood Pressure Location Right Arm Right Arm Pulse Ox 98 Oxygen Delivery Method Room Air 02/28/25 05:37 02/28/25 05:59 02/28/25 06:00 Temperature Temperature Source Pulse Rate 67 Respiratory Rate 18 Blood Pressure 122/80 H 128/74 H 128/74 H Blood Pressure Mean 94 92 92 Blood Pressure Source Monitor Monitor Blood Pressure Position Semi-Fowlers Semi-Fowlers Blood Pressure Location Right Arm Right Arm Pulse Ox 97 Oxygen Delivery Method Room Air 02/28/25 06:29 Temperature Temperature Source Pulse Rate Respiratory Rate Blood Pressure 122/75 H Blood Pressure Mean 90 Blood Pressure Source Monitor Blood Pressure Position Semi-Fowlers Blood Pressure Location Right Arm Pulse Ox Oxygen Delivery Method Positive well nourished and well developed Constitutional Narrative: Nontoxic, slightly anxious. General Appearance ED: well developed and NAD HEENT Reports moist mucous membranes normocephalic and atraumatic Eyes General Eye ED: Yes normal appearance of both eyes Neck full ROM Chest Wall Chest: Negative for tenderness Resp normal respiratory effort and normal air movement Resp Narrative: Symmetric breath sounds. Effort and Inspection: symmetric chest movement; Negative for respiratory distress Cardio regular rate, regular rhythm and no murmurs Peripheral Pulses: pulses 2+ throughout GI normal to inspection, nondistended, normoactive bowel sounds and non-tender Palpation: Negative for guarding or rebound tenderness present Extremity normal to inspection General Extremety ED: Negative for edema or tenderness General Extremity: Negative for edema Neuro oriented x3 and no sensory deficits noted Sensorium / Orientation: awake and alert Skin no rashes or lesions noted and no wounds Heart Score History: Moderately Suspicious ECG: Nonspecific Repolarization Age: >45 - <65 years Risk Factors: 1 or 2 Risk Factors Score: 4 MDM MDM MDM Narrative Medical decision making narrative: Interventions / MDM: Differential diagnosis: Chest pain, abnormal EKG, angina Diagnosis considered but do not suspect: Pulmonary embolism however D-dimer negative, pneumothorax however x-ray negative My EKG interpretation: Sinus rhythm 82, no ST changes. There is T wave version inferior leads 3 and aVF. This is new compared to August 2024. Repeat EKG at 0 558: Unchanged. With sinus with T wave inversions in lead III and aVF. No ST elevations. Imaging independently reviewed and interpreted by myself: 1 view chest x-ray: Noacute process External documents reviewed: N/A Test considered but not ordered:N/A ED course: Patient chest pain, dean tightness with sharp pain numbness down his left arm. Cardiac workup initiated. Aspirin ordered. Zofran and morphine. D-dimer with his cancer history. EKG notes new T wave versions in inferior leads. 0435: Reported after 3 doses of nitro symptoms of feeling more improved. Patient reports 5 out of 10. Troponin results not returned her symptoms minutes prior to arrival do not suspect initial troponin to be elevated. As he still symptomatic I will start nitro drip to try to alleviate his symptoms. 0445: D-dimer negative. Initial troponin is 12. Creatinine 0.99. Hemoglobin 12.9. White count 5.7. 0535: Nitro drip at 15. Patient reports symptoms feel for pressure sensation. Nursing will increase titration. Blood pressure stable. 0600: Nitro drip just turned up to 30 mics per minute. He reports pain is a 3. EKG unchanged. Delta troponin being sent to the lab at this time. 0630: Repeat troponin positive at 43 from 12. Pain down to a 2. I spoke with coremaker floor Dr. Mcdonnell, discussed patient's history findings and workup. He would like heparin drip started. Keep him n.p.o. [facility] heart catheterization later today. Patient updated. Will continue to titrate his nitroglycerin. 0640: Spoke with hospitalist Dr. Alarcon for admission to ICU. 0650: I was called to the room patient became hypotensive however he was status post additional IV stick by nursing. He was sweaty. They stopped the nitro drip, fluids were given. Likely a vasovagal episode from the IV stick. Will recheck blood pressure and likely restart nitroglycerin drip. 0710: Blood pressure did improve he was started back on the nitro drip. Dr. Mcdonnell cardiology was in the department to evaluate the patient we will plan on taking patient to the Cardiovascular Specialist from the ED. Re-evaluation: stable Disposition discussed with patient/family/significant other: Patient Case discussed with consulting clinician: N/A This note was generated with Vouchr dictation software. It may contain incorrectwords, spelling, and punctuation that were not noted in checking the note beforesigning. Lab Data Attestation: I reviewed the patient's lab results. Labs: Laboratory Results - last 24 hr 02/28/25 02/28/25 02/28/25 03:56 03:56 04:05 WBC Cancelled 5.7 Corrected WBC Cancelled RBC Cancelled 4.15 L Hgb Cancelled 12.9 L Hct Cancelled 35.8 L MCV Cancelled 86.3 MCH Cancelled 31.1 MCHC Cancelled 36.0 RDW Std Deviation Cancelled 44.4 H RDW Coeff of Nazanin Cancelled 14.1 Plt Count Cancelled 287 MPV Cancelled 9.2 Immature Gran % (Auto) Cancelled 1.000 H Neut % (Auto) Cancelled 60.4 Lymph % (Auto) Cancelled 15.9 L Chase % (Auto) Cancelled 13.6 H Eos % (Auto) Cancelled 8.6 H Baso % (Auto) Cancelled 0.5 Absolute Neuts (auto) Cancelled 3.5 Absolute Lymphs (auto) Cancelled 0.91 Total Counted Cancelled Neutrophils % (Manual) Cancelled Band Neutrophils % Cancelled Lymphocytes % (Manual) Cancelled Monocytes % (Manual) Cancelled Eosinophils % (Manual) Cancelled Basophils % (Manual) Cancelled Metamyelocytes % Cancelled Myelocytes % Cancelled Promyelocytes % Cancelled Blast Cells % Cancelled Plasma Cell % (Manual) Cancelled Other Cells % Cancelled Nucleated RBC % Cancelled 0 Nucleated RBCs/100 WBC Cancelled Differential Comment Cancelled Diff Path Review Cancelled Hypersegmented Neuts Cancelled Atypical Lymphocytes Cancelled Reactive Lymphocytes Cancelled Smudge Cells Cancelled Toxic Granulation Cancelled Toxic Vacuolation Cancelled Dohle Bodies Cancelled Efraín Rods Cancelled Platelet Estimate Cancelled Plt Morphology Comment Cancelled RBC Morphology Cancelled Cancelled Polychromasia Cancelled Hypochromasia Cancelled Basophilic Stippling Cancelled Anisocytosis Cancelled Microcytosis Cancelled Macrocytosis Cancelled Spherocytes Cancelled Sickle Cells Cancelled Target Cells Cancelled Tear Drop Cells Cancelled Ovalocytes Cancelled Stomatocytes Cancelled No-Glenvar Bodies Cancelled Streator Cells Cancelled Bite Cells Cancelled Crenated Cell Cancelled Acanthocytes (Spur) Cancelled Rouleaux Cancelled Schistocytes Cancelled PT 12.3 INR 0.9 APTT 23.7 L D-Dimer Quant (PE/DVT) 0.39 Sodium 139 Potassium 4.3 Chloride 105 Carbon Dioxide 19.6 L Anion Gap 15 BUN 13 Creatinine 0.99 Estim Creat Clear Calc 76.37 Est GFR (MDRD) Non-Af 85 BUN/Creatinine Ratio 12.8 Glucose 120 H Calcium 9.7 Troponin T High Sens 12 Troponin T Hi Sens 2 Hr 02/28/25 06:00 WBC Corrected WBC RBC Hgb Hct MCV MCH MCHC RDW Std Deviation RDW Coeff of Nazanin Plt Count MPV Immature Gran % (Auto) Neut % (Auto) Lymph % (Auto) Chase % (Auto) Eos % (Auto) Baso % (Auto) Absolute Neuts (auto) Absolute Lymphs (auto) Total Counted Neutrophils % (Manual) Band Neutrophils % Lymphocytes % (Manual) Monocytes % (Manual) Eosinophils % (Manual) Basophils % (Manual) Metamyelocytes % Myelocytes % Promyelocytes % Blast Cells % Plasma Cell % (Manual) Other Cells % Nucleated RBC % Nucleated RBCs/100 WBC Differential Comment Diff Path Review Hypersegmented Neuts Atypical Lymphocytes Reactive Lymphocytes Smudge Cells Toxic Granulation Toxic Vacuolation Dohle Bodies Efraín Rods Platelet Estimate Plt Morphology Comment RBC Morphology Polychromasia Hypochromasia Basophilic Stippling Anisocytosis Microcytosis Macrocytosis Spherocytes Sickle Cells Target Cells Tear Drop Cells Ovalocytes Stomatocytes No-Glenvar Bodies Yasmany Cells Bite Cells Crenated Cell Acanthocytes (Spur) Rouleaux Schistocytes PT INR APTT D-Dimer Quant (PE/DVT) Sodium Potassium Chloride Carbon Dioxide Anion Gap BUN Creatinine Estim Creat Clear Calc Est GFR (MDRD) Non-Af BUN/Creatinine Ratio Glucose Calcium Troponin T High Sens Troponin T Hi Sens 2 Hr 43 H Radiography Diagnostic Testing: Clinical Impression(s) from Imaging Studies Chest X-Ray 02/28/25 04:18 IMPRESSION: No evidence of acute disease. Reading Location: [facility] Critical Care Time Critical Care Time: Yes Critical care time (excluding procedures): 30-74 minutes, Discussing w/Patient &/or Family/Product Assembler, Discussing w/Consultants, Arranging Admission or Transfer, Performing Direct Patient Care at Bedside and - (40 minutes) Discharge Plan Dx/Rx/DC Orders Clinical Impression: Angina at rest, Chest pain, Elevated troponin Disposition Disposition: Acute Care [facility] What to do if you have Problems For any increased pain, shortness of breath, bleeding, nausea or vomiting, chestpain, or any unexpected problems, contact your Primary Care Provider. Call [facility] ([phone]) or report to the closest Emergency Room. Call 911 if necessary. 02/28/25 07 <Electronically signed by Peña Soria> Cosigner Signature (if applicable): CC: Dr. Beata Wing MD ~ Signed [facility] Work Phone: [phone] History and physical note [facility] Medical Records Department [address] [place] [id number] H&P Exam - Hospitalist 02/28/2517 MR#: [id number] Acct: [id number] Name: CELESTE IBRAHIM Rep #:[id number] : 1960 64 From: Brandi Resendiz MD PCP: Dr. Beata Wing MD Status:ADM IN Location: ICU CVICU20 3-1 HPI - General General Date of Admission: 02/28/25 Date of Service: 02/28/25 Chief Complaint: Chest pain HPI Narrative CELESTE IBRAHIM, is a 64 M with a history of recent prostate cancer status post prostatectomy and multiple rounds of radiation now finished 1 week ago who presented to [facility] 02/28/2025 due to chest pain that woke him up at 3:00 in the morning. On arrival temperature 97 with a pulse rate of 91, blood pressure 168/110, respiratory rate 20 with a pulse ox 100% patient wasfound to have new T wave inversions on EKG and a troponin that went from 12- 43, nitroglycerin did decrease his pain from a 9 to a 5 so he was placed on a nitro drip, heparin drip and cardiology contacted who evaluated and plan for heart catheterization. Hospitalist contacted for admission. Patient evaluated at bedside, he does report that substernal chest pain woke him up at 3 AM and was combination of tight and sharp and radiated to the left arm and also had nausea and lightheadedness. At this time chest pain improved to around a 2 still on a nitro drip but is still present. Reports he has some diarrhea from his radiation but has no other new or acute complaints. Of note in the ED when a second IV was placed he did become sweaty and diaphoretic with transient hypotension that was thought to be vasovagal as this all improved and all seem to be independent with nitro drip. When patient wasevaluated blood pressure had stabilized. [facility] Medical History (Updated 02/28/25 @ 07:[address] Jim Mcdonnell MD) Anxiety Difficulty swallowing Elevated PSA Family history of colon cancer in father Heartburn Hesitancy of micturition High cholesterol Incontinence Non-smoker Prostate cancer Prostate disease Wears glasses Home Medications ?Medication ?Instructions ?Recorded ?Last Taken ?Type diphenhydramine HCl 25 mg capsule 25 mg PO QHS 4 09/06/24 History (Benadryl) hydroxyzine HCl 25 mg tablet 25 mg PO BID PRN PRN anxi ety 08/24/24 Unknown History oxybutynin chloride 5 mg tablet 5 mg PO BID PRN bladde r spasms 10/05/24 Unknown History lorazepam 1 mg tablet 1 mg PO ONCE PRN anxiety #1 TAB 12/28/24 Unknown Rx Allergy/AdvReac Type Severity Reaction Status Date / Time No Known Allergies Allergy Verified 02/28/25 03:50 Family History Father Colon cancer After lung cancer dx Surgical History History of prostate biopsy History of prostatectomy History of tonsillectomy Social History household members: none current occupational status: employed current occupation: [employer] [place] Smoking Status: Never smoker alcohol intake: never substance use type: does not use ROS ROS Narrative General: Denies fever/chills HENT: Denies headache, denies stuffy nose, denies sore throat EYES: Denies changes in vision Resp: Denies cough, denies shortness of breath Cardiac: Combination of tight/pressure/sharp chest pain radiating to left arm GI: Denies abdominal pain, has some diarrhea associated with his prostatic radiation, denies nausea/vomiting : Denies changes in urination Extremity: Denies swelling MSK: Denies weakness Neuro: Reports over the past couple of years he has had some tingling in his toes and hands Heme: Denies any bleeding or bruising Skin: Denies rashes Psychiatric: No complaints voiced Vital Signs Vital Signs Vital Signs: 02/28/25 03:50 02/28/25 03:57 02/28/25 04:17 Temperature 97 F L Temperature Source Axillary Pulse Rate 91 75 Respiratory Rate 20 H Blood Pressure 168/110 H 179/95 H Blood Pressure Mean 129 Blood Pressure Source Blood Pressure Position Blood Pressure Location Pulse Ox 100 100 Oxygen Delivery Method Room Air Room Air 02/28/25 04:22 02/28/25 04:28 02/28/25 04:46 Temperature Temperature Source Pulse Rate 70 68 65 Respiratory Rate Blood Pressure 145/93 H 130/81 H 120/76 Blood Pressure Mean 90 Blood Pressure Source Monitor Blood Pressure Position Semi-Fowlers Blood Pressure Location Right Arm Pulse Ox Oxygen Delivery Method 02/28/25 04:50 02/28/25 05:04 02/28/25 05:27 Temperature Temperature Source Pulse Rate 64 Respiratory Rate 16 Blood Pressure 120/76 135/77 H 131/85 H Blood Pressure Mean 90 96 100 Blood Pressure Source Monitor Monitor Blood Pressure Position Semi-Fowlers Semi-Fowlers Blood Pressure Location Right Arm Right Arm Pulse Ox 98 Oxygen Delivery Method Room Air 02/28/25 05:37 02/28/25 05:59 02/28/25 06:00 Temperature Temperature Source Pulse Rate 67 Respiratory Rate 18 Blood Pressure 122/80 H 128/74 H 128/74 H Blood Pressure Mean 94 92 92 Blood Pressure Source Monitor Monitor Blood Pressure Position Semi-Fowlers Semi-Fowlers Blood Pressure Location Right Arm Right Arm Pulse Ox 97 Oxygen Delivery Method Room Air 02/28/25 06:29 02/28/25 06:51 02/28/25 07:00 Temperature 98.4 F Temperature Source Pulse Rate 65 Respiratory Rate 18 18 Blood Pressure 122/75 H 98/58 L 108/73 Blood Pressure Mean 90 71 84 Blood Pressure Source Monitor Blood Pressure Position Semi-Fowlers Blood Pressure Location Right Arm Pulse Ox 99 98 Oxygen Delivery Method Room Air Weight Weight: 83.4 kg Body Mass Index (BMI) 27.1 Physical Exam Narrative General: Alert, oriented, no apparent distress HEENT: Atraumatic, normocephalic Eyes: Anicteric, normal conjunctiva, extraocular movements grossly intact Neck: Supple Respiratory: Clear to auscultation bilaterally, normal respiratory effort Cardiovascular: Regular rate and rhythm GI: Soft, nontender, nondistended Extremities: No edema Musculoskeletal: Moving all extremities Neuro: No overt focal neurological deficits Skin: No rashes appreciated Psych: Cooperative Results Lab / Micro Data 02/28/25 04:05 02/28/25 03:56 Labs: Laboratory Results - last 24 hr 02/28/25 03:56: WBC Cancelled, Corrected WBC Cancelled, RBC Cancelled, Hgb Cancelled, Hct Cancelled, MCV Cancelled, MCH Cancelled, MCHC Cancelled, RDW Std Deviation Cancelled, RDW Coeff of Nazanin Cancelled, Plt Count Cancelled, MPV Cancelled, Immature Gran % (Auto) Cancelled, Neut % (Auto) Cancelled, Lymph % (Auto) Cancelled, Chase % (Auto) Cancelled, Eos % (Auto) Cancelled, Baso % (Auto)Cancelled, Absolute Neuts (auto) Cancelled, Absolute Lymphs (auto) Cancelled, Total Counted Cancelled, Neutrophils % (Manual) Cancelled, Band Neutrophils % Cancelled, Lymphocytes % (Manual) Cancelled, Monocytes %(Manual) Cancelled, Eosinophils % (Manual) Cancelled, Basophils % (Manual) Cancelled, Metamyelocytes% Cancelled, Myelocytes % Cancelled, Promyelocytes % Cancelled, Blast Cells % Cancelled, Plasma Cell % (Manual) Cancelled, Other Cells % Cancelled, Nucleated RBC % Cancelled, Nucleated RBCs/100 WBC Cancelled, Differential Comment Cancelled, Diff Path Review Cancelled, Hypersegmented Neuts Cancelled, Atypical Lymphocytes Cancelled, Reactive Lymphocytes Cancelled, Smudge Cells Cancelled, Toxic Granulation Cancelled, Toxic Vacuolation Cancelled, Dohle Bodies Cancelled, Efraín Rods Cancelled, Platelet Estimate Cancelled, Plt Morphology Comment Cancelled, RBC Morphology Cancelled 02/28/25 03:56: RBC Morphology Cancelled, Polychromasia Cancelled, HypochromasiaCancelled, Basophilic Stippling Cancelled, Anisocytosis Cancelled, Microcytosis Cancelled, Macrocytosis Cancelled, Spherocytes Cancelled, Sickle Cells Cancelled, Target Cells Cancelled, Tear Drop Cells Cancelled, Ovalocytes Cancelled, Stomatocytes Cancelled, No-Glenvar Bodies Cancelled, Yasmany Cells Cancelled, Bite Cells Cancelled, Crenated Cell Cancelled, Acanthocytes (Spur) Cancelled, Rouleaux Cancelled, Schistocytes Cancelled, Sodium 139, Potassium 4.3, Chloride 105, Carbon Dioxide 19.6 L, Anion Gap 15, BUN 13,Creatinine 0.99,Estim Creat Clear Calc 76.37, Est GFR (MDRD) Non-Af 85, BUN/Creatinine Ratio 12.8, Glucose 120 H, Calcium 9.7, Troponin T High Sens 12 02/28/25 04:05: WBC 5.7, RBC 4.15 L, Hgb 12.9 L, Hct 35.8 L, MCV 86.3, MCH 31.1,MCHC 36.0, RDW Std Deviation 44.4 H, RDW Coeff of Nazanin 14.1, Plt Count 287, MPV 9.2, Immature Gran % (Auto) 1.000 H, Neut % (Auto) 60.4, Lymph % (Auto) 15.9 L, Chase % (Auto) 13.6 H, Eos % (Auto) 8.6 H, Baso % (Auto) 0.5,Absolute Neuts (auto) 3.5, Absolute Lymphs (auto) 0.91, Nucleated RBC % 0, PT 12.3, INR 0.9, APTT 23.7 L, D-Dimer Quant (PE/DVT) 0.39 02/28/25 06:00: Troponin T Hi Sens 2 Hr 43 H Imaging Radiology Impression Chest X-Ray 02/28/25 04:18 IMPRESSION: No evidence of acute disease. Reading Location: [facility] Assessment & Plan Assessment/Plan (1) Chest pain: QUALIFIERS: Chest pain type: chest pain due to myocardial ischemia Ischemic chest pain type: unstable angina pectoris Qualified Code(s): I20.0 - Unstable angina PLAN: Plan # NSTEMI, suspect type I - Patient with new T wave changes compared to a August 2024 EKG -Troponin increased from 12-43 - Patient on nitro and heparin drips -Patient loaded with aspirin - Cardiology evaluated, patient for Cardiovascular Specialist this a.m. - Further management pending results - Will check lipid panel and A1c # Recent prostate cancer - With prostatectomy and patient just finished radiation 1 week ago - Continue outpatient follow-up # Anxiety - Continue hydroxyzine as needed #DVT ppx: Present on heparin drip, SCDs ordered Brandi Resendiz MD Time spent in the patient's overall evaluation, decision-making process, review of diagnostic data,adjustment of management, discussion with other providers, nursing and ancillary staff involved in patient's care documentation, 57 Minutes Charges/Coding Visit Charges Inpatient E&M: 20990 Init Hosp L2 02/28/25 7176 Cosigner Signature (if applicable): CC: Dr. Beata Wing MD; Dr. Brandi Resendiz MD~ Signed [facility]05-06-2025 Consult note [facility] Medical Records Department [address] [place] [address] Consultation - Cardiology 02/28/25 0723 MR#: [id number] Acct: [id number] Name: CELESTE IBRAHIM Rep #:[id number] : 1960 64 From: Jim Mcdonnell MD PCP: Dr. Beata Wing MD Status:ADM IN Location: ICU CVICU20 3-1 Assessment & Plan Assessment/Plan (1) Chest pain: QUALIFIERS: Chest pain type: chest pain due to myocardial ischemia Ischemic chest pain type: unstable angina pectoris Qualified Code(s): I20.0 - Unstable angina PLAN: Patient's symptoms started approximately 0300 hrs. This is new onset occurred at rest awoke him from sleep. He has new ECG changes with inferior significant ST and T wave inversions. The patient's risk factor profile includes a history of hyperlipidemia which has been controlled with diet. Hedoes not smoke, there is no family history of first-degree relatives with coronary disease, the patient is not hypertensive. His fasting blood sugar was 200 on today's lab work. The patient's symptoms markedly improved with nitroglycerin. He has been heparinized and on IV nitroglycerin with persistent 2 out of 10 chest discomfort. Given the patient's enzymes going from 12 upto 43 and the ECG changes would recommend urgent left heart catheterization for this unstable angina. The patient has no history of iodine allergy. His renal function is normal. He has good 2+ or better pulses throughout with no femoral bruits. The catheterization procedure risk/benefit and alternatives were explained to the patient in detailand he voiced understanding and agrees to proceed. There is no family available at the bedside and his son is a student at [employer] here in [facility]. The patient works at the [employer]. His home is in [place] where his is currently residing. (2) High cholesterol: PLAN: Patient carries a history of hyperlipidemia in the past. He had been transiently on statins now reports that his lipids have been controlled with diet and exercise. Repeat lipids will be evaluated along with a hemoglobin A1c and appropriate therapeutic intervention started as indicated. PLAN: Plan 1. Urgent left heart catheterization Dr. Steinberg to perform. 2. Further recommendations and long-term medical therapy will be determined once the results of thecatheterization are available. HPI Consult Data Date of Consult: 02/28/25 HPI Narrative Reason for Consultation: Chest pain with ECG changes. HPI Narrative: CELESTE IBRAHIM, is a 64 M who presents after being awoke approximately 0300 hrs. this morningwith chest discomfort. He rated this 9 out of 10. He also noted some nausea and felt like he was going to vomit but did not. He cameto the emergency department approximately 0330 hrs. The patient is actually traveling here from [place] for work. He does have a son who is the [employer] student. The patient was evaluated in the emergency department where an ECG showed new T wave inversions in the inferior leads and subtle less than [address] elevations in1 and aVL. The patient received IV nitroglycerin and sublingual nitroglycerin with marked improvement in his chest symptoms down to a 2 outof 10. At this time he has persistent chest discomfort and repeat ECG shows continued T wave inversions with ST segment depressions in the inferior leads. His initial troponin was 12 subsequent 2-hour troponin was 46. The patient does not have a prior history of cardiac issues. There is no family history of coronary diseasehe does have a history of hyperlipidemia which was transiently treated in the past with statins but he has been off of them for several years. He denies any history of hypertension he has never smoked. The patient is not diabetic however his fasting glucose was 120 on today's exam. The patient does have a history of prostate cancer has been historically treatedwith radical prostatectomy and radiation therapy. He denies any history of allergies to iodine and has had several CT scans. He has no known drug allergies. Renal function is normal on today's labs. PFSH Medical History Prostate cancer Hesitancy of micturition Elevated PSA Incontinence Family history of colon cancer in father Wears glasses Anxiety Prostate disease High cholesterol Difficulty swallowing Heartburn Non-smoker Home Medications ?Medication ?Instructions ?Recorded ?Last Taken ?Type diphenhydramine HCl 25 mg capsule 25 mg PO QHS 2 4 09/06/24 History (Benadryl) hydroxyzine HCl 25 mg tablet 25 mg PO BID PRN PRN anxi ety 08/24/24 Unknown History oxybutynin chloride 5 mg tablet 5 mg PO BID PRN bladde r spasms 10/05/24 Unknown History lorazepam 1 mg tablet 1 mg PO ONCE PRN anxiety #1 TAB 12/28/24 Unknown Rx Allergy/AdvReac Type Severity Reaction Status Date / Time No Known Allergies Allergy Verified 02/28/25 03:50 Family History Father Colon cancer After lung cancer dx Surgical History History of prostatectomy History of prostate biopsy History of tonsillectomy Social History household members: none current occupational status: employed current occupation: [employer] Smoking Status: Never smoker alcohol intake: never substance use type: does not use ROS Constitutional Constitutional: Reports as per HPI Eyes Eyes: Reports systems reviewed and no addt'l complaints, except as documented ENT HEENT: Reports systems reviewed and no addt'l complaints, except as documented Cardiovascular Cardiovascular: Reports as per HPI Respiratory/Chest Respiratory/Chest: Reports as per HPI Gastrointestinal Gastrointestinal: Reports as per HPI Genitourinary Genitourinary: Reports as per HPI Musculoskeletal Musculoskeletal: Reports systems reviewed and no addt'l complaints, except as documented Integumentary Integumentary: Reports systems reviewed and no addt'l complaints, except as documented Neurologic Neurologic: Reports systems reviewed and no addt'l complaints, except as documented Psychiatric Psychiatric: Reports systems reviewed and no addt'l complaints, except as documented Endocrine Endocrinology: Reports as per HPI Hematologic/Lymphatic Hematologic/Lymphatic: Reports systems reviewed and no addt'l complaints, exceptas documented Allergic/Immunologic Allergic/Immunologic: Reports as per HPI Physical Exam Narrative Patient resting comfortably in recumbent position on the gurney in the emergencydepartment. Continues to complain of 2 out of 10 left upper sternal discomfort. Const alert and oriented x3 HEENT normocephalic Eyes EOMs intact bilaterally Neck no JVD and no carotid bruits Chest inspection of chest normal Resp normal respiratory effort and clear to auscultation bilaterally Cardio Rate: regular rate Rhythm: regular rhythm Heart Sounds: S1 normal and S2 normal; Negative for click, gallop or murmur Peripheral Pulses: pulses 2+ throughout GI soft to palpation Extremity no pedal edema Neuro Neuro Narrative: Alert and oriented x 3 Psych mental status grossly normal Risk Stratification Risk Stratification Applicable: Yes Age >/= 65: No >/= 3 CAD Risk Factors (HTN, HLD, DM, family hx of CAD, or current smoker): No Aspirin Use in the Past 7 Days: No Severe Angina (>/= episodes in 24 hours): Yes EKG ST Changes >/= 0.5mm: Yes Positive Cardiac Marker: Yes BRIAN Risk Stratification Score: 3 BRIAN % Risk: 13% Risk Charges/Coding Visit Charges Inpatient E&M: 73843 Init Hosp L3 Objective Data Vital Signs: Vital Signs Temp Pulse Resp BP Pulse Ox O2 Del Method 98.4 F 65 18 108/73 98 Room Air 02/28/25 06:51 02/28/25 06:51 02/28/25 07:00 02/28/25 07:00 02/28/25 07:00 02/28/25 07:00 Oxygen Delivery Method Room Air Weight: 183 lb 13.848 oz Body Mass Index (BMI) 27.1 Intake & Output: Intake and Output for Last 24 Hours 02/26/25 02/27/25 02/28/25 23:59 23:59 23:59 Intake Total 18.1 / 18.1 Balance 18.1 / 18.1 Lab / Micro Data Attestation: I reviewed the patient's lab results. 02/28/25 04:05 02/28/25 03:56 Labs: Laboratory Results - last 24 hr 02/28/25 03:56: WBC Cancelled, Corrected WBC Cancelled, RBC Cancelled, Hgb Cancelled, Hct Cancelled, MCV Cancelled, MCH Cancelled, MCHC Cancelled, RDW Std Deviation Cancelled, RDW Coeff of Nazanin Cancelled, Plt Count Cancelled, MPV Cancelled, Immature Gran % (Auto) Cancelled, Neut % (Auto) Cancelled, Lymph % (Auto) Cancelled, Chase % (Auto) Cancelled, Eos % (Auto) Cancelled, Baso % (Auto)Cancelled, Absolute Neuts (auto) Cancelled, Absolute Lymphs (auto) Cancelled, Total Counted Cancelled, Neutrophils % (Manual) Cancelled, Band Neutrophils % Cancelled, Lymphocytes % (Manual) Cancelled, Monocytes %(Manual) Cancelled, Eosinophils % (Manual) Cancelled, Basophils % (Manual) Cancelled, Metamyelocytes% Cancelled, Myelocytes % Cancelled, Promyelocytes % Cancelled, Blast Cells % Cancelled, Plasma Cell % (Manual) Cancelled, Other Cells % Cancelled, Nucleated RBC % Cancelled, Nucleated RBCs/100 WBC Cancelled, Differential Comment Cancelled, Diff Path Review Cancelled, Hypersegmented Neuts Cancelled, Atypical Lymphocytes Cancelled, Reactive Lymphocytes Cancelled, Smudge Cells Cancelled, Toxic Granulation Cancelled, Toxic Vacuolation Cancelled, Dohle Bodies Cancelled, Efraín Rods Cancelled, Platelet Estimate Cancelled, Plt Morphology Comment Cancelled, RBC Morphology Cancelled 02/28/25 03:56: RBC Morphology Cancelled, Polychromasia Cancelled, HypochromasiaCancelled, Basophilic Stippling Cancelled, Anisocytosis Cancelled, Microcytosis Cancelled, Macrocytosis Cancelled, Spherocytes Cancelled, Sickle Cells Cancelled, Target Cells Cancelled, Tear Drop Cells Cancelled, Ovalocytes Cancelled, Stomatocytes Cancelled, No-Glenvar Bodies Cancelled, Yasmany Cells Cancelled, Bite Cells Cancelled, Crenated Cell Cancelled, Acanthocytes (Spur) Cancelled, Rouleaux Cancelled, Schistocytes Cancelled, Sodium 139, Potassium 4.3, Chloride 105, Carbon Dioxide 19.6 L, Anion Gap 15, BUN 13,Creatinine 0.99,Estim Creat Clear Calc 76.37, Est GFR (MDRD) Non-Af 85, BUN/Creatinine Ratio 12.8, Glucose 120 H, Calcium 9.7, Troponin T High Sens 12 02/28/25 04:05: WBC 5.7, RBC 4.15 L, Hgb 12.9 L, Hct 35.8 L, MCV 86.3, MCH 31.1,MCHC 36.0, RDW Std Deviation 44.4 H, RDW Coeff of Nazanin 14.1, Plt Count 287, MPV 9.2, Immature Gran % (Auto) 1.000 H, Neut % (Auto) 60.4, Lymph % (Auto) 15.9 L, Chase % (Auto) 13.6 H, Eos % (Auto) 8.6 H, Baso % (Auto) 0.5,Absolute Neuts (auto) 3.5, Absolute Lymphs (auto) 0.91, Nucleated RBC % 0, PT 12.3, INR 0.9, APTT 23.7 L, D-Dimer Quant (PE/DVT) 0.39 02/28/25 06:00: Troponin T Hi Sens 2 Hr 43 H Cardiology Labs/Tests 02/28/25 03:56: WBC Cancelled, Corrected WBC Cancelled, RBC Cancelled, Hgb Cancelled, Hct Cancelled, MCV Cancelled, MCH Cancelled, MCHC Cancelled, Plt Count Cancelled, MPV Cancelled, Immature Gran % (Auto) Cancelled, Neut % (Auto) Cancelled, Lymph % (Auto) Cancelled, Chase % (Auto) Cancelled, Eos % (Auto) Cancelled, Baso % (Auto) Cancelled, Absolute Neuts (auto) Cancelled, Total Counted Cancelled,Neutrophils % (Manual) Cancelled, Band Neutrophils % Cancelled, Lymphocytes % (Manual) Cancelled, Monocytes % (Manual) Cancelled, Eosinophils % (Manual) Cancelled, Basophils % (Manual) Cancelled, [place] myelocytes% Cancelled, Myelocytes % Cancelled, Promyelocytes % Cancelled, Blast Cells % Cancelled, Plasma Cell % (Manual) Cancelled, Other Cells % Cancelled, Nucleated RBC % Cancelled, Sodium 139, Potassium 4.3, Chloride 105, Carbon Dioxide 19.6 L,Anion Gap 15, BUN 13, Creatinine 0.99, Est GFR (MDRD) Non-Af 85, BUN/Creatinine Ratio 12.8, Glucose 120 H, Calcium 9.7 02/28/25 04:05: WBC 5.7, RBC 4.15 L, Hgb 12.9 L, Hct 35.8 L, MCV 86.3, MCH 31.1,MCHC 36.0, Plt Count 287, MPV 9.2, Immature Gran % (Auto) 1.000 H, Neut % (Auto)60.4, Lymph % (Auto) 15.9 L, Chase % (Auto) 13.6 H, Eos % (Auto) 8.6 H, Baso % (Auto) 0.5, Absolute Neuts (auto) 3.5, Nucleated RBC % 0, PT 12.3, INR 0.9, APTT23.7 L, D-Dimer Quant (PE/DVT) 0.39 Rhythm: EKG: ECHO: Stress Test: Cardiac Cath: PCI: CT Surgery: Holter monitor: EPS: PPM: CXR: Chest CT Scan: Radiography Diagnostic Testing: Radiology Impression Chest X-Ray 02/28/25 04:18 IMPRESSION: No evidence of acute disease. Reading Location: [id number] EKG Initial EKG: Attestation: I personally reviewed and interpreted this EKG as follows: (Normal sinus rhythm. New ST segment depressions and T wave inversions in the inferior leads. Subtle less than [address] elevation in 1 and aVL. This is new from a previous ECG 2020.) 02/28/25 0736 Cosigner Signature (if applicable): CC: Dr. Beata Wing MD~ Signed [facility]05-06-2025 Discharge summary [facility] Medical Records Department [address] [place] [address] Emergency Department Summary 02/28/25 MR#: [id number] Acct: [id number] Name: CELESTE IBRAHIM Rep #:[id number] : 1960 64 From: Peña S[place] PCP: Dr. Beata Wing MD Status:ADM IN Location: ICU CVICU20 3-1 HPI History of Present Illness Chief Complaint: Chest Pain Informant: patient Narrative Narrative: Chest pain midsternal waking him from sleep 25 minutes prior to arrival. Combination tightness and sharp pain. Feels some pain down his left arm. Nausea feel he can throw up. No cardiac history. History of hyperlipidemia. Denies tobacco no family history of MIs young age. Denies hypertension or diabetes. Diagnosed with recent prostate cancer had prostatectomy this past August finished radiationtherapy this past . No history of PE or DVT. No recent cough. States he feels like I am going to pass out. He drovehimself here. Reports symptoms 9 out of 10. Stress test years ago. No historyof heart caths. Prior Similar Symptoms: No CVD Risk Factors: Positive for Hypercholesterolemia; Negative for Hypertension, Diabetes, Family History 1' PE Risk Factors: Positive for Cancer; Negative for Recent Travel/Surgery, RecentImmobilization, Prior DVT or PE or OCP + Smoking + >/=35 PFSH PFSH Medical History Prostate cancer Hesitancy of micturition Elevated PSA Incontinence Family history of colon cancer in father Wears glasses Anxiety Prostate disease High cholesterol Difficulty swallowing Heartburn Non-smoker Home Medications ?Medication ?Instructions ?Recorded ?Last Taken ?Type diphenhydramine HCl 25 mg capsule 25 mg PO QHS 08/24/ 4 09/06/24 History (Benadryl) hydroxyzine HCl 25 mg tablet 25 mg PO BID PRN PRN anxi ety 08/24/24 Unknown History oxybutynin chloride 5 mg tablet 5 mg PO BID PRN bladde r spasms 10/05/24 Unknown History lorazepam 1 mg tablet 1 mg PO ONCE PRN anxiety #1 TAB 12/28/24 Unknown Rx Allergy/AdvReac Type Severity Reaction Status Date / Time No Known Allergies Allergy Verified 02/28/25 03:50 Family History Father Colon cancer After lung cancer dx Surgical History History of prostatectomy History of prostate biopsy History of tonsillectomy Social History household members: none current occupational status: employed current occupation: [employer] Smoking Status: Never smoker alcohol intake: never substance use type: does not use ROS ROS ED Constitutional Constitutional ED: Denies chills, fever(s) or sweats ENT ENT ED: Denies sore throat Cardiovascular Cardiovascular: Reports chest pain; Denies leg edema, palpitations or racing heartbeat Respiratory/Chest Respiratory/Chest: Denies cough, dyspnea or dyspnea on exertion Gastrointestinal Gastrointestinal: Reports nausea; Denies abdominal pain, diarrhea or vomiting Genitourinary Genitourinary ED: Denies dysuria, hematuria or urinary frequency Musculoskeletal Musculoskeletal: Denies back pain, extremity pain or neck pain Integumentary Denies rash or wounds Neurologic Neurologic: Denies headache(s), paresthesias or weakness EXAM Physical Exam Const Vital Signs: 02/28/25 03:50 02/28/25 03:57 02/28/25 04:17 Temperature 97 F L Temperature Source Axillary Pulse Rate 91 75 Respiratory Rate 20 H Blood Pressure 168/110 H 179/95 H Blood Pressure Mean 129 Blood Pressure Source Blood Pressure Position Blood Pressure Location Pulse Ox 100 100 Oxygen Delivery Method Room Air Room Air 02/28/25 04:22 02/28/25 04:28 02/28/25 04:46 Temperature Temperature Source Pulse Rate 70 68 65 Respiratory Rate Blood Pressure 145/93 H 130/81 H 120/76 Blood Pressure Mean 90 Blood Pressure Source Monitor Blood Pressure Position Semi-Fowlers Blood Pressure Location Right Arm Pulse Ox Oxygen Delivery Method 02/28/25 04:50 02/28/25 05:04 02/28/25 05:27 Temperature Temperature Source Pulse Rate 64 Respiratory Rate 16 Blood Pressure 120/76 135/77 H 131/85 H Blood Pressure Mean 90 96 100 Blood Pressure Source Monitor Monitor Blood Pressure Position Semi-Fowlers Semi-Fowlers Blood Pressure Location Right Arm Right Arm Pulse Ox 98 Oxygen Delivery Method Room Air 02/28/25 05:37 02/28/25 05:59 02/28/25 06:00 Temperature Temperature Source Pulse Rate 67 Respiratory Rate 18 Blood Pressure 122/80 H 128/74 H 128/74 H Blood Pressure Mean 94 92 92 Blood Pressure Source Monitor Monitor Blood Pressure Position Semi-Fowlers Semi-Fowlers Blood Pressure Location Right Arm Right Arm Pulse Ox 97 Oxygen Delivery Method Room Air 02/28/25 06:29 Temperature Temperature Source Pulse Rate Respiratory Rate Blood Pressure 122/75 H Blood Pressure Mean 90 Blood Pressure Source Monitor Blood Pressure Position Semi-Fowlers Blood Pressure Location Right Arm Pulse Ox Oxygen Delivery Method Positive well nourished and well developed Constitutional Narrative: Nontoxic, slightly anxious. General Appearance ED: well developed and NAD HEENT Reports moist mucous membranes normocephalic and atraumatic Eyes General Eye ED: Yes normal appearance of both eyes Neck full ROM Chest Wall Chest: Negative for tenderness Resp normal respiratory effort and normal air movement Resp Narrative: Symmetric breath sounds. Effort and Inspection: symmetric chest movement; Negative for respiratory distress Cardio regular rate, regular rhythm and no murmurs Peripheral Pulses: pulses 2+ throughout GI normal to inspection, nondistended, normoactive bowel sounds and non-tender Palpation: Negative for guarding or rebound tenderness present Extremity normal to inspection General Extremety ED: Negative for edema or tenderness General Extremity: Negative for edema Neuro oriented x3 and no sensory deficits noted Sensorium / Orientation: awake and alert Skin no rashes or lesions noted and no wounds Heart Score History: Moderately Suspicious ECG: Nonspecific Repolarization Age: >45 - <65 years Risk Factors: 1 or 2 Risk Factors Score: 4 MDM MDM MDM Narrative Medical decision making narrative: Interventions / MDM: Differential diagnosis: Chest pain, abnormal EKG, angina Diagnosis considered but do not suspect: Pulmonary embolism however D-dimer negative, pneumothorax however x-ray negative My EKG interpretation: Sinus rhythm 82, no ST changes. There is T wave version inferior leads 3 andaVF. This is new compared to August 2024. Repeat EKG at 0 558: Unchanged. With sinus with T wave inversions in lead III and aVF. No ST elevations. Imaging independently reviewed and interpreted by myself: 1 view chest x-ray: Noacute process External documents reviewed: N/A Test considered but not ordered:N/A ED course: Patient chest pain, dean tightness with sharp pain numbness down his left arm. Cardiac workup initiated. Aspirin ordered. Zofran and morphine. D- dimer with his cancer history. EKG notes new T wave versions in inferior leads. 0435: Reported after 3 doses of nitro symptoms of feeling more improved. Patient reports 5 out of 10. Troponin results not returned her symptoms [id number] minutes prior to arrival do not suspect initial troponin to be elevated. As he still symptomatic I will start nitro drip to try to alleviate hissymptoms. 0445: D-dimer negative. Initial troponin is 12. Creatinine 0.99. Hemoglobin 12.9. White count 5.7. 0535: Nitro drip at 15. Patient reports symptoms feel for pressure sensation. Nursing will increasetitration. Blood pressure stable. 0600: Nitro drip just turned up to 30 mics per minute. He reports pain is a 3. EKG unchanged. Deltatroponin being sent to the lab at this time. 0630: Repeat troponin positive at 43 from 12. Pain down to a 2. I spoke with coremaker floor Dr. Mcdonnell, discussed patient's history findings and workup. He would like heparin drip started. Keep him n.p.o. [facility] [facility] a heart catheterization later today. Patient updated. Will continue to titrate his nitroglycerin. 0640: Spoke with hospitalist Dr. Alarcon for admission to ICU. 0650: I was called to the room patient became hypotensive however he was status post additional IV stick by nursing. He was sweaty. They stopped the nitro drip, fluids were given. Likely a vasovagal episode from the IV stick. Will recheck blood pressure and likely restart nitroglycerin drip. 0710: Blood pressure did improve he was started back on the nitro drip. Dr. Mcdonnell cardiology was in the department to evaluate the patient we will plan on taking patient to the Cardiovascular Specialist from the ED. Re-evaluation: stable Disposition discussed with patient/family/significant other: Patient Case discussed with consulting clinician: N/A This note was generated with Vouchr dictation software. It may contain incorrectwords, spelling, and punctuation that were not noted in checking the note beforesigning. Lab Data Attestation: I reviewed the patient's lab results. Labs: Laboratory Results - last 24 hr 02/28/25 02/28/25 02/28/25 03:56 03:56 04:05 WBC Cancelled 5.7 Corrected WBC Cancelled RBC Cancelled 4.15 L Hgb Cancelled 12.9 L Hct Cancelled 35.8 L MCV Cancelled 86.3 MCH Cancelled 31.1 MCHC Cancelled 36.0 RDW Std Deviation Cancelled 44.4 H RDW Coeff of Nazanin Cancelled 14.1 Plt Count Cancelled 287 MPV Cancelled 9.2 Immature Gran % (Auto) Cancelled 1.000 H Neut % (Auto) Cancelled 60.4 Lymph % (Auto) Cancelled 15.9 L Chase % (Auto) Cancelled 13.6 H Eos % (Auto) Cancelled 8.6 H Baso % (Auto) Cancelled 0.5 Absolute Neuts (auto) Cancelled 3.5 Absolute Lymphs (auto) Cancelled 0.91 Total Counted Cancelled Neutrophils % (Manual) Cancelled Band Neutrophils % Cancelled Lymphocytes % (Manual) Cancelled Monocytes % (Manual) Cancelled Eosinophils % (Manual) Cancelled Basophils % (Manual) Cancelled Metamyelocytes % Cancelled Myelocytes % Cancelled Promyelocytes % Cancelled Blast Cells % Cancelled Plasma Cell % (Manual) Cancelled Other Cells % Cancelled Nucleated RBC % Cancelled 0 Nucleated RBCs/100 WBC Cancelled Differential Comment Cancelled Diff Path Review Cancelled Hypersegmented Neuts Cancelled Atypical Lymphocytes Cancelled Reactive Lymphocytes Cancelled Smudge Cells Cancelled Toxic Granulation Cancelled Toxic Vacuolation Cancelled Dohle Bodies Cancelled Efraín Rods Cancelled Platelet Estimate Cancelled Plt Morphology Comment Cancelled RBC Morphology Cancelled Cancelled Polychromasia Cancelled Hypochromasia Cancelled Basophilic Stippling Cancelled Anisocytosis Cancelled Microcytosis Cancelled Macrocytosis Cancelled Spherocytes Cancelled Sickle Cells Cancelled Target Cells Cancelled Tear Drop Cells Cancelled Ovalocytes Cancelled Stomatocytes Cancelled No-Glenvar Bodies Cancelled Streator Cells Cancelled Bite Cells Cancelled Crenated Cell Cancelled Acanthocytes (Spur) Cancelled Rouleaux Cancelled Schistocytes Cancelled PT 12.3 INR 0.9 APTT 23.7 L D-Dimer Quant (PE/DVT) 0.39 Sodium 139 Potassium 4.3 Chloride 105 Carbon Dioxide 19.6 L Anion Gap 15 BUN 13 Creatinine 0.99 Estim Creat Clear Calc 76.37 Est GFR (MDRD) Non-Af 85 BUN/Creatinine Ratio 12.8 Glucose 120 H Calcium 9.7 Troponin T High Sens 12 Troponin T Hi Sens 2 Hr 02/28/25 06:00 WBC Corrected WBC RBC Hgb Hct MCV MCH MCHC RDW Std Deviation RDW Coeff of Nazanin Plt Count MPV Immature Gran % (Auto) Neut % (Auto) Lymph % (Auto) Chase % (Auto) Eos % (Auto) Baso % (Auto) Absolute Neuts (auto) Absolute Lymphs (auto) Total Counted Neutrophils % (Manual) Band Neutrophils % Lymphocytes % (Manual) Monocytes % (Manual) Eosinophils % (Manual) Basophils % (Manual) Metamyelocytes % Myelocytes % Promyelocytes % Blast Cells % Plasma Cell % (Manual) Other Cells % Nucleated RBC % Nucleated RBCs/100 WBC Differential Comment Diff Path Review Hypersegmented Neuts Atypical Lymphocytes Reactive Lymphocytes Smudge Cells Toxic Granulation Toxic Vacuolation Dohle Bodies Efraín Rods Platelet Estimate Plt Morphology Comment RBC Morphology Polychromasia Hypochromasia Basophilic Stippling Anisocytosis Microcytosis Macrocytosis Spherocytes Sickle Cells Target Cells Tear Drop Cells Ovalocytes Stomatocytes No-Glenvar Bodies Streator Cells Bite Cells Crenated Cell Acanthocytes (Spur) Rouleaux Schistocytes PT INR APTT D-Dimer Quant (PE/DVT) Sodium Potassium Chloride Carbon Dioxide Anion Gap BUN Creatinine Estim Creat Clear Calc Est GFR (MDRD) Non-Af BUN/Creatinine Ratio Glucose Calcium Troponin T High Sens Troponin T Hi Sens 2 Hr 43 H Radiography Diagnostic Testing: Clinical Impression(s) from Imaging Studies Chest X-Ray 02/28/25 04:18 IMPRESSION: No evidence of acute disease. Reading Location: [facility] Critical Care Time Critical Care Time: Yes Critical care time (excluding procedures): 30-74 minutes, Discussing w/Patient &/or Family/CareGiver, Discussing w/Consultants, Arranging Admission or Transfer, Performing Direct Patient Care atBedside and - (40 minutes) Discharge Plan Dx/Rx/DC Orders Clinical Impression: Angina at rest, Chest pain, Elevated troponin Disposition Disposition: Acute Care [facility] What to do if you have Problems For any increased pain, shortness of breath, bleeding, nausea or vomiting, chestpain, or any unexpected problems, contact your Primary Care Provider. Call [facility] ([phone]) or report tothe closest Emergency Room. Call 911 if necessary. 02/28/25 0730 Cosigner Signature (if applicable): CC: Dr. Beata Wing MD ~ Signed [facility]05-06-2025 Radiology Diagnostic study note [facility] Imaging Services [address] [place] [address] Chest 1 View (Portable) MR#: [id number] Acct: [id number] Name: CELESTE IBRAHIM Rep #: [id number] : 1960 M 64 From: Thomas Hurst MD PCP: Dr. Beata Wing MD Status: REG ER Study:Chest 1 View (Portable) Date of Exam: 02/28/25 Exam# [id number] Ordering Dr: Peña Rivera DO PROCEDURE: CHEST 1 VIEW (PORTABLE) 02/28/2025 REASON FOR EXAM: CHEST PAIN TECHNIQUE: Frontal view of the chest. FINDINGS: The lungs appear clear. The cardiac and mediastinal contours appear within limits. The visualized osseous structures appear within limits. RAD/Chest 1 View (Portable) IMPRESSION: No evidence of acute disease. Reading Location: [facility] CC: Dr. Beata Wing MD; Dr. Peña Rivera DO ~ [employer] Inspector: Signed [facility]02-12-2025 Evaluation note* Diagnosis Onset Date Resolution Status Admit Date Encounter for screening for malignant neoplasm of colon resolved Febr ua 2024 6:11am Rising PSA following treatment for malignant neoplasm of prostate resolved January 11, 2025 8:28am Rising PSA following treatment for malignant neoplasm of prostate resolved January 18, 2025 8:09am Rising PSA following treatment for malignant neoplasm of prostate resolved January 24, 2025 8:07am Rising PSA following treatment for malignant neoplasm of prostate resolved February 01, 2025 8:04am Rising PSA following treatment for malignant neoplasm of prostate resolved February 08, 2025 8:00am Rising PSA following treatment for malignant neoplasm of prostate resolved February 15, 2025 8:08am Rising PSA following treatment for malignant neoplasm of prostate resolved February 22, 2025 8:00am CAD (coronary artery disease) acute February 28, 2025 7: 17am Angina at rest resolved February 28, 025 7:17am Chest pain resolved February 28, 2025 7:17am Elevated troponin resolved February 7:17am Elevated TSH resolved February 28 7:17am NSTEMI, initial episode of care resolved February 28, 2025 7: 17am Diabetes inactive February 28, 2025 7:17am High cholesterol inactive February 28, 2025 7:17am Stented coronary artery February 28, 2025 chronic March 09, 2025 8:51am [employer] [facility] Work Phone: 1(778) 132-674102-12-2025 [facility] Medical Records Department [address] [place] [address] History Physical Exam 12/07/24 0713 MR#: [id number] Acct: [id number] Name: CELESTE IBRAHIM Rep #: [id number] : 1960 63 From: Tracey Babin MD PCP: Dr. Beata Wing MD Status:[facility] Location: [address] - General General Date of Service: 12/07/24 HPI Narrative CELESTE IBRAHIM, is a 63 M who presents for screening colonoscopy. Patient's dad had metastatic colon cancer. Patient has never had a colonoscopy. Patient has bowel movements daily denies any blood. Patient denies any chronic abdominal pain/nausea/vomiting/reflux. Patient does have a past medical history significant for prostate cancer with a rising PSA. PFSH Medical History Hesitancy of micturition Elevated PSA Incontinence Family history of colon cancer in father Wears glasses Anxiety Prostate disease High cholesterol Difficulty swallowing Heartburn Non-smoker Home Medications ???Medication ???Instructions ???Recorded ???Last Taken ???Type diphenhydramine HCl 25 mg capsule 25 mg PO QHS 08/24/24 09/06/24 Hi story (Benadryl) hydroxyzine HCl 25 mg tablet 25 mg PO BID PRN PRN anxiety 08/24 Unknown History oxybutynin chloride 5 mg tablet 5 mg PO BID PRN bladder spasms 09/18 Unknown History Allergy/AdvReac Type Severity Reaction Status Date / Time No Known Allergies Allergy Verified 12/07/24 06:38 Family History Father Colon cancer After lung cancer dx Surgical History History of prostatectomy History of prostate biopsy History of tonsillectomy Social History household members: none current occupational status: employed current occupation: [employer] Smoking Status: Never smoker alcohol intake: never substance use type: does not use Past Medical/Surgical History Planned Operation Planned Operative Procedure(s): COLONOSCOPY OA Previous Hospitalizations/Surgeries HX Hospitalizations: No Any Problems With Anesthesia: No You/Your Family Experience Fever (Hyperthermia) With Anes: No Cholinesterase deficiency: No Cardiovascular Hx Hypertension: No Respiratory Hx Sleep Apnea: No Hx Respiratory Tract Infection/Cold (presently): No Do You Snore Loudly (louder than talking or can be heard): No Do You Often Feel Tired/ Fatigued/ Sleepy Dring Daytime?: No Has Anyone Observed You Stop Breathing During Sleep?: No Result (for STOP score): Negative Smoking Status: Never smoker Neurological Does patient have nerve stimulator: No Miscellaneous Recent Exposure to Contagious Disease: No Allergies No Known Allergies Allergy (Verified 12/07/24 06:38) Discharge Is Pt Admitted From a Fdc, or a Skilled Nursing: No Who Could Help: FRIEND OR FAMILY After D/C, Where Do you Plan to Go: Return Home Vital Signs Vital Signs Vital Signs: 12/07/24 06:39 12/07/24 06:39 12/07/24 06:48 Temperature 97.8 F 97.8 F Temperature Source Temporal Pulse Rate 78 78 Respiratory Rate 16 16 Respiratory Pattern Normal Blood Pressure 138/77 H 138/77 H Blood Pressure Mean 97 Blood Pressure Source Monitor Blood Pressure Position Sitting Blood Pressure Location Right Arm Pulse Ox 100 100 Oxygen Delivery Method Room Air Weight Weight: 178 lb 9.191 oz Body Mass Index (BMI) 26.4 Physical Exam Const alert, oriented x3 and no apparent distress HEENT normocephalic and head/scalp atraumatic Resp normal respiratory effort Cardio regular rate GI soft to palpation and non-tender; Negative for non-distended Palpation: Negative for guarding Extremity no clubbing, cyanosis or edema Skin no rashes or lesions noted Neuro CN's II-XII intact bilaterally Psych mental status grossly normal Assessment Plan Assessment/Plan (1) Encounter for screening for malignant neoplasm of colon: Surgery Risks - Colonoscopy I discussed with the patient the risks of the procedure: Yes Risks Include but are not Limited To: Risks include but are not limited to: Bleeding, perforation requiring further surgery, inability to complete colonoscopy requiring barium enema. 12/07/24722 Cosigner Signature (if applicable): CC: Dr. Beata Wing MD; Dr. Tracey Babin MD [facility] Evaluation note* Diagnosis Onset Date Resolution Status Admit Date Rising PSA following treatment for malignant neoplasm of prostate acute October 10:49am Encounter for screening for malignant neoplasm of colon acute Febr 2024 6:11am [facility] Work Phone: 1(312) 823-922501-30-2025 Evaluation note* Diagnosis Onset Date Resolution Status Admit Date Rising PSA following treatme nt for malignant neoplasm of prostate acute November 24 10:49am Encounter for screening for malignant neoplasm of colon acute Febr 2024 6:11am Rising PSA following treatme nt for malignant neoplasm of prostate acute January 11, 2025 8:28am Rising PSA following treatme nt for malignant neoplasm of prostate acute January 18, 2025 8:09am Rising PSA following treatme nt for malignant neoplasm of prostate acute January 24, 2025 8:07am Rising PSA following treatme nt for malignant neoplasm of prostate acute February 01, 2025 8:04am Rising PSA following treatme nt for malignant neoplasm of prostate acute February 08, 2025 8:00am Rising PSA following treatme nt for malignant neoplasm of prostate acute February 15, 2025 8:08am Rising PSA following treatme nt for malignant neoplasm of prostate acute February 22, 2025 8:00am Angina at rest acute February 28, 2 025 7:17am CAD (coronary artery disease) acute February 28, 2025 7:17am Chest pain acute February 28, 2025 7:17am Diabetes acute February 28, 2025 7:17am Elevated troponin acute February 7:17am Elevated TSH acute February 28 7:17am High cholesterol acute February 28, 2025 7:17am NSTEMI, initial episode of care acute February 28, 2025 7: 17am [facility] Work Phone: 1(923) 181-113501-30-2025 Evaluation note* Diagnosis Onset Date Resolution Status Admit Date Rising PSA following treatment for malignant neoplasm of prostate resolved October 10:49am Encounter for screening for malignant neoplasm of colon resolved 2024 6:11am Rising PSA following treatment for malignant neoplasm of prostate resolved January 11, 2025 8:28am Rising PSA following treatment for malignant neoplasm of prostate resolved January 18, 2025 8:09am Rising PSA following treatment for malignant neoplasm of prostate resolved January 24, 2025 8:07am Rising PSA following treatment for malignant neoplasm of prostate resolved February 01, 2025 8:04am Rising PSA following treatment for malignant neoplasm of prostate resolved February 08, 2025 8:00am Rising PSA following treatment for malignant neoplasm of prostate resolved February 15, 2025 8:08am Rising PSA following treatment for malignant neoplasm of prostate resolved February 22, 2025 8:00am Angina at rest resolved February 28, 025 7:17am Chest pain resolved February 28, 2025 7:17am Elevated troponin resolved February 7:17am Elevated TSH resolved February 28 7:17am NSTEMI, initial episode of care resolved February 28, 2025 7: 17am CAD (coronary artery disease) inacti ve February 28, 2025 7:17am Diabetes inactive February 28, 2025 7:17am High cholesterol inactive February 28, 2025 7:17am [facility] Work Phone: 1(328) 438-434611-13-2024 [facility] Medical Records Department [address] [place] [address] History Physical Exam 09/07/24 0759 MR#: [id number] Acct: [id number] Name: CELESTE IBRAHIM Rep #: [id number] : 1960 63 From: Eduardo Lynne MD PCP: Dr. Beata Wing MD Status:[facility] Location: [place] [address] HPI - General General Date of Admission: 09/07/24 Date of Service: 09/07/24 Chief Complaint: Prostate cancer HPI Narrative CELESTE IBRAHIM, is a 63 M who presents for radical prostatectomy for prostate cancer he does have a very high PSA of 27.3 preoperatively his bone scan was negative, and preoperatively his CT scan was also negative for metastatic disease. On imaging appears to be have very aggressive looking cancer in the anterior part of the prostate very close to the bladder so today organ to proceed with a robotic radical prostatectomy with bilateral nerve sparing what to do very careful dissection between the bladder and prostate because of the extent of the disease always positive possible to have positive margins needing to have postoperative radiation therapy and we plan to do bilateral nerve sparing surgery. We talked about the risks of the surgery with the patient including risk of incontinence and leakage loss of bladder control loss of erections and also positive margins and needing further treatment such as radiation postoperatively. [facility] Medical History Wears glasses Anxiety Prostate disease High cholesterol Difficulty swallowing Heartburn Non-smoker Home Medications ???Medication ???Instructions ???Recorded ???Last Taken ???Type diphenhydramine HCl 25 mg capsule 25 mg PO QHS 08/24/24 09/06/24 History (Benadryl) hydroxyzine HCl 25 mg tablet 25 mg PO BID PRN PRN anxiety 08/24/24 Unknown History ciprofloxacin HCl 500 mg tablet 500 mg PO BID #20 tabs 09/07/24 Unknown Rx docusate sodium 100 mg capsule 100 mg PO BID #20 caps 09/07/24 Unknown Rx (Colace) oxycodone 5 mg tablet 5 mg PO Q6H PRN pain 3 days #14 09/07/24 Unknown Rx tabs Allergy/AdvReac Type Severity Reaction Status Date / Time No Known Allergies Allergy Verified 09/07/24 06:31 Surgical History History of prostate biopsy History of tonsillectomy Social History Smoking Status: Never smoker Vital Signs Vital Signs Vital Signs: 09/07/24 06:33 09/07/24 06:33 09/07/24 07:41 Temperature 97.6 F L 97.6 F L Temperature Source Temporal Pulse Rate 92 92 Respiratory Rate 16 16 Respiratory Pattern Normal Blood Pressure 113/89 H 113/89 H Blood Pressure Mean 97 Blood Pressure Source Monitor Blood Pressure Position Sitting Blood Pressure Location Left Arm Pulse Ox 100 100 Oxygen Delivery Method Room Air Weight Weight: 82 kg Body Mass Index (BMI) 26.6 Results Lab / Micro Data 09/01/24 07:08 09/07/24 0802 Cosigner Signature (if applicable): CC: Dr. Beata Wing MD; Dr. Eduardo Lynne MD SignedWPro[facility] HospitalReason for referral (narrative)No reason for referral information availableWProMedica Fost[facility] Hospital Work Phone: Chief Complaint and Reason for Visit Chief Complaint Admit Date Amb Documentation October 05, 2024 8:57am Pylarify November 15, 2024 1 0:16am Amb Documentation November 21, 2024 3 :17pm [facility] [employer] [facility] November 242024 10:49am XRT December 19, 2024 10:25am eval for pelvic recurrence of prostate c ancer January 03, 2025 5:01pm Reason for Visit Admit Date Rising PSA following treatme nt for malignant neoplasm of prostate November 24, 2024 10:49am Encounter for screening for malignant ne oplasm of colon December 07, 2024 6:11am Chief Complaint Admit Date Pylarify November 15, 2024 1 0:16am Amb Documentation November 21, 2024 3 :17pm [employer] PROSTATE [place] November 242024 10:49am eval for pelvic recurrence of prostate c ancer January 03, 2025 5:01pm OTV January 11, 2025 8:2 8am OTV January 18, 2025 8:0 9am OTV January 24, 2025 8:07 am OTV February 01, 2025 8:04 am OTV February 08, 2025 8:0 0am OTV February 15, 2025 8:0 8am OTV February 22, 2025 8:0 0am Amb Documentation February 22, 2025 9:0 6am XRT February 23, 2025 8:20am CHEST PAIN, EKG CHANGES, HIGH NITRO GTT February 28, 2025 7:17am ANGINA, ELEVATED TROP, ABN EKG February 28, 2025 7:23am CHEST PAIN, EKG CHANGES, HIGH NITRO GTT March 01, 2025 7:12am CHEST PAIN, EKG CHANGES, HIGH NITRO GTT March 01, 2025 8:36am Reason for Visit Admit Date Rising PSA following treatme nt for malignant neoplasm of prostate November 24, 2024 10:49am Encounter for screening for malignant ne oplasm of colon December 07, 2024 6:11am Rising PSA following treatme nt for malignant neoplasm of prostate January 11, 2025 8:28am Rising PSA following treatme nt for malignant neoplasm of prostate January 18, 2025 8:09am Rising PSA following treatme nt for malignant neoplasm of prostate January 24, 2025 8:07am Rising PSA following treatme nt for malignant neoplasm of prostate February 01, 2025 8:04am Rising PSA following treatme nt for malignant neoplasm of prostate February 08, 2025 8:00am Rising PSA following treatme nt for malignant neoplasm of prostate February 15, 2025 8:08am Rising PSA following treatme nt for malignant neoplasm of prostate February 22, 2025 8:00am Angina at rest February 28, 2025 7:17am CAD (coronary artery disease) February 28, 025 7:17am Chest pain February 28, 2025 7:17am Diabetes February 28, 2025 7:17am Elevated troponin February 28, 2025 7:17am Elevated TSH February 28, 2025 7:17am High cholesterol February 28, 2025 7:17am NSTEMI, initial episode of care February 28, 2025 7:17am Chief Complaint Admit Date Pylarify November 15, 2024 1 0:16am Amb Documentation November 21, 2024 3 :17pm SALVAGE RADIATION PROSTATE CA November 242024 10:49am eval for pelvic recurrence of prostate c ancer January 03, 2025 5:01pm OTV January 11, 2025 8:2 8am OTV January 18, 2025 8:0 9am OTV January 24, 2025 8:07 am OTV February 01, 2025 8:04 am OTV February 08, 2025 8:0 0am OTV February 15, 2025 8:0 8am OTV February 22, 2025 8:0 0am Amb Documentation February 22, 2025 9:0 6am XRT February 23, 2025 8:20am CHEST PAIN, EKG CHANGES, HIGH NITRO GTT February 28, 2025 7:17am ANGINA, ELEVATED TROP, ABN EKG February 28, 2025 7:23am CHEST PAIN, EKG CHANGES, HIGH NITRO GTT March 01, 2025 7:12am CHEST PAIN, EKG CHANGES, HIGH NITRO GTT March 01, 2025 8:36am [facility] 02/28March 09, 2025 8:51a m Reason for Visit Admit Date Rising PSA following treatme nt for malignant neoplasm of prostate November 24, 2024 10:49am Encounter for screening for malignant ne oplasm of colon December 07, 2024 6:11am Rising PSA following treatme nt for malignant neoplasm of prostate January 11, 2025 8:28am Rising PSA following treatme nt for malignant neoplasm of prostate January 18, 2025 8:09am Rising PSA following treatme nt for malignant neoplasm of prostate January 24, 2025 8:07am Rising PSA following treatme nt for malignant neoplasm of prostate February 01, 2025 8:04am Rising PSA following treatme nt for malignant neoplasm of prostate February 08, 2025 8:00am Rising PSA following treatme nt for malignant neoplasm of prostate February 15, 2025 8:08am Rising PSA following treatme nt for malignant neoplasm of prostate February 22, 2025 8:00am Angina at rest February 28, 2025 7:17am Chest pain February 28, 2025 7:17am Elevated troponin February 28, 2025 7:17am Elevated TSH February 28, 2025 7:17am NSTEMI, initial episode of care February 28, 2025 7:17am CAD (coronary artery disease) February 28, 025 7:17am Diabetes February 28, 2025 7:17am High cholesterol February 28, 2025 7:17am Chief Complaint Admit Date eval for pelvic recurrence of prostate c ancer January 03, 2025 5:01pm OTV January 11, 2025 8:2 8am OTV January 18, 2025 8:0 9am OTV January 24, 2025 8:07 am OTV February 01, 2025 8:04 am OTV February 08, 2025 8:0 0am OTV February 15, 2025 8:0 8am OTV February 22, 2025 8:0 0am Amb Documentation February 22, 2025 9:0 6am CHEST PAIN, EKG CHANGES, HIGH NITRO GTT February 28, 2025 7:17am ANGINA, ELEVATED TROP, ABN EKG February 28, 2025 7:23am CHEST PAIN, EKG CHANGES, HIGH NITRO GTT March 01, 2025 7:12am CHEST PAIN, EKG CHANGES, HIGH NITRO GTT March 01, 2025 8:36am S/P [facility] 02/28March 09, 2025 8:51a m XRT March 27, 2025 7:30a m 1 MONTH F/U POST RT March 27, 2025 7:54a m Reason for Visit Admit Date Encounter for screening for malignant ne oplasm of colon December 07, 2024 6:11am Rising PSA following treatme nt for malignant neoplasm of prostate January 11, 2025 8:28am Rising PSA following treatme nt for malignant neoplasm of prostate January 18, 2025 8:09am Rising PSA following treatme nt for malignant neoplasm of prostate January 24, 2025 8:07am Rising PSA following treatme nt for malignant neoplasm of prostate February 01, 2025 8:04am Rising PSA following treatme nt for malignant neoplasm of prostate February 08, 2025 8:00am Rising PSA following treatme nt for malignant neoplasm of prostate February 15, 2025 8:08am Rising PSA following treatme nt for malignant neoplasm of prostate February 22, 2025 8:00am CAD (coronary artery disease) February 28 7:17am Angina at rest February 28, 2025 7:17am Chest pain February 28, 2025 7:17am Elevated troponin February 28, 2025 7:17am Elevated TSH February 28, 2025 7:17am NSTEMI, initial episode of care February 28, 2025 7:17am Diabetes February 28, 2025 7:17am High cholesterol February 28, 2025 7:17am Stented coronary artery March 09, 2025 8 :51am Advance Directives No Advanced Directives Records Found Advance Directive Response Recorded Date/ Time Living Will Yes December 05 3:35pm Power of Data Base Administrator Yes December 05, 2024 3:35pm Name of Medical Power of Data Base Administrator December 05, 2024 3:35pm Advance Directive Response Recorded Date/ Time Living Will Yes December 05, 025 3:35pm Do you have a Healthcare Power of Data Base Administrator? Yes December 05, 2024 3:35pm Name of Medical Power of Data Base Administrator December 05, 2024 3:35pm Do you have a Healthcare Power of Data Base Administrator? No February 28, 2025 11:31am Summary Purpose Family History No Family History Records Found Additional Source Comments Care Teams (unrecognized sec tion and content) Team Status: Active Member Role Status Paulo Wing MD Primary Care Provider Active Team Status: Inactive Member Role Status Paulo Wing MD Primary Care Provider Active St art: November 07, 2024 End: November 07, 2024 Dr. Eduardo Lynne MD Attending Provider Active Start: November 07, 2024 End: November 07, 2024 Dr. Eduardo Lynne MD Referring Provider Active Start: November 07, 2024 End: November 07, 2024 Team Status: Inactive Member Role Status Paulo Wing MD Primary Care Provider Active St art: November 15, 2024 End: November 15, 2024 Dr. Eduardo Lynne MD Attending Provider Active Start: November 15, 2024 End: November 15, 2024 Dr. Eduardo Lynne MD Referring Provider Active Start: November 15, 2024 End: November 15, 2024 Team Status: Active Member Role Status Paulo Wing MD Primary Care Provider Active St art: November 21, 2024 Lea Sharma LPN Attending Provider Active S tart: November 21, 2024 Team Status: Inactive Member Role Status Paulo Wing MD Primary Care Provider Active St art: November 24, 2024 End: November 24, 2024 Dr. Sandro Tyler DO Attending Provider Active Start: November 24, 2024 End: November 24, 2024 Dr. Eduardo Lynne MD Referring Provider Active Start: November 24, 2024 End: November 24, 2024 Team Status: Inactive Member Role Status Paulo Wing MD Primary Care Provider Active St art: December 07, 2024 End: December 07, 2024 Beata Wing MD Referring Provider Active Start : December 07, 2024 End: December 07, 2024 Dr. Tracey Babin MD Attending Provider Active Start: December 07, 2024 End: December 07, 2024 Team Status: Active Member Role Status Paulo Wing MD Primary Care Provider Active St art: December 07, 2024 Beata Wing MD Referring Provider Active Start : December 07, 2024 Dr. Tracey Babin MD Attending Provider Active Start: December 07, 2024 Dr. Tracey Babin MD Other Provider Active S tart: December 07, 2024 Team Status: Active Member Role Status Paulo Wing MD Primary Care Provider Active St art: December 19, 2024 Dr. Sandro Tyler DO Attending Provider Active Start: December 19, 2024 Dr. Sandro Tyler DO Referring Provider Active Start: December 19, 2024 Team Status: Inactive Member Role Status Paulo Wing MD Primary Care Provider Active St art: January 03, 2025 End: January 03, 2025 Dr. Sandro Tyler DO Attending Provider Active Start: January 03, 2025 End: January 03, 2025 Dr. Sandro Tyler DO Referring Provider Active Start: January 03, 2025 End: January 03, 2025 Team Status: Active Member Role Status Paulo Wing MD Primary Care Provider Active St art: January 05, 2025 Dr. Sandro Tyler DO Attending Provider Active Start: January 05, 2025 Dr. Sandro Tyler DO Referring Provider Active Start: January 05, 2025 Team Status: Active Member Role Status Paulo Wing MD Primary Care Provider Active St art: January 09, 2025 Dr. Sandro Tyler DO Attending Provider Active Start: January 09, 2025 Dr. Sandro Tyler DO Referring Provider Active Start: January 09, 2025 Team Status: Inactive Member Role Status Paulo Wing MD Primary Care Provider Active St art: January 11, 2025 End: January 11, 2025 Dr. Sandro Tyler DO Attending Provider Active Start: January 11, 2025 End: January 11, 2025 Dr. Sandro Tyler DO Referring Provider Active Start: January 11, 2025 End: January 11, 2025 Team Status: Inactive Member Role Status Paulo Wing MD Primary Care Provider Active St art: January 18, 2025 End: January 18, 2025 Dr. Sandro Tyler DO Attending Provider Active Start: January 18, 2025 End: January 18, 2025 Dr. Sandro Tyler DO Referring Provider Active Start: January 18, 2025 End: January 18, 2025 Team Status: Inactive Member Role Status Paulo Wing MD Primary Care Provider Active St art: January 24, 2025 End: January 24, 2025 Dr. Sandro Tyler DO Attending Provider Active Start: January 24, 2025 End: January 24, 2025 Dr. Sandro Tyler DO Referring Provider Active Start: January 24, 2025 End: January 24, 2025 Team Status: Inactive Member Role Status Paulo Wing MD Primary Care Provider Active St art: February 01, 2025 End: February 01, 2025 Dr. Sandro Tyler DO Attending Provider Active Start: February 01, 2025 End: February 01, 2025 Dr. Sandro Tyler DO Referring Provider Active Start: February 01, 2025 End: February 01, 2025 Team Status: Inactive Member Role Status Paulo Wing MD Primary Care Provider Active St art: February 08, 2025 End: February 08, 2025 Dr. Sandro Tyler DO Attending Provider Active Start: February 08, 2025 End: February 08, 2025 Team Status: Inactive Member Role Status Paulo Wing MD Primary Care Provider Active St art: February 15, 2025 End: February 15, 2025 Dr. Sandro Tyler DO Attending Provider Active Start: February 15, 2025 End: February 15, 2025 Team Status: Inactive Member Role Status Paulo Wing MD Primary Care Provider Active St art: February 22, 2025 End: February 22, 2025 Beata Wing MD Referring Provider Active Start : February 22, 2025 End: February 22, 2025 Dr. Sandro Tyler DO Attending Provider Active Start: February 22, 2025 End: February 22, 2025 Team Status: Active Member Role Status Paulo Wing MD Primary Care Provider Active St art: February 22, 2025 Dr. Sandro Tyler , DO Attending Provider Active Start: February 22, 2025 Team Status: Active Member Role Status Paulo Wing MD Primary Care Provider Active St art: February 23, 2025 Dr. Sandro Tyler , Attending Provider Active Start: February 23, 2025 Dr. Sandro Tyler , DO Referring Provider Active Start: February 23, 2025 Team Status: Inactive Member Role Status Paulo Wing MD Primary Care Provider Active St art: February 28, 2025 End: March 01, 2025 Dr. Peña Rivera DO Emergency Provider Active Start : February 28, 2025 End: March 01, 2025 Dr. Roman Calzada DO Admit Provider Active Start: February 28, 2025 End: March 01, 2025 Dr. Roman Calzada DO Other Provider Active Start: February 28, 2025 End: March 01, 2025 Dr. Jim Mcdonnell MD Other Provider Active St art: February 28, 2025 End: March 01, 2025 Dr. Alvaro Sunshine DO Attending Provider Active Start: February 28, 2025 End: March 01, 2025 Dr. Brandi Resendiz MD Other Provider Active Star t: February 28, 2025 End: March 01, 2025 Team Status: Active Member Role Status Paulo Wing MD Primary Care Provider Active St art: February 28, 2025 Dr. Peña Rivera DO Emergency Provider Active Start : February 28, 2025 Dr. Roman Calzada DO Admit Provider Active Start: February 28, 2025 Dr. Roman Calzada DO Other Provider Active Start: February 28, 2025 Dr. Brandi Resendiz MD Other Provider Active Star t: February 28, 2025 Dr. Jim Mcdonnell MD Attending Provider Active Start: February 28, 2025 Team Status: Active Member Role Status Paulo Wing MD Primary Care Provider Active St art: March 01, 2025 Dr. Peña Rivera DO Emergency Provider Active Start : March 01, 2025 Dr. Roman Calzada DO Admit Provider Active Start: March 01, 2025 Dr. Roman Calzada DO Other Provider Active Start: March 01, 2025 Dr. Jim Mcdonnell MD Other Provider Active St art: March 01, 2025 Dr. Alvaro Sunshine DO Attending Provider Active Start: March 01, 2025 Dr. Alvaro Sunshine DO Other Provider Active Star t: March 01, 2025 Dr. Brandi Resendiz MD Other Provider Active Star t: March 01, 2025 Team Status: Active Member Role Status Paulo Wing MD Primary Care Provider Active St art: March 01, 2025 Dr. Marge Steinberg MD Attending Provider Active Start: March 01, 2025 Team Status: Active Member Role Status Paulo Wing MD Primary Care Provider Active St art: March 01, 2025 Dr. Peña Rivera DO Emergency Provider Active Start : March 01, 2025 Dr. Roman Calzada DO Admit Provider Active Start: March 01, 2025 Dr. Roman Calzada DO Other Provider Active Start: March 01, 2025 Dr. Jim Mcdonnell MD Attending Provider Active Start: March 01, 2025 Dr. Jim Mcdonnell MD Other Provider Active St art: March 01, 2025 Dr. Alvrao Sunshine DO Other Provider Active Star t: March 01, 2025 Dr. Brandi Resendiz MD Other Provider Active Star t: March 01, 2025 Team Status: Active Member Role Status Paulo Wing MD Primary Care Provider Active St art: October 05, 2024 [facility] Attending Provider Active Start: 2023 Team Status: Inactive Member Role Status Paulo Wing MD Primary Care Provider Active St art: October 31, 2024 End: October 31, 2024 Dr. Eduardo Lynne MD Attending Provider Active Start: October 31, 2024 End: October 31, 2024 Dr. Eduardo Lynne MD Referring Provider Active Start: October 31, 2024 End: October 31, 2024 Team Status: Active Member Role Status Paulo Wing MD Primary Care Provider Active St art: December 19, 2024 Dr. Sandro Tyler DO Attending Provider Active Start: December 19, 2024 Team Status: Active Member Role Status Paulo Wing MD Primary Care Provider Active St art: January 05, 2025 Dr. Sandro Tyler DO Attending Provider Active Start: January 05, 2025 Team Status: Inactive Member Role Status Paulo Wing MD Primary Care Provider Active St art: February 08, 2025 End: February 08, 2025 Dr. Sandro Tyler DO Attending Provider Active Start: February 08, 2025 End: February 08, 2025 Dr. Sandro Tyler DO Referring Provider Active Start: February 08, 2025 End: February 08, 2025 Team Status: Inactive Member Role Status Paulo Wing MD Primary Care Provider Active St art: March 09, 2025 End: March 09, 2025 Beata Wing MD Referring Provider Active Start : March 09, 2025 End: March 09, 2025 Kellie Rodríguez OFFICE NURSE, OFFICE NURSE-C Attending Provider Active Start: March 09, 2025 End: March 09, 2025 Team Status: Inactive Member Role Status Paulo Wing MD Primary Care Provider Active St art: February 15, 2025 End: February 15, 2025 Dr. Sandro Tyler DO Attending Provider Active Start: February 15, 2025 End: February 15, 2025 Dr. Sandro Tyler DO Referring Provider Active Start: February 15, 2025 End: February 15, 2025 Team Status: Active Member Role Status Paulo Wing MD Primary Care Provider Active St art: March 27, 2025 Dr. Sandro Tyler DO Attending Provider Active Start: March 27, 2025 Dr. Sandro Tyler DO Referring Provider Active Start: March 27, 2025 Team Status: Inactive Member Role Status Paulo Wing MD Primary Care Provider Active St art: March 27, 2025 End: March 27, 2025 Beata Wing MD Referring Provider Active Start : March 27, 2025 End: March 27, 2025 Dr. Sandro Tyler DO Attending Provider Active Start: March 27, 2025 End: March 27, 2025 (unrecognized sect ion and content) No Status Records Found INFORMATION SOURCE (unrecogn ized section and content) DATE CREATED AUTHOR 03/31/2025 [facility] FOR RECORDS PERTAINING TO PATIENTS WHO ARE OR HAVE BEEN ENROLLED IN A CHEMICAL DEPENDENCY/SUBSTANCEABUSE PROGRAM, SOME INFORMATION MAY BE OMITTED. This clinical summary was aggregated from multiple sources. Caution should be exercised in using it in the provision of clinical care. This summary normalizes information from multiple sources, and as a consequence, information in this document may materially change the coding, format and clinical context of patient data. In addition, data may be omitted in some cases. CLINICAL DECISIONS SHOULD BE BASED ON THE PRIMARY CLINICAL RECORDS. [facility] provides no warranty or guarantee of the accuracy or completeness of information in this document.
--- NOTE | 2025-04-05 09:38 | PCM.DC ---
Discharge Instructions Diet Discharge Diet: Low fat / Low cholesterol DC O2, CPAP, BIPAP needs Home O2 Discharge instructions: No Dressing / Incision Discharge Activity: Return to Normal Activity Dressing / Incision Call your doctor if your incision/area has: Continuous Slow Oozing, Sudden Increased Bleeding, Increased Pain/ Swelling, Increased Redness, Foul Smelling Discharge and Swelling at the incision site Follow Up Care Please Follow Up With: Marge Steinberg MD When: 2-4 weeks Test Results: Test results from this visit will be discussed in further detail at your follow-up appointment, if applicable. Discharge Plan Admission Attending Provider: Marge Steinberg Primary Care Provider: Beata Wing Instructions Print Language: Tamazight Discharge Orders/Prescriptions Prescriptions: No Action oxybutynin chloride 5 mg tablet 5 mg PO BID PRN (Reason: bladder spasms) atorvastatin 40 mg tablet 40 mg PO QHS Qty: 90 3RF carvedilol 3.125 mg tablet 3.125 mg PO BID Qty: 180 3RF clopidogrel 75 mg tablet 75 mg PO DAILY Qty: 90 3RF lisinopril 10 mg tablet 10 mg PO DAILY Qty: 90 3RF Jardiance 10 mg tablet 10 mg PO DAILY Qty: 90 3RF hydroxyzine HCl 25 mg tablet 25 mg PO BID PRN PRN (Reason: anxiety) diphenhydramine HCl [Benadryl] 25 mg capsule 25 mg PO QHS aspirin 81 mg Tablet,Delayed Release (Dr/Ec) 81 mg PO DAILY@0800 Qty: 0 0RF Referrals / Follow Up: Beata Wing MD [Primary Care Provider] - Disposition Disposition (needs filled in before D/C Order can be placed): Home, Self Care
--- NOTE | 2025-04-05 09:45 | EKG12_ITS ---
Test Reason : post pci Blood Pressure : */* mmHG Vent. Rate : 57 BPM Atrial Rate : 57 BPM P-R Int : 204 ms QRS Dur : 70 ms QT Int : 424 ms P-R-T Axes : 45 44 94 degrees QTcB Int : 412 ms Sinus bradycardia Low voltage QRS Septal infarct (cited on or before 28-Feb-2025) Abnormal ECG When compared with ECG of 01-Mar-2025 05:32, No significant change was found Confirmed by Jim Mcdonnell ([id number]), newspaper managing editor JEM SNELL ([id number]) on 04/06/2025 1:14:37 PM Referred By: Marge Steinberg Confirmed By: Jim Mcdonnell
--- NOTE | 2025-04-05 12:10 | CRPHASE1 ---
Patient Communication Patient Information Former Patient:: Phase I PHII Cardiac Rehab Discussed with Patient:: Yes Guide to Cardiac Rehab Given to Patient:: Yes Cardiac Rehab Facility Choice List Given to Patient:: Yes Communication to Cardiac Rehab Choice Program [facility] CR PHII:: Communication Given to CR Choice Program Other:: Communication Given to CR Nutrient Management Specialist:: Marge Steinberg Refer Phase II Cardiac Rehab:: Yes Sessions:: 36 sessions - 3 days/wk, 12 weeks Post Discharge Choice Letter Given to Patient:: Yes Guide to Cardiac Rehab Given by ICU Staff Prior to Discharge:: Yes Guide to Cardiac Rehab Mailed to Patient by CR Staff:: No Patient Contacted Post Discharge by CR Staff:: Yes PHII Cardiac Rehab Referral:: [facility] Medical/Surgical History Medical History CA:: Yes Angina:: Yes CAD:: Yes Congestive Heart Failure: Cardiomyopathy:: No Valve Disease/Replacement:: No Pulmonary:: No COPD:: No Asthma:: No VIVI:: No Diabetes:: No Diabetes Type I:: No Diabetes Type II:: No Hypertension:: No Dyslipidemia:: Yes Arrhythmias:: No EPS:: No CVA/TIA: CEA:: No PE:: No DVT:: No PVD:: No PAD:: No Arthritis:: No GI:: No GERD:: No Cancer:: No Renal:: No Thyroid:: No Depression:: No Anxiety:: No Surgical History CABG: No PTCA:: Yes ICD:: No Pacemaker:: No Orthopedic:: No Cardiac Rehabilitation Info Program Information Cardiac Rehabilitation Program Information: Cardiac Rehab The cardiac rehab team at [facility] consists of highly skilled exercise physiologists, nurses, respiratory therapists and physicians working together with you. Our purpose is to help you have a full recovery and achieve the goals you set for yourself. Over the years many of our patients have returned to activities they assumed they would never do again! We can help restore your confidence and motivation to make lifestyle changes that can have a significant impact on your health and quality of life! We can help answer questions and concerns you may have about exercise, lifestyle, medications, diet, stress and anxiety which are common following a hospitalization. WE monitor ECG and vital signs during exercise and discuss your progress with you and report to your physician(s). Cardiac Rehab is proven to help reduce readmissions, improve functional capacity and lower recurrence of problems with your heart. Our Cardiac Rehab program is Certified by the [place] [employer] Pulmonary [employer] (AACVPR) and Accredited by the [place] [employer] through our [facility]. You can contact us at . We invite you to call us with your questions or to get started in our program. If you have other questions or concerns be sure to ask your physician/provider during your follow-up visit. WE look forward to seeing you!
--- NOTE | 2025-04-05 12:11 | CRPH1.INSTRU ---
General Education Discussed with Patient CAD and cardiac anatomy and function:: Patient communicates acknowledgment Explanation of diagnoses and procedures:: Patient communicates acknowledgment Sign/Symptoms of AK:: Patient communicates acknowledgment Antiplatelet therapy: Patient communicates acknowledgment Proper use of NTG-SL: Patient communicates acknowledgment Emergency procedures and activation of EMS: Patient communicates acknowledgment Compliance of all prescribed medications: Patient communicates acknowledgment Smoking Risk Factors Patient Nicotine/Smoking Risk Factors Are:: Never smoked Dyslipidemia Recommendations Recommendations Include:: Lipid profile not available Overweight/Obesity Risk Factors Patient Overweight/Obesity Risk Factors Are:: BMI Normal [18-25 & < 65 years old] Recommendations Recommendations Include:: Exercise 5-7 times/week Response Code Overweight/Obesity:: Patient communicates acknowledgment Hypertension Risk Factors Patient Hypertension Risk Factors Are:: No documented hx of HTN Heart Disease Risk Factors Patient Heart Disease Risk Factors Are:: Previous cardiac event Recommendations Recommendations Include:: Educated family members of their risk Response Code Heart Disease Response Code:: Patient communicates acknowledgment Diabetes Risk Factors Patient Diabetes Risk Factors Are:: No documented hx of diabetes Metabolic Syndrome Recommendations Recommendations Include:: Does not meet criteria Sedentary Recommendations Recommendations Include:: Aerobic exercise 5-7 times/week for 20-30 minutes continuously, Benefits of regular exercise, Discussed home walking program and Monitored Outpatient Cardiac Rehab Response Code Sedentary Response Code:: Patient communicates acknowledgment Stress Recommendations Recommendations Include:: Identification of stressors, and assessment of coping skills and Stress management techniques Response Code Stress Response Code:: Patient communicates acknowledgment
[2025-04-05 18:20] VITALS: BMI 25.7
[2025-04-05] MEDS: 0.9% Normal Saline (1000mL) 1,000 ML 150 ML IV (18:40)
[2025-04-05] MEDS: Carvedilol 3.125 MG TABLET PO (18:40)
[2025-04-05 19:05] VITALS: BP 100/69; PULSE 66; RESP 16; TEMP 36.3; O2SAT 97
[2025-04-05 22:37] VITALS: BP 114/74; PULSE 68; RESP 16; TEMP 36.7; O2SAT 100
[2025-04-05] MEDS: DiphenhydrAMINE 25 MG Capsule PO (22:41)
[2025-04-05] MEDS: Atorvastatin Calcium 40 MG Tablet PO (22:41)
[2025-04-06 03:18] VITALS: BP 109/64; PULSE 60; RESP 16; TEMP 36.4; O2SAT 97
[2025-04-06 07:51] LABS: Hematocrit 31.4 % (40-54); Hemoglobin 11.2 g/dL (13.0-16.5); Mean Corp Hgb Conc 35.7 g/dL (32-36); Mean Corpuscular Hgb 31.7 pg (27.0-32.0); Mean Platelet Vol. 9.5 fl (6.2-12.0); Platelet Count 210 K/mm3 (150-450); RBC Distribution Width CV 13.2 % (11.6-14.6); RBC Distribution Width SD 42.9 fl (35.1-43.9); Red Blood Count 3.53 M/mm3 (4.6-6.2); White Blood Count 5.1 K/mm3 (4.4-11.0)
[2025-04-06 08:23] LABS: ALB/GLOB Ratio 1.8 RATIO (0.9-2.4); AST(SGOT) 26 U/L (<=37); Alanine Aminotransfer ALT/SGPT 36 U/L (<=46); Albumin, Serum 4.1 g/dL (3.4-4.8); Alkaline Phosphatase 97 U/L (40-129); Anion Gap 11 (5-15); BUN 10 mg/dL (4-19); BUN/Creat Ratio 10.4 RATIO (10-20); Calcium,Total 9.2 mg/dL (7.6-11.0); Carbon Dioxide 20.5 mmol/L (21.0-32.0); Chloride 109 mmol/L (98-108); Creatinine, Serum 0.97 mg/dL (0.70-1.20); EST Glomerular Filtration Rate 87 (>60); Estimated Creatinine Clearance 77.95 ml/min (50-250); Globulin 2.4 g/dL (2.2-4.2); Glucose 103 mg/dL (70-99); Potassium 3.9 mmol/L (3.3-5.1); Protein, Total 6.5 g/dL (5.9-8.4); Sodium Level 140 mmol/L (133-145)
[2025-04-06] MEDS: Aspirin 81 MG TAB.CHEW PO (08:36)
[2025-04-06] MEDS: Empagliflozin 10 MG Tablet PO (08:36)
[2025-04-06] MEDS: Carvedilol 3.125 MG TABLET PO (08:36)
[2025-04-06] MEDS: Lisinopril 10 MG Tablet PO (08:37)
[2025-04-06] MEDS: Clopidogrel Bisulfate 75 MG Tablet PO (08:37)
[2025-04-06 09:18] VITALS: BP 96/66; PULSE 68; RESP 16; TEMP 36.4; O2SAT 98
[2025-04-06 10:39] LABS: ACT Activated Clotting Time 227 sec (74-137)
[2025-04-06 11:20] VITALS: BP 109/73; PULSE 72; RESP 14; TEMP 36.5; O2SAT 99
--- NOTE | 2025-04-06 11:46 | CASEMGMT ---
LÓPEZ MCKEON NOTE: DC order is in. LÓPEZ MCKEON to room. Pt sitting up in chair in room. Introduced self and role. Pt states he has been up ad temo in room and in hallway w/out difficulty. He ready to go home. His friend will take him home today. He denies having any discharge needs or concerns. Dheeraj MADERAN LÓPEZ MCKEON
--- NOTE | 2025-06-05 09:45 | CL.I_ITS ---
Patient Name: CELESTE PIKE Study Date: 04/05/2025 Performing: Marge Steinberg MD Ht: 69 inches 175.26 cm : 1960 Wt: 174.01 lbs 78.93 kg Age: 64 Gender: male BSA: 1.95 PROCEDURE(S) PERFORMED IC12-(24710/C9600)EDA W/WO PTCA, SINGLE CORONARY ARTERY CLINICAL PROFILE AND CO-MORBIDITIES Indications: Stable Known CAD, Staged PCI Heart Failure: None CONCLUSIONS 2.0x8 mm Successful EDA Mid LAD using Chevy Taylor 2.5x30 mm RECOMMENDATIONS ASA Indefinitley P2Y12 inhibitors for atleast 6 months DESCRIPTION OF PROCEDURE The patient arrived to the procedure lab. The risks and benefits of the procedure as well as a full description of our services here and lack of surgical backup were fully explained to the patient and/or their significant other prior to the catheterization. The Timeout was completed, verifying the correct patient and procedure. The patient's procedural site was prepped and draped in the usual fashion. Local anesthetic was given subcutaneously to right radial region with Lidocaine 2%. Using a modified Seldinger technique, arterial access was obtained via the right radial artery, a 6Fr sheath was inserted.. XB3 Guide catheter was inserted and engaged into the LCA. {L1} RUNTHROUGH Guide wire was advanced to the LAD. EMERGE 2.0 X 12 Balloon catheter was inserted. Balloon catheter was advanced across lesion in the LAD, DISTAL. PTCA balloon inflated at 6 atms for 10 secs. PTCA balloon inflated at 6 atms for 8 secs. PTCA balloon inflated at 8 atms for 16 secs. Angiogram performed post balloon dilatation. CHEVY FRONTIER 2.0 X 12 Drug Eluting stent was inserted. Drug Eluting stent was advanced across the lesion in the LAD, DISTAL Angiogram performed pre stent deployment. Angiogram performed post stent deployment. CHEVY FRONTIER 2.0 X 30 Drug Eluting stent was inserted. Drug Eluting stent was advanced across the lesion in the LAD, distal. CHEVY FRONTIER 2.0 X 8 Drug Eluting stent was inserted. Drug Eluting stent was advanced across the lesion in the LAD, mid. NC EMERGE 2.0 X 15 Balloon catheter was inserted. Balloon catheter was inserted post stent. Angiogram performed pre balloon dilatation. CHEVY FRONTIER 2.0 X 12 Drug Eluting stent was inserted. Drug Eluting stent was advanced across the lesion in the LAD, distal. CHEVY FRONTIER 2.5 X 30 Drug Eluting stent was inserted. Drug Eluting stent was advanced across the lesion in the LAD, mid. Angiogram performed post stent deployment. NC EMERGE 2.5 X 12 Balloon catheter was inserted. Balloon catheter was inserted post stent. Angiogram performed post stent deployment. The arterial sheath was pulled and a TR Band was applied for hemostasis 13 ml of air CORONARY ANGIOGRAPHY INTERVENTION INFORMATION LESION SITE: LAD (Mid) lesion length: 18 mm Pre Stenosis: 99 % Pre intervention BRIAN flow: 3 PROCEDURE: Drug Eluting Stent with pre and post dilatation Post Stenosis: 0 % Post intervention BRIAN flow: 3 Lesion Devices: Terumo .014 180cm Runthrough Extra Floppy straight Cordis 6 Fr XB3.0 100cm Guide Catheter Medtronic 2.00 x 08 CHEVY FRONTIER EDA [employer] NC EMERGE MR 2.00x15 BALLOON Medtronic 2.50 x 30 CHEVY FRONTIER EDA [employer] NC EMERGE MR 2.50x12 BALLOON LESION SITE: LAD (Distal) lesion length: 40 mm Pre Stenosis: 80 % Pre intervention BRIAN flow: 3 PROCEDURE: Drug Eluting Stent with pre and post dilatation Post Stenosis: 0 % Lesion Devices: Terumo .014 180cm Runthrough Extra Floppy straight Cordis 6 Fr XB3.0 100cm Guide Catheter [employer] EMERGE MR 2.00x12 BALLOON Medtronic 2.00 x 12 CHEVY FRONTIER EDA Medtronic 2.00 x 30 CHEVY FRONTIER EDA [employer] NC EMERGE MR 2.00x15 BALLOON Medtronic 2.00 x 12 CHEVY FRONTIER EDA [employer] NC EMERGE MR 2.50x12 BALLOON LESION SITE: LAD (Mid) lesion length: 28 mm Pre Stenosis: 70 % PROCEDURE: Drug Eluting Stent with post dilatation 0 % Post intervention BRIAN flow: 3 COMPLICATIONS No Complications PROCEDURE MEDICATIONS Fentanyl 50 mcg IV Versed 1 mg IV Versed 1 mg IV Fentanyl 25 mcg IV Oxygen: 2 L/min via nasal cannula Heparin given IA 04/05/2025 08:18:31 Heparin 5000 unit(s) IV 04/05/2025 08:25:03 Heparin 3000 unit(s) IV 04/05/2025 09:19:10 Nitro 200 mcg IC 04/05/2025 09:03:51 Nitro 200 mcg IC 04/05/2025 09:03:51 Plavix 300 mg PO 04/05/2025 09:21:26 Verapamil 2.5mg, Ntg 200mcgs, given IA 04/05/2025 08:25:58 IV Bolus: .9 NaCl 250 ml total 04/05/2025 08:27:00 SUMMARY OF HEMODYNAMIC DATA Time AIR REST ECG 07:31:47 AO 78/49 (62) SA 08:29:42 AO 112/68 (86) 08:38:00 AIR REST 09:48:12 Signed By Marge Steinberg MD On 04/05/2025 09:49:08 Marge Steinberg MD
== END 2025-04-06 14:30 | disposition home or self-care (01) ==
LOC: CLSP 09:39 → MS2 17:33 → PCU 19:07
PROVIDERS: Admitting Provider Internal Medicine Cardiovascular Disease; PCP Family Medicine; Referring Provider Internal Medicine Cardiovascular Disease; Visit Provider Internal Medicine Cardiovascular Disease
DX: I25.10 Atherosclerotic heart disease of native coronary artery without angina pectoris (principal); E11.9 Type 2 diabetes mellitus without complications; R94.31 Abnormal electrocardiogram [ECG] [EKG]; R00.1 Bradycardia, unspecified; E78.00 Pure hypercholesterolemia, unspecified; Z79.899 Other long term (current) drug therapy; Z79.82 Long term (current) use of aspirin; Z79.02 Long term (current) use of antithrombotics/antiplatelets; Z79.84 Long term (current) use of oral hypoglycemic drugs; Z95.5 Presence of coronary angioplasty implant and graft
CPT/HCPCS: 36415; 80053; 85027; 85347; 92928; 93005; 96360; 96361; 99152; 99153; 99221; C1874; Q9967; C1725; C1769; C1887; C1894; C9600; G0378

== ENCOUNTER → 2025-04-13 | Outpatient (CLI) | payer OTHER, SELFPAY ==
[2025-04-13 10:25] LABS: Absolute Lymphocyte Count 0.67 X10^3/uL (0.83-4.51); Absolute Neutrophil Count 3.6 X10^3/uL (2.0-7.7); Basophil# 0.03 X10^3/uL; Basophil% 0.6 % (0-1); Eosinophil# 0.38 X10^3/uL; Eosinophils% 7.4 % (0-5); Hematocrit 31.7 % (40-54); Lymphocyte # 0.67 X10^3/ul (0.83-4.51); Lymphocyte % 13.1 % (19-41); Mean Corp Hgb Conc 34.7 g/dL (32-36); Mean Corpuscular Hgb 31.8 pg (27.0-32.0); Mean Corpuscular Volume 91.6 fL (80-94); Mean Platelet Vol. 9.7 fl (6.2-12.0); Monocyte# 0.45 X10^3/uL; Monocyte% 8.8 % (0-10); NRBC Flagged by Analyzer 0 % (0-5); Neutrophil # 3.57 X10^3/uL (2.7-7.7); Neutrophil % 69.9 % (47-70); Platelet Count 231 K/mm3 (150-450); RBC Distribution Width CV 13.1 % (11.6-14.6); Red Blood Count 3.46 M/mm3 (4.6-6.2); White Blood Count 5.1 K/mm3 (4.4-11.0)
[2025-04-13 11:29] LABS: Anion Gap 11 (5-15); BUN 11 mg/dL (4-19); BUN/Creat Ratio 10.3 RATIO (10-20); Calcium,Total 9.3 mg/dL (7.6-11.0); Carbon Dioxide 22.3 mmol/L (21.0-32.0); Chloride 107 mmol/L (98-108); Creatinine, Serum 1.02 mg/dL (0.70-1.20); EST Glomerular Filtration Rate 83 (>60); Glucose 96 mg/dL (70-99); Potassium 4.1 mmol/L (3.3-5.1); Sodium Level 140 mmol/L (133-145)
== END | disposition home or self-care (01) ==
LOC: LAB 08:37
PROVIDERS: PCP Family Medicine; Referring Provider Nurse Practitioner Gerontology; Visit Provider Nurse Practitioner Gerontology
DX: R53.83 Other fatigue (principal)
CPT/HCPCS: 36415; 80048; 84443; 85025

== ENCOUNTER → 2025-05-15 | Outpatient (CLI) | payer OTHER, SELFPAY ==
[2025-05-15 11:27] LABS: PSA,Total- Diagnostic < 0.02 ng/mL (0.00-4.00)
== END | disposition home or self-care (01) ==
LOC: LAB 08:53
PROVIDERS: PCP Family Medicine; Referring Provider Urology; Visit Provider Urology
DX: C61 Malignant neoplasm of prostate (principal)
CPT/HCPCS: 36415; 84153

== ENCOUNTER → 2025-05-22 | Outpatient (CLI) | payer OTHER, SELFPAY ==
--- NOTE | 2025-05-22 07:30 | US_ITS ---
EXAM: Ultrasound examination of the right axilla. CLINICAL HISTORY: Right axillary lump. COMPARISON: None TECHNIQUE: The right axilla was examined with ultrasound. No sonographic abnormality is seen. FINDINGS: No sonographic abnormality is seen. US/Axilla - Right IMPRESSION: No sonographic abnormality is seen. Reading Location: [id number]
== END | disposition home or self-care (01) ==
LOC: US 07:26
PROVIDERS: PCP Family Medicine; Referring Provider Family Medicine; Visit Provider Family Medicine
DX: R22.31 Localized swelling, mass and lump, right upper limb (principal)
CPT/HCPCS: 76882

== ENCOUNTER → 2025-07-14 | Outpatient (CLI) | payer OTHER, SELFPAY ==
[2025-07-14 09:32] LABS: Hematocrit 37.7 % (40-54); Hemoglobin 12.9 g/dL (13.0-16.5); Immature Granulocytes Count 0.010 X10^3/uL (0.0-0.0); Mean Corp Hgb Conc 34.2 g/dL (32-36); Mean Corpuscular Volume 89.8 fL (80-94); Mean Platelet Vol. 9.3 fl (6.2-12.0); NRBC Flagged by Analyzer 0 % (0-5); Platelet Count 215 K/mm3 (150-450); RBC Distribution Width CV 12.6 % (11.6-14.6); RBC Distribution Width SD 41.2 fl (35.1-43.9); Red Blood Count 4.20 M/mm3 (4.6-6.2); White Blood Count 4.6 K/mm3 (4.4-11.0)
[2025-07-14 10:15] LABS: Anion Gap 12 (5-15); BUN 11 mg/dL (4-19); BUN/Creat Ratio 11.0 RATIO (10-20); Calcium,Total 9.2 mg/dL (7.6-11.0); Carbon Dioxide 21.7 mmol/L (21.0-32.0); Chloride 106 mmol/L (98-108); Glucose 109 mg/dL (70-99); Potassium 4.4 mmol/L (3.3-5.1)
== END | disposition home or self-care (01) ==
LOC: LAB 09:02
PROVIDERS: PCP Family Medicine; Referring Provider Nurse Practitioner Gerontology; Visit Provider Nurse Practitioner Gerontology
DX: R53.83 Other fatigue (principal)
CPT/HCPCS: 36415; 80048; 84443; 85025

== ENCOUNTER → 2025-10-13 | Outpatient (CLI) | payer OTHER, SELFPAY ==
[2025-10-13 11:05] LABS: AST(SGOT) 19 U/L (<=37); Alanine Aminotransfer ALT/SGPT 26 U/L (<=46); Albumin, Serum 4.3 g/dL (3.4-4.8); Alkaline Phosphatase 105 U/L (40-129); Bilirubin, Direct 0.25 mg/dL (0.00-0.30); Cholesterol 123 mg/dL (<=200); Globulin 2.4 g/dL (2.2-4.2); Low Density Lipoprotein Calc. 55 mg/dL; Triglycerides 97 mg/dL; Very Low Density Lipoprotein 19 mg/dL (5-40); cholesterol:hdl ratio screen 2.45
== END | disposition home or self-care (01) ==
LOC: LAB 09:12
PROVIDERS: PCP Family Medicine; Referring Provider Nurse Practitioner Gerontology; Visit Provider Nurse Practitioner Gerontology
DX: Z95.5 Presence of coronary angioplasty implant and graft (principal)
CPT/HCPCS: 36415; 80061; 80076